=== PATIENT | female | born 1970 | race Asian ===

== ENCOUNTER 2020-04-19 07:51 | Outpatient (REF) | payer OTHER, SELFPAY ==
[2020-04-19 09:57] LABS: Estimated Average Glucose 166 mg/dL; Hemoglobin A1c % 7.4 %
== END 2020-04-19 07:52 | disposition home or self-care (01) ==
LOC: HO.LABR 07:51
PROVIDERS: PCP Internal Medicine; Visit Provider Internal Medicine
DX: E11.9 Type 2 diabetes mellitus without complications (principal)
CPT/HCPCS: 83036

== ENCOUNTER → 2020-04-23 14:36 | Outpatient (BNVA) | payer OTHER, SELFPAY | PROVIDERS: PCP Internal Medicine; Referring Provider Internal Medicine; Visit Provider Nurse Practitioner Gerontology | DX: E11.65 Type 2 diabetes mellitus with hyperglycemia (principal); Z79.4 Long term (current) use of insulin; I10 Essential (primary) hypertension; E78.5 Hyperlipidemia, unspecified | CPT/HCPCS: 82947 ==

== ENCOUNTER 2020-05-17 07:16 | Outpatient (REF) | payer OTHER, SELFPAY ==
[2020-05-17 08:27] LABS: Estimated Average Glucose 166 mg/dL; Hemoglobin A1c % 7.4 %
== END 2020-05-17 07:17 | disposition home or self-care (01) ==
LOC: HO.LAB 07:16
PROVIDERS: Visit Provider Internal Medicine
DX: E11.9 Type 2 diabetes mellitus without complications (principal)
CPT/HCPCS: 83036

== ENCOUNTER 2020-06-06 07:32 | Outpatient (REF) | payer OTHER, SELFPAY ==
[2020-06-06 09:25] LABS: Estimated Average Glucose 166 mg/dL; Hemoglobin A1c % 7.4 %
== END 2020-06-06 07:33 | disposition home or self-care (01) ==
LOC: HO.LABR 07:32
PROVIDERS: Visit Provider Internal Medicine
DX: E11.9 Type 2 diabetes mellitus without complications (principal)
CPT/HCPCS: 83036

== ENCOUNTER 2020-07-05 07:23 | Outpatient (REF) | payer OTHER, SELFPAY ==
[2020-07-05 09:04] LABS: Estimated Average Glucose 180 mg/dL; Hemoglobin A1c % 7.9 %
== END 2020-07-05 07:24 | disposition home or self-care (01) ==
LOC: HO.LABR 07:23
PROVIDERS: PCP Internal Medicine; Visit Provider Internal Medicine
DX: E11.9 Type 2 diabetes mellitus without complications (principal)
CPT/HCPCS: 36415; 83036

== ENCOUNTER 2020-08-09 07:42 | Outpatient (REF) | payer OTHER, SELFPAY ==
[2020-08-09 08:47] LABS: Estimated Average Glucose 163 mg/dL; Hemoglobin A1c % 7.3 %
== END 2020-08-09 07:43 | disposition home or self-care (01) ==
LOC: HO.LABR 07:42
PROVIDERS: PCP Internal Medicine; Visit Provider Internal Medicine
DX: E11.9 Type 2 diabetes mellitus without complications (principal)
CPT/HCPCS: 36415; 83036

== ENCOUNTER → 2020-08-20 11:01 | Outpatient (BNVA) | payer OTHER, SELFPAY | PROVIDERS: PCP Internal Medicine; Visit Provider Nurse Practitioner Gerontology ==

== ENCOUNTER 2020-08-30 07:00 | Outpatient (REF) | payer OTHER, SELFPAY ==
[2020-08-30 09:22] LABS: Estimated Average Glucose 154 mg/dL
== END 2020-08-30 07:01 | disposition home or self-care (01) ==
LOC: HO.LABR 07:00
PROVIDERS: Visit Provider Internal Medicine
DX: E11.9 Type 2 diabetes mellitus without complications (principal)
CPT/HCPCS: 36415; 83036

== ENCOUNTER 2020-09-27 07:22 | Outpatient (REF) | payer OTHER, SELFPAY ==
[2020-09-27 08:49] LABS: Estimated Average Glucose 148 mg/dL; Hemoglobin A1c % 6.8 %
== END 2020-09-27 07:23 | disposition home or self-care (01) ==
LOC: HO.LABR 07:22
PROVIDERS: PCP Internal Medicine; Visit Provider Internal Medicine
DX: E11.9 Type 2 diabetes mellitus without complications (principal)
CPT/HCPCS: 36415; 83036

== ENCOUNTER 2020-11-01 06:54 | Outpatient (REF) | payer OTHER, SELFPAY ==
[2020-11-01 09:49] LABS: Estimated Average Glucose 163 mg/dL; Hemoglobin A1c % 7.3 %
== END 2020-11-01 06:55 | disposition home or self-care (01) ==
LOC: HO.LABR 06:54
PROVIDERS: PCP Internal Medicine; Visit Provider Internal Medicine
DX: E11.9 Type 2 diabetes mellitus without complications (principal)
CPT/HCPCS: 36415; 83036

== ENCOUNTER 2020-12-27 07:29 | Outpatient (REF) | payer OTHER, SELFPAY ==
[2020-12-27 08:02] LABS: Estimated Average Glucose 169 mg/dL; Hemoglobin A1c % 7.5 %
== END 2020-12-27 07:30 | disposition home or self-care (01) ==
LOC: HO.LAB 07:29
PROVIDERS: PCP Internal Medicine; Visit Provider Internal Medicine
DX: E11.9 Type 2 diabetes mellitus without complications (principal)
CPT/HCPCS: 36415; 83036

== ENCOUNTER 2021-01-31 07:04 | Outpatient (REF) | payer OTHER, SELFPAY ==
[2021-01-31 07:50] LABS: Estimated Average Glucose 163 mg/dL; Hemoglobin A1c % 7.3 %
== END 2021-01-31 07:05 | disposition home or self-care (01) ==
LOC: HO.LABR 07:04
PROVIDERS: PCP Internal Medicine; Visit Provider Internal Medicine
DX: E11.9 Type 2 diabetes mellitus without complications (principal)
CPT/HCPCS: 36415; 83036

== ENCOUNTER → 2021-02-17 14:13 | Outpatient (BNVA) | payer OTHER, SELFPAY | PROVIDERS: PCP Internal Medicine; Visit Provider Nurse Practitioner Gerontology | DX: E11.65 Type 2 diabetes mellitus with hyperglycemia (principal); I10 Essential (primary) hypertension; E78.5 Hyperlipidemia, unspecified; Z68.30 Body mass index [BMI] 30.0-30.9, adult | CPT/HCPCS: 82947 ==

== ENCOUNTER 2021-03-07 07:05 | Outpatient (REF) | payer OTHER, SELFPAY ==
[2021-03-07 08:50] LABS: Estimated Average Glucose 169 mg/dL; Hemoglobin A1c % 7.5 %
== END 2021-03-07 07:06 | disposition home or self-care (01) ==
LOC: HO.LABR 07:05
PROVIDERS: PCP Internal Medicine; Visit Provider Internal Medicine
DX: E11.9 Type 2 diabetes mellitus without complications (principal)
CPT/HCPCS: 36415; 83036

== ENCOUNTER 2021-04-04 07:19 | Outpatient (REF) | payer OTHER, SELFPAY ==
[2021-04-04 08:36] LABS: Alanine Aminotransferase 31 U/L (0-31); Albumin Level 4.6 g/dL (3.5-5.0); Alkaline Phosphatase 72 U/L (39-117); Anion Gap 12 (12-20); Aspartate Amino Transferase 22 U/L (5-31); Bilirubin Total 0.7 mg/dL (0.0-1.0); Blood Urea Nitrogen 14 mg/dL (9-16); Calcium 9.5 mg/dL (8.4-10.2); Carbon Dioxide 27 mmol/L (22-29); Chloride 103 mmol/L (96-108); Cholesterol 156 mg/dL; Estimated Glomerular Filt Rate > 60; Glucose Fasting 142 mg/dL (60-99); HDL Cholesterol 48 mg/dL; LDL Cholesterol Calculated 87 mg/dl; Sodium 138 mmol/L (135-145); Total Protein 7.5 g/dL (6.5-8.0); Triglycerides 105 mg/dL
[2021-04-04 08:41] LABS: Estimated Average Glucose 166 mg/dL; Hemoglobin A1c % 7.4 %
[2021-04-04 08:42] LABS: Creatinine Urine 76.88 mg/dL; Microalbumin Urine < 5.0 mg/L
[2021-04-06 02:27] LABS: LDL Cholesterol Direct 92 mg/dL (<100)
== END 2021-04-04 07:20 | disposition home or self-care (01) ==
LOC: HO.LABR 07:19
PROVIDERS: Nurse Practitioner Gerontology; PCP Internal Medicine; Visit Provider Internal Medicine
DX: E11.9 Type 2 diabetes mellitus without complications (principal)
CPT/HCPCS: 36415; 80053; 80061; 82043; 83036; 83721

== ENCOUNTER 2021-05-09 07:32 | Outpatient (REF) | payer OTHER, SELFPAY ==
[2021-05-09 08:40] LABS: Estimated Average Glucose 163 mg/dL; Hemoglobin A1c % 7.3 %
== END 2021-05-09 07:33 | disposition home or self-care (01) ==
LOC: HO.LABR 07:32
PROVIDERS: PCP Internal Medicine; Visit Provider Internal Medicine
DX: E11.9 Type 2 diabetes mellitus without complications (principal)
CPT/HCPCS: 36415; 83036

== ENCOUNTER 2021-06-06 07:17 | Outpatient (REF) | payer OTHER, SELFPAY ==
[2021-06-06 08:16] LABS: Estimated Average Glucose 160 mg/dL; Hemoglobin A1c % 7.2 %
== END 2021-06-06 07:18 | disposition home or self-care (01) ==
LOC: HO.LABR 07:17
PROVIDERS: PCP Internal Medicine; Visit Provider Internal Medicine
DX: E11.9 Type 2 diabetes mellitus without complications (principal)
CPT/HCPCS: 36415; 83036

== ENCOUNTER → 2021-06-24 11:04 | Outpatient (BNVA) | payer OTHER, SELFPAY | PROVIDERS: PCP Internal Medicine; Visit Provider Nurse Practitioner Gerontology ==

== ENCOUNTER 2021-07-18 07:35 | Outpatient (REF) | payer OTHER, SELFPAY ==
[2021-07-18 08:26] LABS: Estimated Average Glucose 163 mg/dL; Hemoglobin A1c % 7.3 %
== END 2021-07-18 07:36 | disposition home or self-care (01) ==
LOC: HO.LABR 07:35
PROVIDERS: Visit Provider Internal Medicine
DX: E11.9 Type 2 diabetes mellitus without complications (principal)
CPT/HCPCS: 36415; 83036

== ENCOUNTER 2021-08-08 07:34 | Outpatient (REF) | payer OTHER, SELFPAY ==
[2021-08-08 08:27] LABS: Estimated Average Glucose 166 mg/dL; Hemoglobin A1c % 7.4 %
== END 2021-08-08 07:35 | disposition home or self-care (01) ==
LOC: HO.LABR 07:34
PROVIDERS: PCP Internal Medicine; Visit Provider Internal Medicine
DX: E11.9 Type 2 diabetes mellitus without complications (principal)
CPT/HCPCS: 36415; 83036

== ENCOUNTER 2021-09-17 09:44 | Outpatient (REF) | payer OTHER, SELFPAY ==
--- NOTE | ~2021-09-17 | XR_ITS ---
EXAMINATION: XR THORACOLUMBAR SPINE CLINICAL INFORMATION: Thoracic spine pain. COMPARISON: None TECHNIQUE: AP, lateral and swimmer's views of the thoracic spine are submitted. FINDINGS: Vertebral body heights and alignment are normal. The thoracic disc spaces are well-maintained. No acute fracture or spondylolisthesis is seen. There is multi-level mild lower cervical and upper and mid thoracic spondylosis. The posterior elements are intact. The paravertebral soft tissue planes are unremarkable. XR/XR thoracic spine 2V IMPRESSION: 1. No acute fracture or spondylolisthesis is seen. 2. The thoracic disc spaces are relatively well-maintained. 3. There is multi-level mild lower cervical and upper and mid thoracic spondylosis.
== END 2021-09-17 09:45 | disposition home or self-care (01) ==
LOC: HO.XRAY 09:44
PROVIDERS: PCP Internal Medicine; Visit Provider Physician Assistant
DX: M54.6 Pain in thoracic spine (principal)
CPT/HCPCS: 72070

== ENCOUNTER 2021-09-26 10:26 | Outpatient (REF) | payer OTHER, SELFPAY ==
[2021-09-26 07:53] LABS: Estimated Average Glucose 148 mg/dL; Hemoglobin A1c % 6.8 %
[2021-09-26 08:05] LABS: Alanine Aminotransferase 30 U/L (0-31); Albumin Level 4.5 g/dL (3.5-5.0); Alkaline Phosphatase 68 U/L (39-117); Anion Gap 12 (12-20); Aspartate Amino Transferase 25 U/L (5-31); Bilirubin Total 0.9 mg/dL (0.0-1.0); Blood Urea Nitrogen 12 mg/dL (9-16); Calcium 9.8 mg/dL (8.4-10.2); Carbon Dioxide 30 mmol/L (22-29); Chloride 101 mmol/L (96-108); Cholesterol 159 mg/dL; Estimated Glomerular Filt Rate > 60; Glucose Random 119 mg/dL (60-115); HDL Cholesterol 52 mg/dL; LDL Cholesterol Calculated 88 mg/dl; Potassium 3.9 mmol/L (3.3-5.1); Sodium 139 mmol/L (135-145); Total Protein 7.6 g/dL (6.5-8.0); Triglycerides 97 mg/dL
[2021-09-26 09:54] LABS: Creatinine Urine 96.65 mg/dL; Microalbum/Creatinine Ratio Ur 5.1 ug/mg cr
== END 2021-09-26 10:27 | disposition home or self-care (01) ==
LOC: HO.LABR 10:26
PROVIDERS: PCP Internal Medicine; Visit Provider Internal Medicine
DX: E11.9 Type 2 diabetes mellitus without complications (principal)
CPT/HCPCS: 36415; 80053; 80061; 82043; 83036

== ENCOUNTER → 2021-09-28 14:47 | Outpatient (BNVA) | payer OTHER, SELFPAY | PROVIDERS: PCP Internal Medicine; Visit Provider Nurse Practitioner Gerontology | DX: E11.9 Type 2 diabetes mellitus without complications (principal); I10 Essential (primary) hypertension; E78.5 Hyperlipidemia, unspecified; Z79.4 Long term (current) use of insulin | CPT/HCPCS: 82947 ==

== ENCOUNTER 2021-11-28 07:07 | Outpatient (REF) | payer OTHER, SELFPAY ==
[2021-11-28 08:06] LABS: Estimated Average Glucose 163 mg/dL; Hemoglobin A1c % 7.3 %
[2021-11-28 08:34] LABS: Creatinine Urine 94.02 mg/dL; Microalbum/Creatinine Ratio Ur 23.3 ug/mg cr
[2021-11-28 08:38] LABS: Alanine Aminotransferase 39 U/L (0-31); Albumin Level 4.5 g/dL (3.5-5.0); Alkaline Phosphatase 68 U/L (39-117); Anion Gap 14 (12-20); Aspartate Amino Transferase 28 U/L (5-31); Bilirubin Total 0.9 mg/dL (0.0-1.0); Blood Urea Nitrogen 14 mg/dL (9-16); Carbon Dioxide 26 mmol/L (22-29); Chloride 102 mmol/L (96-108); Cholesterol 166 mg/dL; Estimated Glomerular Filt Rate > 60; Glucose Random 122 mg/dL (60-115); HDL Cholesterol 56 mg/dL; LDL Cholesterol Calculated 94 mg/dl; Potassium 4.2 mmol/L (3.3-5.1); Sodium 138 mmol/L (135-145); Total Protein 7.6 g/dL (6.5-8.0); Triglycerides 82 mg/dL
== END 2021-11-28 07:08 | disposition home or self-care (01) ==
LOC: HO.LAB 07:07
PROVIDERS: PCP Internal Medicine; Visit Provider Internal Medicine
DX: E11.9 Type 2 diabetes mellitus without complications (principal)
CPT/HCPCS: 36415; 80053; 80061; 82043; 83036

== ENCOUNTER 2021-12-11 15:12 | Outpatient (REF) | payer OTHER, SELFPAY ==
--- NOTE | ~2021-12-11 | MM_ITS ---
EXAMINATION: MM SCREENING DIGITAL BREAST TOMOSYNTHESIS, BILATERAL CLINICAL INFORMATION: Screening. Asymptomatic. The lifetime risk of breast cancer based on the Tyrer-Cuzick Model is 8%. COMPARISON: Mammography: 02/14/2019, 01/03/2018, 12/23/2016 TECHNIQUE: Digital breast tomosynthesis is performed in both the craniocaudal and mediolateral oblique views along with computer-aided detection (CAD). Synthesized 2D images are generated from the tomosynthesis. FINDINGS: There are scattered areas of fibroglandular density (ACR BI-RADS breast composition Category b). There are no significant masses, abnormal calcifications, or other abnormalities. Parenchymal pattern is similar to prior studies. No developing density or architectural abnormality. No significant changes. MM/MM tomosynthesis screening BI IMPRESSION: No mammographic evidence of malignancy. ASSESSMENT: BI-RADS 1: Negative RECOMMENDATION: Routine annual mammography screening. This patient's information was entered into a reminder system with a target due date for their next mammogram.
== END 2021-12-11 15:13 | disposition home or self-care (01) ==
LOC: HO.MAMMO 15:12
PROVIDERS: Visit Provider Internal Medicine
DX: Z12.31 Encounter for screening mammogram for malignant neoplasm of breast (principal)
CPT/HCPCS: 77063; 77067

== ENCOUNTER 2022-01-09 07:08 | Outpatient (REF) | payer OTHER, SELFPAY ==
[2022-01-09 08:57] LABS: Alanine Aminotransferase 39 U/L (0-31); Albumin Level 4.6 g/dL (3.5-5.0); Alkaline Phosphatase 72 U/L (39-117); Anion Gap 14 (12-20); Aspartate Amino Transferase 30 U/L (5-31); Bilirubin Total 0.8 mg/dL (0.0-1.0); Blood Urea Nitrogen 13 mg/dL (9-16); Calcium 9.5 mg/dL (8.4-10.2); Carbon Dioxide 26 mmol/L (22-29); Chloride 103 mmol/L (96-108); Cholesterol 160 mg/dL; Estimated Glomerular Filt Rate > 60; Glucose Random 132 mg/dL (60-115); HDL Cholesterol 54 mg/dL; LDL Cholesterol Calculated 88 mg/dl; Potassium 4.2 mmol/L (3.3-5.1); Sodium 139 mmol/L (135-145); Total Protein 7.5 g/dL (6.5-8.0); Triglycerides 93 mg/dL
[2022-01-09 08:59] LABS: Estimated Average Glucose 163 mg/dL; Hemoglobin A1c % 7.3 %
[2022-01-09 09:17] LABS: Creatinine Urine 87.91 mg/dL; Microalbum/Creatinine Ratio Ur 6.8 ug/mg cr
== END 2022-01-09 07:09 | disposition home or self-care (01) ==
LOC: HO.LABR 07:08
PROVIDERS: PCP Internal Medicine; Visit Provider Internal Medicine
DX: E11.9 Type 2 diabetes mellitus without complications (principal)
CPT/HCPCS: 36415; 80053; 80061; 82043; 83036

== ENCOUNTER 2022-02-27 07:04 | Outpatient (REF) | payer OTHER, SELFPAY ==
[2022-02-27 08:02] LABS: Estimated Average Glucose 160 mg/dL; Hemoglobin A1c % 7.2 %
[2022-02-27 08:45] LABS: Alanine Aminotransferase 34 U/L (0-31); Albumin Level 4.5 g/dL (3.5-5.0); Alkaline Phosphatase 71 U/L (39-117); Anion Gap 17 (12-20); Aspartate Amino Transferase 26 U/L (5-31); Bilirubin Total 0.8 mg/dL (0.0-1.0); Blood Urea Nitrogen 12 mg/dL (9-16); Calcium 9.4 mg/dL (8.4-10.2); Carbon Dioxide 25 mmol/L (22-29); Chloride 103 mmol/L (96-108); Cholesterol 159 mg/dL; Estimated Glomerular Filt Rate > 60; Glucose Fasting 124 mg/dL (60-99); HDL Cholesterol 56 mg/dL; LDL Cholesterol Calculated 81 mg/dl; Potassium 3.7 mmol/L (3.3-5.1); Sodium 141 mmol/L (135-145); Total Protein 7.6 g/dL (6.5-8.0); Triglycerides 113 mg/dL
[2022-02-27 11:10] LABS: Creatinine Urine 107.94 mg/dL; Microalbumin Urine < 5.0 mg/L
== END 2022-02-27 07:05 | disposition home or self-care (01) ==
LOC: HO.LABR 07:04
PROVIDERS: PCP Internal Medicine; Visit Provider Internal Medicine
DX: E11.9 Type 2 diabetes mellitus without complications (principal)
CPT/HCPCS: 36415; 80053; 80061; 82043; 83036

== ENCOUNTER 2022-04-17 07:12 | Outpatient (REF) | payer OTHER, SELFPAY ==
[2022-04-17 08:40] LABS: Estimated Average Glucose 166 mg/dL; Hemoglobin A1c % 7.4 %
[2022-04-17 08:57] LABS: Alanine Aminotransferase 32 U/L (0-31); Albumin Level 4.6 g/dL (3.5-5.0); Alkaline Phosphatase 71 U/L (39-117); Anion Gap 16 (12-20); Aspartate Amino Transferase 23 U/L (5-31); Bilirubin Total 0.8 mg/dL (0.0-1.0); Blood Urea Nitrogen 15 mg/dL (9-16); Calcium 9.4 mg/dL (8.4-10.2); Carbon Dioxide 27 mmol/L (22-29); Chloride 100 mmol/L (96-108); Cholesterol 157 mg/dL; Estimated Glomerular Filt Rate > 60; Glucose Fasting 127 mg/dL (60-99); HDL Cholesterol 58 mg/dL; LDL Cholesterol Calculated 83 mg/dl; Potassium 3.9 mmol/L (3.3-5.1); Sodium 139 mmol/L (135-145); Total Protein 7.6 g/dL (6.5-8.0); Triglycerides 84 mg/dL
== END 2022-04-17 07:13 | disposition home or self-care (01) ==
LOC: HO.LABR 07:12
PROVIDERS: PCP Internal Medicine; Visit Provider Internal Medicine
DX: E11.9 Type 2 diabetes mellitus without complications (principal)
CPT/HCPCS: 36415; 80053; 80061; 83036

== ENCOUNTER 2022-05-29 07:24 | Outpatient (REF) | payer OTHER, SELFPAY ==
[2022-05-29 08:52] LABS: Estimated Average Glucose 151 mg/dL; Hemoglobin A1c % 6.9 %
[2022-05-29 09:04] LABS: Alanine Aminotransferase 33 U/L (0-31); Albumin Level 4.4 g/dL (3.5-5.0); Alkaline Phosphatase 77 U/L (39-117); Anion Gap 13 (12-20); Aspartate Amino Transferase 25 U/L (5-31); Bilirubin Total 0.9 mg/dL (0.0-1.0); Blood Urea Nitrogen 11 mg/dL (9-16); Calcium 9.3 mg/dL (8.4-10.2); Carbon Dioxide 26 mmol/L (22-29); Chloride 100 mmol/L (96-108); Cholesterol 154 mg/dL; Estimated Glomerular Filt Rate > 60; Glucose Random 116 mg/dL (60-115); HDL Cholesterol 52 mg/dL; LDL Cholesterol Calculated 86 mg/dl; Potassium 3.9 mmol/L (3.3-5.1); Sodium 135 mmol/L (135-145); Total Protein 7.3 g/dL (6.5-8.0); Triglycerides 81 mg/dL
[2022-05-29 10:04] LABS: Creatinine Urine 85.54 mg/dL; Microalbumin Urine < 5.0 mg/L
== END 2022-05-29 07:25 | disposition home or self-care (01) ==
LOC: HO.LABR 07:24
PROVIDERS: PCP Internal Medicine; Visit Provider Internal Medicine
DX: E11.9 Type 2 diabetes mellitus without complications (principal)
CPT/HCPCS: 36415; 80053; 80061; 82043; 83036

== ENCOUNTER 2022-06-02 14:00 | Outpatient (RCR) | payer OTHER, SELFPAY | END 2022-07-05 16:04 | disposition home or self-care (01) | LOC: HO.PTCHIC 14:00 | PROVIDERS: PCP Internal Medicine; Visit Provider Internal Medicine | DX: M51.36 Other intervertebral disc degeneration, lumbar region (principal) | CPT/HCPCS: 97110; 97140; 97161 ==

== ENCOUNTER 2022-07-17 07:18 | Outpatient (REF) | payer OTHER, SELFPAY ==
[2022-07-17 07:56] LABS: Estimated Average Glucose 160 mg/dL; Hemoglobin A1c % 7.2 %
[2022-07-17 08:56] LABS: Alanine Aminotransferase 36 U/L (0-31); Albumin Level 4.6 g/dL (3.5-5.0); Alkaline Phosphatase 71 U/L (39-117); Anion Gap 16 (12-20); Aspartate Amino Transferase 27 U/L (5-31); Blood Urea Nitrogen 12 mg/dL (9-16); Calcium 9.6 mg/dL (8.4-10.2); Carbon Dioxide 28 mmol/L (22-29); Chloride 98 mmol/L (96-108); Cholesterol 149 mg/dL; Estimated Glomerular Filt Rate > 60; Glucose Random 86 mg/dL (60-115); HDL Cholesterol 50 mg/dL; LDL Cholesterol Calculated 84 mg/dl; Potassium 3.6 mmol/L (3.3-5.1); Sodium 138 mmol/L (135-145); Total Protein 7.5 g/dL (6.5-8.0); Triglycerides 75 mg/dL
[2022-07-17 09:22] LABS: Appearance Urine Clear; Color Urine Yellow; Glucose Urine UA >=1000 mg/dL (Negative); Leukocyte Esterase Urine Negative (Negative); Nitrite Urine Negative (Negative); Specific Gravity - Urine 1.015 (1.005-1.025); UMIC TRIGGER UA YES; Urine Blood Negative (Negative); Urine Ketones Negative (Negative); Urine Protein Negative (Neg-Trace)
[2022-07-17 09:27] LABS: Bacteria Urine None Seen (None Seen); Hyaline Casts Urine 0-2 /LPF (0-2); Squamous Epithelial Cell Urine 0-2 /HPF (0-2); WBC Urine 0-5 /HPF (0-5)
== END 2022-07-17 07:19 | disposition home or self-care (01) ==
LOC: HO.LABR 07:18
PROVIDERS: PCP Internal Medicine; Visit Provider Internal Medicine
DX: E11.9 Type 2 diabetes mellitus without complications (principal)
CPT/HCPCS: 36415; 80053; 80061; 81001; 83036

== ENCOUNTER 2022-09-11 07:13 | Outpatient (REF) | payer OTHER, SELFPAY ==
[2022-09-11 08:59] LABS: Creatinine Urine 93.45 mg/dL; Microalbum/Creatinine Ratio Ur 7.4 ug/mg cr
[2022-09-11 09:12] LABS: Estimated Average Glucose 154 mg/dL
[2022-09-11 09:54] LABS: Alanine Aminotransferase 42 U/L (0-31); Albumin Level 4.5 g/dL (3.5-5.0); Alkaline Phosphatase 74 U/L (39-117); Anion Gap 18 (12-20); Aspartate Amino Transferase 33 U/L (5-31); Blood Urea Nitrogen 10 mg/dL (9-16); Calcium 9.4 mg/dL (8.4-10.2); Carbon Dioxide 22 mmol/L (22-29); Chloride 102 mmol/L (96-108); Cholesterol 182 mg/dL; Estimated Glomerular Filt Rate > 60; Glucose Random 114 mg/dL (60-115); HDL Cholesterol 56 mg/dL; LDL Cholesterol Calculated 103 mg/dl; Potassium 4.5 mmol/L (3.3-5.1); Sodium 137 mmol/L (135-145); Total Protein 7.6 g/dL (6.5-8.0); Triglycerides 115 mg/dL
== END 2022-09-11 07:14 | disposition home or self-care (01) ==
LOC: HO.LABR 07:13
PROVIDERS: PCP Internal Medicine; Visit Provider Internal Medicine
DX: E11.9 Type 2 diabetes mellitus without complications (principal)
CPT/HCPCS: 36415; 80053; 80061; 82043; 83036

== ENCOUNTER 2022-10-16 07:05 | Outpatient (REF) | payer OTHER, SELFPAY ==
[2022-10-16 07:49] LABS: Estimated Average Glucose 157 mg/dL; Hemoglobin A1c % 7.1 %
== END 2022-10-16 07:06 | disposition home or self-care (01) ==
LOC: HO.LABR 07:05
PROVIDERS: PCP Internal Medicine; Visit Provider Internal Medicine
DX: E11.9 Type 2 diabetes mellitus without complications (principal)
CPT/HCPCS: 36415; 83036

== ENCOUNTER 2022-12-24 11:50 | Outpatient (REF) | payer OTHER, SELFPAY ==
--- NOTE | ~2022-12-24 | MM_ITS ---
EXAMINATION: MM SCREENING DIGITAL BREAST TOMOSYNTHESIS, BILATERAL CLINICAL INFORMATION: Screening. Asymptomatic. The lifetime risk of breast cancer based on the Tyrer-Cuzick Model is 7.8%. COMPARISON: Mammography: This study is compared to prior mammograms dating back to 2018. TECHNIQUE: Digital breast tomosynthesis is performed in both the craniocaudal and mediolateral oblique views along with computer-aided detection (CAD). Synthesized 2D images are generated from the tomosynthesis. FINDINGS: The breasts are almost entirely fatty (ACR BI-RADS breast composition Category a). There are no significant masses, abnormal calcifications, or other abnormalities. MM/MM tomosynthesis screening BI IMPRESSION: No mammographic evidence of malignancy. ASSESSMENT: BI-RADS BI-RADS 1 - Negative RECOMMENDATION: Routine annual mammography screening. 1 year F/U This patient's information was entered into a reminder system with a target due date for their next mammogram.
== END 2022-12-24 11:51 | disposition home or self-care (01) ==
LOC: HO.MAMMO 11:50
PROVIDERS: PCP Internal Medicine; Visit Provider Internal Medicine
DX: Z12.31 Encounter for screening mammogram for malignant neoplasm of breast (principal)
CPT/HCPCS: 77063; 77067

== ENCOUNTER → 2022-12-24 12:15 | Outpatient (BNV) | payer OTHER, SELFPAY | PROVIDERS: PCP Internal Medicine; Visit Provider Radiology Diagnostic Radiology | DX: Z12.31 Encounter for screening mammogram for malignant neoplasm of breast (principal) | CPT/HCPCS: 77063; 77067 ==

== ENCOUNTER 2023-01-15 07:04 | Outpatient (REF) | payer OTHER, SELFPAY ==
[2023-01-15 08:02] LABS: Estimated Average Glucose 151 mg/dL; Hemoglobin A1c % 6.9 %
== END 2023-01-15 07:05 | disposition home or self-care (01) ==
LOC: HO.LABR 07:04
PROVIDERS: PCP Internal Medicine; Visit Provider Internal Medicine
DX: E11.9 Type 2 diabetes mellitus without complications (principal)
CPT/HCPCS: 36415; 83036

== ENCOUNTER 2023-02-26 07:13 | Outpatient (REF) | payer OTHER, SELFPAY ==
[2023-02-26 08:05] LABS: Estimated Average Glucose 151 mg/dL; Hemoglobin A1c % 6.9 % (<6.0)
== END 2023-02-26 07:14 | disposition home or self-care (01) ==
LOC: HO.LABR 07:13
PROVIDERS: PCP Internal Medicine; Visit Provider Internal Medicine
DX: E11.9 Type 2 diabetes mellitus without complications (principal)
CPT/HCPCS: 36415; 83036

== ENCOUNTER 2023-05-07 07:17 | Outpatient (REF) | payer OTHER, SELFPAY ==
[2023-05-07 08:00] LABS: Estimated Average Glucose 169 mg/dL; Hemoglobin A1c % 7.5 % (<6.0)
[2023-05-07 09:48] LABS: Alanine Aminotransferase 33 U/L (0-31); Albumin Level 4.4 g/dL (3.5-5.0); Alkaline Phosphatase 65 U/L (39-117); Anion Gap 15 (12-20); Aspartate Amino Transferase 27 U/L (5-31); Bilirubin Total 0.6 mg/dL (0.0-1.0); Blood Urea Nitrogen 10 mg/dL (9-16); Calcium 9.2 mg/dL (8.4-10.2); Carbon Dioxide 28 mmol/L (22-29); Chloride 100 mmol/L (96-108); Cholesterol 157 mg/dL (<200); Estimated Glomerular Filt Rate > 60; Glucose Random 134 mg/dL (60-115); HDL Cholesterol 54 mg/dL (>40); LDL Cholesterol Calculated 91 mg/dL (<100); Potassium 3.4 mmol/L (3.3-5.1); Sodium 140 mmol/L (135-145); Total Protein 7.5 g/dL (6.5-8.0); Triglycerides 63 mg/dL (<150)
== END 2023-05-07 07:18 | disposition home or self-care (01) ==
LOC: HO.LAB 07:17
PROVIDERS: PCP Internal Medicine; Visit Provider Internal Medicine
DX: E11.9 Type 2 diabetes mellitus without complications (principal)
CPT/HCPCS: 36415; 80053; 80061; 83036

== ENCOUNTER 2023-06-04 07:10 | Outpatient (REF) | payer OTHER, SELFPAY ==
[2023-06-04 08:07] LABS: Estimated Average Glucose 180 mg/dL; Hemoglobin A1c % 7.9 % (<6.0)
== END 2023-06-04 07:11 | disposition home or self-care (01) ==
LOC: HO.LABR 07:10
PROVIDERS: PCP Internal Medicine; Visit Provider Internal Medicine
DX: E11.9 Type 2 diabetes mellitus without complications (principal)
CPT/HCPCS: 36415; 83036

== ENCOUNTER 2023-07-30 07:23 | Outpatient (REF) | payer OTHER, SELFPAY ==
[2023-07-30 08:09] LABS: Estimated Average Glucose 166 mg/dL; Hemoglobin A1c % 7.4 % (<6.0)
[2023-07-30 08:23] LABS: Creatinine Urine 91.84 mg/dL; Microalbum/Creatinine Ratio Ur 5.4 ug/mg cr (<30)
[2023-07-30 09:28] LABS: Alanine Aminotransferase 34 U/L (0-31); Albumin Level 4.3 g/dL (3.5-5.0); Alkaline Phosphatase 62 U/L (39-117); Anion Gap 13 (12-20); Aspartate Amino Transferase 24 U/L (5-31); Bilirubin Total 0.8 mg/dL (0.0-1.0); Blood Urea Nitrogen 12 mg/dL (9-16); Calcium 9.2 mg/dL (8.4-10.2); Carbon Dioxide 25 mmol/L (22-29); Chloride 104 mmol/L (96-108); Cholesterol 162 mg/dL (<200); Estimated Glomerular Filt Rate > 60; Glucose Random 104 mg/dL (60-115); HDL Cholesterol 66 mg/dL (>40); LDL Cholesterol Calculated 83 mg/dL (<100); Potassium 3.7 mmol/L (3.3-5.1); Sodium 138 mmol/L (135-145); Total Protein 7.4 g/dL (6.5-8.0); Triglycerides 69 mg/dL (<150)
== END 2023-07-30 07:24 | disposition home or self-care (01) ==
LOC: HO.LABR 07:23
PROVIDERS: PCP Internal Medicine; Visit Provider Internal Medicine
DX: E11.9 Type 2 diabetes mellitus without complications (principal)
CPT/HCPCS: 36415; 80053; 80061; 82043; 82570; 83036

== ENCOUNTER 2023-09-24 07:04 | Outpatient (REF) | payer OTHER, SELFPAY ==
[2023-09-24 07:59] LABS: Alanine Aminotransferase 34 U/L (0-31); Albumin Level 4.5 g/dL (3.5-5.0); Alkaline Phosphatase 71 U/L (39-117); Anion Gap 13 (12-20); Aspartate Amino Transferase 24 U/L (5-31); Bilirubin Total 0.7 mg/dL (0.0-1.0); Blood Urea Nitrogen 13 mg/dL (9-16); Calcium 9.7 mg/dL (8.4-10.2); Carbon Dioxide 28 mmol/L (22-29); Chloride 100 mmol/L (96-108); Cholesterol 162 mg/dL (<200); Estimated Glomerular Filt Rate > 60; Glucose Random 108 mg/dL (60-115); HDL Cholesterol 67 mg/dL (>40); LDL Cholesterol Calculated 84 mg/dL (<100); Potassium 3.5 mmol/L (3.3-5.1); Sodium 137 mmol/L (135-145); Total Protein 7.6 g/dL (6.5-8.0); Triglycerides 57 mg/dL (<150)
[2023-09-24 08:21] LABS: Estimated Average Glucose 174 mg/dL; Hemoglobin A1c % 7.7 % (<6.0)
[2023-09-24 10:21] LABS: Creatinine Urine 57.42 mg/dL; Microalbum/Creatinine Ratio Ur 57.4 ug/mg cr (<30)
== END 2023-09-24 07:05 | disposition home or self-care (01) ==
LOC: HO.LABR 07:04
PROVIDERS: PCP Internal Medicine; Visit Provider Internal Medicine
DX: E11.9 Type 2 diabetes mellitus without complications (principal)
CPT/HCPCS: 36415; 80053; 80061; 82043; 82570; 83036

== ENCOUNTER 2023-10-07 07:43 | Outpatient (REF) | payer OTHER, SELFPAY ==
--- NOTE | ~2023-10-07 | US_ITS ---
EXAMINATION: US ABDOMEN COMPLETE CLINICAL INFORMATION: Epigastric pain. COMPARISON: CT abdomen and pelvis 06/24/2016. TECHNIQUE: Real-time imaging of the abdominal viscera. FINDINGS: PANCREAS: Normal. ABDOMINAL AORTA: There are atherosclerotic calcifications. The proximal, mid and distal segments are nonaneurysmal. INFERIOR VENA CAVA: Visualized portions are normal. LIVER: The liver is normal in size. The liver contour is normal. There is diffuse increased liver parenchymal echogenicity. No focal hepatic lesion. There is no intrahepatic biliary duct dilatation seen. GALLBLADDER: Normal. The gallbladder is physiologically distended without evidence of stones, sludge, polyps, wall thickening or pericholecystic fluid. COMMON BILE DUCT: Normal in caliber measuring 0.5 cm in diameter. RIGHT KIDNEY: There is pelviectasis, without corine hydronephrosis. No renal calculi or focal parenchymal lesions. The kidney measures 11.4 cm in maximum dimension. LEFT KIDNEY: Normal. No hydronephrosis. No renal calculi or focal parenchymal lesions. The kidney measures 12.5 cm in maximum dimension. SPLEEN: Normal. The spleen measures 9.9 cm in maximum dimension. FREE FLUID: None. US/US abdomen complete IMPRESSION: 1. There is generalized increase in hepatic echotexture, consistent with fatty infiltration or hepatocellular disease. Please correlate clinically. No focal hepatic mass or intrahepatic biliary dilatation is seen. 2. Otherwise, unremarkable examination.
== END 2023-10-07 07:44 | disposition home or self-care (01) ==
LOC: HO.US 07:43
PROVIDERS: PCP Internal Medicine; Visit Provider Internal Medicine
DX: R10.13 Epigastric pain (principal)
CPT/HCPCS: 76700

== ENCOUNTER 2023-11-12 07:24 | Outpatient (REF) | payer OTHER, SELFPAY ==
[2023-11-12 08:03] LABS: Estimated Average Glucose 171 mg/dL; Hemoglobin A1c % 7.6 % (<6.0)
[2023-11-12 08:53] LABS: Alanine Aminotransferase 31 U/L (0-31); Albumin Level 4.5 g/dL (3.5-5.0); Alkaline Phosphatase 59 U/L (39-117); Anion Gap 15 (12-20); Aspartate Amino Transferase 26 U/L (5-31); Bilirubin Total 0.7 mg/dL (0.0-1.0); Blood Urea Nitrogen 12 mg/dL (9-16); Calcium 9.3 mg/dL (8.4-10.2); Carbon Dioxide 27 mmol/L (22-29); Chloride 100 mmol/L (96-108); Cholesterol 161 mg/dL (<200); Estimated Glomerular Filt Rate > 60; Glucose Random 121 mg/dL (60-115); HDL Cholesterol 59 mg/dL (>40); LDL Cholesterol Calculated 84 mg/dL (<100); Potassium 3.5 mmol/L (3.3-5.1); Sodium 138 mmol/L (135-145); Total Protein 7.5 g/dL (6.5-8.0); Triglycerides 92 mg/dL (<150)
[2023-11-12 10:23] LABS: Creatinine Urine 107.15 mg/dL; Microalbumin Urine < 5.0 mg/L
== END 2023-11-12 07:25 | disposition home or self-care (01) ==
LOC: HO.LABR 07:24
PROVIDERS: PCP Internal Medicine; Visit Provider Internal Medicine
DX: E11.9 Type 2 diabetes mellitus without complications (principal)
CPT/HCPCS: 36415; 80053; 80061; 82043; 82570; 83036

== ENCOUNTER 2023-12-27 11:29 | Outpatient (REF) | payer OTHER, SELFPAY | END 2023-12-27 11:30 | disposition home or self-care (01) | LOC: HO.MAMMO 11:29 | PROVIDERS: PCP Internal Medicine; Visit Provider Internal Medicine | DX: Z12.31 Encounter for screening mammogram for malignant neoplasm of breast (principal) | CPT/HCPCS: 77063; 77067 ==

== ENCOUNTER → 2023-12-27 12:00 | Outpatient (BNV) | payer OTHER, SELFPAY | PROVIDERS: PCP Internal Medicine; Visit Provider Radiology Diagnostic Radiology | DX: Z12.31 Encounter for screening mammogram for malignant neoplasm of breast (principal) | CPT/HCPCS: 77063; 77067 ==

== ENCOUNTER 2024-01-07 07:08 | Outpatient (REF) | payer OTHER, SELFPAY ==
[2024-01-07 09:33] LABS: Estimated Average Glucose 180 mg/dL; Hemoglobin A1c % 7.9 % (<6.0)
[2024-01-07 10:10] LABS: Creatinine Urine 74.89 mg/dL; Microalbum/Creatinine Ratio Ur 13.3 ug/mg cr (<30)
[2024-01-07 10:27] LABS: Alanine Aminotransferase 59 U/L (0-31); Albumin Level 4.4 g/dL (3.5-5.0); Alkaline Phosphatase 60 U/L (39-117); Anion Gap 15 (12-20); Aspartate Amino Transferase 42 U/L (5-31); Blood Urea Nitrogen 10 mg/dL (9-16); Calcium 9.2 mg/dL (8.4-10.2); Carbon Dioxide 23 mmol/L (22-29); Chloride 102 mmol/L (96-108); Cholesterol 170 mg/dL (<200); Estimated Glomerular Filt Rate > 60; Glucose Random 104 mg/dL (60-115); HDL Cholesterol 56 mg/dL (>40); LDL Cholesterol Calculated 90 mg/dL (<100); Potassium 3.1 mmol/L (3.3-5.1); Sodium 137 mmol/L (135-145); Total Protein 7.4 g/dL (6.5-8.0); Triglycerides 123 mg/dL (<150)
== END 2024-01-07 07:09 | disposition home or self-care (01) ==
LOC: HO.LABR 07:08
PROVIDERS: PCP Internal Medicine; Visit Provider Internal Medicine
DX: E11.9 Type 2 diabetes mellitus without complications (principal)
CPT/HCPCS: 36415; 80053; 80061; 82043; 82570; 83036

== ENCOUNTER → 2024-03-06 07:48 | Outpatient (REF) | payer OTHER, SELFPAY ==
--- NOTE | ~2024-03-06 | NM_ITS ---
EXAMINATION: SC RADIONUCLIDE SOLID FOOD GASTRIC EMPTYING 4-HOUR STUDY CLINICAL INFORMATION: History of type 2 diabetes. Gastroparesis. COMPARISON: None TECHNIQUE: A standard meal consisting of 4 oz of Egg Beaters brand tagged with 1000 microcuries Tc-99m Sulfur Colloid, 8 oz water and 1 slice of toast with jelly was administered orally to the patient. Images were obtained using a dual head gamma camera in the anterior and posterior projections over of the stomach immediately post ingestion and at hourly intervals up to 4 hours post ingestion. The anterior and posterior counts at each time interval were averaged using the geometric mean and expressed as percentage of the immediate post ingestion counts. FINDINGS: There is good visualization of activity in the stomach immediately post ingestion. As the study progresses, there is good clearance of activity from the stomach and visualization of progressively increasing small bowel activity. By the end of the study, however, there is significantly dense and noted in the stomach. Retention in the stomach at each time interval was: 1 hour 92% (normal 37%-90%) 2 hours 75% (normal 30%-60%) 3 hours 62% 4 hours 44% (normal 0%-10%) SC/SC gastric emptying study IMPRESSION: Abnormally delayed (grade 3) 4-hour solid food gastric emptying study. For solid meal, rapid gastric emptying is less than 30% at 60 minutes. Delayed gastric emptying criteria is more than 60% remaining at 120 minutes or more than 10% at 240 minutes. The 4-hour value is the best discriminator of a normal or abnormal result). Gastric emptying study grading per JNMT Consensus Recommendations in 2008 (https://tech.snmjournals.org/content/36/1/44) Grade 1 (mild retention): 11-20% at 4h Grade 2 (moderate retention): 21-35% at 4h Grade 3 (severe retention): 36-50% at 4h Grade 4 (very severe retention): >50% retention at 4h Electronically signed by: Joanna Hi MD 03/07/2024 02:09 PM EDT
== END ==
LOC: HO.NUCMED 07:48
PROVIDERS: PCP Internal Medicine; Visit Provider Internal Medicine
DX: E11.43 Type 2 diabetes mellitus with diabetic autonomic (poly)neuropathy (principal)
CPT/HCPCS: 78264; A9541

== ENCOUNTER 2024-04-14 07:15 | Outpatient (REF) | payer OTHER, SELFPAY ==
[2024-04-14 08:08] LABS: Estimated Average Glucose 186 mg/dL; Hemoglobin A1C 256.8116 umol/L; Hemoglobin A1c % 8.1 % (<6.0); Total Hemoglobin (HGBA1C) 3935.3883 umol/L
[2024-04-14 08:40] LABS: Alanine Aminotransferase 51 U/L (0-31); Albumin Level 4.6 g/dL (3.5-5.0); Alkaline Phosphatase 73 U/L (39-117); Anion Gap 15 (12-20); Aspartate Amino Transferase 32 U/L (5-31); Bilirubin Total 0.9 mg/dL (0.0-1.0); Blood Urea Nitrogen 12 mg/dL (9-16); Calcium 9.5 mg/dL (8.4-10.2); Carbon Dioxide 27 mmol/L (22-29); Chloride 99 mmol/L (96-108); Cholesterol 170 mg/dL (<200); Estimated Glomerular Filt Rate > 60; Glucose Random 135 mg/dL (60-115); HDL Cholesterol 54 mg/dL (>40); LDL Cholesterol Calculated 96 mg/dL (<100); Potassium 3.7 mmol/L (3.3-5.1); Sodium 137 mmol/L (135-145); Total Protein 7.7 g/dL (6.5-8.0); Triglycerides 103 mg/dL (<150)
[2024-04-14 09:27] LABS: Creatinine Urine 87.56 mg/dL; Microalbum/Creatinine Ratio Ur 9.1 ug/mg cr (<30)
== END 2024-04-14 07:16 | disposition home or self-care (01) ==
LOC: HO.LABR 07:15
PROVIDERS: PCP Internal Medicine; Visit Provider Internal Medicine
DX: E11.9 Type 2 diabetes mellitus without complications (principal)
CPT/HCPCS: 36415; 80053; 80061; 82043; 82570; 83036

== ENCOUNTER 2024-06-09 07:26 | Outpatient (REF) | payer OTHER, SELFPAY ==
--- OUTSIDE RECORDS SUMMARY | 2024-06-09 07:28 | XMS_ITS | Continuity of Care Document ---
Author Organization [facility], [facility] ADDRESS Address [address] [place] [address] Assessment Encounter Date Assessment Date Assessment LastModified by Organization Details LastModified Time 05/15/2024 05/15/2024 [id number] [place] [address] (SUPER[employer]) MDM MODERATE MUST MEET 2 OUT OF 3 ELEMENTS: PROBLEMS, DATA OR RISK ELEMENT 1: PROBLEMS ADDRESSED 1 OR MORE CHRONIC ILLNESS WITH EXACERBATION OR 2 OR MORE STABLE CHRONIC ILLNESSES OR 1 UNDIAGNOSED NEW PROBLEM OR 1 ACUTE ILLNESS W/SYMPTOMS OR 1 ACUTE COMPLICATED INJURY ELEMENT 2: DATA MUST MEET 1 OF 3 CATEGORIES CATEGORY 1: REVIEW OF PRIOR EXTERNAL NOTES, REVIEW OF RESULTS, ORDERING OF EACH TEST, ASSESSMENT REQUIRING INDEPENDENT HISTORIAN OR CATEGORY 2: INDEPENDENT INTERPRETATION OF TESTS BY ANOTHER PHYSICIAN OR SPECIALIST OR CATEGORY 3: DISCUSSION OF MGT OR TEST INTERPRETATION W/EXTERNAL PHYSICIAN OR SPECIALIST ELEMENT 3: RISK RISK OF COMPLICATIONS AND/OR MORBIDITY OR MORTALITY OF PATIENT MANAGEMENT PROVIDER MUST THOROUGHLY DOCUMENT EACH ELEMENT THAT IS COVERED Not available 05/15/2024 15:10:14 Plan of Treatment Reminders Order Date Submit Date Provider Last Modified By Organization Details Last Modified Time Details Appointments ANNUAL EXAM 2023 11:30A M DR ROSA Not available Not available Not available FOLLOW UP 15 2024 01:30P M DR ROSA Not available Not available Not available Lab None recorded. Referral None recorded. Procedures None recorded. Surgeries None recorded. Imaging None recorded. Medication Orders metoclopr amide 5 mg tablet 2023 024 [facility], [address], [place], [address], 05/15/2024 15:06:34 olopatadi ne 0.1 % eye drops 2023 024 [place] [facility], [address], [place], [address], 05/15/2024 15:10:05 Patient TargetsNo targets recorded. Patient InstructionsNo instructions recorded. Reason for Referral None Reported. Problems Name Problem SNOMED Code Status Onset Date Resolution Date Notes Provider Name and Address Organization Details Recorded Time History of abdominal hysterecto my 121428562 Active 2017 cervix cranes intact Not Available [facility] 3 06:36:37 Median neuropathy 508446801 Active 2020 Not Available [facility] 3 06:36:37 Thoracic arthritis 4590599 Active 2021 Not Available [facility] 3 06:36:37 Degenerati on of lumbar interverte bral disc 72554365 Active 2021 Not Available [facility] 3 06:36:37 Carpal tunnel syndrome 06540300 Active 2021 Not Available [facility] 3 06:36:37 Carpal tunnel syndrome 55773458 Active 2022 Not Available [facility] 3 06:36:37 Gastroesop hageal reflux disease 246608809 Active 2022 Not Available [facility] 3 06:36:37 Allergic conjunctiv itis of bilateral eyes 739297396242 102 Active 2022 Not Available [facility] 3 06:36:37 Trigger finger of right hand 080795303403 91680 Active 2023 Felix Rosa DO [address],[place], [address] , [facility] 4 14:26:48 Epigastric pain 41052355 Active 2023 Felix Rosa DO [address],[place], [facility] [place], [address] , [facility] 4 14:28:25 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 [address],[place], [address] , [facility] 4 14:20:10 Gastropare sis due to type 2 diabetes mellitus 678051226 Active 2023 Felix Rosa, [address],[place], [place], [address] , [facility] 4 14:21:16 Cough 31045273 Active 2023 Felix Rosa, [address],[place], [address] , [facility] 4 11:05:01 Essential hypertensi on 60172444 Active 2017 [facility] 11[facility]13:[facility] Obesity 120360313 Active 2017 [facility] 4 11:13:54 Type 2 diabetes mellitus 70170862 Active 2017 [facility] 4 11:13:45 Notes:Some problems listed i n Documents: #[id number], #[id number], #[id number] could not be added to this patient's chart. Please review these documents and add these problems to the patient's chart manually as needed. Problem Notes None recorded. Procedures Surgical History Date Name Laterality Status Provider Name and Address Organization Details Recorded Time 06/27/19 16 Date of Last Pap Smear completed Donna Lyon NP, [address],[place], [address], [facility] 10/24/2018 14:19:18 Partial Hysterectomy completed Donna Lyon NP, [address],[place], [address], [facility] 10/24/2018 14:18:36 Imaging Results None recorded. Procedure Notes None recorded. Medical Equipment None Reported. Allergies Allergen ID Allergen Name Allergen Category Reaction Reaction Severity Criticality Documentation Date Start Date Code Code System Note Provider Name and Address Organization Details Recorded Time 207 Bactrim medicatio n rash Not available Not available 08/29/2017 90525 9 RxNorm Smita del rosario, [facility] 8 09:25:35 208 Cipro medicatio n headache Not available Not available 08/29/2017 99384 3 RxNorm ? Smita del rosario, [facility] 8 09:26:00 209 metronida zole medicatio n headache Not available Not available 08/29/2017 6922 RxNorm ? Smita del rosario, [facility] 8 09:26:30 Medications Name Sig Start Date Stop Date Status Note LastModified by Organization Details LastModified Time Prescriptio n - Clarificati on 04/24 completed Not Available Not Available Not Available Prescriptio n - Prior Authorizati on Request active Not Available Not Available N ot Available losartan 50 mg tablet TAKE 1 TABLET BY MOUTH DAILY active Not Available Not Available No t Available cyclobenzap rine 10 mg tablet TAKE ONE TABLET BY MOUTH THREE TIMES A DAY NEEDED active Not Available Not Available No t Available atorvastati n 40 mg tablet TAKE 1 TABLET BY MOUTH DAILY active Not Available Not Available No t Available azithromyci n 250 mg tablet TAKE 2 TABLETS ONCE A DAY FOR 1 DAY THEN TAKE 1 TABLET BY MOUTH ONCE A DAY FOR 4 DAYS active Not Available Not Available No t Available meloxicam 15 mg tablet TAKE ONE TABLET BY MOUTH ONCE DAILY WITH A MEAL 10/27 completed Not Available Not Available Not Available lovastatin 40 mg tablet TAKE 1 TABLET BY MOUTH EVERY DAY 12/20 completed Not Available Not Available Not Available levofloxaci n 250 mg tablet 10/05 completed Not Available Not Available Not Available tramadol 50 mg tablet Take 1 tablet every 6 hours by oral route as needed for 7 days. 09/18 completed Not Available Not Available Not Available lorazepam 0.5 mg tablet Take 1 tablet 3 times a day by oral route as needed for 7 days. 10/27 completed Not Available Not Available Not Available metoclopram ken 5 mg tablet TAKE ONE TABLET BY MOUTH TWICE A DAY active Not Available Not Available No t Available baclofen 10 mg tablet Take 1 tablet 4 times a day by oral route as needed for 14 days. 09/18 completed Not Available Not Available Not Available pantoprazol e 40 mg tablet,abiola yed release TAKE ONE TABLET BY MOUTH EVERY DAY active Not Available Not Available No t Available oseltamivir 75 mg capsule 10/05 completed Not Available Not Available Not Available metformin 1,000 mg tablet TAKE 2 TABLETS BY MOUTH DAILY active Not Available Not Available No t Available Cipro 500 mg tablet Take 1 tablet every 12 hours by oral route for 10 days. 02/06 completed Not Available Not Available Not Available olopatadine 0.1 % eye drops INSTILL 1 DROP INTO THE AFFECTED EYE S) TWO TIMES A DAY AT AN INTERVAL OF 6 TO 8 HOURS active Not Available Not Available No t Available lisinopril 10 mg tablet TAKE 1 TABLET BY MOUTH ONCE DAILY 02/06 completed Not Available Not Available Not Available hydrochloro thiazide 25 mg tablet TAKE ONE TABLET BY MOUTH EVERY DAY active Not Available Not Available No t Available mupirocin 2 % topical ointment APPLY TO EACH NASAL PASSAGE TWO TIMES A DAY FOR 5 DAYS DIRECTED 04/24 completed Not Available Not Available Not Available Cheratussin AC 10 mg-100 mg/5 mL oral liquid 1 tsp Q 4 h during day, 2 tsp at bedtime 09/06 completed Not Available Not Available Not Available ketoconazol e 2 % topical cream APPLY TO AFFECTED AREA(S) ONCE DAILY FOR 14 DAYS 04/24 completed Not Available Not Available Not Available oxycodone 5 mg tablet TAKE ONE TABLET BY MOUTH EVERY 6 HOURS NEEDED FOR MODERATE PAIN 04/24 completed Not Available Not Available Not Available pen needle, diabetic 29 gauge x 1/2 09/29 completed Not Available Not Available Not Available ProAir HFA 90 mcg/actuati on aerosol inhaler Inhale 2 puffs 3 times a day by inhalatio n route. 09/06 completed Not Available Not Available Not Available Januvia 100 mg tablet Take 1 tablet every day by oral route. 09/16 completed Not Available Not Available Not Available Lantus Solostar U-100 Insulin 100 unit/mL (3 mL) subcutaneou s pen INJECT SUBCUTANE OUSLY 52 UNITS DAILY AT BEDTIME active Not Available Not Available No t Available Janumet XR 100 mg-1,000 mg tablet,exte nded release TAKE ONE TABLET BY MOUTH EVERY DAY 07/06 completed Not Available Not Available Not Available Pen Needle 32 gauge x use as directed active Not Available Not Available No t Available Invokana 300 mg tablet TAKE 1 TABLET BY MOUTH DAILY 12/12 completed Not Available Not Available Not Available Victoza 3-Job 0.6 mg/0.1 mL (18 mg/3 mL) subcutaneou s pen injector INJECT 1.8 MG UNDER THE SKIN EVERY active Not Available Not Available No t Available Jardiance 10 mg tablet Take 1 tablet every day by oral route. 09/16 completed Not Available Not Available Not Available Jardiance 25 mg tablet TAKE 1 TABLET BY MOUTH DAILY. active Not Available Not Available No t Available Trulicity 1.5 mg/0.5 mL subcutaneou s pen injector Inject 0.5 mL every week by subcutane ous route for 30 days. 06/15 completed skin rash Not Available Not Available Not Available Ozempic 0.25 mg or 0.5 mg (2 mg/1.5 mL) subcutaneou s pen injector Inject by subcutane ous route. 12/20 completed Not Available Not Available Not Available FreeStyle Sharif 14 Day [place] USE DIRECTED 2023 active Not Available Not Available Not Avai lable FreeStyle Sharif 14 Day Sensor kit APPLY AND CHANGE EVERY 2 WEEKS DIRECTED active Not Available Not Available No t Available Vitals Date Recorded Body height Body mass index (BMI) Body weight Heart rate Oxygen saturation Oxygen saturation in Arterial blood by Pulse oximetry Systolic blood pressure Diastolic blood pressure Provider Name and Address Organization Details Last Updated DateTime 4 151.77 cm 28.2 kg/m2 72810.7 1 g 94 /min 96 % 96 % 138 mm[Hg] 80 mm[Hg] [facility] 4 14:52:28 Social History Question Answer Notes LastModified by Organizat ion Details LastModified Time Tobacco Smoking Status Never Smoker Not Available [facility] 04/29/2020 03:36:24 What Was The Date Of Your Most Recent Tobacco Screening? 05/15/2024 [email or web address] Information not available 05/15/2024 Do You Or Have You Ever Used Any Other Forms Of Tobacco Or Nicotine? No [email or web address] Information not available 06/10/2023 Sex: Unknown Functional Status None recorded. Mental Status None recorded. Family History Relationship Description Onset Age of this Age Resolved Age Notes LastModified by Organization Details LastModified Time Mother Type 2 diabetes mellitus 65 [email or web address] Not available 2018 14:17:37 Father Myocardial infarction 58 [email or web address] Not available 10/24 14:17:49 Medical History No medical history recorded. Gynecological History Statement/Question Response If Post Menopausal, Age at Menopause Menses Monthly N HPV Vaccine N Date of Last Pap Smear 06/27/2015 Current Control Method N/A Age at Menarche 9 Obstetrics History GPAL:G 0 P 0 0 0 0 Immunizations Vaccine Type Date Status Note Provider Nam e and Address Organization Details Recorded Time Influenza, split virus, quadrivalent, preservative 8 completed Not Available [facility] 06/17/2023 13:00:15 COVID-19, mRNA, LNP-S, PF, 30 mcg/0.3 mL dose 1 completed Not Available [facility] 06/17/2023 13:00:15 COVID-19, mRNA, LNP-S, PF, 30 mcg/0.3 mL dose 1 completed Not Available [facility] 06/17/2023 13:00:15 Past Encounters Encounter ID Performer Location Encounter Start Date Encounter Closed Date Diagnosis/Indication Diagnosis SNOMED-CT Code Diagnosis ICD10 Code [id number] GISELL DANIELS [address] [id number] 04/24/2024 14:10:05 04/24/2024 15:32:37 Gastroparesis due to type 2 diabetes mellitus 853103216 E11.43 Screening for malignant neoplasm of colon 481471046 Z12.11 Type 2 obey betes mellitus 57843190 E11.9 [id number] Felix Rosa DO [address] [id number] 05/15/2024 14:23:57 05/15/2024 15:09:37 Essential hypertension 16704553 I10 Gastropare sis due to type 2 diabetes mellitus 459612758 E11.43 Allergic conjunctivitis of bilateral eyes 0029747364 19808 H10.13 Health Concerns Section Related Observation LastModified by Organization Detai ls LastModified Time None Recorded Concern Status LastModified by Organization Details LastModified Time None Recorded Payers Encounter Date Sequence Insurance Name Policy Number Policy Moreno Covered Member ID Moreno Member ID Guarantor Name 05/15/[address] [place] [address] [id number] Luana Garcia [id number] Luana Garcia Notes Date Note Type Note Provider Name and Address Organization Details Recorded Time 4 text/html here for rechkstates she has felt fantastic since starting on the metoclopramidestates no longer feels full or bloated and states now that she finished the tow weeks worth her sx are coming back Felix Rosa DO [address] [place], [address], [facility] 05/15/2024 15:10:27 OBGyn Episode No OBEpisode recorded.
--- OUTSIDE RECORDS SUMMARY | 2024-06-09 07:28 | XMS_ITS | Data Portability ---
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) [facility] MUST MEET 2 OUT OF 3 [...] EACH ELEMENT THAT IS COVERED Not available 01/17/2024 14:17:39 04/24/2024 04/24/2024 [address] [place] [address] (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 MUST MEET 2 OUT OF [...] EACH ELEMENT THAT IS COVERED Not available 04/24/2024 15:01:24 05/15/2024 05/15/2024 [address] [place] [address] (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 MUST MEET 2 OUT OF [...] Organization Details Last Modified Time Details Appointments ANNUA L EXAM 2023 11:30A M DR ROSA Not available Not available Not available FOLLO W UP 15 2024 01:30P M DR ROSA Not available Not available Not available Lab HbA1c (hemo globi n A1c), blood 2022 023 [facility], [address] [place] [address], [place], [address], 08/01/2023 11:10:38 lipid panel , blood 2022 023 [facility], [address] [place] [address], [address], 09/26/2023 11:18:06 CMP, serum or plasm a 2022 023 [facility], [address] [place] [address], [place], [address], 06/10/2023 13:58:09 micro album in, urine 2022 023 [facility], [address] [place] [address], [address], 06/10/2023 13:58:09 HbA1c (hemo globi n A1c), blood 2023 024 [facility], [address] [place] [address], [address], 11/14/2023 11:30:49 lipid panel , blood 2023 024 [facility], [address] [place] [address], [address], 11/14/2023 11:30:49 HbA1c (hemo globi n A1c), blood 2023 024 [facility], [address] [place] [address], [address], 01/09/2024 11:14:16 lipid panel , blood 2023 024 [facility], [address] [place] [address], [address], 11/14/2023 11:30:49 HbA1c (hemo globi n A1c), blood 2023 024 [facility], [address] [place] [address], [address], 04/16/2024 11:42:01 HbA1c (hemo globi n A1c), blood 2023 [facility], [address] [place] [address], [address], 04/16/2024 11:42:01 Referral gastr adria swanson ist refer ral 2023 [facility], [address] [place] [address] Dr, [facility], [place], [address], 04/27/2024 08:39:20 Procedures None recor ded. Surgeries None recor ded. Imaging US, abdom en, compl ete 2023 [facility] (Imaging), [address] [place] [address], [address], 09/30/2023 09:20:21 NM, gastr ic empty ing scan 2023 [facility] Central Scheduling, [address] [place] [address], [address], 02/01/2024 08:17:34 Medication Orders metoc lopra mide 5 mg table t 2023 [facility], [address] [place], [address], 04/24/2024 14:58:19 metoc lopra mide 5 mg table t 2023 [facility], [address] [place], [address], 05/15/2024 15:06:34 olopa tadin e 0.1 % eye drops 2023 [facility], [address] [place], [address], 05/15/2024 15:10:05 Patient TargetsNo targets recorded. 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 [email or web address] [facility] (Medical Records) [address] [place], [address], 2023 10:11:53 01/25/20 24 12/27/2023 MAMMO , scree ryan, digit al, bilat eral No observ ation record ed. [address] [place], [address], 01/25/2024 14:14:04 01/25/20 24 12/27/2023 MAMMO , scree ryan, digit al, bilat eral No observ ation record ed. [email or web address] [address] [place], [address], 01/25/2024 15:01:18 03/07/20 24 03/06/2024 NM, gastr ic empty ing scan No observ ation record ed. [facility] (Medical Records) [address] [place], [address], 03/11/2024 22:16:50 Result Notes None recorded. Problems Name Problem SNOMED Code Status Onset Date Resolution Date Notes Provider Name and Address Organization Details Recorded Time History of abdominal hysterecto my 190626377 Active 2017 cervix cranes intact Not Available [facility] 3 06:36:37 Median neuropathy 877274392 Active 2020 Not Available [facility] 3 06:36:37 Thoracic arthritis 8532283 Active 2021 Not Available [facility] 3 06:36:37 Degenerati on of lumbar interverte bral disc 69927288 Active 2021 Not Available [facility] 3 06:36:37 Carpal tunnel syndrome 69604595 Active 2021 Not Available [facility] 3 06:36:37 Carpal tunnel syndrome 58476678 Active 2022 Not Available [facility] 3 06:36:37 Gastroesop hageal reflux disease 293178707 Active 2022 Not Available [facility] 3 06:36:37 Allergic conjunctiv itis of bilateral eyes 103322989879 102 Active 2022 Not Available [facility] 3 06:36:37 Trigger finger of right hand 117127631356 60563 Active 2023 Felix Rosa, DO [address],[place], [address] , [facility] [place], operated [facility] 4 14:26:48 Epigastric pain 28807904 Active 2023 Felix Rosa DO [address],[place], [address] , [facility] [place], [facility] 4 14:28:25 Gastric motor function disorder 56037087 Active 2023 Felix Rosa DO [address],[place], [address] , [facility] [place], operated [facility] 4 14:20:10 Gastropare sis due to type 2 diabetes mellitus 903371386 Active 2023 Felix Rosa, [address],[facility] [place], [address] , [facility] 4 14:21:16 Cough 37341873 Active 2023 Felix Rosa, [address],[place], [address] , [facility] 4 11:05:01 Essential hypertensi on 39082987 Active 2017 [facility] 4 11:13:37 Obesity 815109389 Active 2017 Meeta Drew [facility] 4 11:13:54 Type 2 diabetes mellitus 63932078 Active 2017 [place] [facility] 4 11:13:45 Notes:Some problems listed i n Documents: #[id number], #[id number], #[id number] could not be added to this patient's chart. Please review these documents and add these problems to the patient's chart manually as needed. Problem Notes None recorded. Procedures Surgical History Date Name Laterality Status Provider Name and Address Organization Details Recorded Time 06/27/19 16 Date of Last Pap Smear completed Donna Lyon NP, [address], [address], [facility] 10/24/2018 14:19:18 Partial Hysterectomy completed Donna Lyon NP, [address], [address], [facility] 10/24/2018 14:18:36 Imaging Results Imaging Date Name Status LastModified by Organiz ation Details LastModified Time 10/07/2023 US, abdomen, complete completed [email or web address] [facility] (Medical Records) [address] [place] [address], [address], 2023 10:11:53 12/27/2023 MAMMO, screening, digital, bilateral completed [email or web address] [place], [address], 01/25/2024 14:14:04 12/27/2023 MAMMO, screening, digital, bilateral completed [address] [place], [address], 01/25/2024 15:01:18 03/06/2024 NM, gastric emptying scan completed [address] (Medical Records) [address] [facility] [place], [address], 03/11/2024 22:16:50 Procedure Notes None recorded. Medical Equipment None Reported. Allergies Allergen ID Allergen Name Allergen Category Reaction Reaction Severity Criticality Documentation Date Start Date Code Code System Note Provider Name and Address Organization Details Recorded Time 207 Bactrim medicatio n rash Not available Not available 08/29/2017 34480 9 RxNorm Smita del rosario [facility] 8 09:25:35 208 Cipro medicatio n headache Not available Not available 08/29/2017 71630 3 RxNorm ? Smita del rosario [facility] 8 09:26:00 209 metronida zole medicatio n headache Not available Not available 08/29/2017 6922 RxNorm ? Smita del rosario [facility] 8 09:26:30 Medications Name Sig Start [...] Not Available Pen Needle 32 gauge x 5/32 use as directed active Not Available Not [...] completed Not Available Not Available Not Available [facility] [place] USE DIRECTED 2023 active Not Available Not Available Not Avai lable FreeStyle Sharif 14 Day Sensor kit APPLY AND CHANGE EVERY 2 WEEKS DIRECTED active Not Available Not Available No t Available Vitals Date Recorded Body height Body mass index (BMI) Body weight Oxygen saturation Oxygen saturation in Arterial blood by Pulse oximetry Heart rate Systolic blood pressure Diastolic blood pressure Provider Name and Address Organization Details Last Updated DateTime 3 151.77 cm 29.3 kg/m2 56221.2 6 g 97 % 97 % 92 /min 110 mm[Hg] 60 mm[Hg] Taty Chino [facility] 3 13:36:56 Date Recorded Body height Body mass index (BMI) Body weight Heart rate Oxygen saturation Oxygen saturation in Arterial blood by Pulse oximetry Systolic blood pressure Diastolic blood pressure Provider Name and Address Organization Details Last Updated DateTime 4 151.77 cm 29.9 kg/m2 16871.0 4 g 97 /min 100 % 100 % 130 mm[Hg] 90 mm[Hg] Taty Chino [facility] 4 13:55:20 Date Recorded Body height Body mass index (BMI) Body weight Heart rate Oxygen saturation Oxygen saturation in Arterial blood by Pulse oximetry Systolic blood pressure Diastolic blood pressure Provider Name and Address Organization Details Last Updated DateTime 4 151.77 cm 29.3 kg/m2 89038.2 6 g 97 /min 99 % 99 % 120 mm[Hg] 74 mm[Hg] Taty Chino [facility] 4 13:50:29 Date Recorded Body height Body mass index (BMI) Body weight Heart rate Oxygen saturation Oxygen saturation in Arterial blood by Pulse oximetry Systolic blood pressure Diastolic blood pressure Provider Name and Address Organization Details Last Updated DateTime 4 151.77 cm 28.9 kg/m2 00196.0 8 g 84 /min 98 % 98 % 124 mm[Hg] 80 mm[Hg] Francisco Schwartz [facility] 4 14:34:23 Date Recorded Body height Body mass index (BMI) Body weight Heart rate Oxygen saturation Oxygen saturation in Arterial blood by Pulse oximetry Systolic blood pressure Diastolic blood pressure Provider Name and Address Organization Details Last Updated DateTime 4 151.77 cm 28.2 kg/m2 06059.7 1 g 94 /min 96 % 96 % 138 mm[Hg] 80 mm[Hg] Taty Sims [facility] 4 14:52:28 Social History Question Answer Notes LastModified by Organizat ion Details LastModified Time Tobacco Smoking Status Never Smoker Not Available [facility] 04/29/2020 03:36:24 What Was The Date Of Your Most Recent Tobacco Screening? 05/15/2024 [email or web address] Information not available 05/15/2024 Do You Or Have You Ever Used Any Other Forms Of Tobacco Or Nicotine? No [email or web address] Information not available 06/10/2023 Sex: Unknown Functional Status None recorded. Mental Status None recorded. Family History Relationship Description Onset Age of this Age Resolved Age Notes LastModified by Organization Details LastModified Time Mother Type 2 diabetes mellitus 65 [email or web address] Not available 2018 14:17:37 Father Myocardial infarction [...] virus, quadrivalent, preservative 8 completed Not Available [facility] 06/17/2023 13:00:15 COVID-19, mRNA, LNP-S, PF, 30 mcg/0.3 mL dose 1 completed Not Available [facility] 06/17/2023 13:00:15 COVID-19, mRNA, LNP-S, PF, 30 mcg/0.3 mL dose 1 completed Not Available [facility] 06/17/2023 13:00:15 Past Encounters Encounter ID Performer Location Encounter Start Date Encounter Closed Date Diagnosis/Indication Diagnosis SNOMED-CT Code Diagnosis ICD10 Code [id number] Felix Rosa, [facility] [address] [place] [address] 10/05/2017 13:33:00 10/05/2017 16:41:54 Type 2 diabetes mellitus 85320257 E11.9 Essential hypertension 62412180 I10 [id number] Felix Rosa DO [address] [address] 02/08/2018 13:25:57 02/08/2018 16:08:34 Type 2 diabetes mellitus 38980193 E11.9 Essential hypertension 81012116 I10 [id number] Felix Rosa DO [address] [address] 05/10/2018 13:26:50 05/10/2018 16:37:07 Type 2 diabetes mellitus 46491677 E11.9 Essential hypertension 21393432 I10 Pain in right knee 56257 15035 72791 M25.561 [id number] Donna Lyon NP, [address] [address] 07/14/2018 10:18:06 07/18/2018 12:27:25 Type 2 diabetes mellitus 51641222 E11.9 Acute bronchitis 2240725 2 J20.9 Essential hypertension 64997223 I10 [id number] Felix Rosa DO [address] [address] 09/06/2018 13:49:07 09/06/2018 14:29:29 Essential hypertension 01567309 I10 Type 2 obey betes mellitus 42169358 E11.9 [id number] Donna Lyon NP, S [address] [address] 10/24/2018 13:57:55 10/24/2018 15:34:33 Type 2 diabetes mellitus 63147098 E11.9 Essential hypertension 55484964 I10 Routine gy necologic examination done 5449536279 9101 Z01.419 [id number] Felix Rosa DO [address] [address] 12/12/2018 14:16:14 12/12/2018 15:40:36 Adult health examination 714088364 Z00.00 Active or passive immunization 182268358 Z23 [id number] EDDI Martin [facility] [address] [facility] [address] 02/06/2019 15:34:46 02/06/2019 16:24:07 Cough 09359374 R05 Type 2 obey betes mellitus 38791062 E11.9 Essential hypertension 70255537 I10 [id number] Felix Rosa, DO [address],[facility] [place] [address] 03/14/2019 14:39:28 03/14/2019 16:11:40 Type 2 diabetes mellitus 00470219 E11.9 Essential hypertension 63282609 I10 [id number] Felix Rosa, DO [address],[place] [address] 05/16/2019 15:04:13 05/16/2019 16:00:41 Type 2 diabetes mellitus 76992588 E11.9 Essential hypertension 11328788 I10 [id number] Felix Adrian Jose Estella, DO [address],[facility] [address] 06/15/2019 14:53:30 06/15/2019 15:20:23 Essential hypertension 90380688 I10 Type 2 obey betes mellitus 04529428 E11.9 [id number] Felix Adrian Jose Estella, DO [address],[facility] [address] 09/17/2019 15:00:04 09/17/2019 15:36:00 Type 2 diabetes mellitus 82660142 E11.9 Essential hypertension 84512411 I10 [id number] Felix Adrian Jose Estella, DO [address],[place] [address] 12/21/2019 14:46:29 12/21/2019 15:34:54 Type 2 diabetes mellitus 21800081 E11.9 Essential hypertension 13358543 I10 [id number] Felix Nguyễn Jose Estella DO [address] [place] [address] 01/29/2020 11:48:42 01/29/2020 12:22:03 Adult health examination 766550212 Z00.00 Essential hypertension 37394108 I10 Type 2 obey betes mellitus 47022201 E11.9 [id number] Felix Adrian Diallo, DO [address],[place] [address] 06/10/2020 08:46:16 06/10/2020 15:19:29 Type 2 diabetes mellitus 10814895 E11.9 Essential hypertension 34944180 I10 Numbness of hand 0885308 04 R20.0 [id number] Felix Rosa, DO [address],[facility] [address] 09/10/2020 13:28:37 09/10/2020 14:31:05 Type 2 diabetes mellitus 38036452 E11.9 Essential hypertension 50753022 I10 Median neuropathy 733447 008 G56.11 [id number] Felix Rosa, [place] [address] [place] [address] 04/24/2021 11:04:37 04/24/2021 11:56:28 Active or passive immunization 010616680 Z23 Adult heal th examination 307635421 Z00.00 Essential hypertension 05928832 I10 Type 2 obey betes mellitus 46564785 E11.9 [id number] Felix Rosa, [place] [address] [place] [address] 08/24/2021 14:45:29 08/25/2021 15:18:08 Type 2 diabetes mellitus 38944688 E11.9 Essential hypertension 40993615 I10 Tinea pedis 4650984 B35. 3 [id number] [address]S [address] [place] [address] 09/16/2021 16:03:21 09/18/2021 16:30:36 Thoracic back pain 545599611 M54.6 [id number] Felix Rosa, [place] [address] [place] [address] 12/08/2021 15:21:35 12/09/2021 14:04:49 Type 2 diabetes mellitus 84919699 E11.9 Essential hypertension 61817805 I10 Active or passive immunization 743679832 Z23 Screening mammography 24 457971 Z12.31 [id number] Felix Rosa, [place] [address] [place] [address] 03/09/2022 15:09:11 03/10/2022 11:35:38 Type 2 diabetes mellitus 99913718 E11.9 Essential hypertension 06987053 I10 Degenerati on of lumbar intervertebral disc 74594555 M51.36 [id number] Felix Rosa DO [address] [place] [address] 04/27/2022 10:42:40 04/27/2022 13:07:38 Active or passive immunization 275875663 Z23 Adult heal th examination 478527349 Z00.01 Screening for malignant neoplasm of colon 152224641 Z12.11 Degenerati on of lumbar intervertebral disc 47943265 M51.36 Carpal ashley jluis syndrome 21718634 G56.01 [id number] Felix Rosa DO [address] [place] [address] 07/27/2022 08:09:37 07/28/2022 12:11:34 Essential hypertension 89958417 I10 Type 2 obey betes mellitus 48380256 E11.9 Degenerati on of lumbar intervertebral disc 92461079 M51.36 Carpal ashley jluis syndrome 14243056 G56.01 Gastroesop hageal reflux disease 858363522 K21.9 [id number] Felix Rosa DO [address] [place] [address] 10/27/2022 09:43:29 10/27/2022 13:55:40 Type 2 diabetes mellitus 98156191 E11.9 Essential hypertension 71292631 I10 Allergic conjunctivitis of bilateral eyes 4221385362 08820 H10.13 [id number] Felix Rosa DO [address] [place] [address] 03/08/2023 13:31:33 03/08/2023 14:51:20 Essential hypertension 64906337 I10 Type 2 obey betes mellitus 58799677 E11.9 Gastroesop hageal reflux disease 703070970 K21.9 [id number] Felix Rosa DO [address] [place] [address] 06/10/2023 13:18:32 06/10/2023 14:06:07 Type 2 diabetes mellitus 67794598 E11.9 Essential hypertension 62107364 I10 Active or passive immunization 170661503 Z23 Adult heal th examination 048231592 Z00.00 [id number] Felix Rosa, DO [address] [address] 09/28/2023 13:38:40 09/28/2023 15:23:15 Essential hypertension 29577460 I10 Type 2 obey betes mellitus 58825538 E11.9 Trigger fi nger of right hand 9286429980 5675699 M65.30 Epigastric pain 97656365 R10.13 [id number] Felix Rosa [address] [address] 01/17/2024 13:44:18 01/17/2024 16:27:28 Depression screening 029894134 Z13.31 Type 2 obey betes mellitus 88015511 E11.9 Essential hypertension 53701245 I10 Gastropare sis due to type 2 diabetes mellitus 199853675 E11.43 [id number] GISELL DANIELS [address] [address] 04/24/2024 14:10:05 04/24/2024 15:32:37 Gastroparesis due to type 2 diabetes mellitus 263713137 E11.43 Screening for malignant neoplasm of colon 130931932 Z12.11 Type 2 obey betes mellitus 62576551 E11.9 [id number] Felix Rosa, [address] [address] 05/15/2024 14:23:57 05/15/2024 15:09:37 Essential hypertension 04968010 I10 Gastropare sis due to type 2 diabetes mellitus 756712615 E11.43 Allergic conjunctivitis of bilateral eyes 6265244122 02913 H10.13 Health Concerns Section Related Observation LastModified by Organization Detai ls LastModified Time None Recorded Concern Status LastModified by Organization Details LastModified Time None Recorded Advance Directives Directive None Recorded Payers Encounter Date Sequence Insurance Name Policy Number Policy Moreno Covered Member ID Moreno Member ID Guarantor Name 06/10/2023 1 [id number] Luana Garcia [id number] Luana Garcia 09/28/2023 1 [id number] 8 Luana Garcia [id number] Luana Garcia 01/17/2024 1 [id number] 8 Luana Garcia [id number] Luana Garcia 04/24/2024 1 [id number] 8 Luana Garcia [id number] Luana Garcia 05/15/2024 1 [id number] 8 Luana Garcia [id number] Luana Garcia Notes Date Note Type Note Provider Name and Address Organization Details Recorded Time 3 text/html Annual WellnessReported bypatient.Diet and Nutrition:healthy diet Fracture Risk:no history of fractures; no recent explained fracture; no sudden unexplained fractures; no previous musculoskeletal injuries Physical Activity:exercises on a regular basis; recent increase in physical activity; good physical condition Additional Lifestyle Factors:no tobacco use; no alcohol intake; stopped drinking alcohol Depression Risk:never feels sad, empty, or tearful; no loss of interest in activities; no significant changes in weight; no sleep disturbances or insomnia; no agitation; no loss of energy; no feelings of worthlessness or guilt; no thoughts of suicide; no history of depression; no history of mood disorders Hearing:no loss of hearing Vision:no vision problems Felix Rosa, DO [address] [place], [address], [facility] [place], [facility] 06/10/2023 13:57:40 4 text/html here for rechkrelates had epigastric abdominal pain had 2 bouts late at night quite severe and hurt 4 1/2 hours then went away no other symptomscame back 6 days later now is just tender and feels sensitive Felix Rosa, [address] [place], [address], [facility] [place], [facility] 09/28/2023 14:31:16 4 text/html Care Management - DiabetesReported bypatient.Self Care:seeing eye doctor yearly for dilated eye exam; checking feet regularly; normal range of home blood sugars (in the low 100s); no side effects from medications Associated Symptoms:symptoms are usually well controlled; no fatigue; no excessive sweating; no confusion; no increased appetite; no increased urination; no blurred vision; no numbness of feet; no calluses on feet;dizziness;headaches; increased thirstNotes:noted this stomach has dm gastroparesisCare Management - HypertensionReported bypatient.Self Care:not under emotional stress Severity:symptoms are improving; does not interfere with daily activities Associated Symptoms:no dizziness; no lightheadedness; no chest pain; no shortness of breath; no palpitations; no edema; no calf muscle cramps; no blurred vision; no confusion; no headaches; no fatigue here for rechkl relates feels sugar might be uopscarline is still having trouble with her stomachstate feels bloated and sore at times after eating GISELL DANIELS [address] [place], [address], [facility] [place], [facility] 05/02/2024 15:55:09 4 text/html here for rechkstates she has felt fantastic since starting on the metoclopramidestates no longer feels full or bloated and states now that she finished the tow weeks worth her sx are coming back Felix Rosa DO [address] [place], [address], [facility] [place], [facility] 05/15/2024 15:10:27 OBGyn Episode No OBEpisode recorded.
--- OUTSIDE RECORDS SUMMARY | 2024-06-09 07:28 | XMS_ITS | Continuity of Care Document ---
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 Referral gastr adria swanson ist refer ral 2023 024 [facility], [address] [place] [address] , 3rd [place], [place], [address], 04/27/2024 08:39:20 Procedures None recor ded. Surgeries None recor ded. Imaging None recor ded. Medication Orders metoc melany jimenez 5 mg table t 2023 024 [id number], [id number], [place], [address], 04/24/2024 14:58:19 Patient TargetsNo targets recorded. 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 Referral for Screening for malignant neoplasm of colon Referring Physician: Felix Rosa, Internal Medicine, Encounter Date: 04/24/2024 Problems Name Problem SNOMED Code Status Onset Date Resolution Date Notes Provider Name and Address Organization Details Recorded Time History of abdominal hysterecto my 298886619 Active 2017 cervix cranes intact Not Available [facility] 3 06:36:37 Median neuropathy 271276605 Active 2020 Not Available [facility] 3 06:36:37 Thoracic arthritis 9446932 Active 2021 Not Available [facility] 3 06:36:37 Degenerati on of lumbar interverte bral disc 01279268 Active 2021 Not Available [facility] 3 06:36:37 Carpal tunnel syndrome 25365784 Active 2021 Not Available [facility] 3 06:36:37 Carpal tunnel syndrome 07442621 Active 2022 Not Available [facility] 3 06:36:37 Gastroesop hageal reflux disease 490891007 Active 2022 Not Available [facility] 3 06:36:37 Allergic conjunctiv itis of bilateral eyes 374482231700 102 Active 2022 Not Available [facility] 3 06:36:37 Trigger finger of right hand 007892973259 36414 Active 2023 Felix Rosa, DO [address] [place], [address] , [facility] 4 14:26:48 Epigastric pain 41126163 Active 2023 Felix Rosa, [address],[place], [address] , [facility] 4 14:28:25 Gastric motor function disorder 17095851 Active 2023 Felix Rosa [address],[place], [address] , [facility] 4 14:20:10 Gastropare sis due to type 2 diabetes mellitus 015549189 Active 2023 Felix Dorantesstella, [address],[place], [address] , [facility] 4 14:21:16 Cough 13278474 Active 2023 Felix Adrian Diallo [address],[place], [address] , [facility] 4 11:05:01 Essential hypertensi on 19546605 Active 2017 [facility] 11:13:37 Obesity 933736909 Active 2017 [facility] 4 11:13:54 Type 2 diabetes mellitus 66006349 Active 2017 [facility] 4 11:13:45 Notes:Some problems listed i n Documents: #[id number], #[id number], #[id number] could not be added to this patient's chart. Please review these documents and add these problems to the patient's chart manually as needed. Problem Notes None recorded. Procedures Surgical History Date Name Laterality Status Provider Name and Address Organization Details Recorded Time 06/27/19 16 Date of Last Pap Smear completed Donna Lyon NP, [address] [place] [address],[place], [address], [facility] 10/24/2018 14:19:18 Partial Hysterectomy completed Donna Lyon NP, [address] [place], [address], [facility], [place] [facility] 10/24/2018 14:18:36 Imaging Results None recorded. Procedure Notes None recorded. Medical Equipment None Reported. Allergies Allergen ID Allergen Name Allergen Category Reaction Reaction Severity Criticality Documentation Date Start Date Code Code System Note Provider Name and Address Organization Details Recorded Time 207 Bactrim medicatio n rash Not available Not available 08/29/2017 56765 9 RxNorm Smita Igetristan del rosario [facility] 8 09:25:35 208 Cipro medicatio n headache Not available Not available 08/29/2017 14797 3 RxNorm ? Smita del rosario [facility] 8 09:26:00 209 metronida zole medicatio n headache Not available Not available 08/29/2017 6922 RxNorm ? Smita Igel miguel ángel [facility] 8 09:26:30 Medications Name Sig Start [...] Available Not Available [employer] [address] USE DIRECTED 2023 active Not Available Not [...] Updated DateTime 4 151.77 cm 28.9 kg/m2 80842.0 8 g 84 /min 98 % 98 % 124 mm[Hg] 80 mm[Hg] [facility] 4 14:34:23 Social History Question Answer Notes LastModified by Organizat ion Details LastModified Time Tobacco Smoking Status Never Smoker Not Available [facility] 04/29/2020 03:36:24 What Was The Date Of Your Most Recent Tobacco Screening? 05/15/2024 [email or web address] Information not available 05/15/2024 Do You Or Have You Ever Used Any Other Forms Of Tobacco Or Nicotine? No [email or web address] Information not available 06/10/2023 Sex: Unknown Functional Status None recorded. Mental Status None recorded. Family History Relationship Description Onset Age of this Age Resolved Age Notes LastModified by Organization Details LastModified Time Mother Type 2 diabetes mellitus 65 [email or web address] Not available 2018 14:17:37 Father Myocardial infarction [...] virus, quadrivalent, preservative 8 completed Not Available [facility] 06/17/2023 13:00:15 COVID-19, mRNA, LNP-S, PF, 30 mcg/0.3 mL dose 1 completed Not Available [facility] 06/17/2023 13:00:15 COVID-19, mRNA, LNP-S, PF, 30 mcg/0.3 mL dose 1 completed Not Available [facility] 06/17/2023 13:00:15 Past Encounters Encounter ID Performer Location Encounter Start Date Encounter Closed Date Diagnosis/Indication Diagnosis SNOMED-CT Code Diagnosis ICD10 Code [id number] GISELL DANIELS [facility] [address] [place] [phone] 04/24/2024 14:10:05 04/24/2024 15:32:37 Gastroparesis due to type 2 diabetes mellitus 796911478 E11.43 Screening for malignant neoplasm of colon 253320221 Z12.11 Type 2 obey betes mellitus 15686276 E11.9 Health Concerns Section Related Observation LastModified by Organization Detai ls LastModified Time None Recorded Concern Status LastModified by Organization Details LastModified Time None Recorded Payers Encounter Date Sequence Insurance Name Policy Number Policy Moreno Covered Member ID Moreno Member ID Guarantor Name 04/24/[address] [place] [address] [id number] Luana Garcia [id number] Luana Garcia Notes Date Note Type Note Provider Name and Address Organization Details Recorded Time text/html Care Management - DiabetesReported bypatient.Self Care:seeing [...] for rechkl relates feels sugar might be uopshe is still having trouble with her stomachstate feels bloated and sore at times after eating GISELL DANIELS [address] [place] [address], [phone], [place] [facility] 05/02/2024 15:55:09 OBGyn Episode No OBEpisode recorded.
[2024-06-09 08:38] LABS: Estimated Average Glucose 194 mg/dL; Hemoglobin A1C 273.7512 umol/L; Hemoglobin A1c % 8.4 % (<6.0); Total Hemoglobin (HGBA1C) 4008.9565 umol/L
[2024-06-09 08:43] LABS: Creatinine Urine 101.36 mg/dL; Microalbum/Creatinine Ratio Ur 5.9 ug/mg cr (<30)
[2024-06-09 09:07] LABS: Alanine Aminotransferase 55 U/L (0-31); Albumin Level 4.5 g/dL (3.5-5.0); Alkaline Phosphatase 67 U/L (39-117); Anion Gap 15 (12-20); Aspartate Amino Transferase 41 U/L (5-31); Bilirubin Total 0.8 mg/dL (0.0-1.0); Blood Urea Nitrogen 10 mg/dL (9-16); Calcium 9.4 mg/dL (8.4-10.2); Carbon Dioxide 27 mmol/L (22-29); Chloride 101 mmol/L (96-108); Cholesterol 152 mg/dL (<200); Estimated Glomerular Filt Rate > 60; Glucose Fasting 126 mg/dL (60-99); HDL Cholesterol 50 mg/dL (>40); LDL Cholesterol Calculated 83 mg/dL (<100); Potassium 3.6 mmol/L (3.3-5.1); Sodium 139 mmol/L (135-145); Total Protein 7.7 g/dL (6.5-8.0); Triglycerides 95 mg/dL (<150)
== END 2024-06-09 07:27 | disposition home or self-care (01) ==
LOC: HO.LABR 07:26
PROVIDERS: PCP Internal Medicine; Visit Provider Internal Medicine
DX: E11.9 Type 2 diabetes mellitus without complications (principal)
CPT/HCPCS: 36415; 80053; 80061; 82043; 82570; 83036

== ENCOUNTER 2024-07-03 11:31 | Outpatient (REF) | payer OTHER, SELFPAY ==
--- OUTSIDE RECORDS SUMMARY | 2024-07-03 14:11 | XMS_ITS | Data Portability ---
Author Organization [facility] Service Address [address] [place] [address] Assessment Encounter Date Assessment Date Assessment LastModified by Organization Details LastModified Time 09/28/2023 09/28/2023 [address] [place] [address] (BIOINFORMATICS SCIENTIST) [facility] MODERATE MUST MEET 2 OUT OF 3 [...] COVERED Not available 09/28/2023 14:25:00 01/17/2024 01/17/2024 [address] [place] [address] (BIOINFORMATICS SCIENTIST) [facility] MODERATE MUST MEET 2 OUT OF 3 [...] COVERED Not available 01/17/2024 14:17:39 04/24/2024 04/24/2024 [id number] [place] [address] (BIOINFORMATICS SCIENTIST) MDM MODERATE MUST MEET 2 OUT OF [...] COVERED Not available 04/24/2024 15:01:24 05/15/2024 05/15/2024 [address] [place] [address] (BIOINFORMATICS SCIENTIST) MDM MODERATE MUST MEET 2 OUT OF [...] adria swanson ist refer ral 2023 024 [facility], [address] [place] [address] , [address], [place], [place], [address], 04/27/2024 08:39:20 Procedures None recor ded. Surgeries None recor ded. Imaging US, abdom en, compl ete 2023 [facility] (Imaging), [address] [place] [address], [address], 09/30/2023 09:20:21 NM, gastr ic empty ing scan 2023 [facility] Central Scheduling, [address] [place], [address], 02/01/2024 08:17:34 Medication Orders metoc lopra mide 5 mg table t 2023 [facility], [address] [place] [address], [address], 04/24/2024 14:58:19 metoc lopra mide 5 mg table t 2023 024 [facility], [address] [place], [address], 05/15/2024 15:06:34 olopa tadin e 0.1 % eye drops 2023 024 [facility], [address] [place], [address], 05/15/2024 15:10:05 azith romyc in 250 mg table t 2023 024 [facility], [address] [place] [address], [address], 06/12/2024 11:46:07 Patient TargetsNo targets recorded. 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 [email or web address] [facility] (Medical Records) [address] [place], [address], 2023 10:11:53 01/25/20 24 12/27/2023 MAMMO , scree ryan, digit al, bilat eral No observ ation record ed. [address] [place], [address], 01/25/2024 14:14:04 01/25/20 24 12/27/2023 MAMMO , scree ryan, digit al, bilat eral No observ ation record ed. [email or web address] [address] [place], [address], 01/25/2024 15:01:18 03/07/20 24 03/06/2024 NM, gastr ic empty ing scan No observ ation record ed. [facility] (Medical Records) [address] [facility] [place], [address], 03/11/2024 22:16:50 Result Notes None recorded. Problems Name Problem SNOMED Code Status Onset Date Resolution Date Notes Provider Name and Address Organization Details Recorded Time History of abdominal hysterect reji 039987684 Active 2017 cervix cranes intact Not Available [facility] 3 06:36:37 Median neuropath y 202142161 Active 2020 Not Available [facility] 3 06:36:37 Thoracic arthritis 4423064 Active 2021 Not Available [facility] 3 06:36:37 Degenerat ion of lumbar intervert ebral disc 83103748 Active 2021 Not Available [facility] 3 06:36:37 Carpal tunnel syndrome 55616785 Active 2021 Not Available [facility] 3 06:36:37 Carpal tunnel syndrome 95121666 Active 2022 Not Available [facility] 3 06:36:37 Gastroeso phageal reflux disease 233744515 Active 2022 Not Available [facility] 3 06:36:37 Allergic conjuncti vitis of bilateral eyes 13514263246 9102 Active 2022 Not Available 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 Felix Rosa DO [address] [place] [address], [address], [facility] 4 14:20:10 Gastropar esis due to type 2 diabetes mellitus 891942007 Active 2023 Felix Rosa DO [address] [place] [address], [address], [facility] 4 14:21:16 Cough 28958947 Active 2023 Felix Rosa, DO [address] [place] [address], [address], [facility] 4 11:05:01 Pneumonit is 986491114 Active 2023 Felix Rosa, DO [address] [place], [address], [facility] 4 11:45:45 Essential hypertens ion 58363885 Active 2017 [facility] 4 11:13:37 Obesity 541173703 Active 2017 [facility] 4 11:13:54 Type 2 diabetes mellitus 70854181 Active 2017 [facility] 4 11:13:45 Notes:Some problems listed i n Documents: #[id number], #[id number], #[id number] could not be added to this patient's chart. Please review these documents and add these problems to the patient's chart manually as needed. Problem Notes None recorded. Procedures Surgical History Date Name Laterality Status Provider Name and Address Organization Details Recorded Time 06/27/19 16 Date of Last Pap Smear completed Donna Lyon NP, S [address] [place] [address], [address], [facility] 10/24/2018 14:19:18 Partial Hysterectomy completed Donna Lyon NP, S [address] [place] [address], [address], [facility] 10/24/2018 14:18:36 Imaging Results Imaging Date Name Status LastModified by Organiz ation Details LastModified Time 10/07/2023 US, abdomen, complete completed [email or web address] [facility] (Medical Records) [address] [facility], [place], [address], 2023 10:11:53 12/27/2023 MAMMO, screening, digital, bilateral completed [facility] [address] [place] [address] [place], [address], 01/25/2024 14:14:04 12/27/2023 MAMMO, screening, digital, bilateral completed [facility] [address] [place] [address] [place], [address], 01/25/2024 15:01:18 03/06/2024 NM, gastric emptying scan completed [address] (Medical Records) [address] [place] [address], [place], [address], 03/11/2024 22:16:50 Procedure Notes None recorded. Medical Equipment None Reported. Allergies Allergen ID Allergen Name Allergen Category Reaction Reaction Severity Criticality Documentation Date Start Date Code Code System Note Provider Name and Address Organization Details Recorded Time 207 Bactrim medicatio n rash Not available Not available 08/29/2017 01899 9 [facility] 8 09:25:35 208 Cipro medicatio n headache Not available Not available 08/29/2017 80269 3 RxNorm ? Smita del rosario [facility] 8 09:26:00 209 metronida zole medicatio n headache Not available Not available 08/29/2017 6922 RxNorm ? Smita del rosario [facility] Internal [facility] 8 09:26:30 Medications Name Sig Start Date [...] Not Available Pen Needle 32 gauge x 32 use as directed active Not Available Not [...] Available Not Available FreeStyle Sharif 14 Day [place] USE DIRECTED 2023 active Not Available Not Available Not Avai labmary FreeStyle Sharif 14 Day Sensor kit [...] Updated DateTime 4 151.77 cm 29.9 kg/m2 47833.0 4 g 97 /min 100 % 100 % 130 mm[Hg] 90 mm[Hg] [facility] 4 13:55:20 Date Recorded Body height Body mass index (BMI) Body weight Heart rate Oxygen saturation Oxygen saturation in Arterial blood by Pulse oximetry Systolic blood pressure Diastolic blood pressure Provider Name and Address Organization Details Last Updated DateTime 4 151.77 cm 29.3 kg/m2 73526.2 6 g 97 /min 99 % 99 % 120 mm[Hg] 74 mm[Hg] [facility] Internal [facility] 4 13:50:29 Date Recorded Body height Body mass index (BMI) Body weight Heart rate Oxygen saturation Oxygen saturation in Arterial blood by Pulse oximetry Systolic blood pressure Diastolic blood pressure Provider Name and Address Organization Details Last Updated DateTime 4 151.77 cm 28.9 kg/m2 10200.0 8 g 84 /min 98 % 98 % 124 mm[Hg] 80 mm[Hg] Francisco Schwartz [facility] Internal [facility] 4 14:34:23 Date Recorded Body height Body mass index (BMI) Body weight Heart rate Oxygen saturation Oxygen saturation in Arterial blood by Pulse oximetry Systolic blood pressure Diastolic blood pressure Provider Name and Address Organization Details Last Updated DateTime 4 151.77 cm 28.2 kg/m2 84758.7 1 g 94 /min 96 % 96 % 138 mm[Hg] 80 mm[Hg] [facility] Internal [facility] 4 14:52:28 Date Recorded Body height Body mass index (BMI) Body weight Heart rate Oxygen saturation Oxygen saturation in Arterial blood by Pulse oximetry Systolic blood pressure Diastolic blood pressure Provider Name and Address Organization Details Last Updated DateTime 4 151.77 cm 29.2 kg/m2 77125.4 7 g 96 /min 98 % 98 % 128 mm[Hg] 86 mm[Hg] Meetatati Hung [facility] 4 11:30:57 Social History Question Answer Notes LastModified by Organizat ion Details LastModified Time Tobacco Smoking Status Never Smoker Not Available [facility] 04/29/2020 03:36:24 What Was The Date Of Your Most Recent Tobacco Screening? 06/12/2024 [email or web address] Information not available 06/12/2024 Do You Or Have You Ever Used Any Other Forms Of Tobacco Or Nicotine? No Information not available 06/10/2023 Sex: Unknown Functional [...] virus, quadrivalent, preservative 8 completed Not Available [facility] 06/17/2023 13:00:15 COVID-19, mRNA, LNP-S, PF, 30 mcg/0.3 mL dose 1 completed Not Available [facility] 06/17/2023 13:00:15 COVID-19, mRNA, LNP-S, PF, 30 mcg/0.3 mL dose 1 completed Not Available [facility] 06/17/2023 13:00:15 Past Encounters Encounter ID Performer Location Encounter Start Date Encounter Closed Date Diagnosis/Indication Diagnosis SNOMED-CT Code Diagnosis ICD10 Code Diagnosis Note [id number] DO Levi Mei Internal [facility] [address] [facility],[place] [address] 10/05/2017 13:33:00 10/05/2017 16:41:54 Type 2 diabetes mellitus 12615062 E11.9 compliant with diet , exercise medicines must be careful not to go hered6y 8 will need to increase calorie expenditur e Essential hypertension 48107478 I10 stable no issues takes meds [id number] Felix Rosa DO [facility] Internal Medicine [address] [facility],[place] [address] 02/08/2018 13:25:57 02/08/2018 16:08:34 Type 2 diabetes mellitus 65975310 E11.9 compliant with diet , exercise medicines must be careful not to go into a1c 8 will need to increase calorie expenditur e or will increase dose of meds Essential hypertension 29451626 I10 stable no issues takes meds [id number] [facility] Internal Medicine [address] [facility],[place] [address] 05/10/2018 13:26:50 05/10/2018 16:37:07 Type 2 diabetes mellitus 34416245 E11.9 compliant with diet , exercise medicines must be careful not to go into a1c 8 will need to increase calorie expenditur e or will increase dose of meds Essential hypertension 89792567 I10 stable no issues takes meds Pain in right knee 59157 51704 44788 M25.561 is progressiv e and is bothering rick with weather change will xray to start 2 sisters have arthritis and father bad arthritis and mother has it with fingers [id number] Donna Lyon NP, S [facility] Internal Medicine [address] [facility],[place] [address] 07/14/2018 10:18:06 07/18/2018 12:27:25 Type 2 diabetes mellitus 34886390 E11.9 Discussed A1C of 7.9, need to exercise daily and reduce caloric intake Acute bronchitis 3180924 2 J20.9 Call if no better Essential hypertension 57464853 I10 well controlled [id number] [facility] Internal Medicine [address] [facility] [address] 09/06/2018 13:49:07 09/06/2018 14:29:29 Essential hypertension 76485456 I10 stable no issues takes meds Type 2 obey betes mellitus 36238682 E11.9 compliant with diet , exercise medicines must be careful not to go into a1c 8 will need to increase calorie expenditur e or will increase dose of meds [id number] Donna Lyon, MICHAEL, S [facility] Internal Medicine [address] [facility],[place] [address] 10/24/2018 13:57:55 10/24/2018 15:34:33 Type 2 diabetes mellitus 97069604 E11.9 has f/u November Essential hypertension 09338276 I10 well controlled Routine gy necologic examination done 6258451638 9101 Z01.[id number] [facility] Internal Medicine [address] [facility],[place] [address] 12/12/2018 14:16:14 12/12/2018 15:40:36 Adult health examination 304734970 Z00.00 has been stable no major changes will give meds for travel overseas Active or passive immunization 387075872 Z23 44445 September EDDI Luna [facility] Internal Medicine [address] [facility],[place] [address] 02/06/2019 15:34:46 02/06/2019 16:24:07 Cough 07466510 R05 f/u if cough not improved after changing meds Type 2 obey betes mellitus 61862051 E11.9 Essential hypertension 16690218 I10 very well controlled [id number] [facility] Internal Medicine [address] [facility],[place] [address] 03/14/2019 14:39:28 03/14/2019 16:11:40 Type 2 diabetes mellitus 23238103 E11.9 compliant with diet , exercise medicines but sugar is uncontroll ed at 9.2 meds will start her on trulicity 0.75 then up to 1.5 weekly will rechk in 2 mo Essential hypertension 60652194 I10 stable no issues takes meds [id number] [facility] Internal Medicine [address] [facility],[place] [address] 05/16/2019 15:04:13 05/16/2019 16:00:41 Type 2 diabetes mellitus 63352557 E11.9 compliant with diet , exercise medicines but sugar is uncontroll ed at 9.2 and was 8.9 and now 9.3 again we will need to refer to endocrine despite the trulicity 1.5 weekly will rechk in 2 mo Essential hypertension 58171337 I10 stable no issues takes meds [id number] [facility] Internal Medicine [address] [facility] [address] 06/15/2019 14:53:30 06/15/2019 15:20:23 Essential hypertension 63862784 I10 stable no issues takes meds Type 2 obey betes mellitus 62355071 E11.9 compliant with diet , exercise medicines but sugar is uncontroll ed at 9.2 meds trulicity 0.75 causing rash and didnt budge the a1c she will be seeing endocrine in couple weeks will rechk in 3 mo [id number] [facility] [address] [facility] [address] 09/17/2019 15:00:04 09/17/2019 15:36:00 Type 2 diabetes mellitus 22336676 E11.9 compliant with diet , exercise medicines but sugar is uncontroll ed at 9.9 was 9.2 now on victoza and lantus but given persistant elevated sugar we will have her increase to 15 she will be seeing endocrine in couple weeks will rechk in 3 mo reviewed lab in detail told her she should get a DEXCOM or FREESTYLE SHARIF Essential hypertension 52874161 I10 stable no issues takes meds bp is stable and medication s are tolerated [id number] [facility] Internal Medicine [address] [facility],[place] [address] 12/21/2019 14:46:29 12/21/2019 15:34:54 Type 2 diabetes mellitus 46730688 E11.9 compliant with diet , exercise medicines but sugar is uncontroll ed at 11.1 was 9.9 and was 9.2 now on victoza and lantus but given persistant elevated sugar we will had her increase to 20u she will be seeing endocrine in couple weeks will rechk in 3 mo reviewed lab in detail a1c is 11.1 told her she should get a DEXCOM or FREESTYLE SHARIF but endocrine will not go to bat for her we will try to get this for her she is checking glucose 4 times a day Essential hypertension 33453067 I10 stable no issues takes meds bp is stable and medication s are tolerated [id number] [facility] Internal Medicine [address] [facility],[place] [address] [facility] [place] [address] 01/29/2020 11:48:42 01/29/2020 12:22:03 Adult health examination 099141534 Z00.00 has been stable no major changes will give meds for travel overseas Essential hypertension 46724353 I10 stable no issues takes meds bp is stable and medication s are tolerated Type 2 obey betes mellitus 96094017 E11.9 now doing great with new med jardiance from the endocrine consult will be cont and her a1c is done to 8.9 from a high of 11.3 months ago doing great and is encouraged to cont her exercise and diet regimen [id number] [facility] Internal Medicine [address] [facility],[place] [address] 06/10/2020 08:46:16 06/10/2020 15:19:29 Type 2 diabetes mellitus 59572500 E11.9 now doing great with new med jardiance from the endocrine consult who is following her now will be cont and her a1c is down to 7.4 from 8.9 from a high of 11.3 months ago doing great and is encouraged to cont her exercise and diet regimen Essential hypertension 85769456 I10 stable no issues takes meds bp is stable and medication s are tolerated Numbness of hand 4972562 [id number] [facility] Internal Medicine [address] [facility],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 Internal Medicine [address] [facility] [address] 04/24/2021 11:04:37 04/24/2021 11:56:28 Active or passive immunization 009665226 Z23 utd Adult heal th examination 542533789 Z00.00 has been stable no major changeswe will need to have her get the med notes from recent exams Essential hypertension 89542732 I10 stable no issues takes meds bp is stable and medication s are tolerated Type 2 obey betes mellitus 78267840 E11.9 now doing great with new med jardiance from the endocrine consult who is following her now will be cont and her a1c is back up to 7.4 prior was down to 7.0 from 7.4 from 8.9 from a high of 11.3 months ago doing great and is encouraged to cont her exercise and diet regimen has had a eye exam and this was reported as neg for [place] retinopath y [id number] Felix Rosa DO [facility] Internal Medicine [address] [facility],[place] [address] 08/24/2021 14:45:29 08/25/2021 15:18:08 Type 2 diabetes mellitus 72525250 E11.9 now doing great with new med jardiance from the endocrine consult who is following her now will be cont and her a1c is back up to 7.4 prior was down to 7.0 from 7.4 from 8.9 from a high of 11.3 months ago doing great and is encouraged to cont her exercise and diet regimen has had a eye exam and this was reported as neg for dm retinopath y Essential hypertension 19807795 I10 stable no issues takes meds bp is stable and medication s are tolerated Tinea pedis 0779313 B35. 3 will try to treat with cream has extensive amount over her sole of feet bilat [id number] GISELL DANIELS [facility] Internal Medicine [address] [facility] [address] 09/16/2021 16:03:21 09/18/2021 16:30:36 Thoracic back pain 324414886 M54.6 will start on treatment [id number] Felix Nguy[address]n Diallo [facility] Internal Medicine [address] [place] [address],[place] [address] 12/08/2021 15:21:35 12/09/2021 14:04:49 Type 2 diabetes mellitus 44704421 E11.9 now doing great with new med jardiance from the endocrine consult who is following her now will be cont and her a1c is 7.3 was 7.4 prior was down to 7.0 from 7.4 from 8.9 from a high of 11.3 months ago doing great and is encouraged to cont her exercise and diet regimen has had a eye exam and this was reported as neg for dm retinopath y Essential hypertension 81821395 I10 stable no issues takes meds bp is stable and medication s are tolerated Active or passive immunization 823066136 Z23 advised she is due for Tdap and Pneumonia vaccines will consider Screening mammography 24 859237 Z12.[id number] [facility] Internal Medicine [address] [place] [address],[place] [address] 03/09/2022 15:09:11 03/10/2022 11:35:38 Type 2 diabetes mellitus 16053332 E11.9 now doing great with new med jardiance from the endocrine consult who is following her now will be cont and her a1c is down to 7.2 7.3 was 7.4 prior was down to 7.0 from 7.4 from 8.9 from a high of 11.3 months ago doing great and is encouraged to cont her exercise and diet regimen has had a eye exam and this was reported as neg for dm retinopath y Essential hypertension 48249152 I10 stable no issues takes meds bp is stable and medication s are tolerated Degenerati on of lumbar intervertebral disc 61426258 M51.36 given prgression of her symptoms and pain down the legs we will order an mri [id number] [facility] Internal Medicine [address] [facility],[place] [address] 04/27/2022 10:42:40 04/27/2022 13:07:38 Active or passive immunization 766970570 Z23 advised she is due for Tdap and Pneumonia2 3 Adult heal th examination 587727078 Z00.01 has been stable but she noted to have no improvemen t in her right hand from the carpal tunnel surgfrom last yearwe will need to have her get the med notes from recent exams Screening for malignant neoplasm of colon 648097277 Z12.11 we will consider Degenerati on of lumbar intervertebral disc 48325985 M51.36 given progressio n of her symptoms and pain down the legsbegan her PT last month we will order an mri Carpal ashley jluis syndrome 49616549 G56.[id number] [facility] Internal Medicine [address] [facility],[place] [address] 07/27/2022 08:09:37 07/28/2022 12:11:34 Essential hypertension [id number] I10 stable no issues takes meds bp is stable and medication s are tolerated Type 2 obey betes mellitus 06731649 E11.9 now doing great with new med jardiance from the endocrine consult who is following her nowa1c was at 7,4 then 6.9 and now at 7.2 on jardianced oing great and is encouraged to cont her exercise and diet regimen has had a eye exam and this was reported as neg for dm retinopath y Degenerati on of lumbar intervertebral disc [id number] M51.36 given progressio n of her symptoms and pain down the legsbegan her PT last month we will order an mri using otc creams from [facility] with good results Carpal ashley jluis syndrome [id number] G56.01 doing better with a cream with this called rocksaute cream from [place] Gastroesop hageal reflux disease [id number] K21.9 she will try otc prilosec or nexium for the next 4 weeks let us know if not helping [id number] Felix Rosa, [facility] Internal Medicine [address] [facility],[place] [address] 10/27/2022 09:43:29 10/27/2022 13:55:40 Type 2 diabetes mellitus 54890443 E11.9 now doing great with new med jardiance from the endocrine consult who is following her nowa1c was at 7.1 then was 7.0 and 7.2 and 6.9 on jardianced oing great and is encouraged to cont her exercise and diet regimen has had a eye exam and this was reported as neg for dm retinopath y Essential hypertension [id number] I10 stable no issues takes meds bp is stable and medication s are tolerated Allergic conjunctivitis of bilateral eyes [id number] 54070 H10.13 we will try an eye drop and hope it is covered [id number] [facility] Internal Medicine [address] [facility],[place] [facility] [place] [address] 03/08/2023 13:31:33 03/08/2023 14:51:20 Essential hypertension 49010936 I10 stable no issues takes meds bp is stable and medication s are tolerated Type 2 obey betes mellitus 24177076 E11.9 now doing great with new med jardiance from the endocrine consult who is following her now is at 6.9 he was at 7.1 then was 7.0 and 7.2 and 6.9 on jardiance doing great and is encouraged to cont her exercise and diet regimen has had a eye exam and this was reported as neg for dm retinopath y Gastroesop hageal reflux disease [id number] K21.9 she will try otc prilosec or nexium for the next 4 weeks let us know if not helping [id number] [facility] Internal Medicine [address] [facility],[place] [facility] [place] [address] 06/10/2023 13:18:32 06/10/2023 14:06:07 Type 2 diabetes mellitus 69506296 E11.9 note she had a mix up with victoza and was off for 3 weeksthis is why it is elevated at 7.5 Essential hypertension 16837055 I10 stable no issues takes meds bp is stable and medication s are tolerated Active or passive immunization 642948665 Z23 advised she is due for Tdap and Pneumonia2 3 Adult heal th examination 238523748 Z00.00 has been stable but she noted to have no improvemen t in her right hand from the carpal tunnel surg and it is getting worse from last yearwe will need to have her get the med notes from recent exams [id number] Felix Rosa [facility] Internal Medicine [address] [facility],[place] [facility] [place] [address] 09/28/2023 13:38:40 09/28/2023 15:23:15 Essential hypertension 38708802 I10 stable no issues takes meds bp is stable and medication s are tolerated Type 2 obey betes mellitus 36900556 E11.9 long discussed how she is doing with her sugar feeling well and is having good readingsa1 c is 7.4 was 6.9 just got cortisone shotdiscus sed her diet and exercise and cont to monitor Trigger fi nger of right hand [id number] M65.[address] got cortisone and is better Epigastric pain 83894798 R10.13 recurrent [id number] Felix Rosa DO [facility] Internal Medicine [address] [facility] [address] 01/17/2024 13:44:18 01/17/2024 16:27:28 Depression screening 494030656 Z13.31 negative Type 2 obey betes mellitus 16687896 E11.9 long discussed how she is doing with her sugar feeling well and is having good readingsa1 c is 7.9, 7.6, 7.4 was 6.9 just got cortisone shotdiscus sed her diet and exercise and cont to monitor Essential hypertension 29238613 I10 stable no issues takes meds bp is stable and medication s are tolerated Gastropare sis due to type 2 diabetes mellitus 720948091 E11.43 having a lot of post prandial bloating [id number] GISELL DANIELS [facility] Internal Medicine [address] [facility], [place] [address] 04/24/2024 14:10:05 04/24/2024 15:32:37 Gastroparesis due to type 2 diabetes mellitus 186826738 E11.43 having a lot of post prandial bloating will try reglan Screening for malignant neoplasm of colon 888576542 Z12.11 we will consider please call in 2 weeks with update on med Type 2 obey betes mellitus 89125333 E11.9 long discussed how she is doing with her sugar feeling well and is having good readingsa1 c is 7.9, 7.6, 7.4 was 6.9 just got cortisone shotdiscus sed her diet and exercise and cont to monitor [id number] Felix Rosa DO [facility] Internal Medicine [address] [facility],[place] [facility] [place] [address] 05/15/2024 14:23:57 05/15/2024 15:09:37 Essential hypertension 38677697 I10 stable no issues takes meds bp is stable and medication s are tolerated Gastropare sis due to type 2 diabetes mellitus 933863612 E11.43 finally feels markedly better will cont for now until she can see GI in a month or sopt warned and understand s the sx of tardive dyskinesia and what to look out for and to stop immediatel y and call me Allergic conjunctivitis of bilateral eyes [id number] 06122 H10.13 we will try an eye drop and hope it is covered [id number] Felix BenitezCydney Rosa DO [facility] Internal Medicine [address] [facility],[place] [facility] [place] [address] 06/12/2024 11:11:00 06/12/2024 11:51:02 Active or passive immunization 921176905 Z23 advised she is due for Tdap and Pneumonia2 3 Adult heal th examination 341534254 Z00.01 has been stable but she noted to have an ongoing pneumoniti s post viral from last yearwe will need to have her get the med notes from recent exams Pneumonitis [id number] J1 8.9 Health Concerns Section Related Observation LastModified by Organization Detai ls LastModified Time None Recorded Concern Status LastModified by Organization Details LastModified Time None Recorded Advance Directives Directive None Recorded Payers Encounter Date Sequence Insurance Name Policy Number Policy Moreno Covered Member ID Moreno Member ID Guarantor Name 09/28/2023 1 [id number] 8 Luana Garcia [id number] Luana Garcia 01/17/2024 1 [id number] 8 Luana Garcia [id number] Luana Garcia 04/24/2024 1 [id number] 8 Luana Garcia [id number] Luana Garcia 05/15/2024 1 [id number] 8 Luana Garcia [id number] Luana Garcia 06/12/2024 1 [place] [id number] 8 Luana Garcia [id number] Luana Garcia Notes Date Note Type Note Provider Name and Address Organization Details Recorded Time 4 text/htm l here for rechkrelates had epigastric abdominal pain had 2 bouts late at night quite severe and hurt 4 1/2 hours then went away no other symptomscame back 6 days later now is just tender and feels sensitive Felix Rosa DO [address] [place], [address], [facility] Internal Medicine 09/28/2023 14:31:16 4 text/htm l Care Management - DiabetesReported [...] sore at times after eating GISELL DANIELS [address] [place] [address], [phone], [facility] 05/02/2024 15:55:09 4 text/htm l here for rechkstates she has felt fantastic since starting on the metoclopramidestates no longer feels full or bloated and states now that she finished the tow weeks worth her sx are coming back Felix Rosa DO [address] [place], [address], [facility] 05/15/2024 15:10:27 4 text/htm l Annual WellnessReported bypatient.Diet and Nutrition:healthy diet Fracture [...] Hearing:no loss of hearing Vision:no vision problems has had a recent viral infection and has been feeling lousy stillstill coughing and having tiredness Felix Rosa, DO [address] [place], [address], [facility] Internal Medicine 06/12/2024 11:49:42 OBGyn Episode No OBEpisode recorded.
[2024-07-03 14:29] LABS: Folate 19.5 ng/mL (> or = 4.0); Vitamin B12 593 pg/mL (200-900)
[2024-07-04 23:29] LABS: Transglutaminase IgA <1.0 U/mL
[2024-07-07 13:19] LABS: Vitamin D 25-OH, D2 <4 ng/mL; Vitamin D 25-OH, D3 24 ng/mL; Vitamin D 25-OH, Total 24 ng/mL (30-100)
== END 2024-07-03 11:32 | disposition home or self-care (01) ==
LOC: HO.LAB 11:31
PROVIDERS: PCP Internal Medicine; Visit Provider Nurse Practitioner Family
DX: R19.7 Diarrhea, unspecified (principal); E55.9 Vitamin D deficiency, unspecified; R10.9 Unspecified abdominal pain
CPT/HCPCS: 36415; 82306; 82607; 82746; 86364

== ENCOUNTER 2024-07-03 11:31 | Outpatient (AMB) | payer OTHER, SELFPAY ==
[2024-07-03 11:33] VITALS: BP 150/76; PULSE 96; O2SAT 96
--- NOTE | 2024-07-03 11:33 | A.OFFVIS_ITS ---
Vital Signs 07/03/24 11:33 Height 4 ft 11 in Weight 148 lb 9.465 oz BMI 30.0 BP 150/76 H Blood Pressure Location Lt brachial Position Sitting Pulse 96 Pulse Source Pulse Oximeter Pulse Oximetry (%) 96 Oxygen Delivery Method Room Air Intake Visit Reasons: gastroparesis Intake Note: NEW PATIENT Reason; Initial assessment. GLP gastroparesis. Prior hx of colo/egd? EGD approx 10 years ago. ([facility]) Concerns/Questions? Epigastric pain. No other concerns pt. Allergies Sulfa (Sulfonamide Antibiotics) Allergy (Intermediate, Verified 07/03/24 11:33) Rash ciprofloxacin [From Cipro] Allergy (Unknown, Verified 07/03/24 11:) Unknown dulaglutide [Trulicity] Allergy (Unknown, Verified 07/03/24:) itching metronidazole Allergy (Unknown, Verified 07/03/24 11:33) Unknown sulfamethoxazole [From Bactrim] Allergy (Unknown, Verified 07/03/24 11:) Unknown trimethoprim [From Bactrim] Allergy (Unknown, Verified 07/03/24 11:) Unknown HPI HPI gastroparesis: Details: 53 year old female with past medical history of arthritis, diabetes, CTS, hypertension, hyperlipidemia, obesity is here today for initial consultation. Patient had gastric emptying study done in February of 2024 and it showed gastroparesis. Patient was then on GLP 1 weekly and her symptoms of early satiety got worse. Patient was switched to few different medications and currently she is on Victoza. Patient reports that her diabetes has been hard to control. Patient was started on Reglan twice a day. She states that she is taking in the morning and at bedtime. Patient reports that her symptoms have improved after starting the medication. Patient has been diabetic since her 30s. Patient reports occasional dyspepsia without dysphagia or odynophagia. [facility] Medical History (Updated 07/03/24 @ 19:49 by ELIAS Larkin-) Transaminitis Gastroparesis Arthritis Diabetes mellitus type 2, controlled, without complications CTS (carpal tunnel syndrome) Essential hypertension Hyperlipidemia LDL goal <100 BMI 30.0-30.9,adult Surgical History Hx of carpal tunnel repair Hx of hysterectomy Family History Father No problems noted. Mother Diabetes Social History Household Members: Spouse Patient Tobacco Use Status: Never used Tobacco Review of Systems Const Denies weight gain and Denies weight loss ENT Reports no additional complaints, Denies dysphagia and Denies odynophagia Card Reports no additional complaints Resp Reports no additional complaints GI Reports abdominal pain, Denies belching, Denies melena, Reports bloating, Denies change in bowel habits, Reports constipation, Denies dysphagia, Denies excessive flatus, Reports early satiety, Denies dyspepsia, Reports heartburn, Denies diarrhea, Denies loose stools, Denies nausea, Denies odynophagia and Denies vomiting Reports no additional complaints Musc Reports no additional complaints Neuro Reports no additional complaints Psych Reports no additional complaints Endo Reports no additional complaints Physical Exam Vital Signs: Last Vital Signs Pulse 96 07/03/24 11:33 BP 150/76 H 07/03/24 11:33 Pulse Ox 96 07/03/24 11:33 Oxygen Delivery Method Room Air 07/03/24 11:33 BMI result Body Mass Index 30.0 Const General: healthy appearing and no acute distress Nutritional Appearance: well nourished and obese Orientation/consciousness: patient oriented x3 Resp Effort & Inspection: normal respiratory effort, able to speak in complete sentences, no tracheal deviation and symmetric chest movement Auscultation: clear to auscultation bilaterally Cardio Rate: regular rate GI Inspection: Yes normal to inspection, No distended and Yes obesity Palpation (GI): Soft to palpation, not firm, nontender and No hepatosplenomegaly present Auscultation: normal bowel sounds General: Yes no CVA tenderness Back/Spine/Pelvis Back: no CVA tenderness Skin General skin exam: elasticity normal, turgor normal and dry skin Neuro General: patient oriented x3 Psych Appearance: grossly normal Mental Status: mental status grossly normal Results Reviewed Results Reviewed: GASTRIC EMPTYING STUDY 03/16/2024 FINDINGS: There is good visualization of activity in the stomach immediately post ingestion. As the study progresses, there is good clearance of activity from the stomach and visualization of progressively increasing small bowel activity. By the end of the study, however, there is significantly dense and noted in the stomach. Retention in the stomach at each time interval was: 1 hour 92% (normal 37%-90%) 2 hours 75% (normal 30%-60%) 3 hours 62% 4 hours 44% (normal 0%-10%) NM/NM gastric emptying study IMPRESSION: Abnormally delayed (grade 3) 4-hour solid food gastric emptying study. For solid meal, rapid gastric emptying is less than 30% at 60 minutes. Delayed gastric emptying criteria is more than 60% remaining at 120 minutes or more than 10% at 240 minutes. The 4-hour value is the best discriminator of a normal or abnormal result). ABDOMINAL ULTRASOUND 10/15/2023 IMPRESSION: 1. There is generalized increase in hepatic echotexture, consistent with fatty infiltration or hepatocellular disease. Please correlate clinically. No focal hepatic mass or intrahepatic biliary dilatation is seen. 2. Otherwise, unremarkable examination. Laboratory Tests 04/14/24 06/09/24 07:46 07:38 AST 32 H 41 H ALT 51 H 55 H Assessment & Plan Assessment & Plan (1) Gastroparesis: Code(s): K31.84 - Gastroparesis Category: Medical (2) GERD (gastroesophageal reflux disease): Code(s): K21.9 - Gastro-esophageal reflux disease without esophagitis Qualifiers: Esophagitis presence: esophagitis presence not specified Qualified Code(s): K21.9 - Gastro-esophageal reflux disease without esophagitis (3) Constipation: Code(s): K59.00 - Constipation, unspecified Qualifiers: Constipation type: slow transit constipation Qualified Code(s): K59.01 - Slow transit constipation (4) Screen for colon cancer: Code(s): Z12.11 - Encounter for screening for malignant neoplasm of colon (5) Transaminitis: Code(s): R74.01 - Elevation of levels of liver transaminase levels Category: Medical (6) Non-alcoholic fatty liver disease: Code(s): K76.0 - Fatty (change of) liver, not elsewhere classified Plan Patient will be sent for upper endoscopy and colonoscopy. Patient was encouraged to take Reglan with bigger meals and not on empty stomach. She will need to move her bowels better. Patient will start taking Dulcolax daily. We will rule out celiac that could also be contributing to gastroparesis. Will check vitamin-D, B12 and folate levels. Discussed with patient in detail diet for gastroparesis, low fiber and small meals. Victoza might be contributing more than other GLP 1's and if patient has not tried Mounjaro she could try it. Diet modification should happen and patient should be able to tolerate smaller meals. What to expect before during and after procedure discussed with patient. Stressed the importance of good bowel prep and clear liquid diet day before procedure. Patient will be sent also for upper endoscopy to rule out gastritis, esophagitis, celiac, H pylori. Continue pantoprazole. Avoid dietary triggers and late night snacking. Staying upright for minimum 3 hours after meals dis cussed with patient. History of transaminitis in the past most likely related to patient's weight gain. Low-fat, low carb, low-salt and high protein diet recommended. Patient is agreeable to current plan of care and verbalizes understanding of instructions. She was given the opportunity to ask questions and all questions answered. Thank you for allowing me to participate in her care Orders: Orders Vitamin B12 and Folate Today R19.7 - Diarrhea, unspecified Transglutaminase IgA Today R10.9 - Unspecified abdominal pain Vitamin D 25-OH (D2 and D3) Today E55.9 - Vitamin D deficiency, unspecified Medications: New bisacodyl (Dulcolax (bisacodyl)) 10 mg (2 x 5 mg) PO BEDTIME 180 tabs 4RF polyethylene glycol 3350 (Miralax) As directed by gastroenterology department at [facility] 238 grams PO ONCE 238 grams 0RF Z12.11 - Encounter for screening for malignant neoplasm of colon Discontinued insulin glargine (Lantus Solostar U-100 Insulin) Discontinued Reason: More recent result 52 units subcut BEDTIME Coding Level of Care Code New Pt Level 4 (88293) Diagnoses Gastroparesis K31.84 Gastroesophageal reflux disease, unspecified whether esophagitis present K21.9 Esophagitis presence: esophagitis presence not specified Slow transit constipation K59.01 Constipation type: slow transit constipation Screen for colon cancer Z12.11 Transaminitis R74.01 Non-alcoholic fatty liver disease K76.0 Time Spent (min) 45 Comment 30 minutes spent with patient and additional 15 minutes spent reviewing her records
--- OUTSIDE RECORDS SUMMARY | 2024-07-03 13:17 | XMS_ITS | Continuity of Care Document ---
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 Referral gastr adria swanson ist refer ral 2023 024 [facility], [address] [place] [address] , [facility], [place], [address], 04/27/2024 08:39:20 Procedures None recor ded. Surgeries None recor ded. Imaging None recor ded. Medication Orders metoc lopra mide 5 mg table t 2023 024 [facility], [address], [place], [address], 04/24/2024 14:58:19 Patient TargetsNo targets recorded. 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 for malignant neoplasm of colon Referring Physician: Felix Rosa, Internal Medicine, Encounter Date: 04/24/2024 Problems Name Problem SNOMED Code Status Onset Date Resolution Date Notes Provider Name and Address Organization Details Recorded Time History of abdominal hysterect reji 097760023 Active 2017 cervix cranes intact Not Available [facility] 3 06:36:37 Median neuropath y 925354235 Active 2020 Not Available [facility] 3 06:36:37 Thoracic arthritis 2088067 Active 2021 Not Available [facility] 3 06:36:37 Degenerat ion of lumbar intervert ebral disc 76253050 Active 2021 Not Available [facility] 3 06:36:37 Carpal tunnel syndrome 59369564 Active 2021 Not Available [facility] 3 06:36:37 Carpal tunnel syndrome 64980492 Active 2022 Not Available [facility] 3 06:36:37 Gastroeso phageal reflux disease 467807052 Active 2022 Not Available [facility] 3 06:36:37 Allergic conjuncti vitis of bilateral eyes 91079726447 9102 Active 2022 Not Available [facility] 3 06:36:37 Trigger finger of right hand 15527684993 386621 Active 2023 Felix Rosa, DO [address] [place] [address], [address], [facility] 4 14:26:48 Epigastri c pain 43168999 Active 2023 Felix Adrian Jose Estella [address], [address], [facility] 4 14:28:25 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 2023 Felix BenitezCydney Rosa [address], [address], [facility] 4 14:20:10 Gastropar esis due to type 2 diabetes mellitus 011504147 Active 2023 Felix BenitezCydney Rosa [address], [address], [facility] Internal [facility] 4 14:21:16 Cough 38714313 Active 2023 Felix Rosa [address], [address], [facility] 4 11:05:01 Pneumonit is 307005133 Active 2023 Felix Rosa [address], [address], [facility] Internal [facility] 4 11:45:45 Essential hypertens ion 90482047 Active 2017 Meeta del rosario [facility] Internal [facility] 4 11:13:37 Obesity 239403672 Active 2017 Meeta del rosario [facility] Internal [facility] 4 11:13:54 Type 2 diabetes mellitus 07464533 Active 2017 Meeta del rosario [facility] Internal [facility] 4 11:13:45 Notes:Some problems listed i n Documents: #[id number], #[id number], #[id number] could not be added to this patient's chart. Please review these documents and add these problems to the patient's chart manually as needed. Problem Notes None recorded. Procedures Surgical History Date Name Laterality Status Provider Name and Address Organization Details Recorded Time 06/27/19 16 Date of Last Pap Smear completed Donna Lyon NP, [address] [place], [address], [facility] Internal [facility] 10/24/2018 14:19:18 Partial Hysterectomy completed Donna Lyon NP, [address] [place], [address], [facility] Internal [facility] 10/24/2018 14:18:36 Imaging Results None recorded. Procedure Notes None recorded. Medical Equipment None Reported. Allergies Allergen ID Allergen Name Allergen Category Reaction Reaction Severity Criticality Documentation Date Start Date Code Code System Note Provider Name and Address Organization Details Recorded Time 207 Bactrim medicatio n rash Not available Not available 08/29/2017 35843 9 [facility] 8 09:25[facility]35 208 Cipro medicatio n headache Not available Not available 08/29/2017 49528 3 RxNorm [facility] 8 09:26:00 209 metronida zole medicatio n headache Not available Not available 08/29/2017 6922 RxNorm ? Smita [facility] 8 09:26:30 Medications Name Sig Start Date [...] n 250 mg tablet TAKE 2 TABLETS ON FIRST DAY , THEN 1 TABLET DAILY FOR 4 DAYS active Not Available Not [...] Available Not Available FreeStyle Sharif 14 Day [place] USE DIRECTED 2023 active Not Available Not [...] Updated DateTime 4 151.77 cm 28.9 kg/m2 21464.0 8 g 84 /min 98 % 98 % 124 mm[Hg] 80 mm[Hg] [facility] 4 14:34:23 Social History Question Answer Notes LastModified by Organizat ion Details LastModified Time Tobacco Smoking Status Never Smoker Not Available [facility] 04/29/2020 03:36:24 What Was The Date Of Your Most Recent Tobacco Screening? 06/12/2024 [email or web address] Information not available 06/12/2024 Do You Or Have You Ever Used Any Other Forms Of Tobacco Or Nicotine? No [email or web address] Information not available 06/10/2023 Sex: Unknown Functional Status None recorded. Mental Status None recorded. Family History Relationship Description Onset Age of this Age Resolved Age Notes LastModified by Organization Details LastModified Time Mother Type 2 diabetes mellitus 65 [email or web address] Not available 2018 14:17:37 Father Myocardial infarction [...] virus, quadrivalent, preservative 8 completed Not Available [facility] 06/17/2023 13:00:15 COVID-19, mRNA, LNP-S, PF, 30 mcg/0.3 mL dose 1 completed Not Available [facility] 06/17/2023 13:00:15 COVID-19, mRNA, LNP-S, PF, 30 mcg/0.3 mL dose 1 completed Not Available [facility] 06/17/2023 13:00:15 Past Encounters Encounter ID Performer Location Encounter Start Date Encounter Closed Date Diagnosis/Indication Diagnosis SNOMED-CT Code Diagnosis ICD10 Code Diagnosis Note [id number] GISELL DANIELS [facility] [address] [facility] [facility] [address] 04/24/2024 14:10:05 04/24/2024 15:32:37 Gastroparesis due to type 2 diabetes mellitus 923149067 E11.43 having a lot of post prandial bloating will try reglan Screening for malignant neoplasm of colon 283992243 Z12.11 we will consider please call in 2 weeks with update on med Type 2 obey betes mellitus 67299125 E11.9 long discussed how she is doing with her sugar feeling well and is having good readingsa1 c is 7.9, 7.6, 7.4 was 6.9 just got cortisone shotdiscus sed her diet and exercise and cont to monitor Health Concerns Section Related Observation LastModified by Organization Detai ls LastModified Time None Recorded Concern Status LastModified by Organization Details LastModified Time None Recorded Payers Encounter Date Sequence Insurance Name Policy Number Policy Moreno Covered Member ID Moreno Member ID Guarantor Name 04/24/[address] [place] [address] [id number] Luana Garcia [id number] Luana Garcia Notes Date Note Type Note Provider Name and Address Organization Details Recorded Time 4 text/htm l Care Management - DiabetesReported bypatient.Self Care:seeing eye doctor yearly for dilated eye exam; checking feet regularly; normal range of home blood sugars (in the low 100s); no side effects from medications Associated Symptoms:symptoms are usually well controlled; no fatigue; no excessive sweating; no confusion; no increased appetite; no increased urination; no blurred vision; no numbness of feet; no calluses on feet;dizziness;headaches ;increased thirstNotes:noted this stomach has dm gastroparesisCare Management - HypertensionReported bypatient.Self Care:not under emotional stress Severity:symptoms are improving; does not interfere with daily activities Associated Symptoms:no dizziness; no lightheadedness; no chest pain; no shortness of breath; no palpitations; no edema; no calf muscle cramps; no blurred vision; no confusion; no headaches; no fatigue here for rechkl ethel feels sugar might be uopshe is still having trouble with her stomachstate feels bloated and sore at times after eating GISELL DANIELS [address] [facility], [place], [address], [place] [facility] 05/02/2024 15:55:09 OBGyn Episode No OBEpisode recorded.
--- OUTSIDE RECORDS SUMMARY | 2024-07-03 13:17 | XMS_ITS | Continuity of Care Document ---
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 Referral None recorded. Procedures None recorded. Surgeries None recorded. Imaging None recorded. Medication Orders metoclopr amide 5 mg tablet 2023 024 [facility], [address] [facility], [place], [address], 05/15/2024 15:06:34 olopatadi ne 0.1 % eye drops 2023 024 [facility], [address] [facility], [place], [address], 05/15/2024 15:10:05 Patient TargetsNo targets recorded. Patient InstructionsNo instructions recorded. Reason for Referral None Reported. Problems Name Problem SNOMED Code Status Onset Date Resolution Date Notes Provider Name and Address Organization Details Recorded Time History of abdominal hysterect reji 864188296 Active 2017 cervix cranes intact Not Available [facility] 3 06:36:37 Median neuropath y 468957946 Active 2020 Not Available [facility] 3 06:36:37 Thoracic arthritis 2667472 Active 2021 Not Available [facility] 3 06:36:37 Degenerat ion of lumbar intervert ebral disc 22909449 Active 2021 Not Available [facility] 3 06:36:37 Carpal tunnel syndrome 04781923 Active 2021 Not Available [facility] 3 06:36:37 Carpal tunnel syndrome 18464666 Active 2022 Not Available [facility] 3 06:36:37 Gastroeso phageal reflux disease 974729632 Active 2022 Not Available [facility] 3 06:36:37 Allergic conjuncti vitis of bilateral eyes 03637230158 9102 Active 2022 Not Available [facility] 3 06:36:37 Trigger finger of right hand 51073991817 695407 Active 2023 Felix Rosa DO [address] [place] [address], [address], [facility] 4 14:26:48 Epigastri c pain 96190767 Active 2023 Felix Rosa DO [address] [place] [address], [address], [facility] [place] [facility] 4 14:28:25 Gastric motor function disorder 09055295 Active 2023 Felix Rosa DO [address] [place] [address], [address], [facility] 4 14:20:10 Gastropar esis due to type 2 diabetes mellitus 751440861 Active 2023 Felix Rosa, DO [address] [place] [address], [address], [facility] 4 14:21:16 Cough 81439704 Active 2023 Felix Rosa, DO [address] [place] [address], [address], [facility] 4 11:05:01 Pneumonit is 217248562 Active 2023 Felix Rosa, DO [address] [place] [address], [address], [facility] 4 11:45:45 Essential hypertens ion 49438089 Active 2017 [facility] 4 11:13:37 Obesity 968872619 Active 2017 [facility] 4 11:13:54 Type 2 diabetes mellitus 22615866 Active 2017 [facility] 4 11:13:45 Notes:Some problems listed i n Documents: #[id number], #[id number], #[id number] could not be added to this patient's chart. Please review these documents and add these problems to the patient's chart manually as needed. Problem Notes None recorded. Procedures Surgical History Date Name Laterality Status Provider Name and Address Organization Details Recorded Time 06/27/19 16 Date of Last Pap Smear completed Donna Lyon NP, [address] [place] [address], [address], [facility] 10/24/2018 14:19:18 Partial Hysterectomy completed Donna Lyon NP, [address] [place] [address], [address], [facility] 10/24/2018 14:18:36 Imaging Results None recorded. Procedure Notes None recorded. Medical Equipment None Reported. Allergies Allergen ID Allergen Name Allergen Category Reaction Reaction Severity Criticality Documentation Date Start Date Code Code System Note Provider Name and Address Organization Details Recorded Time 207 Bactrim medicatio n rash Not available Not available 08/29/2017 60374 9 RxNorm Smita Igetristan miguel ángel [facility] 8 09:25:35 208 Cipro medicatio n headache Not available Not available 08/29/2017 36479 3 RxNorm ? Smita Igel miguel ángel [facility] 8 09:26:00 209 metronida zole medicatio n headache Not available Not available 08/29/2017 6922 RxNorm ? Smita Igel miguel ángel [facility] 8 09:26:30 Medications Name Sig Start Date [...] completed Not Available Not Available Not Available Lant Solostar U-100 Insulin 100 unit/mL (3 mL) [...] Available Not Available FreeStyle Sharif 14 Day [place] USE DIRECTED 2023 active Not Available Not Available Not Yamilet labmary FreeStyle Sharif 14 Day Sensor kit APPLY [...] Updated DateTime 4 151.77 cm 28.2 kg/m2 32980.7 1 g 94 /min 96 % 96 % 138 mm[Hg] 80 mm[Hg] [facility] 4 14:52:28 Social History Question Answer Notes LastModified by Organizat ion Details LastModified Time Tobacco Smoking Status Never Smoker Not Available [facility] 04/29/2020 03:36:24 What Was The Date Of Your Most Recent Tobacco Screening? 06/12/2024 [email or web address] Information not available 06/12/2024 Do You Or Have You Ever Used Any Other Forms Of Tobacco Or Nicotine? No [email or web address] Information not available 06/10/2023 Sex: Unknown Functional [...] virus, quadrivalent, preservative 8 completed Not Available [facility] 06/17/2023 13:00:15 COVID-19, mRNA, LNP-S, PF, 30 mcg/0.3 mL dose 1 completed Not Available [facility] 06/17/2023 13:00:15 COVID-19, mRNA, LNP-S, PF, 30 mcg/0.3 mL dose 1 completed Not Available [facility] 06/17/2023 13:00:15 Past Encounters Encounter ID Performer Location Encounter Start Date Encounter Closed Date Diagnosis/Indication Diagnosis SNOMED-CT Code Diagnosis ICD10 Code Diagnosis Note [id number] GISELL DANIELS [facility] [address] [place] [address],[place] [address] 04/24/2024 14:10:05 04/24/2024 15:32:37 Gastroparesis due to type 2 diabetes mellitus 370331895 E11.43 having a lot of post prandial bloating will try reglan Screening for malignant neoplasm of colon 818348883 Z12.11 we will consider please call in 2 weeks with update on med Type 2 obey betes mellitus 24401011 E11.9 long discussed how she is doing with her sugar feeling well and is having good readingsa1 c is 7.9, 7.6, 7.4 was 6.9 just got cortisone shotdiscus sed her diet and exercise and cont to monitor [id number] Felix Rosa DO [facility] [address] [facility] [address] 05/15/2024 14:23:57 05/15/2024 15:09:37 Essential hypertension 26362983 I10 stable no issues takes meds bp is stable and medication s are tolerated Gastropare sis due to type 2 diabetes mellitus 252235679 E11.43 finally feels markedly better will cont for now until she can see GI in a month or sopt warned and understand s the sx of tardive dyskinesia and what to look out for and to stop immediatel y and call me Allergic conjunctivitis of bilateral eyes 2073785355 78586 H10.13 we will try an eye drop and hope it is covered Health Concerns Section Related Observation LastModified by Organization Detai ls LastModified Time None Recorded Concern Status LastModified by Organization Details LastModified Time None Recorded Payers Encounter Date Sequence Insurance Name Policy Number Policy Moreno Covered Member ID Moreno Member ID Guarantor Name 05/15/[address] [place] [address] [id number] Luana Garcia [id number] Luana Garcia Notes Date Note Type Note Provider Name and Address Organization Details Recorded Time 4 text/htm l here for rechkstates she has felt fantastic since starting on the metoclopramidestates no longer feels full or bloated and states now that she finished the tow weeks worth her sx are coming back Felix Rosa DO [address] [facility], [place], [address], [facility] [place] [facility] 05/15/2024 15:10:27 OBGyn Episode No OBEpisode recorded.
== END 2024-07-03 12:35 | disposition home or self-care (01) ==
PROVIDERS: PCP Internal Medicine; Visit Provider Nurse Practitioner Family
DX: K31.84 Gastroparesis (principal); K21.9 Gastro-esophageal reflux disease without esophagitis; K59.01 Slow transit constipation; R74.01 Elevation of levels of liver transaminase levels; K76.0 Fatty (change of) liver, not elsewhere classified
CPT/HCPCS: 99204

== ENCOUNTER 2024-07-21 07:37 | Outpatient (REF) | payer OTHER, SELFPAY ==
--- OUTSIDE RECORDS SUMMARY | 2024-07-21 07:40 | XMS_ITS | Data Portability ---
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 Surgeries None recor ded. Imaging US, abdom en, compl ete 2023 [facility] (Imaging), [address] [place] [address], [address], 09/30/2023 09:20:21 NM, gastr ic empty ing scan 2023 [facility] Central Scheduling, [address] [place], [address], 02/01/2024 08:17:34 Medication Orders metoc lopra mide 5 mg table t 2023 [facility], [address] [place] [address], [address], 04/24/2024 14:58:19 metoc lopra mide 5 mg table t 2023 024 [facility], [address] [place], [address], 05/15/2024 15:06:34 olopa tadin e 0.1 % eye drops 2023 024 [facility], [address] [place], [address], 05/15/2024 15:10:05 azith romyc in 250 mg table t 2023 024 [facility], [address] [place] [address], [address], 06/12/2024 11:46:07 Patient TargetsNo targets recorded. 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 [email or web address] [facility] (Medical Records) [address] [place], [address], 2023 10:11:53 01/25/20 24 12/27/2023 MAMMO , scree ryan, digit al, bilat eral No observ ation record ed. [address] [place], [address], 01/25/2024 14:14:04 01/25/20 24 12/27/2023 MAMMO , scree ryan, digit al, bilat eral No observ ation record ed. [email or web address] [address] [place], [address], 01/25/2024 15:01:18 03/07/20 24 03/06/2024 NM, gastr ic empty ing scan No observ ation record ed. [facility] (Medical Records) [address] [facility], [address], 03/11/2024 22:16:50 Result Notes None recorded. Problems Name Problem SNOMED Code Status Onset Date Resolution Date Notes Provider Name and Address Organization Details Recorded Time History of abdominal hysterect reji 996036117 Active 2017 cervix cranes intact Not Available [facility] 3 06:36:37 Median neuropath y 049345865 Active 2020 Not Available [facility] 3 06:36:37 Thoracic arthritis 1203238 Active 2021 Not Available [facility] 3 06:36:37 Degenerat ion of lumbar intervert ebral disc 19120309 Active 2021 Not Available [facility] 3 06:36:37 Carpal tunnel syndrome 20413931 Active 2021 Not Available [facility] 3 06:36:37 Carpal tunnel syndrome 53287397 Active 2022 Not Available [facility] 06:36:37 Gastroeso phageal reflux disease 541364225 Active 2022 Not Available [facility] 06:36:37 Allergic conjuncti vitis of bilateral eyes 38115954368 9102 Active 2022 Not Available [facility] 3 06:36:37 Trigger finger of right hand 25523011128 692165 Active 2023 Felix Rosa, DO [address] [place] [address], [address], [facility] [place] 4 14:26:48 Epigastri c pain 70328409 Active 2023 Felix Rosa DO [address] [place] [address], [address], [facility] [place] 4 14:28:25 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 Felix Rosa DO [address] [place] [address], [address], [facility] [place] 4 14:20:10 Gastropar esis due to type 2 diabetes mellitus 351914712 Active 2023 Felix Rosa DO [address] [place] [address], [address], [facility] [place] 4 14:21:16 Cough 38862497 Active 2023 Felix Rosa, DO [address] [place] [address], [address], [facility] [place] 4 11:05:01 Pneumonit is 635565732 Active 2023 Felix Rosa, DO [address] [place] [address], [address], [facility] [place] 4 11:45:45 Gastropar esis due to diabetes mellitus 828953029 Active 2024 Felix Rosa, DO [address] [place] [address], [address], [facility] 5 08:48:23 Essential hypertens ion 40074847 Active 2017 [facility] 4 11:13:37 Obesity 811890512 Active 2017 [facility] 4 11:13:54 Type 2 diabetes mellitus 20647930 Active 2017 [facility] 4 11:13:45 Notes:Some problems listed i n Documents: #[id number], #[id number], #[id number], #[id number] could not be added to this patient's chart. Please review these documents and add these problems to the patient's chart manually as needed. Problem Notes None recorded. Procedures Surgical History Date Name Laterality Status Provider Name and Address Organization Details Recorded Time 06/27/19 16 Date of Last Pap Smear completed Donna Lyon NP, S [address] [place] [address], [address], [facility] 10/24/2018 14:19:18 Partial Hysterectomy completed Donna Lyon NP, S [address] [place] [address], [address], [facility] 10/24/2018 14:18:36 Imaging Results Imaging Date Name Status LastModified by Organiz ation Details LastModified Time 10/07/2023 US, abdomen, complete completed [email or web address] [facility] (Medical Records) [address] [place], [address], 2023 10:11:53 12/27/2023 MAMMO, screening, digital, [facility] [place] [address] [place], [address], 01/25/2024 14:14:04 12/27/2023 MAMMO, screening, digital, bilateral completed jbda [address] [place], [address], 01/25/2024 15:01:18 03/06/2024 NM, gastric emptying scan completed [address] (Medical Records) [address] [place], [address], 03/11/2024 22:16:50 Procedure Notes None recorded. Medical Equipment None Reported. Allergies Allergen ID Allergen Name Allergen Category Reaction Reaction Severity Criticality Documentation Date Start Date Code Code System Note Provider Name and Address Organization Details Recorded Time 207 Bactrim medicatio n rash Not available Not available 08/29/2017 48852 9 [facility] 8 09:25:35 208 Cipro medicatio n headache Not available Not available 08/29/2017 96689 3 RxNorm ? [facility] 8 09:26:00 209 metronida zole medicatio n headache Not available Not available 08/29/2017 6922 RxNorm ? [facility] 8 09:26:30 Medications Name Sig Start [...] completed Not Available Not Available Not Available bisacodyl 5 mg tablet,abiola yed release TAKE TWO TABLETS BY MOUTH DAILY AT BEDTIME active Not Available Not Available No t Available hydrochloro thiazide 25 mg tablet TAKE [...] completed Not Available Not Available Not Available polyethylen e glycol 3350 17 gram/dose oral powder MIX 238 GRAMS IN LIQUID AND DRINK [facility] active Not Available Not Available No t Available ketoconazol e 2 % topical cream [...] Not Available Not Available No t Available cholecalcif yair (vitamin D3) 50 mcg (2,000 unit) tablet TAKE ONE TABLET BY MOUTH EVERY DAY active Not Available Not Available No t Available BD Ultra-Fine Janelle Pen Needle 32 gauge x 5/32 USE 2 PEN NEEDLES DAILY 2024 active Not Available Not Available Not Avai lable Janumet XR 100 mg-1,000 mg tablet,exte nded release TAKE ONE TABLET BY MOUTH EVERY DAY 07/06 completed Not Available Not Available Not Available Invokana 300 mg tablet TAKE 1 TABLET BY MOUTH DAILY 12/12 completed Not Available Not Available Not Available Victoza 3-Job 0.6 mg/0.1 mL (18 mg/3 mL) subcutaneou s pen injector INJECT 1.8 MG UNDER THE SKIN EVERY 07/06 completed Not Available Not Available Not Available Jardiance 10 mg tablet Take 1 [...] Available Not Available FreeStyle Sharif 14 Day Montrose USE DIRECTED 2023 active Not Available Not Available Not Avai lable FreeStyle Sharif 14 Day Sensor kit APPLY AND CHANGE EVERY 2 WEEKS DIRECTED active Not Available Not Available No t Available Mounjaro 5 mg/0.5 mL subcutaneou s pen injector Inject 5 mg every week by subcutane ous route. 2024 active Not Available Not Available Not Avai lable Mounjaro 2.5 mg/0.5 mL subcutaneou s pen injector active Not Available Not Available Not Available Vitals Date Recorded Body height Body mass index (BMI) Body weight Heart rate Oxygen saturation Oxygen saturation in Arterial blood by Pulse oximetry Systolic blood pressure Diastolic blood pressure Provider Name and Address Organization Details Last Updated DateTime 4 151.77 cm 29.9 kg/m2 34571.0 4 g 97 /min 100 % 100 % 130 mm[Hg] 90 mm[Hg] Taty Chino [facility] 4 13:55:20 Date Recorded Body height Body mass index (BMI) Body weight Heart rate Oxygen saturation Oxygen saturation in Arterial blood by Pulse oximetry Systolic blood pressure Diastolic blood pressure Provider Name and Address Organization Details Last Updated DateTime 4 151.77 cm 29.3 kg/m2 48600.2 6 g 97 /min 99 % 99 % 120 mm[Hg] 74 mm[Hg] Taty Chino [facility] 4 13:50:29 Date Recorded Body height Body mass index (BMI) Body weight Heart rate Oxygen saturation Oxygen saturation in Arterial blood by Pulse oximetry Systolic blood pressure Diastolic blood pressure Provider Name and Address Organization Details Last Updated DateTime 4 151.77 cm 28.9 kg/m2 02101.0 8 g 84 /min 98 % 98 % 124 mm[Hg] 80 mm[Hg] Francisco Schwartz [facility] 4 14:34:23 Date Recorded Body height Body mass index (BMI) Body weight Heart rate Oxygen saturation Oxygen saturation in Arterial blood by Pulse oximetry Systolic blood pressure Diastolic blood pressure Provider Name and Address Organization Details Last Updated DateTime 4 151.77 cm 28.2 kg/m2 68278.7 1 g 94 /min 96 % 96 % 138 mm[Hg] 80 mm[Hg] Taty Chino [facility] 4 14:52:28 Date Recorded Body height Body mass index (BMI) Body weight Heart rate Oxygen saturation Oxygen saturation in Arterial blood by Pulse oximetry Systolic blood pressure Diastolic blood pressure Provider Name and Address Organization Details Last Updated DateTime 4 151.77 cm 29.2 kg/m2 10273.4 7 g 96 /min 98 % 98 % 128 mm[Hg] 86 mm[Hg] Meeta Hung [facility] 4 11:30:57 Social History Question Answer Notes LastModified by Organizat ion Details LastModified Time Tobacco Smoking Status Never Smoker Not Available [facility] 04/29/2020 03:36:24 What Was The Date Of Your Most Recent Tobacco Screening? 06/12/2024 [email or web address] Information not available 06/12/2024 Do You Or Have You Ever Used Any Other Forms Of Tobacco Or Nicotine? No [email or web address] Information not available 06/10/2023 Sex: Unknown Functional [...] Immunizations Vaccine Type Date Status Note Provider Noah hawkins and Address Organization Details Recorded Time Influenza, split virus, quadrivalent, preservative 8 completed Not Available [facility] 06/17/2023 13:00:15 COVID-19, mRNA, LNP-S, PF, 30 mcg/0.3 mL dose 1 completed Not Available [facility] 06/17/2023 13:00:15 COVID-19, mRNA, LNP-S, PF, 30 mcg/0.3 mL dose 1 completed Not Available [facility] 06/17/2023 13:00:15 Past Encounters Encounter ID Performer Location Encounter Start Date Encounter Closed Date Diagnosis/Indication Diagnosis SNOMED-CT Code Diagnosis ICD10 Code Diagnosis Note [id number] Felix Rosa [facility] [address] [place] [address] 10/05/2017 13:33:00 10/05/2017 16:41:54 Type 2 diabetes mellitus 03776547 E11.9 compliant with diet , exercise medicines must be careful not to go [email or web address] [id number] will need to increase calorie expenditur e Essential hypertension 83435687 I10 stable no issues takes meds [id number] Felix Rosa [facility] [address] [place] [address] 02/08/2018 13:25:57 02/08/2018 16:08:34 Type 2 diabetes mellitus 29775433 E11.9 compliant with diet , exercise medicines must be careful not to go into a1c 8 will need to increase calorie expenditur e or will increase dose of meds Essential hypertension 82838427 I10 stable no issues takes meds [id number] Felix Rosa [facility] [address] [facility], [place] [address] 05/10/2018 13:26:50 05/10/2018 16:37:07 Type 2 diabetes mellitus 07407247 E11.9 compliant with diet , exercise medicines must be careful not to go into a1c 8 will need to increase calorie expenditur e or will increase dose of meds Essential hypertension 18488640 I10 stable no issues takes meds Pain in right knee 05043 66013 58514 M25.561 is progressiv e and is bothering rick with weather change will xray to start 2 sisters have arthritis and father bad arthritis and mother has it with fingers [id number] Donna Lyon NP, S [facility] [address] [facility] [place] [address] 07/14/2018 10:18:06 07/18/2018 12:27:25 Type 2 diabetes mellitus 87371989 E11.9 Discussed A1C of 7.9, need to exercise daily and reduce caloric intake Acute bronchitis 2732320 2 J20.9 Call if no better Essential hypertension 02222397 I10 well controlled [id number] Felix Rosa [facility] [address] [facility] [place] [address] 09/06/2018 13:49:07 09/06/2018 14:29:29 Essential hypertension 45168921 I10 stable no issues takes meds Type 2 obey betes mellitus 46278440 E11.9 compliant with diet , exercise medicines must be careful not to go into a1c 8 will need to increase calorie expenditur e or will increase dose of meds [id number] Donna Lyon NP, S [facility] [address] [facility] [address] 10/24/2018 13:57:55 10/24/2018 15:34:33 Type 2 diabetes mellitus 18380025 E11.9 has f/u November Essential hypertension 70717087 I10 well controlled Routine gy necologic examination done 9876220138 9101 Z01.419 [id number] Felix Rosa DO [facility] [address] [facility] [address] 12/12/2018 14:16:14 12/12/2018 15:40:36 Adult health examination 585113606 Z00.00 has been stable no major changes will give meds for travel overseas Active or passive immunization 374423136 Z23 [id number] September EDDI Luna [facility] [address] [facility] [address],[place] [address] 02/06/2019 15:34:46 02/06/2019 16:24:07 Cough 06396163 R05 f/u if cough not improved after changing meds Type 2 obey betes mellitus 92910401 E11.9 Essential hypertension 03971461 I10 very well controlled [id number] Felix Rosa [facility] [address] [facility] [address] 03/14/2019 14:39:28 03/14/2019 16:11:40 Type 2 diabetes mellitus 68193034 E11.9 compliant with diet , exercise medicines but sugar is uncontroll ed at 9.2 meds will start her on trulicity 0.75 then up to 1.5 weekly will rechk in 2 mo Essential hypertension 95827374 I10 stable no issues takes meds [id number] Felix Rosa DO [facility] [address] [facility],[place] [address] 05/16/2019 15:04:13 05/16/2019 16:00:41 Type 2 diabetes mellitus 71768699 E11.9 compliant with diet , exercise medicines but sugar is uncontroll ed at 9.2 and was 8.9 and now 9.3 again we will need to refer to endocrine despite the trulicity 1.5 weekly will rechk in 2 mo Essential hypertension 70089424 I10 stable no issues takes meds [id number] Felix Rosa DO [facility] [address] [facility] [address] 06/15/2019 14:53:30 06/15/2019 15:20:23 Essential hypertension 48932517 I10 stable no issues takes meds Type 2 obey betes mellitus 49663092 E11.9 compliant with diet , exercise medicines but sugar is uncontroll ed at 9.2 meds trulicity 0.75 causing rash and didnt budge the a1c she will be seeing endocrine in couple weeks will rechk in 3 mo [id number] Felix Rosa DO [facility] [address] [facility],[place] [address] 09/17/2019 15:00:04 09/17/2019 15:36:00 Type 2 diabetes mellitus 69522544 E11.9 compliant with diet , exercise medicines but sugar is uncontroll ed at 9.9 was 9.2 now on victoza and lantus but given persistant elevated sugar we will have her increase to 15 she will be seeing endocrine in couple weeks will rechk in 3 mo reviewed lab in detail told her she should get a DEXCOM or FREESTYLE SHARIF Essential hypertension 45839313 I10 stable no issues takes meds bp is stable and medication s are tolerated [id number] Felix Rosa DO [facility] [address] [facility],[place] [address] 12/21/2019 14:46:29 12/21/2019 15:34:54 Type 2 diabetes mellitus 14253277 E11.9 compliant with diet , exercise medicines [...] SHARIF but endocrine will not go to [facility] for her we will try to get this for her she is checking glucose 4 times a day Essential hypertension 17284084 I10 stable no issues takes meds bp is stable and medication s are tolerated [id number] Felix Rosa DO [facility] [address] [facility],[place] [address] 01/29/2020 11:48:42 01/29/2020 12:22:03 Adult health examination 985714590 Z00.00 has been stable no major changes will give meds for travel overseas Essential hypertension 41698140 I10 stable no issues takes meds bp is stable and medication s are tolerated Type 2 obey betes mellitus 22455454 E11.9 now doing great with new med jardiance from the endocrine consult will be cont and her a1c is done to 8.9 from a high of 11.3 months ago doing great and is encouraged to cont her exercise and diet regimen [id number] Felix Rosa DO [facility] [address] [facility] [address] 06/10/2020 08:46:16 06/10/2020 15:19:29 Type 2 diabetes mellitus 59598394 E11.9 now doing great with new med jardiance from the endocrine consult who is following her now will be cont and her a1c is down to 7.4 from 8.9 from a high of 11.3 months ago doing great and is encouraged to cont her exercise and diet regimen Essential hypertension 08423754 I10 stable no issues takes meds bp is stable and medication s are tolerated Numbness of hand 7067485 04 R20.0 [id number] [facility] [address] [facility],[place] [address] 09/10/2020 13:28:37 09/10/2020 14:31:05 Type 2 diabetes mellitus 77008384 E11.9 now doing great with new med jardiance from the endocrine consult who is following her now will be cont and her a1c is down to 7.0 from 7.4 from 8.9 from a high of 11.3 months ago doing great and is encouraged to cont her exercise and diet regimen Essential hypertension 01352344 I10 stable no issues takes meds bp is stable and medication s are tolerated Median neuropathy 659725 008 G56.11 followed by the hand specialist adn will be getting a NCT EMG and 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 and may need surgery depending on the test [id number] [facility] [address] [facility],[place] [address] 04/24/2021 11:04:37 04/24/2021 11:56:28 Active or passive immunization 357015741 Z23 ard Adult heal th examination 286006153 Z00.00 has been stable no major changeswe will need to have her get the med notes from recent exams Essential hypertension 75372990 I10 stable no issues takes meds bp is stable and medication s are tolerated Type 2 obey betes mellitus 18872868 E11.9 now doing great with new med [...] reported as neg for dm retinopath y [id number] Felix Rosa DO [facility] [address] [place] [address], [place] [address] 08/24/2021 14:45:29 08/25/2021 15:18:08 Type 2 diabetes mellitus 50116059 E11.9 now doing great with new med [...] neg for dm retinopath y Essential hypertension 21097664 I10 stable no issues takes meds bp is stable and medication s are tolerated Tinea pedis 4473262 B35. 3 will try to treat with cream has extensive amount over her sole of feet bilat [id number] GISELL DANIELS [facility] [address] [place] [address], [place] [address] 09/16/2021 16:03:21 09/18/2021 16:30:36 Thoracic back pain 181611265 M54.6 will start on treatment [id number] Felix Rosa [facility] [address] [facility], [place] [address] 12/08/2021 15:21:35 12/09/2021 14:04:49 Type 2 diabetes mellitus 48067435 E11.9 now doing great with new med [...] neg for dm retinopath y Essential hypertension 70114628 I10 stable no issues takes meds bp is stable and medication s are tolerated Active or passive immunization 719570656 Z23 advised she is due for Tdap and Pneumonia vaccines will consider Screening mammography 24 026281 Z12.31 [id number] Felix Rosa [facility] [address] [facility],[place] Josr [facility] [place] [address] 03/09/2022 15:09:11 03/10/2022 11:35:38 Type 2 diabetes mellitus 72916858 E11.9 now doing great with new med [...] neg for dm retinopath y Essential hypertension 67253682 I10 stable no issues takes meds bp is stable and medication s are tolerated Degenerati on of lumbar intervertebral disc 19677067 M51.36 given prgression of her symptoms and pain down the legs we will order an mri [id number] Felix Nguyễn Rosa [facility] Medicine [address] [facility], [place] [facility] [place] [address] 04/27/2022 10:42:40 04/27/2022 13:07:38 Active or passive immunization [id number] Z23 advised she is due for Tdap and Pneumonia2 3 Adult heal th examination [id number] Z00.01 has been stable but she noted to have no improvemen t in her right hand from the carpal tunnel surgfrom last yearwe will need to have her get the med notes from recent exams Screening for malignant neoplasm of colon [id number] Z12.11 we will consider Degenerati on of lumbar intervertebral disc 40924140 M51.36 given progressio n of her symptoms and pain down the legsbegan her PT last month we will order an mri Carpal ashley jluis syndrome [id number] G56.01 [id number] Felix Nguyễn Rosa [facility] Internal Medicine [address] [facility], [place] [facility] [place] [address] 07/27/2022 08:09:37 07/28/2022 12:11:34 Essential hypertension [id number] I10 stable no issues takes meds bp is stable and medication s are tolerated Type 2 obey betes mellitus 38653845 E11.9 now doing great with new med jardiance from the endocrine consult who is following her nowa1c was at 7,4 then 6.9 and now at 7.2 on jardianced oing great and is encouraged to cont her exercise and diet regimen has had a eye exam and this was reported as neg for dm retinopath y Degenerati on of lumbar intervertebral disc 07302869 M51.36 given progressio n of her symptoms and pain down the legsbegan her PT last month we will order an mri using otc creams from [facility] with good results Carpal ashley jluis syndrome [id number] G56.01 doing better with a cream with this called rocksaute cream from [facility] Gastroesop hageal reflux disease 440101323 K21.9 she will try otc prilosec or nexium for the next 4 weeks let us know if not helping [id number] Felix Rosa [facility] Internal Medicine [address] [facility],[place] [facility] [place] [address] 10/27/2022 09:43:29 10/27/2022 13:55:40 Type 2 diabetes mellitus 49860844 E11.9 now doing great with new med jardiance from the endocrine consult who is following her nowa1c was at 7.1 then was 7.0 and 7.2 and 6.9 on jardianced oing great and is encouraged to cont her exercise and diet regimen has had a eye exam and this was reported as neg for dm retinopath y Essential hypertension 52139366 I10 stable no issues takes meds bp is stable and medication s are tolerated Allergic conjunctivitis of bilateral eyes [id number] 77883 H10.13 we will try an eye drop and hope it is covered [id number] Felix Rosa [facility] Internal Medicine [address] [facility],[place] D [facility] [place] [address] 03/08/2023 13:31:33 03/08/2023 14:51:20 Essential hypertension 29481156 I10 stable no issues takes meds bp is stable and medication s are tolerated Type 2 obey betes mellitus 59846103 E11.9 now doing great with new med [...] dm retinopath y Gastroesop hageal reflux disease 957356259 K21.9 she will try otc prilosec or nexium for the next 4 weeks let us know if not helping [id number] Felix Rosa, [facility] Internal Medicine [address] [facility],[place] [address] 06/10/2023 13:18:32 06/10/2023 14:06:07 Type 2 diabetes mellitus 12447119 E11.9 note she had a mix up with victoza and was off for 3 weeksthis is why it is elevated at 7.5 Essential hypertension 59803808 I10 stable no issues takes meds bp is stable and medication s are tolerated Active or passive immunization 746675235 Z23 advised she is due for Tdap and Pneumonia2 3 Adult heal th examination 591598797 Z00.00 has been stable but she noted to have no improvemen t in her right hand from the carpal tunnel surg and it is getting worse from last yearwe will need to have her get the med notes from recent exams [id number] Felix Rosa, [facility] Internal Medicine [address] [facility],[place] [address] 09/28/2023 13:38:40 09/28/2023 15:23:15 Essential hypertension 94301033 I10 stable no issues takes meds bp is stable and medication s are tolerated Type 2 obey betes mellitus 83369388 E11.9 long discussed how she is doing with her sugar feeling well and is having good readingsa1 c is 7.4 was 6.9 just got cortisone shotdiscus sed her diet and exercise and cont to monitor Trigger fi nger of right hand [id number] 0732159 M65.[address] got bethe and is better Epigastric pain 54096421 R10.13 recurrent [id number] Felix Rosa [facility] Internal Medicine [address] [facility] [place] [address] 01/17/2024 13:44:18 01/17/2024 16:27:28 Depression screening 500587669 Z13.31 negative Type 2 obey betes mellitus 01795115 E11.9 long discussed how she is doing with her sugar feeling well and is having good readingsa1 c is 7.9, 7.6, 7.4 was 6.9 just got cortisone shotdiscus sed her diet and exercise and cont to monitor Essential hypertension 94240713 I10 stable no issues takes meds bp is stable and medication s are tolerated Gastropare sis due to type 2 diabetes mellitus 899133427 E11.43 having a lot of post prandial bloating [id number] GISELL DANIELS [facility] [address] [facility],[place] [employer] [facility] [place] [address] 04/24/2024 14:10:05 04/24/2024 15:32:37 Gastroparesis due to type 2 diabetes mellitus 977156388 E11.43 having a lot of post prandial bloating will try reglan Screening for malignant neoplasm of colon 852902456 Z12.11 we will consider please call in 2 weeks with update on med Type 2 obey danitza mellitus 12242798 E11.9 long discussed how she is doing with her sugar feeling well and is having good readingsa1 c is 7.9, 7.6, 7.4 was 6.9 just got cortisone shotdiscus sed her diet and exercise and cont to monitor [id number] Felix Rosa DO [facility] [address] [facility],[place] D [facility] [place] [address] 05/15/2024 14:23:57 05/15/2024 15:09:37 Essential hypertension 66516178 I10 stable no issues takes meds bp is stable and medication s are tolerated Gastropare sis due to type 2 diabetes mellitus 715968759 E11.43 finally feels markedly better will cont for now until she can see GI in a month or sopt warned and understand s the sx of tardive dyskinesia and what to look out for and to stop immediatel y and call me Allergic conjunctivitis of bilateral eyes [id number] 93712 H10.13 we will try an eye drop and hope it is covered [id number] Felix Rosa DO [facility] [address] [facility],[place] [address] 06/12/2024 11:11:00 06/12/2024 11:51:02 Active or passive immunization 795665357 Z23 advised she is due for Tdap and Pneumonia2 3 Adult heal th examination 490981740 Z00.01 has been stable but she noted to have an ongoing pneumoniti s post viral from last yearwe will need to have her get the med notes from recent exams Pneumonitis 430846959 J1 8.9 Health Concerns Section Related Observation LastModified by Organization Detai ls LastModified Time None Recorded Concern Status LastModified by Organization Details LastModified Time None Recorded Advance Directives Directive None Recorded Payers Encounter Date Sequence Insurance Name Policy Number Policy Moreno Covered Member ID Moreno Member ID Guarantor Name 09/28/2023 1 [id number] 8 Luana Garcia [id number] Luana Garcia 01/17/2024 1 [id number] 8 Luana Garcia [id number] Luana Garcia 04/24/2024 1 [id number] 8 Luana Garcia [id number] Luana Garcia 05/15/2024 1 [id number] 8 Luana Garcia [id number] Luana Garcia 06/12/2024 1 [id number] 8 Luana Garcia [id number] Luana Garcia Notes Date Note Type Note Provider Name and Address Organization Details Recorded Time 4 text/htm l here for rechkrelates had epigastric abdominal pain had 2 bouts late at night quite severe and hurt 4 1/2 hours then went away no other symptomscame back 6 days later now is just tender and feels sensitive Felix Rosa, DO [address] [facility], [place], [address], [facility] 09/28/2023 14:31:16 4 text/htm l [...] at times after eating GISELL DANIELS [address] [place], [address], [facility] [place] 05/02/2024 15:55:09 4 text/htm l here for rechkstates she has felt fantastic since starting on the metoclopramidestates no longer feels full or bloated and states now that she finished the tow weeks worth her sx are coming back Felix Rosa DO [address] [place] [address], [phone], [facility] [place] 05/15/2024 15:10:27 4 text/htm l [...] lousy stillstill coughing and having tiredness Felix Rosa DO [address] [place] [address], [phone], [facility] [place] 06/12/2024 11:49:42 OBGyn Episode No OBEpisode recorded.
[2024-07-21 08:20] LABS: Estimated Average Glucose 180 mg/dL; Hemoglobin A1C 255.9491 umol/L; Hemoglobin A1c % 7.9 % (<6.0); Total Hemoglobin (HGBA1C) 4057.2375 umol/L
[2024-07-21 08:38] LABS: Creatinine Urine 86.31 mg/dL; Microalbum/Creatinine Ratio Ur 9.2 ug/mg cr (<30)
[2024-07-21 08:41] LABS: Alanine Aminotransferase 49 U/L (0-31); Albumin Level 4.4 g/dL (3.5-5.0); Alkaline Phosphatase 60 U/L (39-117); Anion Gap 10 (12-20); Aspartate Amino Transferase 33 U/L (5-31); Bilirubin Total 0.7 mg/dL (0.0-1.0); Blood Urea Nitrogen 11 mg/dL (9-16); Carbon Dioxide 29 mmol/L (22-29); Chloride 103 mmol/L (96-108); Cholesterol 157 mg/dL (<200); Estimated Glomerular Filt Rate > 60; Glucose Fasting 133 mg/dL (60-99); HDL Cholesterol 55 mg/dL (>40); LDL Cholesterol Calculated 85 mg/dL (<100); Potassium 3.9 mmol/L (3.3-5.1); Sodium 138 mmol/L (135-145); Total Protein 7.7 g/dL (6.5-8.0); Triglycerides 85 mg/dL (<150)
== END 2024-07-21 07:38 | disposition home or self-care (01) ==
LOC: HO.LAB 07:37
PROVIDERS: PCP Internal Medicine; Visit Provider Internal Medicine
DX: E11.9 Type 2 diabetes mellitus without complications (principal)
CPT/HCPCS: 36415; 80053; 80061; 82043; 82570; 83036

== ENCOUNTER 2024-10-06 07:27 | Outpatient (REF) | payer OTHER, SELFPAY ==
[2024-10-06 08:22] LABS: Estimated Average Glucose 177 mg/dL; Hemoglobin A1C 256.5729 umol/L; Hemoglobin A1c % 7.8 % (<6.0); Total Hemoglobin (HGBA1C) 4155.3573 umol/L
== END 2024-10-06 07:28 | disposition home or self-care (01) ==
LOC: HO.LABR 07:27
PROVIDERS: PCP Internal Medicine; Visit Provider Internal Medicine
DX: E11.9 Type 2 diabetes mellitus without complications (principal); E55.9 Vitamin D deficiency, unspecified
CPT/HCPCS: 36415; 82306; 83036

== ENCOUNTER 2024-11-02 07:04 | Outpatient (REF) | payer OTHER, SELFPAY ==
[2024-11-02 07:46] LABS: Estimated Average Glucose 180 mg/dL; Hemoglobin A1C 248.4971 umol/L; Hemoglobin A1c % 7.9 % (<6.0); Total Hemoglobin (HGBA1C) 3971.4511 umol/L
[2024-11-02 08:29] LABS: Vitamin D 25-OH Total 51.8 ng/mL (>30)
== END 2024-11-02 07:05 | disposition home or self-care (01) ==
LOC: HO.LABR 07:04
PROVIDERS: PCP Internal Medicine; Visit Provider Internal Medicine
DX: E11.9 Type 2 diabetes mellitus without complications (principal); E55.9 Vitamin D deficiency, unspecified
CPT/HCPCS: 36415; 82306; 83036

== ENCOUNTER 2025-01-01 11:46 | Outpatient (REF) | payer OTHER, SELFPAY ==
--- OUTSIDE RECORDS SUMMARY | 2025-01-01 12:47 | XMS_ITS | Patient Health Record ---
Author Organization [facility] Address [address] [place] [address] Care Team Providers Care Fnp Name Role Phone Diallo Felix Primary Care Provider Kamlesh Mac [phone] Allergies Allergen (clinical drug ingredient) Drug/Non Drug Allergy documented on EMR Reaction Allergy Type Onset Date Status Sulfa Unknown Drug Allergy Active Reason For Referral No Information Medications Medication SIG (Take, Route, Frequency, Duration) Notes Start Date End Date Status Invokana 300 MG 1 tablet Orally Once a day Active metFORMIN HCl 1000 MG 1 tablet with meal s Orally Twice a day Active Lovastatin 40 MG 1 tablet with a meal Orally Once a day Active Lisinopril 10 MG 1 tablet Orally Once a day Active hydroCHLOROthiazide 25 MG 1 tablet in morning Orally Once a day Active Social History Tobacco Use: Social History Observation Description Date Details (start date - stop date) Never Smoker NA - NA Tobacco Use/Smoking Question Answer Notes Patient is a nonsmoker Alcohol Screen Question Answer Notes Did you have a drink containing alcohol in the p ast year? No Points 0 Interpretation Negative Section Notes: Nonsmoker; no sig alcohol Problems Problem Type SNOMED Code ICD Code Onset Dates Problem Status W/U Status Risk Notes Problem 639483581 Abnormal barium swallow (R93.3) Active confirmed Problem 22154202 Esophageal dysphagia (R13.10) Active confirmed Plan Of Treatment Pending Test Test Name Order Date Esophageal Motility study 04/26/2017 Future Test Test Name Order Date UPPER GI ENDOSCOPY BALL[place] DILATION OF ESOPH 04/08/2017 Insurance Providers Payer Name Payer Address Payer Phone Subscriber Number Group Number Insured Name Patient Relationship to Insured Coverage Start Date Coverage End Date [facility] [address] [facility] [place] [id number] [id number] KELLEY STONER Self - patient is the insured Medical (General) History Medical History History ICD Code Denies RI,CVA,Lung disease,renal disease NIDDM HTN Hyperlipidemia Negative [place] [facility] [place] Surgical History Surgery Date(Month/Year) Hysterectomy
--- OUTSIDE RECORDS SUMMARY | 2025-01-01 12:48 | XMS_ITS | Data Portability ---
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) [facility] MODERATE MUST MEET 2 OUT OF [...] COVERED Not available 07/31/2024 13:43:16 11/06/2024 11/06/2024 [id number] [place] [id number] (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) MDM MODERATE MUST MEET 2 OUT OF [...] HbA1c (hemo globi n A1c), blood 2024 0204/ 025 [facility], [address] [place] [address], [place], [address], 10/08/2024 11:37:04 HbA1c (hemo globi n A1c), blood 2024 025 [facility], [address] [place] [address], [address], 10/08/2024 11:37:04 vitam in D, 25-hy droxy , total , serum 2024 025 [facility], [address] [place] [address], [place], [address], 07/31/2024 13:47:48 Referral gastr adria swanson ist refer ral 2023 [facility], [address] [place] [address] Dr, [facility], [place], [address], 04/27/2024 08:39:20 Procedures None recor ded. Surgeries None recor ded. Imaging None recor ded. Medication Orders azith romyc in 250 mg table t 2023 [facility], [address] [place], [address], 06/12/2024 11:46:07 metoc lopra mide 5 mg table t 2023 024 [facility], [address] [place], [address], 05/15/2024 15:06:34 olopa tadin e 0.1 % eye drops 2023 024 [facility], [address] [place], [address], 05/15/2024 15:10:05 metoc lopra mide 5 mg table t 2023 024 [facility], [address] [place], [address], 04/24/2024 14:58:19 Patient TargetsNo targets recorded. Patient Instructions Encounter Date Encounter Id Patient Instructions Last Modified By Organization Details Last Modified Time 04/24/2024 [id number] learning about type 2 diabetes Not available 04/24/2024 15:08:20 type 2 diabetes: care instructions Not available 04/24/2024 15:08:20 Reason for Referral Cytologist Referral for Screening for malignant neoplasm of colon Referring Physician: Felix Rosa, Internal Medicine, Encounter Date: 04/24/2024 Results Created Date Observation Date Name Description Value Unit Range Abnormal Flag Note LastModifiedBy Organization Detail LastModifiedTime Result Notes None recorded. Problems Name Problem SNOMED Code Status Onset Date Resolution Date Notes Provider Name and Address Organization Details Recorded Time History of abdominal hysterect reji 087704722 Active 2017 cervix cranes intact Not Available [facility] 3 06:36:37 Median neuropath y 878526285 Active 2020 Not Available [facility] 3 06:36:37 Thoracic arthritis 4650606 Active 2021 Not Available [facility] 3 06:36:37 Degenerat ion of lumbar intervert ebral disc 55379848 Active 2021 Not Available [facility] 3 06:36:37 Carpal tunnel syndrome 25160729 Active 2021 Not Available [facility] 3 06:36:37 Carpal tunnel syndrome 10762861 Active 2022 [facility] Available [facility] 3 06:36:37 Gastroeso phageal reflux disease 082470913 Active 2022 Not Available [facility] 3 06:36:37 Allergic conjuncti vitis of bilateral eyes 49581801623 9102 Active 2022 Not Available 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 Felix Rosa, DO [address] [place] [address], [address], [facility] 4 14:20:10 Gastropar esis due to type 2 diabetes mellitus 179101406 Active 2023 Felix Rosa, DO [address] [place] [address], [address], [facility] 4 14:21:16 Cough 03670740 Active 2023 Felix Rosa, DO [address] [place] [address], [address], [facility] 4 11:05:01 Pneumonit is 012029191 Active 2023 Felix Rosa, DO [address] [place] [address], [address], [facility] 4 11:45:45 Gastropar esis due to diabetes mellitus 920038384 Active 2024 Felix Roas, DO [address] [place] [address], [address], [facility] 5 08:48:23 Vitamin D deficienc y 46261060 Active 2024 Felix Rosa, DO [address] [place] [address], [address], [facility] 5 13:45:03 Essential hypertens ion 04961101 Active 2017 Meeta del rosario [facility] 4 11:13:37 Obesity 855692334 Active 2017 Meeta del rosario [facility] 4 11:13:54 Type 2 diabetes mellitus 61849042 Active 2017 Meeta Abhilash [facility] 4 11:13:45 Notes:Some problems listed i n Documents: #[id number], #[id number], #[id number], #[id number], #[id number], #[id number], #[id number] could not be added to this patient's chart. Please review these documents and add these problems to the patient's chart manually as needed. Problem Notes None recorded. Procedures Surgical History Date Name Laterality Status Provider Name and Address Organization Details Recorded Time 06/27/19 16 Date of Last Pap Smear completed Donna Lyon NP, [address] [place] [address], [address], [facility] 10/24/2018 14:19:18 Partial Hysterectomy completed Donna Lyon NP, [address] [place] [address], [address], [facility] 10/24/2018 14:18:36 Imaging Results None recorded. Procedure Notes None recorded. Medical Equipment None Reported. Allergies Allergen ID Allergen Name Allergen Category Reaction Reaction Severity Criticality Documentation Date Start Date Code Code System Note Provider Name and Address Organization Details Recorded Time 207 Bactrim medicatio n rash Not available Not available 08/29/2017 36427 9 RxNorm Smita Igetristan [facility] 8 09:25:35 208 Cipro medicatio n headache Not available Not available 08/29/2017 66863 3 RxNorm ? Smita Igel [facility] 8 09:26:00 209 metronida zole medicatio n headache Not available Not available 08/29/2017 6922 RxNorm ? Smita Igel [facility] 8 09:26:30 Medications Name Sig [...] Not Available Not Available Not Avai lable azithromyci n 250 mg tablet TAKE 2 [...] LIQUID AND DRINK DIRECTED BY GASTROENT EROLOGY DEPARTMEN T AT [facility] active Not Available Not Available [...] Available Not Available FreeStyle Sharif 14 Day Orient USE DIRECTED 2023 active Not Available Not Available Not Avai lable FreeStyle Sharif 14 Day Sensor kit APPLY AND CHANGE EVERY 2 WEEKS DIRECTED active Not Available Not Available No t Available Mounjaro 5 mg/0.5 mL subcutaneou s pen injector INJECT 5MG SUBCUTANE OUSLY ONCE A WEEK 2024 active Not Available Not Available Not Avai lable Mounjaro 2.5 mg/0.5 mL subcutaneou s pen injector active Not Available Not Available Not Available Vitals Date Recorded Body height Body mass index (BMI) Body weight Heart rate Oxygen saturation Oxygen saturation in Arterial blood by Pulse oximetry Systolic And Diastolic Provider Name and Address Organization Details Last Updated DateTime 5 151.77 cm 29.3 kg/m2 24461.2 6 g 104 /min 98 % 98 % 142/78 mm[Hg] [facility] 5 13:28:40 Date Recorded Body height Body mass index (BMI) Body weight Heart rate Oxygen saturation Oxygen saturation in Arterial blood by Pulse oximetry Systolic And Diastolic Provider Name and Address Organization Details Last Updated DateTime 5 151.77 cm 28.2 kg/m2 06859.7 1 g 97 /min 97 % 97 % 108/64 mm[Hg] Taty [facility] 5 13:41:43 Date Recorded Body height Body mass index (BMI) Body weight Heart rate Oxygen saturation Oxygen saturation in Arterial blood by Pulse oximetry Systolic And Diastolic Provider Name and Address Organization Details Last Updated DateTime 4 151.77 cm 28.9 kg/m2 97750.0 8 g 84 /min 98 % 98 % 124/80 mm[Hg] Francisco Schwartz [facility] 4 14:34:23 Date Recorded Body height Body mass index (BMI) Body weight Heart rate Oxygen saturation Oxygen saturation in Arterial blood by Pulse oximetry Systolic And Diastolic Provider Name and Address Organization Details Last Updated DateTime 4 151.77 cm 28.2 kg/m2 10394.7 1 g 94 /min 96 % 96 % 138/80 mm[Hg] Tatystevie Ropermond [facility] 4 14:52:28 Date Recorded Body height Body mass index (BMI) Body weight Heart rate Oxygen saturation Oxygen saturation in Arterial blood by Pulse oximetry Systolic And Diastolic Provider Name and Address Organization Details Last Updated DateTime 4 151.77 cm 29.2 kg/m2 14868.4 7 g 96 /min 98 % 98 % 128/86 mm[Hg] Meeta Hung [facility] 4 11:30:57 Social History Question Answer Notes LastModified by Organizat ion Details LastModified Time Tobacco Smoking Status Never Smoker Not Available [facility] 04/29/2020 03:36:24 What Was The Date Of Your Most Recent Tobacco Screening? 11/06/2024 [email or web address] Information not available 11/06/2024 Sex: Unknown Functional Status Question Answer Note LastModified by Organization D etails LastModified Time Do you or have you ever used any other forms of tobacco or nicotine? No [email or web address] Information not available 06/10/2023 Mental Status None recorded. Family History Relationship Description Onset Age of this Age Resolved Age Notes LastModified by Organization Details LastModified Time Mother Type 2 diabetes mellitus 65 [email or web address] Not available 2018 14:17:37 Father Myocardial infarction 58 [email or web address] Not available 10/24 14:17:49 Medical History No [...] virus, quadrivalent, preservative 8 completed Not Available [facility] 06/17/2023 13:00:15 COVID-19, mRNA, LNP-S, PF, 30 mcg/0.3 mL dose 1 completed Not Available [facility] 06/17/2023 13:00:15 COVID-19, mRNA, LNP-S, PF, 30 mcg/0.3 mL dose 1 completed Not Available [facility] 06/17/2023 13:00:15 zoster recombinant 5 completed Felix Rosa DO [address] [place] [address], [address], [facility] 11/06/2024 13:56:15 Past Encounters Encounter ID Performer Location Encounter Start Date Encounter Closed Date Diagnosis/Indication Diagnosis SNOMED-CT Code Diagnosis ICD10 Code Diagnosis Note [id number] Felix Rosa DO [facility] [address] [facility] [place] [address] 10/05/2017 13:33:00 10/05/2017 16:41:54 Type 2 diabetes mellitus 44695330 E11.9 compliant with diet , exercise medicines must be careful not to go [id number] will need to increase calorie expenditur e Essential hypertension 72008924 I10 stable no issues takes meds [id number] Felix Rosa DO [facility] [address] [facility],[place] [address] 02/08/2018 13:25:57 02/08/2018 16:08:34 Type 2 diabetes mellitus 19178627 E11.9 compliant with diet , exercise medicines must be careful not to go into a1c 8 will need to increase calorie expenditur e or will increase dose of meds Essential hypertension 53478958 I10 stable no issues takes meds [id number] Felix Rosa DO [facility] [address] [facility], [place] [address] 05/10/2018 13:26:50 05/10/2018 16:37:07 Type 2 diabetes mellitus 38514323 E11.9 compliant with diet , exercise medicines must be careful not to go into a1c 8 will need to increase calorie expenditur e or will increase dose of meds Essential hypertension 54506336 I10 stable no issues takes meds Pain in right knee 62141 20294 78978 M25.561 is progressiv e and is bothering rick with weather change will xray to start 2 sisters have arthritis and father bad arthritis and mother has it with fingers [id number] Felix Rosa [facility] [address] [facility], [address] [facility] [place] [address] 07/14/2018 10:18:06 07/18/2018 12:27:25 Type 2 diabetes mellitus 40922479 E11.9 Discussed A1C of 7.9, need to exercise daily and reduce caloric intake Acute bronchitis 5660570 2 J20.9 Call if no better Essential hypertension 21630326 I10 well controlled [id number] Felix Rosa [facility] [address] [facility], ite [facility] [place] [address] 09/06/2018 13:49:07 09/06/2018 14:29:29 Essential hypertension 68684540 I10 stable no issues takes meds Type 2 oeby betes mellitus 70818442 E11.9 compliant with diet , exercise medicines must be careful not to go into a1c 8 will need to increase calorie expenditur e or will increase dose of meds [id number] Felix Rosa DO [facility] [address] [facility], ite [facility] [address] 10/24/2018 13:57:55 10/24/2018 15:34:33 Type 2 diabetes mellitus 25370230 E11.9 has f/u November Essential hypertension 72681147 I10 well controlled Routine gy necologic examination done 7341658044 9101 Z01.419 [id number] Felix Rosa [facility] [address] [facility] on [address],[place] [facility] [address] 12/12/2018 14:16:14 12/12/2018 15:40:36 Adult health examination 053445671 Z00.00 has been stable no major changes will give meds for travel overseas Active or passive immunization 341703928 Z23 [id number] Felix Rosa DO [facility] [address] [facility] [address],[place] [address] 02/06/2019 15:34:46 02/06/2019 16:24:07 Cough 10830433 R05 f/u if cough not improved after changing meds Type 2 obey betes mellitus 33118765 E11.9 Essential hypertension 78370016 I10 very well controlled [id number] Felix Rosa DO [facility] [address] [facility] [address],[place] [address] 03/14/2019 14:39:28 03/14/2019 16:11:40 Type 2 diabetes mellitus 25728849 E11.9 compliant with diet , exercise medicines but sugar is uncontroll ed at 9.2 meds will start her on trulicity 0.75 then up to 1.5 weekly will rechk in 2 mo Essential hypertension 89378075 I10 stable no issues takes meds [id number] Felix Rosa DO [facility] [address] [facility] [address],[place] [address] 05/16/2019 15:04:13 05/16/2019 16:00:41 Type 2 diabetes mellitus 72454683 E11.9 compliant with diet , exercise medicines but sugar is uncontroll ed at 9.2 and was 8.9 and now 9.3 again we will need to refer to endocrine despite the trulicity 1.5 weekly will rechk in 2 mo Essential hypertension 05430334 I10 stable no issues takes meds [id number] Felix Rosa DO [facility] [address] [facility] [address],[place] [address] 06/15/2019 14:53:30 06/15/2019 15:20:23 Essential hypertension 35523117 I10 stable no issues takes meds Type 2 obey betes mellitus 10996960 E11.9 compliant with diet , exercise medicines but sugar is uncontroll ed at 9.2 meds trulicity 0.75 causing rash and didnt budge the a1c she will be seeing endocrine in couple weeks will rechk in 3 mo [id number] Felix Rosa DO [facility] [address] [facility],[place] [facility] [address] 09/17/2019 15:00:04 09/17/2019 15:36:00 Type 2 diabetes mellitus 66493763 E11.9 compliant with diet , exercise medicines but sugar is uncontroll ed at 9.9 was 9.2 now on victoza and lantus but given persistant elevated sugar we will have her increase to 15 she will be seeing endocrine in couple weeks will rechk in 3 mo reviewed lab in detail told her she should get a DEXCOM or FREESTYLE SHARIF Essential hypertension 91042347 I10 stable no issues takes meds bp is stable and medication s are tolerated [id number] Felix Rosa DO [facility] [address] [facility] [address] [place] [facility] [address] 12/21/2019 14:46:29 12/21/2019 15:34:54 Type 2 diabetes mellitus 33019016 E11.9 compliant with diet , exercise medicines [...] but endocrine will not go to [facility] for her we will try to get this for her she is checking glucose 4 times a day Essential hypertension 78638359 I10 stable no issues takes meds bp is stable and medication s are tolerated [id number] Felix Rosa DO [facility] [address] [facility] [address] [address] 01/29/2020 11:48:42 01/29/2020 12:22:03 Adult health examination 472717564 Z00.00 has been stable no major changes will give meds for travel overseas Essential hypertension 82099993 I10 stable no issues takes meds bp is stable and medication s are tolerated Type 2 obey betes mellitus 27333542 E11.9 now doing great with new med jardiance from the endocrine consult will be cont and her a1c is done to 8.9 from a high of 11.3 months ago doing great and is encouraged to cont her exercise and diet regimen [id number] Felix Rosa [facility] [address] [facility],[place] [address] 06/10/2020 08:46:16 06/10/2020 15:19:29 Type 2 diabetes mellitus 60151069 E11.9 now doing great with new med jardiance from the endocrine consult who is following her now will be cont and her a1c is down to 7.4 from 8.9 from a high of 11.3 months ago doing great and is encouraged to cont her exercise and diet regimen Essential hypertension 04683744 I10 stable no issues takes meds bp is stable and medication s are tolerated Numbness of hand 6325805 04 R20.0 [id number] Felix Nguyễn Rosa [facility] [address] [facility] [place] [address] 09/10/2020 13:28:37 09/10/2020 14:31:05 Type 2 diabetes mellitus 80208555 E11.9 now doing great with new med jardiance from the endocrine consult who is following her now will be cont and her a1c is down to 7.0 from 7.4 from 8.9 from a high of 11.3 months ago doing great and is encouraged to cont her exercise and diet regimen Essential hypertension 16502096 I10 stable no issues takes meds bp is stable and medication s are tolerated Median neuropathy 390526 008 G56.11 followed by the hand specialist adn will be getting a NCT EMG and 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 and may need surgery depending on the test [id number] Felix Rosa [facility] [address] [facility], [address] [address] 04/24/2021 11:04:37 04/24/2021 11:56:28 Active or passive immunization 943134789 Z23 utd Adult heal th examination 520263280 Z00.00 has been stable no major changeswe will need to have her get the med notes from recent exams Essential hypertension 51293570 I10 stable no issues takes meds bp is stable and medication s are tolerated Type 2 obey betes mellitus 81198808 E11.9 now doing great with new med [...] reported as neg for dm retinopath y [id number] Felix Rosa [facility] [address] [facility],[place] [address] 08/24/2021 14:45:29 08/25/2021 15:18:08 Type 2 diabetes mellitus 73686635 E11.9 now doing great with new med [...] neg for dm retinopath y Essential hypertension 28343399 I10 stable no issues takes meds bp is stable and medication s are tolerated Tinea pedis 6429812 B35. 3 will try to treat with cream has extensive amount over her sole of feet bilat [id number] Felix Rosa [facility] [address] [facility],[place] [address] 09/16/2021 16:03:21 09/18/2021 16:30:36 Thoracic back pain 170964682 M54.6 will start on treatment [id number] Felix Rosa [facility] [address] [facility] [address] 12/08/2021 15:21:35 12/09/2021 14:04:49 Type 2 diabetes mellitus 86565396 E11.9 now doing great with new med [...] neg for dm retinopath y Essential hypertension 10407092 I10 stable no issues takes meds bp is stable and medication s are tolerated Active or passive immunization 167973480 Z23 advised she is due for Tdap and Pneumonia vaccines will consider Screening mammography 24 773280 Z12.31 [id number] Felix Rosa [facility] [address] [facility],[place] [address] 03/09/2022 15:09:11 03/10/2022 11:35:38 Type 2 diabetes mellitus 31438306 E11.9 now doing great with new med [...] neg for dm retinopath y Essential hypertension 96698465 I10 stable no issues takes meds bp is stable and medication s are tolerated Degenerati on of lumbar intervertebral disc 11852701 M51.36 given prgression of her symptoms and pain down the legs we will order an mri [id number] Felix Rosa [facility] [address] [facility],[place] [address] 04/27/2022 10:42:40 04/27/2022 13:07:38 Active or passive immunization 527573438 Z23 advised she is due for Tdap and Pneumonia2 3 Adult heal th examination 818120714 Z00.01 has been stable but she noted to have no improvemen t in her right hand from the carpal tunnel surgfrom last yearwe will need to have her get the med notes from recent exams Screening for malignant neoplasm of colon 128292370 Z12.11 we will consider Degenerati on of lumbar intervertebral disc 61762913 M51.36 given progressio n of her symptoms and pain down the legsbegan her PT last month we will order an mri Carpal ashley jluis syndrome 78025776 G56.01 [id number] Felix Rosa [facility] [address] [facility],[place] [address] 07/27/2022 08:09:37 07/28/2022 12:11:34 Essential hypertension 11348107 I10 stable no issues takes meds bp is stable and medication s are tolerated Type 2 obey betes mellitus 15055957 E11.9 now doing great with new med jardiance from the endocrine consult who is following her nowa1c was at 7,4 then 6.9 and now at 7.2 on jardianced oing great and is encouraged to cont her exercise and diet regimen has had a eye exam and this was reported as neg for dm retinopath y Degenerati on of lumbar intervertebral disc 88456143 M51.36 given progressio n of her symptoms and pain down the legsbegan her PT last month we will order an mri using otc creams from [facility] with good results Carpal ashley jluis syndrome 24601390 G56.01 doing better with a cream with this called rocksaute cream from [facility] Gastroesop hageal reflux disease 663058117 K21.9 she will try otc prilosec or nexium for the next 4 weeks let us know if not helping [id number] Felix Rosa DO [facility] [address] [facility],[place] [address] 10/27/2022 09:43:29 10/27/2022 13:55:40 Type 2 diabetes mellitus 21649068 E11.9 now doing great with new med jardiance from the endocrine consult who is following her nowa1c was at 7.1 then was 7.0 and 7.2 and 6.9 on jardianced oing great and is encouraged to cont her exercise and diet regimen has had a eye exam and this was reported as neg for dm retinopath y Essential hypertension [id number] I10 stable no issues takes meds bp is stable and medication s are tolerated Allergic conjunctivitis of bilateral eyes [id number] 41314 H10.13 we will try an eye drop and hope it is covered [id number] Felix oRsa DO [facility] [address] [facility],[place] [address] [address] 03/08/2023 13:31:33 03/08/2023 14:51:20 Essential hypertension 59854808 I10 stable no issues takes meds bp is stable and medication s are tolerated Type 2 obey betes mellitus 99527858 E11.9 now doing great with new med [...] dm retinopath y Gastroesop hageal reflux disease 928927632 K21.9 she will try otc prilosec or nexium for the next 4 weeks let us know if not helping [id number] Felix Rosa, [facility] [address] [facility],[place] [facility] [place] [address] 06/10/2023 13:18:32 06/10/2023 14:06:07 Type 2 diabetes mellitus 80409337 E11.9 note she had a mix up with victoza and was off for 3 weeksthis is why it is elevated at 7.5 Essential hypertension 97652455 I10 stable no issues takes meds bp is stable and medication s are tolerated Active or passive immunization 401673239 Z23 advised she is due for Tdap and Pneumonia2 3 Adult heal th examination 552420744 Z00.00 has been stable but she noted to have no improvemen t in her right hand from the carpal tunnel surg and it is getting worse from last yearwe will need to have her get the med notes from recent exams [id number] Felix Rosa [facility] [address] [facility],[place] [facility] [place] [address] 09/28/2023 13:38:40 09/28/2023 15:23:15 Essential hypertension 43197823 I10 stable no issues takes meds bp is stable and medication s are tolerated Type 2 obey betes mellitus 28337039 E11.9 long discussed how she is doing with her sugar feeling well and is having good readingsa1 c is 7.4 was 6.9 just got cortisone shotdiscus sed her diet and exercise and cont to monitor Trigger fi nger of right hand [id number] M65.[address] got cortisone and is better Epigastric pain 40470315 R10.13 recurrent [id number] Felix Rosa [facility] [address] [facility],[place] [address] 01/17/2024 13:44:18 01/17/2024 16:27:28 Depression screening 794441247 Z13.31 negative Type 2 obey betes mellitus 73289459 E11.9 long discussed how she is doing with her sugar feeling well and is having good readingsa1 c is 7.9, 7.6, 7.4 was 6.9 just got cortisone shotdiscus sed her diet and exercise and cont to monitor Essential hypertension 51208408 I10 stable no issues takes meds bp is stable and medication s are tolerated Gastropare sis due to type 2 diabetes mellitus 486798386 E11.43 having a lot of post prandial bloating [id number] Felix Rosa [facility] [address] [facility],[place] [address] 04/24/2024 14:10:05 04/24/2024 15:32:37 Gastroparesis due to type 2 diabetes mellitus 357890669 E11.43 having a lot of post prandial bloating will try reglan Screening for malignant neoplasm of colon 419557672 Z12.11 we will consider please call in 2 weeks with update on med Type 2 obey betes mellitus 07905070 E11.9 long discussed how she is doing with her sugar feeling well and is having good readingsa1 c is 7.9, 7.6, 7.4 was 6.9 just got cortisone shotdiscus sed her diet and exercise and cont to monitor [id number] Felix Rosa [facility] [address] [facility],[place] [address] 05/15/2024 14:23:57 05/15/2024 15:09:37 Essential hypertension 57199251 I10 stable no issues takes meds bp is stable and medication s are tolerated Gastropare sis due to type 2 diabetes mellitus 722903353 E11.43 finally feels markedly better will cont for now until she can see GI in a month or sopt warned and understand s the sx of tardive dyskinesia and what to look out for and to stop immediatel y and call me Allergic conjunctivitis of bilateral eyes [id number] 38710 H10.13 we will try an eye drop and hope it is covered [id number] Fleix Rosa [facility] [address] [facility],[place] [address] 06/12/2024 11:11:00 06/12/2024 11:51:02 Active or passive immunization 344123701 Z23 advised she is due for Tdap and Pneumonia2 3 Adult heal th examination 846526356 Z00.01 has been stable but she noted to have an ongoing pneumoniti s post viral from last yearwe will need to have her get the med notes from recent exams Pneumonitis 547603367 J1 8.9 [id number] Felix Adrian Diallo [facility] [address] [facility],[place] [facility] [place] [address] 07/31/2024 13:17:33 07/31/2024 14:30:37 Essential hypertension 31767349 I10 stable no issues takes meds bp is stable and medication s are tolerated Type 2 obey betes mellitus 01994453 E11.9 long discussed how she is doing with her sugar feeling well and is having good readings a1c is 7.6 now doing better [id number] is 7.9, 7.6, 7.4 was 6.9 just got cortisone shotdiscus sed her diet and exercise and cont to monitor Gastropare sis due to type 2 diabetes mellitus 872833636 E11.43 doing well no TD side effect given she is on mounjaro and off victoza we will have her stop the am metoclopra mide and only take in the evening also if this is still good she will stop the evening dose too Vitamin D deficiency 347 34579 E55.9 level was<4 now on supp we will have her get rechk lab in 2 mo [id number] Felix Rosa [facility] [address] [facility],[place] [address] 11/06/2024 13:32:34 11/06/2024 14:14:02 Gastroparesis due to type 2 diabetes mellitus 551944654 E11.43 doing well no TD side effect given she is on mounjaro and off victoza we will have her stop the am metoclopra mide and only take in the evening also if this is still good she will stop the evening dose too Depression screening 171 327043 Z13.31 negative Essential hypertension 39122533 I10 stable no issues takes meds bp is stable and medication s are tolerated Type 2 obey danitza mellitus 06397924 E11.9 has noticed she is going lower on sugars told to keep eye on this and if she happens to bottom out again she is to decrease dose to once a day metformin long discussed how she is doing with her sugar feeling well and is having good readings a1c is 7.6 now doing better [id number] is 7.9, 7.6, 7.4 was 6.9 just got cortisone shotdiscus sed her diet and exercise and cont to monitor Health Concerns Section Related Observation LastModified by Organization Detai ls LastModified Time None Recorded Concern Status LastModified by Organization Details LastModified Time None Recorded Advance Directives Directive None Recorded Payers Insurance Date Sequence Insurance Name Policy Number Policy Moreno Covered Member ID Moreno Member ID Guarantor Name 11/05/2024 1 [facility] [id number] Luana Garcia [id number] Luana Garcia Notes Date Note Type Note [...] sore at times after eating GISELL DANIELS [address] [place] [address], [place], [address], [facility] 05/02/2024 15:55:09 4 text/htm l here for rechkstates she has felt fantastic since starting on the metoclopramidestates no longer feels full or bloated and states now that she finished the tow weeks worth her sx are coming back Felix Rosa, DO [address] [place], [address], [facility] 05/15/2024 15:10:27 4 text/htm l [...] and having tiredness Felix Rosa, DO [address] [place], [address], [facility] 06/12/2024 11:49:42 5 text/htm l started mounjaro and is doing ok with thisGI feels that the Victoza was causing GI upsetlab work looked good a1c is 7.6 lab looked goodd exvept vit D was undetectableher stomach issues are gonefelt the victoza is causing the gastroparesis we will see if the mounjaro also causes Felix Rosa, DO [address] [place], [address], [facility] 07/31/2024 13:50:21 5 text/htm l [...] and is doing okhad shingrix done tolerates destiny and is no having any sxrelates her sugars are getting lowtold to cut metformin to one a day if she keeps going low with sugars Felix Rosa, DO [address] [facility], [place], [address], [facility] 11/06/2024 15:30:41 OBGyn Episode No OBEpisode recorded.
== END 2025-01-01 11:47 | disposition home or self-care (01) ==
LOC: HO.MAMMO 11:46
PROVIDERS: PCP Internal Medicine; Visit Provider Internal Medicine
DX: Z12.31 Encounter for screening mammogram for malignant neoplasm of breast (principal)
CPT/HCPCS: 77063; 77067

== ENCOUNTER → 2025-01-01 12:00 | Outpatient (BNV) | payer OTHER, SELFPAY | PROVIDERS: PCP Internal Medicine; Visit Provider Radiology Body Imaging | DX: Z12.31 Encounter for screening mammogram for malignant neoplasm of breast (principal) | CPT/HCPCS: 77063; 77067 ==

== ENCOUNTER 2025-01-05 | Outpatient (REF) | payer OTHER, SELFPAY ==
[2025-01-05 07:58] LABS: Hemoglobin A1C 268.0458 umol/L; Total Hemoglobin (HGBA1C) 4131.4411 umol/L
--- OUTSIDE RECORDS SUMMARY | 2025-01-17 08:45 | XMS_ITS | Encounter Summary ---
Author Organization [facility] Address [address] [place] [phone] Phone Care Team Providers Care Press Breaker Name Role Phone Felix Landrum DO Primary Care Provider [phone] Encounter Details Date Type Department Care Team (Late st Contact Info) Description 02/06/2021 Procedure Pass OR Admitting Dept - [facility] Department [address] [place] [id number] Social History Tobacco Use Types Packs/Day Years Used Date Smoking Tobacco: Never Smokeless Tobacco: Never Alcohol Use Standard Drinks/Week Comments Not Currently 0 (1 standard drink = 0.6 oz pur e alcohol) Comments No Sex and Gender Information Value Date Recorded Sex Assigned at Not on file Legal Sex Female 9:34 PM EDT Gender Identity Not on file Sexual Orientation Not on file documented as of this encounter Plan of Treatment Not on file documented as of this encounter Visit Diagnoses Not on filedocumented in this encounter Care Teams Press Breaker Relationship Specialty Start Date End Date Felix Landrum DO PCP - General 06/30/17 documented as of this encounter Additional Source Comments The information contained in this document represents components of the legal health record. It is not the complete legal health record.[facility]
--- OUTSIDE RECORDS SUMMARY | 2025-01-17 08:46 | XMS_ITS | Data Portability ---
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) [facility]DM MODERATE MUST MEET 2 OUT OF [...] COVERED Not available 07/31/2024 13:43:16 11/06/2024 11/06/2024 [id number] [place] [id number] (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) MDM MODERATE MUST MEET 2 OUT OF [...] globi n A1c), blood 2024 0204/ 025 [facility], [address] [place] [address], [place], [address], 10/08/2024 11:37:04 HbA1c (hemo globi n A1c), blood 2024 025 [facility], [address] [place] [address], [address], 10/08/2024 11:37:04 vitam in D, 25-hy droxy , total , serum 2024 025 [facility], [address] [place] [address], [place], [address], 07/31/2024 13:47:48 Referral gastr adria swanson ist refer ral 2023 [facility], [address] [place] [address] Dr, [facility], [place], [address], 04/27/2024 08:39:20 Procedures None recor ded. Surgeries None recor ded. Imaging None recor ded. Medication Orders azith romyc in 250 mg table t 2023 [facility], [address] [place], [address], 06/12/2024 11:46:07 metoc lopra mide 5 mg table t 2023 024 [facility], [address] [place], [address], 05/15/2024 15:06:34 olopa tadin e 0.1 % eye drops 2023 024 [facility], [address] [place], [address], 05/15/2024 15:10:05 metoc lopra mide 5 mg table t 2023 024 [facility], [address] [place], [address], 04/24/2024 14:58:19 Patient TargetsNo targets recorded. 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 [email or web address] [facility] [address] [place], [address], 01/15/2025 08:46:38 Result Notes None recorded. Problems Name Problem SNOMED Code Status Onset Date Resolution Date Notes Provider Name and Address Organization Details Recorded Time History of abdominal hysterect reji 773111069 Active 2017 cervix cranes intact Not Available [facility] 3 06:36:37 Essential hypertens ion 06285770 Active 2017 Meeta del rosario [place] [facility] 4 11:13:37 Obesity 981286542 Active 2017 Meeta del rosario [place] [facility] 4 11:13:54 Type 2 diabetes mellitus 51437094 Active 2017 Meeta del rosario [place] [facility] 4 11:13:45 Median neuropath y 029922036 Active 2020 Not Available [facility] 3 06:36:37 Thoracic arthritis 1887799 Active 2021 Not Available [facility] 3 06:36:37 Degenerat ion of lumbar intervert ebral disc 23553513 Active 2021 Not Available [facility] 3 06:36:37 Carpal tunnel syndrome 49765880 Active 2021 Not Available [facility] 3 06:36:37 Carpal tunnel syndrome 50737269 Active 2022 Not Available [facility] 3 06:36:37 Gastroeso phageal reflux disease 869911275 Active 2022 Not Available [facility] 3 06:36:37 Allergic conjuncti vitis of bilateral eyes 98985269423 9102 Active 2022 Not Available [facility] 3 06:36:37 Trigger finger of right hand 59704883842 416598 Active 2023 Felix Rosa, DO [address] [place] [address], [address], [facility] 4 14:26:48 Epigastri c pain 65451140 Active 2023 Felix Rosa, DO [address] [place] [address], [address], [facility] 4 14:28:25 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 Felix Rosa, DO [address] [place] [address], [address], [facility] 4 14:20:10 Gastropar esis due to type 2 diabetes mellitus 590125709 Active 2023 Felix Rosa, DO [address] [place] [address], [address], [facility] 4 14:21:16 Cough 64702351 Active 2023 Felix Rosa, DO [address] [place] [address], [address], [facility] 4 11:05:01 Pneumonit is 296401082 Active 2023 Felix Rosa, DO [address] [place] [address], [address], [facility] 4 11:45:45 Gastropar esis due to diabetes mellitus 794175025 Active 2024 Felix Rosa, DO [address] [place] [address], [address], [facility] Internal [facility] 5 08:48:23 Vitamin D deficienc y 98001092 Active 2024 Felix Rosa, DO [address] [place] [address], [address], [facility] 5 13:45:03 Notes:Some problems listed i n Documents: #[id number], #[id number], #[id number], #[id number], #[id number], #[id number], #[id number] could not be added to this patient's chart. Please review these documents and add these problems to the patient's chart manually as needed. Problem Notes None recorded. Procedures Surgical History Date Name Laterality Status Provider Name and Address Organization Details Recorded Time 01/02/20 25 Most Recent Mammogram completed Meeta Hung [facility] 01/15/2025 08:46:16 06/27/19 16 Date of Last Pap Smear completed Donna Lyon NP, S [address] [place] [address], [address], [facility] 10/24/2018 14:19:18 Partial Hysterectomy completed Donna Lyon NP, [address] [place] [address], [address], [facility] 10/24/2018 14:18:36 Imaging Results None recorded. Procedure Notes None recorded. Medical Equipment None Reported. Allergies Allergen ID Allergen Name Allergen Category Reaction Reaction Severity Criticality Documentation Date Start Date Code Code System Note Provider Name and Address Organization Details Recorded Time 207 Bactrim medicatio n rash Not available Not available 08/29/2017 08585 9 [facility] 8 09:25:35 208 Cipro medicatio n headache Not available Not available 08/29/2017 49104 3 RxNorm ? Smita del rosario [facility] 8 09:26:00 209 metronida zole medicatio n headache Not available Not available 08/29/2017 6922 RxNorm ? Smita del rosario [facility] 8 09:26:30 Medications Name Sig Start [...] DIRECTED BY GASTROENT EROLOGY DEPARTMEN T AT [facility] active Not Available Not Available No [...] Ultra-Fine Janelle Pen Needle 32 gauge x /32 USE 2 PEN NEEDLES DAILY 2024 active Not Available Not Available Not Avai jojo Janumet XR 100 mg-1,000 mg tablet,exte nded [...] Available Not Available FreeStyle Sharif 14 Day [place] USE DIRECTED 2023 active Not Available Not Available Not Yamilet uribe FreeStyle Sharif 14 Day Sensor kit APPLY [...] Updated DateTime 5 151.77 cm 29.3 kg/m2 16085.2 6 g 104 /min 98 % 98 % 142/78 mm[Hg] Francisco Schwartz [facility] 5 13:28:40 Date Recorded Body height Body mass index (BMI) Body weight Heart rate Oxygen saturation Oxygen saturation in Arterial blood by Pulse oximetry Systolic And Diastolic Provider Name and Address Organization Details Last Updated DateTime 5 151.77 cm 28.2 kg/m2 06598.7 1 g 97 /min 97 % 97 % 108/64 mm[Hg] Taty Chino [facility] 5 13:41:43 Date Recorded Body height Body mass index (BMI) Body weight Heart rate Oxygen saturation Oxygen saturation in Arterial blood by Pulse oximetry Systolic And Diastolic Provider Name and Address Organization Details Last Updated DateTime 4 151.77 cm 28.9 kg/m2 49175.0 8 g 84 /min 98 % 98 % 124/80 mm[Hg] Francisco Schwartz [facility] Internal [facility] 4 14:34:23 Date Recorded Body height Body mass index (BMI) Body weight Heart rate Oxygen saturation Oxygen saturation in Arterial blood by Pulse oximetry Systolic And Diastolic Provider Name and Address Organization Details Last Updated DateTime 4 151.77 cm 28.2 kg/m2 68457.7 1 g 94 /min 96 % 96 % 138/80 mm[Hg] Taty Chino [facility] 4 14:52:28 Date Recorded Body height Body mass index (BMI) Body weight Heart rate Oxygen saturation Oxygen saturation in Arterial blood by Pulse oximetry Systolic And Diastolic Provider Name and Address Organization Details Last Updated DateTime 4 151.77 cm 29.2 kg/m2 63585.4 7 g 96 /min 98 % 98 % 128/86 mm[Hg] Meeta Abhilash [facility] 4 11:30:57 Social History Question Answer Notes LastModified by Organizat ion Details LastModified Time Tobacco Smoking Status Never Smoker Not Available [facility] 04/29/2020 03:36:24 What Was The Date Of Your Most Recent Tobacco Screening? 11/06/2024 Information not available 11/06/2024 Sex: Unknown Functional Status Question Answer Note LastModified by Organization D etails LastModified Time Do you or have you ever used any other forms of tobacco or nicotine? No [email or web address] Information not available 06/10/2023 Mental Status None recorded. Family History Relationship Description Onset Age of this Age Resolved Age Notes LastModified by Organization Details LastModified Time Mother Type 2 diabetes mellitus 65 [email or web address] Not available 2018 14:17:37 Father Myocardial infarction 58 [email or web address] Not available 10/24 14:17:49 Medical History No medical history recorded. Gynecological History Statement/Question Response If Post Menopausal, Age at Menopause Menses Monthly N HPV Vaccine N Date of Last Pap Smear 06/27/2015 Current Control Method N/A Most Recent Mammogram 01/01/2025 Age at Menarche 9 Obstetrics History GPAL:G 0 P 0 0 0 0 Immunizations Vaccine Type Date Status Note Provider Nam e and Address Organization Details Recorded Time Influenza, split virus, quadrivalent, preservative 8 completed Not Available [facility] 06/17/2023 13:00:15 COVID-19, mRNA, LNP-S, PF, 30 mcg/0.3 mL dose 1 completed Not Available [facility] 06/17/2023 13:00:15 COVID-19, mRNA, LNP-S, PF, 30 mcg/0.3 mL dose 1 completed Not Available [facility] 06/17/2023 13:00:15 zoster recombinant 5 completed Felix Rosa DO [address] [place], [address], [facility] 11/06/2024 13:56:15 Past Encounters Encounter ID Performer Location Encounter Start Date Encounter Closed Date Diagnosis/Indication Diagnosis SNOMED-CT Code Diagnosis ICD10 Code Diagnosis Note [id number] DO [facility] [address] [facility],[place] [address] 10/05/2017 13:33:00 10/05/2017 16:41:54 Type 2 diabetes mellitus 77173053 E11.9 compliant with diet , exercise medicines must be careful not to go yoxia2u 8 will need to increase calorie expenditur e Essential hypertension 20105877 I10 stable no issues takes meds [id number] Felix Rosa DO [facility] [address] [facility] [address] [address] 02/08/2018 13:25:57 02/08/2018 16:08:34 Type 2 diabetes mellitus 71754335 E11.9 compliant with diet , exercise medicines must be careful not to go into a1c 8 will need to increase calorie expenditur e or will increase dose of meds Essential hypertension 72584319 I10 stable no issues takes meds [id number] Felix Rosa [facility] [address] [facility] [address],[place] [address] 05/10/2018 13:26:50 05/10/2018 16:37:07 Type 2 diabetes mellitus 07724260 E11.9 compliant with diet , exercise medicines must be careful not to go into a1c 8 will need to increase calorie expenditur e or will increase dose of meds Essential hypertension 02401820 I10 stable no issues takes meds Pain in right knee 52461 64069 07030 M25.561 is progressiv e and is bothering rick with weather change will xray to start 2 sisters have arthritis and father bad arthritis and mother has it with fingers [id number] Felix Rosa [facility] [address] [facility],[place] [address] 07/14/2018 10:18:06 07/18/2018 12:27:25 Type 2 diabetes mellitus 83750969 E11.9 Discussed A1C of 7.9, need to exercise daily and reduce caloric intake Acute bronchitis 4854554 2 J20.9 Call if no better Essential hypertension 43784909 I10 well controlled [id number] Felix Rosa [facility] [address] [facility] [address],[place] [address] 09/06/2018 13:49:07 09/06/2018 14:29:29 Essential hypertension 80994437 I10 stable no issues takes meds Type 2 obey betes mellitus 89975940 E11.9 compliant with diet , exercise medicines must be careful not to go into a1c 8 will need to increase calorie expenditur e or will increase dose of meds [id number] Felix Rosa [facility] [address] [facility] [address] [address] 10/24/2018 13:57:55 10/24/2018 15:34:33 Type 2 diabetes mellitus 86150150 E11.9 has f/u Makenzie Essential hypertension 95477727 I10 well controlled Routine gy necologic examination done 4330845934 9101 Z01.419 [id number] Felix Rosa DO [facility] [address] [facility] [address],[place] [address] 12/12/2018 14:16:14 12/12/2018 15:40:36 Adult health examination 044622005 Z00.00 has been stable no major changes will give meds for travel overseas Active or passive immunization 588764395 Z23 [id number] Felix Rosa DO [facility] [address] [facility] [address],[place] [address] 02/06/2019 15:34:46 02/06/2019 16:24:07 Cough 83791085 R05 f/u if cough not improved after changing meds Type 2 obey betes mellitus 10505726 E11.9 Essential hypertension 21212311 I10 very well controlled [id number] Felix Rosa DO [facility] [address] [facility] [address],[place] [address] 03/14/2019 14:39:28 03/14/2019 16:11:40 Type 2 diabetes mellitus 79208431 E11.9 compliant with diet , exercise medicines but sugar is uncontroll ed at 9.2 meds will start her on trulicity 0.75 then up to 1.5 weekly will rechk in 2 mo Essential hypertension 98005618 I10 stable no issues takes meds [id number] Felix Rosa DO [facility] [address] [facility] [address],[place] [address] 05/16/2019 15:04:13 05/16/2019 16:00:41 Type 2 diabetes mellitus 67659235 E11.9 compliant with diet , exercise medicines but sugar is uncontroll ed at 9.2 and was 8.9 and now 9.3 again we will need to refer to endocrine despite the trulicity 1.5 weekly will rechk in 2 mo Essential hypertension 13254304 I10 stable no issues takes meds [id number] Felix Rosa DO [facility] [address] [facility],[place] [address] 06/15/2019 14:53:30 06/15/2019 15:20:23 Essential hypertension 02851598 I10 stable no issues takes meds Type 2 obey betes mellitus 32432173 E11.9 compliant with diet , exercise medicines but sugar is uncontroll ed at 9.2 meds trulicity 0.75 causing rash and didnt budge the a1c she will be seeing endocrine in couple weeks will rechk in 3 mo [id number] Felix Rosa [facility] [address] [facility],[place] [address] 09/17/2019 15:00:04 09/17/2019 15:36:00 Type 2 diabetes mellitus 41392663 E11.9 compliant with diet , exercise medicines but sugar is uncontroll ed at 9.9 was 9.2 now on victoza and lantus but given persistant elevated sugar we will have her increase to 15 she will be seeing endocrine in couple weeks will rechk in 3 mo reviewed lab in detail told her she should get a DEXCOM or FREESTYLE SHARIF Essential hypertension 22909230 I10 stable no issues takes meds bp is stable and medication s are tolerated [id number] Felix Rosa [facility] [address] [facility],[place] [address] 12/21/2019 14:46:29 12/21/2019 15:34:54 Type 2 diabetes mellitus 01653326 E11.9 compliant with diet , exercise medicines [...] glucose 4 times a day Essential hypertension 16447584 I10 stable no issues takes meds bp is stable and medication s are tolerated [id number] Felix Rosa [facility] [address] [facility] [address] 01/29/2020 11:48:42 01/29/2020 12:22:03 Adult health examination 172229898 Z00.00 has been stable no major changes will give meds for travel overseas Essential hypertension 15399474 I10 stable no issues takes meds bp is stable and medication s are tolerated Type 2 obey betes mellitus 83061132 E11.9 now doing great with new med jardiance from the endocrine consult will be cont and her a1c is done to 8.9 from a high of 11.3 months ago doing great and is encouraged to cont her exercise and diet regimen [id number] Felix Rosa [facility] [address] [facility],[place] [address] 06/10/2020 08:46:16 06/10/2020 15:19:29 Type 2 diabetes mellitus 21258299 E11.9 now doing great with new med jardiance from the endocrine consult who is following her now will be cont and her a1c is down to 7.4 from 8.9 from a high of 11.3 months ago doing great and is encouraged to cont her exercise and diet regimen Essential hypertension 21077745 I10 stable no issues takes meds bp is stable and medication s are tolerated Numbness of hand 6792407 04 R20.0 [id number] Felix Rosa [facility] [address] [facility],[place] [address] 09/10/2020 13:28:37 09/10/2020 14:31:05 Type 2 diabetes mellitus 08924297 E11.9 now doing great with new med jardiance from the endocrine consult who is following her now will be cont and her a1c is down to 7.0 from 7.4 from 8.9 from a high of 11.3 months ago doing great and is encouraged to cont her exercise and diet regimen Essential hypertension 56523159 I10 stable no issues takes meds bp is stable and medication s are tolerated Median neuropathy 958868 008 G56.11 followed by the hand specialist adn will be getting a NCT EMG and 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 and may need surgery depending on the test [id number] Felix Rosa [facility] [address] [facility],[place] [address] 04/24/2021 11:04:37 04/24/2021 11:56:28 Active or passive immunization 198245832 Z23 utd Adult heal th examination 535029823 Z00.00 has been stable no major changeswe will need to have her get the med notes from recent exams Essential hypertension 19912397 I10 stable no issues takes meds bp is stable and medication s are tolerated Type 2 obey betes mellitus 61175031 E11.9 now doing great with new med [...] reported as neg for dm retinopath y [id number] Felix Rosa [facility] [address] [facility], [employer] [place] [address] 08/24/2021 14:45:29 08/25/2021 15:18:08 Type 2 diabetes mellitus 65508042 E11.9 now doing great with new med [...] neg for dm retinopath y Essential hypertension 28293040 I10 stable no issues takes meds bp is stable and medication s are tolerated Tinea pedis 5607275 B35. 3 will try to treat with cream has extensive amount over her sole of feet bilat [id number] Felix Rosa [facility] [address] [facility], [employer] [address] 09/16/2021 16:03:21 09/18/2021 16:30:36 Thoracic back pain 515899176 M54.6 will start on treatment [id number] Felix Rosa [facility] [address] [facility], [employer] [place] [place] [address] 12/08/2021 15:21:35 12/09/2021 14:04:49 Type 2 diabetes mellitus 89773548 E11.9 now doing great with new med [...] neg for dm retinopath y Essential hypertension 49389234 I10 stable no issues takes meds bp is stable and medication s are tolerated Active or passive immunization 506661867 Z23 advised she is due for Tdap and Pneumonia vaccines will consider Screening mammography 24 002109 Z12.31 [id number] Felix Rosa [facility] [address] [facility],[place] [address] 03/09/2022 15:09:11 03/10/2022 11:35:38 Type 2 diabetes mellitus 24303636 E11.9 now doing great with new med [...] neg for dm retinopath y Essential hypertension 44301160 I10 stable no issues takes meds bp is stable and medication s are tolerated Degenerati on of lumbar intervertebral disc 76666313 M51.36 given prgression of her symptoms and pain down the legs we will order an mri [id number] Felix Rosa [facility] [address] [facility],[place] [address] 04/27/2022 10:42:40 04/27/2022 13:07:38 Active or passive immunization 260722909 Z23 advised she is due for Tdap and Pneumonia2 3 Adult heal th examination 739157472 Z00.01 has been stable but she noted to have no improvemen t in her right hand from the carpal tunnel surgfrom last yearwe will need to have her get the med notes from recent exams Screening for malignant neoplasm of colon 427852241 Z12.11 we will consider Degenerati on of lumbar intervertebral disc 75870842 M51.36 given progressio n of her symptoms and pain down the legsbegan her PT last month we will order an mri Carpal ashley jluis syndrome 63713519 G56.01 [id number] [facility] [address] [facility],[place] [address] 07/27/2022 08:09:37 07/28/2022 12:11:34 Essential hypertension 68571041 I10 stable no issues takes meds bp is stable and medication s are tolerated Type 2 obey betes mellitus 64713784 E11.9 now doing great with new med jardiance from the endocrine consult who is following her nowa1c was at 7,4 then 6.9 and now at 7.2 on jardianced oing great and is encouraged to cont her exercise and diet regimen has had a eye exam and this was reported as neg for dm retinopath y Degenerati on of lumbar intervertebral disc 81683963 M51.36 given progressio n of her symptoms and pain down the legsbegan her PT last month we will order an mri using otc creams from [place] with good results Carpal ashley jluis syndrome 74483500 G56.01 doing better with a cream with this called rocksaute cream from [facility] Gastroesop hageal reflux disease 830878493 K21.9 she will try otc prilosec or nexium for the next 4 weeks let us know if not helping [id number] Felix Rosa, [facility] [address] [facility],[place] [address] 10/27/2022 09:43:29 10/27/2022 13:55:40 Type 2 diabetes mellitus 26682294 E11.9 now doing great with new med jardiance from the endocrine consult who is following her nowa1c was at 7.1 then was 7.0 and 7.2 and 6.9 on jardianced oing great and is encouraged to cont her exercise and diet regimen has had a eye exam and this was reported as neg for dm retinopath y Essential hypertension [id number] I10 stable no issues takes meds bp is stable and medication s are tolerated Allergic conjunctivitis of bilateral eyes [id number] 79435 H10.13 we will try an eye drop and hope it is covered [id number] Felix Rosa DO [facility] [address] [facility] [address],[place] [address] 03/08/2023 13:31:33 03/08/2023 14:51:20 Essential hypertension [id number] I10 stable no issues takes meds bp is stable and medication s are tolerated Type 2 obey betes mellitus 86140202 E11.9 now doing great with new med [...] dm retinopath y Gastroesop hageal reflux disease [id number] K21.9 she will try otc prilosec or nexium for the next 4 weeks let us know if not helping [id number] Felix Rosa DO [facility] [address] [facility],[place] [address] 06/10/2023 13:18:32 06/10/2023 14:06:07 Type 2 diabetes mellitus 15648484 E11.9 note she had a mix up with victoza and was off for 3 weeksthis is why it is elevated at 7.5 Essential hypertension 71848081 I10 stable no issues takes meds bp is stable and medication s are tolerated Active or passive immunization 550080835 Z23 advised she is due for Tdap and Pneumonia2 3 Adult heal th examination 992330656 Z00.00 has been stable but she noted to have no improvemen t in her right hand from the carpal tunnel surg and it is getting worse from last yearwe will need to have her get the med notes from recent exams [id number] Felix Rosa [facility] Internal Medicine [address] [facility] [address],[place] [address] 09/28/2023 13:38:40 09/28/2023 15:23:15 Essential hypertension 51101573 I10 stable no issues takes meds bp is stable and medication s are tolerated Type 2 obey betes mellitus 60322295 E11.9 long discussed how she is doing with her sugar feeling well and is having good readingsa1 c is 7.4 was 6.9 just got cortisone shotdiscus sed her diet and exercise and cont to monitor Trigger fi nger of right hand [id number] 7411862 M65.[address] got cortisone and is better Epigastric pain 68779175 R10.13 recurrent [id number] Felix Rosa [facility] Internal Medicine [address] [facility],[place] [address] 01/17/2024 13:44:18 01/17/2024 16:27:28 Depression screening 083908756 Z13.31 negative Type 2 obey betes mellitus 36790421 E11.9 long discussed how she is doing with her sugar feeling well and is having good readingsa1 c is 7.9, 7.6, 7.4 was 6.9 just got cortisone shotdiscus sed her diet and exercise and cont to monitor Essential hypertension 29073881 I10 stable no issues takes meds bp is stable and medication s are tolerated Gastropare sis due to type 2 diabetes mellitus 632606671 E11.43 having a lot of post prandial bloating [id number] Felix Rosa [facility] Internal Medicine [address] [facility], [place] [address] 04/24/2024 14:10:05 04/24/2024 15:32:37 Gastroparesis due to type 2 diabetes mellitus 131161689 E11.43 having a lot of post prandial bloating will try reglan Screening for malignant neoplasm of colon 378480091 Z12.11 we will consider please call in 2 weeks with update on med Type 2 obey betes mellitus 14518226 E11.9 long discussed how she is doing with her sugar feeling well and is having good readingsa1 c is 7.9, 7.6, 7.4 was 6.9 just got cortisone shotdiscus sed her diet and exercise and cont to monitor [id number] Felix Rosa [facility] Medicine [address] [facility], [place] [address] 05/15/2024 14:23:57 05/15/2024 15:09:37 Essential hypertension 00639972 I10 stable no issues takes meds bp is stable and medication s are tolerated Gastropare sis due to type 2 diabetes mellitus 873357021 E11.43 finally feels markedly better will cont for now until she can see GI in a month or sopt warned and understand s the sx of tardive dyskinesia and what to look out for and to stop immediatel y and call me Allergic conjunctivitis of bilateral eyes [id number] 92166 H10.13 we will try an eye drop and hope it is covered [id number] Felix Rosa DO [facility] [address] [facility] [address],[place] [address] 06/12/2024 11:11:00 06/12/2024 11:51:02 Active or passive immunization 088547270 Z23 advised she is due for Tdap and Pneumonia2 3 Adult heal th examination 672513464 Z00.01 has been stable but she noted to have an ongoing pneumoniti s post viral from last yearwe will need to have her get the med notes from recent exams Pneumonitis 633046615 J1 8.9 [id number] Felix Rosa, [facility] Internal Medicine [address] [facility] [address],[place] [address] 07/31/2024 13:17:33 07/31/2024 14:30:37 Essential hypertension 76260160 I10 stable no issues takes meds bp is stable and medication s are tolerated Type 2 obey betes mellitus 95574657 E11.9 long discussed how she is doing with her sugar feeling well and is having good readings a1c is 7.6 now doing better QPLPQc5n is 7.9, 7.6, 7.4 was 6.9 just got cortisone shotdiscus sed her diet and exercise and cont to monitor Gastropare sis due to type 2 diabetes mellitus 519235851 E11.43 doing well no TD side effect given she is on mounjaro and off victoza we will have her stop the am metoclopra mide and only take in the evening also if this is still good she will stop the evening dose too Vitamin D deficiency 347 64579 E55.9 level was<4 now on supp we will have her get rechk lab in 2 mo [id number] Felix Rosa, DO [facility] [address] [facility] [address],[place] [address] 11/06/2024 13:32:34 11/06/2024 14:14:02 Gastroparesis due to type 2 diabetes mellitus 742939706 E11.43 doing well no TD side effect given she is on mounjaro and off victoza we will have her stop the am metoclopra mide and only take in the evening also if this is still good she will stop the evening dose too Depression screening 171 662250 Z13.31 negative Essential hypertension 62933859 I10 stable no issues takes meds bp is stable and medication s are tolerated Type 2 obey betes mellitus 92500343 E11.9 has noticed she is going lower on sugars told to keep eye on this and if she happens to bottom out again she is to decrease dose to once a day metformin long discussed how she is doing with her sugar feeling well and is having good readings a1c is 7.6 now doing better AODOIt2s is 7.9, 7.6, 7.4 was 6.9 just [...] ID Moreno Member ID Guarantor Name 11/05/[address] [place] [address] [id number] Luana Garcia [id number] Luana Garcia Notes Date Note Type Note Provider Name and Address Organization Details Recorded Time 4 text/htm l Care Management - HypertensionReported by PatientHPIFor self care, patient reportsnot under emotional stress. For severity, patient reportssymptoms are improvinganddoes not interfere with daily activities. For associated symptoms, patient reportsno dizziness,no lightheadedness,no chest pain,no shortness of breath,no palpitations,no edema,no calf muscle cramps,no blurred vision,no confusion,no headaches, andno fatigue. Care Management - DiabetesReported by PatientHPIFor associated symptoms, patient reportsdizziness,headach es, andincreased thirstbut reportssymptoms are usually well controlled,no fatigue,no excessive sweating,no confusion,no increased appetite,no increased urination,no blurred vision,no numbness of feet, andno calluses on feet. For self care, patient reportsseeing eye doctor yearly for dilated eye exam,checking feet regularly,normal range of home blood sugars (in the low 100s), andno side effects from medications.noted this stomach has dm gastroparesisROS as noted in the HPI here for rechkl relates feels sugar might be uopshe is still having trouble with her stomachstate feels bloated and sore at times after eating GISELL DANIELS [address] [place], [address], [facility] Internal Medicine 05/02/2024 15:55:09 4 text/htm l ROS as noted in the HPI here for rechkstates she has felt fantastic since starting on the metoclopramidestates no longer feels full or bloated and states now that she finished the tow weeks worth her sx are coming back Felix Rosa DO [address] [place], [address], [facility] Internal Medicine 05/15/2024 15:10:27 4 text/htm l Annual WellnessReported by PatientSocial/Behavioral HistoryFor diet and nutrition, patient reportshealthy diet. For fracture risk, patient reportsno history of fractures,no recent explained fracture,no sudden unexplained fractures, andno previous musculoskeletal injuries. For physical activity, patient reportsexercises on a regular basis,recent increase in physical activity, andgood physical condition. For additional lifestyle factors, patient reportsno tobacco use,no alcohol intake, andstopped drinking alcohol.Mental Status:For depression risk, patient reportsnever feels sad, empty, or tearful,no loss of interest in activities,no significant changes in weight,no sleep disturbances or insomnia,no agitation,no loss of energy,no feelings of worthlessness or guilt,no thoughts of suicide,no history of depression, andno history of mood disorders.Functional AbilityFor hearing, patient reportsno loss of hearing. For vision, patient reportsno vision problems. has had a recent viral infection and has been feeling lousy stillstill coughing and having tiredness Felix Rosa, DO [address] [place], [address], [facility] Medicine 06/12/2024 11:49:42 5 text/htm l ROS as noted in the HPI started mounjaro and is doing ok with thisGI feels that the Victoza was causing GI upsetlab work looked good a1c is 7.6 lab looked goodd exvept vit D was undetectableher stomach issues are gonefelt the victoza is causing the gastroparesis we will see if the mounjaro also causes Felix Rosa, DO [address] [place], [address], [facility] Internal Medicine 07/31/2024 13:50:21 5 text/htm l Care Management - HypertensionReported by PatientHPIFor self care, patient reportsnot under emotional stress. For severity, patient reportssymptoms are improvinganddoes not interfere with daily activities. For associated symptoms, patient reportsno dizziness,no lightheadedness,no chest pain,no shortness of breath,no palpitations,no edema,no calf muscle cramps,no blurred vision,no confusion,no headaches, andno fatigue. Care Management - DiabetesReported by PatientHPIFor self care, patient reportsseeing eye doctor yearly for dilated eye exam,checking feet regularly,normal range of home blood sugars (in the low 100s), andno side effects from medications. For associated symptoms, patient reportssymptoms are usually well controlled,no fatigue,no dizziness,no excessive sweating,no headaches,no confusion,no increased thirst,no increased appetite,no increased urination,no blurred vision,no numbness of feet, andno calluses on feet.ROS as noted in the HPI here for rechk and is doing okhad shingrix done tolerates mounjaro and is no having any sxrelates her sugars are getting lowtold to cut metformin to one a day if she keeps going low with sugars Felix Rosa, DO [address] [place], [address], [facility] 11/06/2024 15:30:41 OBGyn Episode No OBEpisode recorded.
--- OUTSIDE RECORDS SUMMARY | 2025-01-17 08:46 | XMS_ITS | Patient Health Record ---
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 Name Role Phone Diallo Felix Primary Care Provider Kamlesh Mac [phone] Allergies Allergen (clinical drug ingredient) Drug/Non Drug [...] Problem Status W/U Status Risk Notes Problem [id number] Abnormal barium swallow (R93.3) Active confirmed Problem 71956962 Esophageal dysphagia (R13.10) Active confirmed Plan Of Treatment Pending Test Test Name Order Date Esophageal Motility study 04/26/2017 Future Test Test Name Order Date UPPER GI ENDOSCOPY BALLOOON DILATION OF ESOPH 04/08/2017 Insurance Providers Payer Name Payer Address Payer Phone Subscriber Number Group Number Insured Name Patient Relationship to Insured Coverage Start Date Coverage End Date [facility] [address] [facility] [place] [phone] [id number] KELLEY STONER Self - patient is the insured Medical (General) History Medical History History ICD Code Denies AK,CVA,Lung disease,renal disease NIDDM HTN Hyperlipidemia Negative ETT at [facility] Surgical History Surgery Date(Month/Year) Hysterectomy
== END 2025-01-05 00:01 | disposition home or self-care (01) ==
LOC: HO.LABR
PROVIDERS: PCP Internal Medicine; Visit Provider Internal Medicine
DX: E11.9 Type 2 diabetes mellitus without complications (principal); E55.9 Vitamin D deficiency, unspecified
CPT/HCPCS: 36415; 82306; 83036

== ENCOUNTER 2025-01-18 07:19 | Day surgery (SDC) | payer OTHER, SELFPAY ==
--- OUTSIDE RECORDS SUMMARY | 2024-11-13 13:52 | XMS_ITS | Data Portability ---
Author Organization [facility] Address [address] [place] [address] Assessment Encounter Date Assessment Date Assessment LastModified by Organization Details LastModified Time 04/24/2024 04/24/2024 [id number] [place] [id number] (BAIT MAN) [facility] MODERATE MUST MEET 2 OUT OF 3 [...] COVERED Not available 04/24/2024 15:01:24 05/15/2024 05/15/2024 [id number] [place] [id number] (BAIT MAN) [facility] MODERATE MUST MEET 2 OUT OF 3 [...] THAT IS COVERED Not available 05/15/2024 15:10:14 07/31/2024 07/31/2024 [id number] [place] [address] (BAIT MAN) MDM MODERATE MUST MEET 2 OUT OF [...] EACH ELEMENT THAT IS COVERED Not available 07/31/2024 13:43:16 11/06/2024 11/06/2024 [id number] [place] [address] (BAIT MAN) MDM MODERATE MUST MEET 2 OUT OF [...] EACH ELEMENT THAT IS COVERED Not available 11/06/2024 14:01:10 Plan of Treatment Reminders Order Date Submit Date Provider Last Modified By Organization Details Last Modified Time Details Appointments FOLLO W UP 15 2024 01:45P M DR ROSA Not available Not available Not available ANNUA L EXAM 2024 11:30A M DR ROSA Not available Not available Not available Lab HbA1c (hemo globi n A1c), blood 2024 025 [facility], [address] [place] [address], [place], [address], 10/08/2024 11:37:04 HbA1c (hemo globi n A1c), blood 2024 025 [facility], [address] [place] [address], [address], 10/08/2024 11:37:04 vitam in D, 25-hy droxy , total , serum 2024 025 [facility], [address] [place] [address], [address], 07/31/2024 13:47:48 Referral gastr adria swanson ist refer ral 2023 [facility], [address] [place] [address] Dr, [facility], [place], [address], 04/27/2024 08:39:20 Procedures None recor ded. Surgeries None recor ded. Imaging None recor ded. Medication Orders azith romyc in 250 mg table t 2023 [facility], [address] [place] [address], [address], 06/12/2024 11:46:07 metoc lopra mide 5 mg table t 2023 024 [facility], [address] [place], [address], 05/15/2024 15:06:34 olopa tadin e 0.1 % eye drops 2023 [facility], [address] [place], [address], 05/15/2024 15:10:05 metoc lopra mide 5 mg table t 2023 024 [facility], [address] [place], [address], 04/24/2024 14:58:19 Patient TargetsNo targets recorded. 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 Problems Name Problem SNOMED Code Status Onset Date Resolution Date Notes Provider Name and Address Organization Details Recorded Time History of abdominal hysterect reji 639305635 Active 2017 cervix cranes intact Not Available [facility] 3 06:36:37 Median neuropath y 378373461 Active 2020 Not Available [facility] 3 06:36:37 Thoracic arthritis 2692408 Active 2021 Not Available [facility] 3 06:36:37 Degenerat ion of lumbar intervert ebral disc 36002104 Active 2021 Not Available [facility] 3 06:36:37 Carpal tunnel syndrome 32617942 Active 2021 Not Available [facility] 3 06:36:37 Carpal tunnel syndrome 26393269 Active 2022 Not Available [facility] 3 06:36:37 Gastroeso phageal reflux disease 957419004 Active 2022 Not Available [facility] 3 06:36:37 Allergic conjuncti vitis of bilateral eyes 89999003163 9102 Active 2022 Not Available [facility] 3 06:36:37 Trigger finger of right hand 46539263665 499088 Active 2023 Felix Rosa, DO [address] [place], [address], [facility] 4 14:26:48 Epigastri c pain 82397759 Active 2023 Felix Rosa, DO [address] [place] [address], [address], [facility] 4 14:28:25 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 Felix Rosa, DO [address] [place] [address], [address], [facility] 4 14:20:10 Gastropar esis due to type 2 diabetes mellitus 660811065 Active 2023 Felix Dorantesstella, DO [address] [place] [address], [address], [facility] 4 14:21:16 Cough 16992159 Active 2023 Felix Adrian Diallo, DO [address] [place] [address], [address], [facility] 4 11:05:01 Pneumonit is 913647939 Active 2023 Felix Dorantesstella, DO [address] [place] [address], [address], [facility] 4 11:45:45 Gastropar esis due to diabetes mellitus 583418343 Active 2024 Felix Rosa, DO [address] [place] [address], [address], [facility] 5 08:48:23 Vitamin D deficienc y 25140342 Active 2024 Felix Nguyễn Diallo, DO [address] [place] [address], [address], [facility] 5 13:45:03 Essential hypertens ion 87607162 Active 2017 Meeta del rosario [facility] 4 11:13:37 Obesity 985462448 Active 2017 Meeta del rosario [facility] 4 11:13:54 Type 2 diabetes mellitus 91350804 Active 2017 Meeta del rosario [facility] 4 11:13:45 Notes:Some problems listed i n Documents: #[id number], #[id number], #[id number], #[id number], #[id number] could not be added to this patient's chart. Please review these documents and add these problems to the patient's chart manually as needed. Problem Notes None recorded. Procedures Surgical History Date Name Laterality Status Provider Name and Address Organization Details Recorded Time 06/27/19 16 Date of Last Pap Smear completed Donna Lyon NP, [address] [place] [address], [phone], [facility] 10/24/2018 14:19:18 Partial Hysterectomy completed Donna Lyon NP, [address] [place] [address], [address], [facility] 10/24/2018 14:18:36 Imaging Results None recorded. Procedure Notes None recorded. Medical Equipment None Reported. Allergies Allergen ID Allergen Name Allergen Category Reaction Reaction Severity Criticality Documentation Date Start Date Code Code System Note Provider Name and Address Organization Details Recorded Time 207 Bactrim medicatio n rash Not available Not available 08/29/2017 39136 9 RxNorm [facility] 8 09:25:35 208 Cipro medicatio n headache Not available Not available 08/29/2017 04425 3 RxNorm ? Smita Ig[facility] 8 09:26:00 209 metronida zole medicatio n headache Not available Not available 08/29/2017 6922 RxNorm ? Smita Igel [facility] 8 09:26:30 Medications Name Sig Start Date Stop Date Status Note LastModified by Organization Details LastModified Time Prescriptio n - Clarificati on 04/24 completed Not Available Not Available Not Available Prescriptio n - Prior Authorizati on Request active Not Available Not Available N ot Available losartan 50 mg tablet TAKE 1 TABLET BY MOUTH DAILY 2024 active Not Available Not Available Not Avai lable cyclobenzap rine 10 mg tablet TAKE ONE [...] GRAMS IN LIQUID AND DRINK DIRECTED [facility] active Not Available Not Available No [...] Available Not Available FreeStyle Sharif 14 Day Blythe USE DIRECTED 2023 active Not Available Not Available Not Avai lable FreeStyle Sharif 14 Day Sensor kit APPLY AND CHANGE EVERY 2 WEEKS DIRECTED active Not Available Not Available No t Available Mounjaro 5 mg/0.5 mL subcutaneou s pen injector INJECT 5MG SUBCUTANE OUSLY ONCE A WEEK active Not Available Not Available No t Available Mounjaro 2.5 mg/0.5 mL subcutaneou s pen injector active Not Available Not Available Not Available Vitals Date Recorded Body height Body mass index (BMI) Body weight Heart rate Oxygen saturation Oxygen saturation in Arterial blood by Pulse oximetry Systolic blood pressure Diastolic blood pressure Provider Name and Address Organization Details Last Updated DateTime 4 151.77 cm 28.9 kg/m2 37013.0 8 g 84 /min 98 % 98 % 124 mm[Hg] 80 mm[Hg] Francisco Schwartz [facility] 4 14:34:23 Date Recorded Body height Body mass index (BMI) Body weight Heart rate Oxygen saturation Oxygen saturation in Arterial blood by Pulse oximetry Systolic blood pressure Diastolic blood pressure Provider Name and Address Organization Details Last Updated DateTime 4 151.77 cm 28.2 kg/m2 81209.7 1 g 94 /min 96 % 96 % 138 mm[Hg] 80 mm[Hg] Taty Chino [facility] 4 14:52:28 Date Recorded Body height Body mass index (BMI) Body weight Heart rate Oxygen saturation Oxygen saturation in Arterial blood by Pulse oximetry Systolic blood pressure Diastolic blood pressure Provider Name and Address Organization Details Last Updated DateTime 4 151.77 cm 29.2 kg/m2 02398.4 7 g 96 /min 98 % 98 % 128 mm[Hg] 86 mm[Hg] Meeta Hung [facility] 4 11:30:57 Date Recorded Body height Body mass index (BMI) Body weight Heart rate Oxygen saturation Oxygen saturation in Arterial blood by Pulse oximetry Systolic blood pressure Diastolic blood pressure Provider Name and Address Organization Details Last Updated DateTime 5 151.77 cm 29.3 kg/m2 31099.2 6 g 104 /min 98 % 98 % 142 mm[Hg] 78 mm[Hg] Francisco Schwartz [facility] 5 13:28:40 Date Recorded Body height Body mass index (BMI) Body weight Heart rate Oxygen saturation Oxygen saturation in Arterial blood by Pulse oximetry Systolic blood pressure Diastolic blood pressure Provider Name and Address Organization Details Last Updated DateTime 5 151.77 cm 28.2 kg/m2 16873.7 1 g 97 /min 97 % 97 % 108 mm[Hg] 64 mm[Hg] Taty Chino [facility] 5 13:41:43 Social History Question Answer Notes LastModified by Organizat ion Details LastModified Time Tobacco Smoking Status Never Smoker Not Available [facility] 04/29/2020 03:36:24 What Was The Date Of Your Most Recent Tobacco Screening? 11/06/2024 [email or web address] Information not available 11/06/2024 Sex: Unknown Functional Status Question Answer Note LastModified by Organization D etails LastModified Time Do you or have you ever used any other forms of tobacco or nicotine? No Information not available 06/10/2023 Mental Status None recorded. Family History Relationship [...] virus, quadrivalent, preservative 8 completed Not Available [facility] 06/17/2023 13:00:15 COVID-19, mRNA, LNP-S, PF, 30 mcg/0.3 mL dose 1 completed Not Available [facility] 06/17/2023 13:00:15 COVID-19, mRNA, LNP-S, PF, 30 mcg/0.3 mL dose 1 completed Not Available [facility] 06/17/2023 13:00:15 zoster recombinant 5 completed Felix Rosa DO [address] [place] [address], [address], [facility] 11/06/2024 13:56:15 Past Encounters Encounter ID Performer Location Encounter Start Date Encounter Closed Date Diagnosis/Indication Diagnosis SNOMED-CT Code Diagnosis ICD10 Code Diagnosis Note [id number] Felix Rosa DO [facility] [address] [place] [address] 10/05/2017 13:33:00 10/05/2017 16:41:54 Type 2 diabetes mellitus 52301573 E11.9 compliant with diet , exercise medicines must be careful not to go hptxe4u 8 will need to increase calorie expenditur e Essential hypertension 47536057 I10 stable no issues takes meds [id number] Felix Rosa DO [facility] [address] [facility] [place] [address] 02/08/2018 13:25:57 02/08/2018 16:08:34 Type 2 diabetes mellitus 62266534 E11.9 compliant with diet , exercise medicines must be careful not to go into a1c 8 will need to increase calorie expenditur e or will increase dose of meds Essential hypertension 38074140 I10 stable no issues takes meds [id number] Felix Rosa DO [facility] [address] [facility],[place] [address] 05/10/2018 13:26:50 05/10/2018 16:37:07 Type 2 diabetes mellitus 95113302 E11.9 compliant with diet , exercise medicines must be careful not to go into a1c 8 will need to increase calorie expenditur e or will increase dose of meds Essential hypertension 87774277 I10 stable no issues takes meds Pain in right knee 19385 57041 40050 M25.561 is progressiv e and is bothering rick with weather change will xray to start 2 sisters have arthritis and father bad arthritis and mother has it with fingers [id number] Felix Rosa [facility] [address] [facility] [place] [address] 07/14/2018 10:18:06 07/18/2018 12:27:25 Type 2 diabetes mellitus 27307143 E11.9 Discussed A1C of 7.9, need to exercise daily and reduce caloric intake Acute bronchitis 9149784 2 J20.9 Call if no better Essential hypertension 86724882 I10 well controlled [id number] Felix Rosa [facility] [address] [facility], [place] [address] 09/06/2018 13:49:07 09/06/2018 14:29:29 Essential hypertension 65537972 I10 stable no issues takes meds Type 2 obey betes mellitus 04570434 E11.9 compliant with diet , exercise medicines must be careful not to go into a1c 8 will need to increase calorie expenditur e or will increase dose of meds [id number] Felix Rosa DO [facility] [address] [facility], [place] [address] 10/24/2018 13:57:55 10/24/2018 15:34:33 Type 2 diabetes mellitus 00384212 E11.9 has f/u November Essential hypertension 97032232 I10 well controlled Routine gy necologic examination done 7125835196 9101 Z01.419 [id number] Felix Rosa [facility] [address] [facility],[place] [address] 12/12/2018 14:16:14 12/12/2018 15:40:36 Adult health examination 756370221 Z00.00 has been stable no major changes will give meds for travel overseas Active or passive immunization 441026565 Z23 [id number] Felix Rosa DO [facility] [address] [facility] [address],[place] [address] 02/06/2019 15:34:46 02/06/2019 16:24:07 Cough 00518481 R05 f/u if cough not improved after changing meds Type 2 obey betes mellitus 77738246 E11.9 Essential hypertension 41564495 I10 very well controlled [id number] Felix Rosa DO [facility] [address] [facility] [address],[place] [address] 03/14/2019 14:39:28 03/14/2019 16:11:40 Type 2 diabetes mellitus 96708082 E11.9 compliant with diet , exercise medicines but sugar is uncontroll ed at 9.2 meds will start her on trulicity 0.75 then up to 1.5 weekly will rechk in 2 mo Essential hypertension 69738083 I10 stable no issues takes meds [id number] Felix Rosa DO [facility] [address] [facility] [address],[place] [address] 05/16/2019 15:04:13 05/16/2019 16:00:41 Type 2 diabetes mellitus 40567274 E11.9 compliant with diet , exercise medicines but sugar is uncontroll ed at 9.2 and was 8.9 and now 9.3 again we will need to refer to endocrine despite the trulicity 1.5 weekly will rechk in 2 mo Essential hypertension 71161712 I10 stable no issues takes meds [id number] Felix Rosa DO [facility] [address] [facility] [address],[place] [address] 06/15/2019 14:53:30 06/15/2019 15:20:23 Essential hypertension 23992842 I10 stable no issues takes meds Type 2 obey betes mellitus 97580312 E11.9 compliant with diet , exercise medicines but sugar is uncontroll ed at 9.2 meds trulicity 0.75 causing rash and didnt budge the a1c she will be seeing endocrine in couple weeks will rechk in 3 mo [id number] Felix Rosa DO [facility] [address] [facility],[place] [address] 09/17/2019 15:00:04 09/17/2019 15:36:00 Type 2 diabetes mellitus 83419973 E11.9 compliant with diet , exercise medicines but sugar is uncontroll ed at 9.9 was 9.2 now on victoza and lantus but given persistant elevated sugar we will have her increase to 15 she will be seeing endocrine in couple weeks will rechk in 3 mo reviewed lab in detail told her she should get a DEXCOM or FREESTYLE SHARIF Essential hypertension 68995005 I10 stable no issues takes meds bp is stable and medication s are tolerated [id number] Felix Rosa DO [facility] [address] [facility],[place] [address] 12/21/2019 14:46:29 12/21/2019 15:34:54 Type 2 diabetes mellitus 31178566 E11.9 compliant with diet , exercise medicines [...] SHARIF but endocrine will not go to [facility] for her we will try to get this for her she is checking glucose 4 times a day Essential hypertension 14119072 I10 stable no issues takes meds bp is stable and medication s are tolerated [id number] Felix Rosa DO [facility] [address] [facility] [address] [place] [address] 01/29/2020 11:48:42 01/29/2020 12:22:03 Adult health examination 613426161 Z00.00 has been stable no major changes will give meds for travel overseas Essential hypertension 33475005 I10 stable no issues takes meds bp is stable and medication s are tolerated Type 2 obey betes mellitus 31870280 E11.9 now doing great with new med jardiance from the endocrine consult will be cont and her a1c is done to 8.9 from a high of 11.3 months ago doing great and is encouraged to cont her exercise and diet regimen [id number] Felix Rosa [facility] [address] [facility],[place] [address] 06/10/2020 08:46:16 06/10/2020 15:19:29 Type 2 diabetes mellitus 80242571 E11.9 now doing great with new med jardiance from the endocrine consult who is following her now will be cont and her a1c is down to 7.4 from 8.9 from a high of 11.3 months ago doing great and is encouraged to cont her exercise and diet regimen Essential hypertension 70494285 I10 stable no issues takes meds bp is stable and medication s are tolerated Numbness of hand 2654854 04 R20.0 [id number] Felix Rosa [facility] [address] [facility], [employer] [place] [address] 09/10/2020 13:28:37 09/10/2020 14:31:05 Type 2 diabetes mellitus 76779585 E11.9 now doing great with new med jardiance from the endocrine consult who is following her now will be cont and her a1c is down to 7.0 from 7.4 from 8.9 from a high of 11.3 months ago doing great and is encouraged to cont her exercise and diet regimen Essential hypertension 02495403 I10 stable no issues takes meds bp is stable and medication s are tolerated Median neuropathy 525534 008 G56.11 followed by the hand specialist adn will be getting a NCT EMG and 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 and may need surgery depending on the test [id number] Felix Rosa [facility] [address] [facility],[place] [address] 04/24/2021 11:04:37 04/24/2021 11:56:28 Active or passive immunization 521186566 Z23 utd Adult heal th examination 766840643 Z00.00 has been stable no major changeswe will need to have her get the med notes from recent exams Essential hypertension 78402093 I10 stable no issues takes meds bp is stable and medication s are tolerated Type 2 obey betes mellitus 97046848 E11.9 now doing great with new med [...] reported as neg for dm retinopath y [id number] Felix Rosa [facility] [address] [facility], [place] [address] 08/24/2021 14:45:29 08/25/2021 15:18:08 Type 2 diabetes mellitus 57437398 E11.9 now doing great with new med [...] neg for dm retinopath y Essential hypertension 91875266 I10 stable no issues takes meds bp is stable and medication s are tolerated Tinea pedis 0813543 B35. 3 will try to treat with cream has extensive amount over her sole of feet bilat [id number] Felix Rosa [facility] [address] [facility], [place] [address] 09/16/2021 16:03:21 09/18/2021 16:30:36 Thoracic back pain 347019850 M54.6 will start on treatment [id number] Felix Rosa [facility] [address] [facility], [place] [address] 12/08/2021 15:21:35 12/09/2021 14:04:49 Type 2 diabetes mellitus 20500799 E11.9 now doing great with new med [...] neg for dm retinopath y Essential hypertension 58850992 I10 stable no issues takes meds bp is stable and medication s are tolerated Active or passive immunization 724345813 Z23 advised she is due for Tdap and Pneumonia vaccines will consider Screening mammography 24 249552 Z12.31 [id number] Felix Rosa [facility] [address] [facility],[place] [address] 03/09/2022 15:09:11 03/10/2022 11:35:38 Type 2 diabetes mellitus 33705998 E11.9 now doing great with new med danuta from the endocrine consult who is following [...] neg for dm retinopath y Essential hypertension 35599399 I10 stable no issues takes meds bp is stable and medication s are tolerated Degenerati on of lumbar intervertebral disc 79451798 M51.36 given prgression of her symptoms and pain down the legs we will order an mri [id number] Felix Rosa [facility] [address] [facility],[place] [address] 04/27/2022 10:42:40 04/27/2022 13:07:38 Active or passive immunization 891027482 Z23 advised she is due for Tdap and Pneumonia2 3 Adult heal th examination 185312734 Z00.01 has been stable but she noted to have no improvemen t in her right hand from the carpal tunnel surgfrom last yearwe will need to have her get the med notes from recent exams Screening for malignant neoplasm of colon 733499510 Z12.11 we will consider Degenerati on of lumbar intervertebral disc 26574193 M51.36 given progressio n of her symptoms and pain down the legsbegan her PT last month we will order an mri Carpal ashley jluis syndrome 22167375 G56.01 [id number] Felix Rosa [facility] [address] [facility],[place] [address] 07/27/2022 08:09:37 07/28/2022 12:11:34 Essential hypertension 27553906 I10 stable no issues takes meds bp is stable and medication s are tolerated Type 2 obey betes mellitus 60498884 E11.9 now doing great with new med jardiance from the endocrine consult who is following her nowa1c was at 7,4 then 6.9 and now at 7.2 on jardianced oing great and is encouraged to cont her exercise and diet regimen has had a eye exam and this was reported as neg for dm retinopath y Degenerati on of lumbar intervertebral disc 29583075 M51.36 given progressio n of her symptoms and pain down the legsbegan her PT last month we will order an mri using otc creams from [facility] with good results Carpal ashley jluis syndrome 63069144 G56.01 doing better with a cream with this called rocksaute cream from [facility] Gastroesop hageal reflux disease 125903893 K21.9 she will try otc prilosec or nexium for the next 4 weeks let us know if not helping [id number] Felix Rosa DO [facility] Internal Medicine [address] [facility],[place] [address] 10/27/2022 09:43:29 10/27/2022 13:55:40 Type 2 diabetes mellitus 83939224 E11.9 now doing great with new med jardiance from the endocrine consult who is following her nowa1c was at 7.1 then was 7.0 and 7.2 and 6.9 on jardianced oing great and is encouraged to cont her exercise and diet regimen has had a eye exam and this was reported as neg for dm retinopath y Essential hypertension 57756255 I10 stable no issues takes meds bp is stable and medication s are tolerated Allergic conjunctivitis of bilateral eyes [id number] 22417 H10.13 we will try an eye drop and hope it is covered [id number] Felix Rosa DO [facility] Internal Medicine [address] [facility],[place] [employer] [place] [address] 03/08/2023 13:31:33 03/08/2023 14:51:20 Essential hypertension [id number] I10 stable no issues takes meds bp is stable and medication s are tolerated Type 2 obey betes mellitus 24151642 E11.9 now doing great with new med [...] dm retinopath y Gastroesop hageal reflux disease 468353007 K21.9 she will try otc prilosec or nexium for the next 4 weeks let us know if not helping [id number] Felix Rosa, [facility] Internal Medicine [address] [facility],[place] [address] 06/10/2023 13:18:32 06/10/2023 14:06:07 Type 2 diabetes mellitus 35591512 E11.9 note she had a mix up with victoza and was off for 3 weeksthis is why it is elevated at 7.5 Essential hypertension 01307033 I10 stable no issues takes meds bp is stable and medication s are tolerated Active or passive immunization 592427980 Z23 advised she is due for Tdap and Pneumonia2 3 Adult heal th examination 839068196 Z00.00 has been stable but she noted to have no improvemen t in her right hand from the carpal tunnel surg and it is getting worse from last yearwe will need to have her get the med notes from recent exams [id number] Felix Rosa, [facility] Internal Medicine [address] [facility] [address] 09/28/2023 13:38:40 09/28/2023 15:23:15 Essential hypertension 46040886 I10 stable no issues takes meds bp is stable and medication s are tolerated Type 2 obey betes mellitus 69357235 E11.9 long discussed how she is doing with her sugar feeling well and is having good readingsa1 c is 7.4 was 6.9 just got cortisone shotdiscus sed her diet and exercise and cont to monitor Trigger fi nger of right hand [id number] M65.[address] got beataisone and is better Epigastric pain 60629002 R10.13 recurrent [id number] Felix Rosa [facility] Internal Medicine [address] [facility] [address] 01/17/2024 13:44:18 01/17/2024 16:27:28 Depression screening 089914416 Z13.31 negative Type 2 obey betes mellitus 03723201 E11.9 long discussed how she is doing with her sugar feeling well and is having good readingsa1 c is 7.9, 7.6, 7.4 was 6.9 just got cortisone shotdiscus sed her diet and exercise and cont to monitor Essential hypertension 72642756 I10 stable no issues takes meds bp is stable and medication s are tolerated Gastropare sis due to type 2 diabetes mellitus 793826784 E11.43 having a lot of post prandial bloating [id number] Felix Rosa [facility] Internal Medicine [address] [facility],[place] [address] 04/24/2024 14:10:05 04/24/2024 15:32:37 Gastroparesis due to type 2 diabetes mellitus 918124514 E11.43 having a lot of post prandial bloating will try reglan Screening for malignant neoplasm of colon 523485343 Z12.11 we will consider please call in 2 weeks with update on med Type 2 obey betes mellitus 44188874 E11.9 long discussed how she is doing with her sugar feeling well and is having good readingsa1 c is 7.9, 7.6, 7.4 was 6.9 just got cortisone shotdiscus sed her diet and exercise and cont to monitor [id number] Felix Rosa [facility] Internal Medicine [address] [facility],[place] [address] 05/15/2024 14:23:57 05/15/2024 15:09:37 Essential hypertension 92571704 I10 stable no issues takes meds bp is stable and medication s are tolerated Gastropare sis due to type 2 diabetes mellitus 311462515 E11.43 finally feels markedly better will cont for now until she can see GI in a month or sopt warned and understand s the sx of tardive dyskinesia and what to look out for and to stop immediatel y and call me Allergic conjunctivitis of bilateral eyes [id number] 60911 H10.13 we will try an eye drop and hope it is covered [id number] Felix Rosa [facility] Internal Medicine [address] [facility] [address] 06/12/2024 11:11:00 06/12/2024 11:51:02 Active or passive immunization 179367446 Z23 advised she is due for Tdap and Pneumonia2 3 Adult heal th examination 094690799 Z00.01 has been stable but she noted to have an ongoing pneumoniti s post viral from last yearwe will need to have her get the med notes from recent exams Pneumonitis 109149501 J1 8.9 [id number] Felix Adrian Diallo [facility] Internal Medicine [address] [facility] [address] 07/31/2024 13:17:33 07/31/2024 14:30:37 Essential hypertension 10194168 I10 stable no issues takes meds bp is stable and medication s are tolerated Type 2 obey betes mellitus 12802111 E11.9 long discussed how she is doing with her sugar feeling well and is having good readings a1c is 7.6 now doing better [id number] is 7.9, 7.6, 7.4 was 6.9 just got cortisone shotdiscus sed her diet and exercise and cont to monitor Gastropare sis due to type 2 diabetes mellitus 135048202 E11.43 doing well no TD side effect given she is on mounjaro and off victoza we will have her stop the am metoclopra mide and only take in the evening also if this is still good she will stop the evening dose too Vitamin D deficiency 347 56711 E55.9 level was<4 now on supp we will have her get rechk lab in 2 mo [id number] Felix Nguyễn Rosa [facility] Internal Medicine [address] [facility] [address] 11/06/2024 13:32:34 11/06/2024 14:14:02 Gastroparesis due to type 2 diabetes mellitus 646481022 E11.43 doing well no TD side effect given she is on mounjaro and off victoza we will have her stop the am metoclopra mide and only take in the evening also if this is still good she will stop the evening dose too Depression screening 171 810488 Z13.31 negative Essential hypertension 83658312 I10 stable no issues takes meds bp is stable and medication s are tolerated Type 2 obey danitza mellitus 54609834 E11.9 has noticed she is going lower on sugars told to keep eye on this and if she happens to bottom out again she is to decrease dose to once a day metformin long discussed how she is doing with her sugar feeling well and is having good readings a1c is 7.6 now doing better [id number] is 7.9, 7.6, 7.4 was 6.9 just [...] ID Moreno Member ID Guarantor Name 04/24/2024 1 [place] [id number] Luana Garcia [id number] Luana Garcia 05/15/2024 1 [place] [id number] Luana Garcia [id number] Luana Garcia 06/12/2024 1 [place] [id number] 67 Luana Garcia [id number] Luana Garcia 07/31/[address] [place], [place] [id number] 67 Luana Garcia [id number] Luana Garcia 11/06/[address] [place], [place] [id number] 67 Luana Garcia [id number] Luana Garcia Notes Date Note Type Note [...] at times after eating GISELL DANIELS [address] [place], [address], [facility] Internal Medicine 05/02/2024 15:55:09 4 text/htm l here for rechkstates she has felt fantastic since starting on the metoclopramidestates no longer feels full or bloated and states now that she finished the tow weeks worth her sx are coming back Felix Rosa DO [address] [place] [address], [phone], [facility] Internal Medicine 05/15/2024 15:10:27 4 [...] coughing and having tiredness Felix Rosa DO [address] [place] [address], [address], [facility] Medicine 06/12/2024 11:49:42 5 text/htm l started mounjaro and is doing ok with thisGI feels that the Victoza was causing GI upsetlab work looked good a1c is 7.6 lab looked goodd exvept vit D was undetectableher stomach issues are gonefelt the victoza is causing the gastroparesis we will see if the mounjaro also causes Felix Rosa DO [address] [place], [address], [facility] Internal Medicine 07/31/2024 13:50:21 5 text/htm l Care Management - DiabetesReported bypatient.Self Care:seeing eye doctor yearly for dilated eye exam; checking feet regularly; normal range of home blood sugars (in the low 100s); no side effects from medications Associated Symptoms:symptoms are usually well controlled; no fatigue; no dizziness; no excessive sweating; no headaches; no confusion; no increased thirst; no increased appetite; no increased urination; no blurred vision; no numbness of feet; no calluses on feetCare Management - HypertensionReported bypatient.Self Care:not under emotional stress Severity:symptoms are improving; does not interfere with daily activities Associated Symptoms:no dizziness; no lightheadedness; no chest pain; no shortness of breath; no palpitations; no edema; no calf muscle cramps; no blurred vision; no confusion; no headaches; no fatigue here for rechk and is doing okhad shingrix done tolerates mounjaro and is no having any sxrelates her sugars are getting lowtold to cut metformin to one a day if she keeps going low with sugars Felix Rosa DO [address] [place], [address], [facility] Medicine 11/06/2024 15:30:41 OBGyn Episode No OBEpisode recorded.
--- NOTE | 2024-11-22 11:52 | P.CONAN_ITS ---
HPI - Anesthesia Eval Consult details Narrative: 54yo F for Upper Endoscopy and Colonoscopy Anesthesia Pre-Procedure Meds Is the patient on any of the following meds?: GLP1/DPP4 PMFSH Active Problems Active Problems: All Active Problems Transaminitis (Acute) Gastroparesis (Acute) Diabetes mellitus type 2, controlled, without complications (Acute) Essential hypertension (Acute) Hyperlipidemia LDL goal <100 (Acute) BMI 30.0-30.9,adult (Acute) Past Medical History Medical History (Updated 07/03/24 @ 19:49 by Stephanie Crump, [facility]) Transaminitis Gastroparesis Arthritis Diabetes mellitus type 2, controlled, without complications CTS (carpal tunnel syndrome) Essential hypertension Hyperlipidemia LDL goal <100 BMI 30.0-30.9,adult Family History Family History Father No problems noted. Mother Diabetes Surgical History Surgical History Hx of carpal tunnel repair Hx of hysterectomy Social History Social History Household Members: Spouse Patient Tobacco Use Status: Never used Tobacco Meds Allergies Allergy/AdvReac Type Severity Reaction Status Date / Time Sulfa (Sulfonamide Allergy Intermediate Rash Verified 07/03/24 11:33 Antibiotics) ciprofloxacin [From Cipro] Allergy Unknown Unknown Verified 07/03/24 11:33 dulaglutide [Trulicity] Allergy Unknown itching Verified 07/03/24 11:33 metronidazole Allergy Unknown Unknown Verified 07/03/24 11:33 sulfamethoxazole Allergy Unknown Unknown Verified 07/03/24 11:33 [From Bactrim] trimethoprim [From Bactrim] Allergy Unknown Unknown Verified 07/03/24 11:33 Home Medications ?Medication ?Instructions ?Recorded ?Confirmed ?Last Taken ?Type flash glucose scanning reader #1 ea 04/23/20 09/28/21 Unknown History flash glucose sensor #1 ea 04/23/20 09/28/21 Unknown History hydrochlorothiazide 25 mg tablet 25 mg PO DAILY 04/23/20 06/24/21 Unknown History losartan 50 mg tablet 50 mg PO DAILY 04/23/20 09/28/21 Unknown History albuterol sulfate 90 mcg/actuation 2 inh inhalation Q6H PRN 07/03/24 Unknown History breath activated powder inhaler cyclobenzaprine 10 mg tablet 10 mg PO TID PRN 07/03/24 Unknown History insulin glargine 100 unit/mL (3 52 unit subcut DAILY 07/03/24 Unknown History mL) subcutaneous pen (Lantus Solostar U-100 Insulin) metformin 1,000 mg tablet 2,000 mg PO DAILY 07/03/24 Unknown History metoclopramide HCl 5 mg tablet 5 mg PO BID 07/03/24 Unknown History olopatadine 0.1 % eye drops 1 drp ophthalmic (eye) BID 07/03/24 Unknown History pantoprazole 40 mg tablet,delayed 40 mg PO DAILY 07/03/24 Unknown History release Assessment and Plan Assessment Anesthesia Assessment: Chart Reviewed
[2025-01-18 07:08] VITALS: BMI 29.9
[2025-01-18 07:24] VITALS: BP 178/82; PULSE 78; RESP 20; TEMP 36.9; O2SAT 98; BMI 29.5
--- NOTE | 2025-01-18 07:25 | P.HPSUR_ITS ---
Pre-Procedural Eval Section A - 24 Hr Update-Section A only Date of Service: 01/18/25 Section B - Complete if H&P > 30 days Chief Complaint: Colon cancer screening, GERD Relevant Family History (Specify if Yes): No Relevant Social History: None Present Medications: see Short Stay Collaborative assessment Medical History: Significant History (ransaminitis Gastroparesis Arthritis Diabetes mellitus type 2, controlled, without complications CTS (carpal tunnel syndrome) Essential hypertension Hyperlipidemia LDL goal <100 BMI 30.0- 30.9,adult) History of Previous Operations: Relevant previous surgery/procedure and date(s) (Hx of carpal tunnel repair Hx of hysterectomy) Allergies: Allergies Allergy/AdvReac Type Severity Reaction Status Date / Time Sulfa (Sulfonamide Allergy Intermediate Rash Verified 07/03/24 11:33 Antibiotics) ciprofloxacin (From Cipro) Allergy Unknown Unknown Verified 07/03/24 11:33 dulaglutide (Trulicity) Allergy Unknown itching Verified 07/03/24 11:33 metronidazole Allergy Unknown Unknown Verified 07/03/24 11:33 sulfamethoxazole (From Allergy Unknown Unknown Verified 07/03/24 11:33 Bactrim) trimethoprim (From Bactrim) Allergy Unknown Unknown Verified 07/03/24 11:33 Review of Systems Sugical H&P ROS: Negative: Constitution, Cardiovascular, Respiratory and Gastrointestinal Exam Surgical H&P Exam: Normal: Heart, Normal: Lungs, Normal: Extremities and Normal: Abdomen Plan Diagnosis/Plan: Unchanged I have reviewed the history and physical and performed a pertinent physical examination on my patient. No changes have occurred unless specified. Time Spent With Patient Time: Total time managing care of this patient today ____ minutes.
[2025-01-18] MEDS: Lactated Ringers 1,000 ML 50 ML IVCONT (07:44)
--- NOTE | 2025-01-18 07:55 | HO.ANESPROP2 ---
HPI - Anesthesia Eval Consult details Narrative: double PMFSH Active Problems Active Problems: All Active Problems Transaminitis (Acute) Gastroparesis (Acute) Diabetes mellitus type 2, controlled, without complications (Acute) Essential hypertension (Acute) Hyperlipidemia LDL goal <100 (Acute) BMI 30.0-30.9,adult (Acute) Past Medical History Medical History Transaminitis Gastroparesis Arthritis Diabetes mellitus type 2, controlled, without complications CTS (carpal tunnel syndrome) Essential hypertension Hyperlipidemia LDL goal <100 BMI 30.0-30.9,adult Family History Family History Father No problems noted. Mother Diabetes Family history of problems with anesthesia: No Surgical History Surgical History Hx of carpal tunnel repair Hx of hysterectomy History of Problems with Anesthesia: No Social History Social History Household Members: Spouse Patient Tobacco Use Status: Never used Tobacco Have you been hit, kicked, punched, or otherwise hurt by someone within the past year? If so, by whom?: No Are you DNR?: No Advance Directives: No Advance Directives Information Provided: Yes Meds Allergies Allergy/AdvReac Type Severity Reaction Status Date / Time Sulfa (Sulfonamide Allergy Intermediate Rash Verified 07/03/24 11:33 Antibiotics) ciprofloxacin (From Cipro) Allergy Unknown Unknown Verified 07/03/24 11:33 dulaglutide (Trulicity) Allergy Unknown itching Verified 07/03/24 11:33 metronidazole Allergy Unknown Unknown Verified 07/03/24 11:33 sulfamethoxazole (From Allergy Unknown Unknown Verified 07/03/24 11:33 Bactrim) trimethoprim (From Bactrim) Allergy Unknown Unknown Verified 07/03/24 11:33 Active Medications: Current Medications Lactated Ringer's (Lr) 1,000 mls @ 50 mls/hr IVCONT .Q20H JARAD Last Admin: 01/18/25 07:44 Dose: 50 mls/hr Lactated Ringer's (Lr) 1,000 mls @ 100 mls/hr IVCONT .Q10H JARAD Last Admin: 01/18/25 07:44 Dose: Not Given Home Medications ?Medication ?Instructions ?Recorded ?Confirmed ?Last Taken ?Type flash glucose scanning reader #1 ea 04/23/20 01/18/25 Unknown History flash glucose sensor #1 ea 04/23/20 01/18/25 Unknown History hydrochlorothiazide 25 mg tablet 25 mg PO DAILY 04/23/20 01/18/25 Unknown History losartan 50 mg tablet 50 mg PO DAILY 04/23/20 01/18/25 Unknown History albuterol sulfate 90 mcg/actuation 2 inh inhalation Q6H PRN sob 07/03/24 01/18/25 Unknown History breath activated powder inhaler cyclobenzaprine 10 mg tablet 10 mg PO TID PRN Spasms 07/03/24 01/18/25 Unknown History insulin glargine 100 unit/mL (3 52 unit subcut DAILY 07/03/24 01/18/25 Unknown History mL) subcutaneous pen (Lantus Solostar U-100 Insulin) metformin 1,000 mg tablet 2,000 mg PO DAILY 07/03/24 01/18/25 Unknown History metoclopramide HCl 5 mg tablet 5 mg PO BID 07/03/24 01/18/25 Unknown History olopatadine 0.1 % eye drops 1 drp ophthalmic (eye) BID 07/03/24 01/18/25 Unknown History pantoprazole 40 mg tablet,delayed 40 mg PO DAILY 07/03/24 01/18/25 Unknown History release Exam Height,Weight and Vital Signs: Height 4 ft 11 in Weight 66.2 kg Last Vital Signs Temp 98.5 F 01/18/25 07:24 Pulse 78 01/18/25 07:24 Resp 20 01/18/25 07:24 BP 178/82 H 01/18/25 07:24 Pulse Ox 98 01/18/25 07:24 O2 Del Method Room Air 01/18/25 07:24 Airway Mallampati Class: II TM Dist: >3cm Heart: rrr Lungs: cta Assessment and Plan Assessment Anesthesia Assessment: Anesthesia Plan Discussed and Chart Reviewed Final Anesthetic Review Family History of Problems with Anesthesia: No History of Problems with Anesthesia: No NPO: Yes ASA Class: III Final Preanesthetic Review: No Changes in Pt Med Stat, Meds/Allgs Chart Reviewed, Consent Obtained/Reviewed and Anes Risks/Benef Reviewed Patient Risk: Intermediate Procedure Risk: Low Anesthetic Plan Anesthetic Plan: MAC: Disposition: Standard PACU
--- NOTE | 2025-01-18 08:56 | HO.OPN-COLON ---
Colonoscopy Operative Note Operative Note Date of Service: 01/18/25 Narrative: FLEXIBLE TRANSORAL UPPER GASTROINTESTINAL ENDOSCOPY WITH BIOPSIES AND COLONOSCOPY TILL CECUM WITH BIOPSIES AND SNARE POLYPECTOMY Pre-op diagnosis: Colon cancer screening, GERD Post-op diagnosis: GERD, Gastritis, Colon Polyps, Diverticulosis, hemorrhoids Endoscopist:? Acosta Roldan MD Anesthesia:?MAC UPPER ENDOSCOPY Consent: Indications for the procedure and potential complications of bleeding, perforation, reaction to medications and missed diagnosis were discussed with the patient and informed consent was obtained. Instrument: Olympus GIF H 190 mid size upper endoscope Monitoring: Vital signs and clinical assessment, continuous EKG monitoring, Pulse oximetry, Carbon Dioxide monitoring and blood pressure monitoring were done throughout the procedure. Procedure: The patient was placed in the left lateral decubitis position and pre-procedure medications were administered and a bite block was placed. The endoscope was inserted into the mouth and advanced under direct vision to the third part of duodenum. A careful inspection was made as the upper endoscope was withdrawn including a retroflexed examination of the proximal stomach; Findings and interventions are described below. Findings: Larynx: Normal Esophagus: GE junction at 36 cms. No esophagitis or Hernandez's. Stomach: Moderate diffuse gastric erythema - biopsies were obtained from the gastric body and antrum. Grade 2 flap valve on retroflexed examination of the cardia. Duodenum: Normal bulb and descending duodenum Biopsies were obtained from descending duodenum to check for celiac sprue Intervention: Biopsies as noted above COLONOSCOPY PROCEDURE NOTE Instrument: Olympus PCF H 190 L variable stiffness pediatric colonoscope Monitoring: Vital signs and clinical assessment, intermittent blood pressure monitoring, continuous EKG monitoring, Pulse oximetry and Carbon Dioxide monitoring were done throughout the procedure. Please see anesthesia flowsheet. Colon withdrawl time was 14 minutes. Procedure: The patient was placed in the left lateral decubitis position and pre-procedure medications were administered. After a digital rectal examination of the ano-rectum, the video colonoscope was inserted into the rectum and advanced through the colon to the cecum. The colonoscope was slowly withdrawn in a retrograde panoramic fashion and the colon mucosa was carefully examined including a retroflexed view of the rectum. Findings and interventions are described below. Procedure Difficulty: without difficulty Findings: Terminal Ileum: Not evaluated Cecum: Normal Ascending Colon: Normal Transverse Colon: A 6-7 mm sessile polyp - removed with a cold snare. Descending Colon: Normal Sigmoid Colon: A 2-3 mm sessile polyp - removed with a cold biopsy. Moderate diverticulosis Rectum: Normal Ano-rectum: Moderate internal hemorrhoids Colon preparation: Good after some irrigation. Dexter Bowel Preparation Scale Right colon; 2 Transverse colon: 2 Left colon; 2 (0 = Unprepared colon segment with mucosa not seen due to solid stool that cannot be cleared. 1 = Portion of mucosa of the colon segment seen, but other areas of the colon segment not well seen due to staining, residual stool and/or opaque liquid. 2 = Minor amount of residual staining, small fragments of stool and/or opaque liquid, but mucosa of colon segment seen well. 3 = Entire mucosa of colon segment seen well with no residual staining, small fragments of stool or opaque liquid) Impression and Post Procedure Diagnosis: Endoscopy Findings: ESOPHAGUS: Normal STOMACH: Diffuse gastritis DUODENUM: Normal - biopsied to check for celiac sprue Colonoscopy Findings: Two small polyps were removed Moderate diverticulosis seen in the sigmoid colon Moderate hemorrhoids on retroflexed exam. Plan: Pt has a FU appointment on 02/01/25 with Destinee Crump NP Repeat Colonoscopy in 5 years if polyps are adenomatous and 10 years if polyps are hyperplastic. A summary of above findings and relevant handouts were given to the patient. BIOPSIES SHOWED: A. Small bowel, biopsy: Duodenal mucosa within normal limits. B. Stomach, antrum, biopsy: Antral-type and oxyntic mucosa with mild chronic inactive inflammation; no Helicobacter organisms seen. C. Stomach, body, biopsy: Oxyntic mucosa with mild chronic inactive inflammation; no Helicobacter organisms seen. D. Colon, right, biopsy: Mild melanosis coli; otherwise colonic mucosa within normal limits. E. Colon, transverse, polypectomy: Tubular adenoma; negative for high-grade dysplasia or carcinoma. F. Colon, sigmoid, polypectomy: Hyperplastic mucosal polyp. Comment: Diagnostic morphologic features of celiac disease or microscopic colitis are not seen. Letter sent to the patient with biopsy results. Patient placed on the colonoscopy recall list for repeat colonoscopy in 5 years.
[2025-01-18 09:24] VITALS: BP 127/70; PULSE 80; RESP 21; TEMP 36.1; O2SAT 97
[2025-01-18 09:39] VITALS: BP 137/75; PULSE 80; RESP 15; O2SAT 97
[2025-01-18 09:54] VITALS: BP 151/89; PULSE 72; RESP 15; TEMP 36.2; O2SAT 98
== END 2025-01-18 10:28 | disposition home or self-care (01) ==
PROVIDERS: PCP Internal Medicine; Visit Provider Internal Medicine Gastroenterology
PROC: (CPT 43239; principal; 2025-01-18 08:30)
DX: Z12.11 Encounter for screening for malignant neoplasm of colon (principal); D12.3 Benign neoplasm of transverse colon; K63.89 Other specified diseases of intestine; K57.30 Diverticulosis of large intestine without perforation or abscess without bleeding; K64.8 Other hemorrhoids; K31.84 Gastroparesis; K29.60 Other gastritis without bleeding; K21.9 Gastro-esophageal reflux disease without esophagitis; E11.9 Type 2 diabetes mellitus without complications; I10 Essential (primary) hypertension; E78.5 Hyperlipidemia, unspecified; K59.01 Slow transit constipation; K76.0 Fatty (change of) liver, not elsewhere classified; Z79.84 Long term (current) use of oral hypoglycemic drugs; Z79.02 Long term (current) use of antithrombotics/antiplatelets; Z79.899 Other long term (current) drug therapy
CPT/HCPCS: 43239; 45385; 45380; 88305; 88313; 88342; J2003; J2704; J3010

== ENCOUNTER → 2025-01-18 07:19 | Outpatient (BNV) | payer OTHER, SELFPAY | PROVIDERS: PCP Internal Medicine; Visit Provider Internal Medicine Gastroenterology | DX: Z12.11 Encounter for screening for malignant neoplasm of colon (principal); D12.3 Benign neoplasm of transverse colon; D12.5 Benign neoplasm of sigmoid colon; K57.30 Diverticulosis of large intestine without perforation or abscess without bleeding; K64.8 Other hemorrhoids; K21.9 Gastro-esophageal reflux disease without esophagitis; K29.70 Gastritis, unspecified, without bleeding | CPT/HCPCS: 43239; 45380; 45385 ==

== ENCOUNTER 2025-02-01 16:03 | Outpatient (AMB) | payer OTHER, SELFPAY ==
--- NOTE | 2025-02-01 16:04 | MHC.OFFVIS ---
Vital Signs 02/01/25 16:05 Height 4 ft 11 in Weight 148 lb BMI 29.9 BP 142/62 H Blood Pressure Location Rt brachial Position Sitting Pulse 88 Pulse Source Pulse Oximeter Pulse Oximetry (%) 96 Oxygen Delivery Method Room Air Intake Visit Reasons: S/P double; Dr. Roldan Intake Note: Est pt for mgmt of GERD + Gastroparesis. S/P Double CC: C.O. chronic bloating. No additional sx or concerns at this time. Internetworking Technician Required: No Accompanied by: Self / Same As Patient Allergies Sulfa (Sulfonamide Antibiotics) Allergy (Intermediate, Verified 02/01/25 16:05) Rash ciprofloxacin (From Cipro) Allergy (Unknown, Verified 02/01/25 16:05) Unknown dulaglutide (Trulicity) Allergy (Unknown, Verified 02/01/25 16:05) itching metronidazole Allergy (Unknown, Verified 02/01/25 16:05) Unknown sulfamethoxazole (From Bactrim) Allergy (Unknown, Verified 02/01/25 16:05) Unknown trimethoprim (From Bactrim) Allergy (Unknown, Verified 02/01/25 16:05) Unknown HPI HPI S/P double; Dr. Roldan: Details: LAST VISIT Gastroparesis GERD (gastroesophageal reflux disease) Constipation Screen for colon cancer Transaminitis Non-alcoholic fatty liver disease Plan Patient will be sent for upper endoscopy and colonoscopy. Patient was encouraged to take Reglan with bigger meals and not on empty stomach. She will need to move her bowels better. Patient will start taking Dulcolax daily. We will rule out celiac that could also be contributing to gastroparesis. Will check vitamin-D, B12 and folate levels. Discussed with patient in detail diet for gastroparesis, low fiber and small meals. Victoza might be contributing more than other GLP 1's and if patient has not tried Mounjaro she could try it. Diet modification should happen and patient should be able to tolerate smaller meals. What to expect before during and after procedure discussed with patient. Stressed the importance of good bowel prep and clear liquid diet day before procedure. Patient will be sent also for upper endoscopy to rule out gastritis, esophagitis, celiac, H pylori. Continue pantoprazole. Avoid dietary triggers and late night snacking. Staying upright for minimum 3 hours after meals discussed with patient. History of transaminitis in the past most likely related to patient's weight gain. Low-fat, low carb, low-salt and high protein diet recommended. Patient is agreeable to current plan of care and verbalizes understanding of instructions. She was given the opportunity to ask questions and all questions answered. ? Thank you for allowing me to participate in her care Orders Vitamin B12 and Folate Today R19.7 Transglutaminase IgA Today R10.9 Vitamin D 25-OH (D2 and D3) Today E55.9 New bisacodyl (Dulcolax (bisacodyl)) 10 mg (2 x 5 mg) PO BEDTIME 180 tabs 4RF polyethylene glycol 3350 (Miralax) As directed by gastroenterology department at [facility] 238 grams PO ONCE 238 grams 0RF Z12.11 Discontinued insulin glargine (Lantus Solostar U-100 Insulin) Discontinued Reason: More recent result 52 units subcut BEDTIME UPPER ENDOSCOPY AND COLONOSCOPY: Findings: Larynx: Normal Esophagus: GE junction at 36 cms. No esophagitis or Hernandez's. Stomach: Moderate diffuse gastric erythema - biopsies were obtained from the gastric body and antrum. Grade 2 flap valve on retroflexed examination of the cardia. Duodenum: Normal bulb and descending duodenum Biopsies were obtained from descending duodenum to check for celiac sprue Intervention: Biopsies as noted above COLONOSCOPY PROCEDURE NOTE Instrument: Olympus PCF H 190 L variable stiffness pediatric colonoscope Monitoring: Vital signs and clinical assessment, intermittent blood pressure monitoring, continuous EKG monitoring, Pulse oximetry and Carbon Dioxide monitoring were done throughout the procedure. Please see anesthesia flowsheet. Colon withdrawl time was 14 minutes. Procedure: The patient was placed in the left lateral decubitis position and pre-procedure medications were administered. After a digital rectal examination of the ano-rectum, the video colonoscope was inserted into the rectum and advanced through the colon to the cecum. The colonoscope was slowly withdrawn in a retrograde panoramic fashion and the colon mucosa was carefully examined including a retroflexed view of the rectum. Findings and interventions are described below. Procedure Difficulty: without difficulty Findings: Terminal Ileum: Not evaluated Cecum: Normal Ascending Colon: Normal Transverse Colon: A 6-7 mm sessile polyp - removed with a cold snare. Descending Colon: Normal Sigmoid Colon: A 2-3 mm sessile polyp - removed with a cold biopsy. Moderate diverticulosis Rectum: Normal Ano-rectum: Moderate internal hemorrhoids Colon preparation: Good after some irrigation. [place]anning Bowel Preparation Scale Right colon; 2 Transverse colon: 2 Left colon; 2 (0 = Unprepared colon segment with mucosa not seen due to solid stool that cannot be cleared. 1 = Portion of mucosa of the colon segment seen, but other areas of the colon segment not well seen due to staining, residual stool and/or opaque liquid. 2 = Minor amount of residual staining, small fragments of stool and/or opaque liquid, but mucosa of colon segment seen well. 3 = Entire mucosa of colon segment seen well with no residual staining, small fragments of stool or opaque liquid) Impression and Post Procedure Diagnosis: Endoscopy Findings: ESOPHAGUS: Normal STOMACH: Diffuse gastritis DUODENUM: Normal - biopsied to check for celiac sprue Colonoscopy Findings: Two small polyps were removed Moderate diverticulosis seen in the sigmoid colon Moderate hemorrhoids on retroflexed exam. Plan: Repeat Colonoscopy in 5 years if polyps are adenomatous and 10 years if polyps are hyperplastic. A summary of above findings and relevant handouts were given to the patient. BIOPSIES SHOWED: A. Small bowel, biopsy: Duodenal mucosa within normal limits. B. Stomach, antrum, biopsy: Antral-type and oxyntic mucosa with mild chronic inactive inflammation; no Helicobacter organisms seen. C. Stomach, body, biopsy: Oxyntic mucosa with mild chronic inactive inflammation; no Helicobacter organisms seen. D. Colon, right, biopsy: Mild melanosis coli; otherwise colonic mucosa within normal limits. E. Colon, transverse, polypectomy: Tubular adenoma; negative for high-grade dysplasia or carcinoma. F. Colon, sigmoid, polypectomy: Hyperplastic mucosal polyp. Comment: Diagnostic morphologic features of celiac disease or microscopic colitis are not seen. Letter sent to the patient with biopsy results. Patient placed on the colonoscopy recall list for repeat colonoscopy in 5 years. TODAY'S VISIT Patient is here today for follow-up and to discuss upper endoscopy and colonoscopy results. Upper endoscopy showed mild erythema in her stomach without H pylori. Celiac disease was not identified on biopsy. One tubular adenoma and colonoscopy will need to be repeated in 5 years. Patient denies any ill effects from the prep, anesthesia or procedure itself. Patient reports that she is currently moving her bowels better. Might not feel like she empties completely. Patient reports trying to follow FODMAP diet. However patient continues to feel bloated postprandially. Patient denies dyspepsia, dysphagia or odynophagia. Denies any melena, hematochezia, unintentional weight loss or ribbon like stools. Patient reports symptoms of acid reflux are suppressed with pantoprazole. [facility] Medical History Transaminitis Gastroparesis Arthritis Diabetes mellitus type 2, controlled, without complications CTS (carpal tunnel syndrome) Essential hypertension Hyperlipidemia LDL goal <100 BMI 30.0-30.9,adult Surgical History Hx of carpal tunnel repair Hx of hysterectomy Family History Father No problems noted. Mother Diabetes Social History Household Members: Spouse Patient Tobacco Use Status: Never used Tobacco Physical Exam Vital Signs: Last Vital Signs Pulse 88 02/01/25 16:05 BP 142/62 H 02/01/25 16:05 Pulse Ox 96 02/01/25 16:05 Oxygen Delivery Method Room Air 02/01/25 16:05 BMI result Body Mass Index 29.9 Assessment & Plan Assessment & Plan (1) Gastroparesis: Code(s): K31.84 - Gastroparesis Category: Medical (2) Transaminitis: Code(s): R74.01 - Elevation of levels of liver transaminase levels Category: Medical (3) Postprandial abdominal bloating: Code(s): R14.0 - Abdominal distension (gaseous) (4) Constipation: Code(s): K59.00 - Constipation, unspecified Qualifiers: Constipation type: slow transit constipation Qualified Code(s): K59.01 - Slow transit constipation Plan Continue pantoprazole daily. Avoid dietary triggers and late night snacking. Staying upright for minimum 3 hours after meals discussed with patient. Patient will start taking Dulcolax daily. Increase fluid intake and activity to promote better bowel motility. Continue low FODMAP diet. Patient will follow-up in 2 months, sooner on as needed basis. She is agreeable to this plan and verbalizes understanding of instructions. She was given the opportunity to ask questions and all questions answered. Thank you for allowing me to participate in her care Medications: New bisacodyl (Dulcolax (bisacodyl)) 5 mg PO BEDTIME 30 tabs 4RF Coding Level of Care Code Est Pt Level 4 (75662) Complex EM visit Add On G2211 Diagnoses Gastroparesis K31.84 Transaminitis R74.01 Postprandial abdominal bloating R14.0 Slow transit constipation K59.01 Constipation type: slow transit constipation Time Spent (min) 30 Comment 20 minutes spent with patient and additional 10 minutes spent reviewing her records
[2025-02-01 16:05] VITALS: BP 142/62; PULSE 88; O2SAT 96; BMI 29.9
== END 2025-02-01 17:09 | disposition home or self-care (01) ==
LOC: HO.HGI 16:03
PROVIDERS: PCP Internal Medicine; Visit Provider Nurse Practitioner Family
DX: K31.84 Gastroparesis (principal); R74.01 Elevation of levels of liver transaminase levels; R14.0 Abdominal distension (gaseous); K59.01 Slow transit constipation
CPT/HCPCS: 99214; G2211

== ENCOUNTER 2025-02-23 06:58 | Outpatient (REF) | payer OTHER, SELFPAY ==
--- OUTSIDE RECORDS SUMMARY | 2025-02-23 07:01 | XMS_ITS | Encounter Summary ---
Author Organization [facility] Address [address] [place] [address] Phone Care Team Providers Care Numerical Control Lathe Operator Name Role Phone Felix Landrum DO Primary Care Provider [phone] Encounter Details Date Type Department Care Team (Late st Contact Info) Description 02/06/2021 Procedure Pass OR Admitting Dept - [facility] [address] [place] [address] Social History Tobacco Use Types Packs/Day Years [...] on filedocumented in this encounter Care Teams Numerical Control Lathe Operator Relationship Specialty Start Date End Date Felix Landrum DO PCP - General 06/30/17 documented as of this encounter Additional Source Comments The information contained in this document represents components of the legal health record. It is not the complete legal health record.[facility]
--- OUTSIDE RECORDS SUMMARY | 2025-02-23 07:01 | XMS_ITS | Patient Health Record ---
Author Organization [facility] Address [address] [place] [address] Care Team Providers Care Switcher Name Role Phone Diallo Felix Primary Care Provider Kamlesh Mac [phone] Allergies Allergen (clinical drug ingredient) Drug/Non Drug [...] Problem Status W/U Status Risk Notes Problem [id number] Abnormal barium swallow (R93.3) Active confirmed Problem [id number] Esophageal dysphagia (R13.10) Active confirmed Plan Of Treatment Pending Test Test Name Order Date Esophageal Motility study 04/26/2017 Future Test Test Name Order Date UPPER GI ENDOSCOPY [place] DILATION OF ESOPH 04/08/2017 Insurance Providers Payer Name Payer Address Payer Phone Subscriber Number Group Number Insured Name Patient Relationship to Insured Coverage Start Date Coverage End Date [facility] [address] [facility] [place] [phone] [id number] KELLEY STONER Self - patient is the insured Medical (General) History Medical History History ICD Code Denies ME,CVA,Lung disease,renal disease NIDDM HTN Hyperlipidemia Negative [place] [facility] Surgical History Surgery Date(Month/Year) Hysterectomy
--- OUTSIDE RECORDS SUMMARY | 2025-02-23 07:01 | XMS_ITS | Clinical Summary ---
Author Organization [facility] Address [address] [place] [address] Phone Care Team Providers Care Invoice Control Clerk Name Role Phone Felix Landrum DO Primary Care Provider [phone] Allergies Active Allergy Reactions Criticality Noted Date Comments Ciprocinonide 07/09/2020 Other reaction(s): Headache Metronidazole 07/09/2020 Other reaction(s): Headache Sulfamethoxazole-Trimethoprim Rash Low 2020 Sulfur 02/03/2021 Medications hydroCHLOROthiaz ken (HYDRODIURIL) 25 MG tablet Take 1 tablet by mouth daily. 0 Active metFORMIN (GLUCOPHAGE) 1000 MG tablet as directed Orally qd 0 Active canagliflozin (INVOKANA) 300 mg tablet Take 1 tablet by mouth daily. Active lisinopril (PRINIVIL,ZESTRI L) 5 MG tablet Take 1 tablet by mouth daily. 0 Active lovastatin (MEVACOR) 40 MG tablet Take 1 tablet by mouth daily. with a meal 1 Active empagliflozin (JARDIANCE) 25 mg tablet Take 25 mg by mouth daily. Active insulin glargine (LANTUS) 100 unit/mL injection vial Inject 42 Units under the skin nightly at bedtime. Active liraglutide (VICTOZA) 0.6 mg/0.1 mL (18 mg/3 mL) PnIj Inject 1.2 mg under the skin daily. Active atorvastatin (LIPITOR) 40 MG tablet Take 40 mg by mouth daily. Active liraglutide (VICTOZA 2-JOB) 0.6 mg/0.1 mL (18 mg/3 mL) PnIj Victoza 3-Job 0.6 mg/0.1 mL (18 mg/3 mL) subcutaneous pen injector Active LANTUS SOLOSTAR U-100 INSULIN 100 unit/mL (3 mL) InPn injection pen 1 Active insulin glargine (LANTUS SOLOSTAR U-100 INSULIN) 100 unit/mL (3 mL) InPn injection pen Lantus Solostar U-100 Insulin 100 unit/mL (3 mL) subcutaneous pen Active empagliflozin (JARDIANCE) 25 mg tablet Jardiance 25 mg tablet Active empagliflozin (JARDIANCE) 10 mg tablet daily. Active atorvastatin (LIPITOR) 40 MG tablet atorvastatin 40 mg tablet Active semaglutide (OZEMPIC) 0.25 mg or 0.5 mg(2 mg/1.5 mL) subcutaneous injection pen Ozempic 0.25 mg or 0.5 mg (2 mg/1.5 mL) subcutaneous pen injector Active losartan (COZAAR) 50 MG tablet 1 Active losartan (COZAAR) 50 MG tablet losartan 50 mg tablet TAKE 1 TABLET BY MOUTH DAILY Active LORazepam (ATIVAN) 0.5 MG tablet lorazepam 0.5 mg tablet Take 1 tablet 3 times a day by oral route as needed for 7 days. Active FREESTYLE SHARIF 14 DAY SENSOR Kit APPLY AND CHANGE EVERY 2 WEEKS 1 Active liraglutide (VICTOZA 3-JOB) 0.6 mg/0.1 mL (18 mg/3 mL) PnIj Victoza 3-Job 0.6 mg/0.1 mL (18 mg/3 mL) subcutaneous pen injector Active flash glucose sensor (FREESTYLE SHARIF 14 DAY SENSOR) Kit FreeStyle Sharif 14 Day Sensor kit APPLY AND CHANGE EVERY 2 WEEKS Active flash glucose scanning reader (FREESTYLE SHARIF 14 DAY READER) [facility] FreeStyle Sharif 14 Day [place] USE DIRECTED Active acetaminophen (TYLENOL) 325 mg tablet Take 650 mg by mouth every 6 (six) hours as needed for mild pain. Active cyclobenzaprine (FLEXERIL) 10 MG tablet Take 1 tablet (10 mg total) by mouth 3 (three) times a day as needed. 10 tablet 3 Active Active Problems Problem Noted Date Diagnosed Date Encounter for preoperative s creening laboratory testing for COVID-19 virus Social History Tobacco Use Types Packs/Day Years Used Date Smoking Tobacco: Never Smokeless Tobacco: Never Tobacco Cessation:Counseling Given: Not Answered Alcohol Use Standard Drinks/Week Comments Not Currently 0 (1 standard drink = 0.6 oz pur e alcohol) Education Answer Date Recorded Are you interested in more education? Not on mary e 10/22/2022 Are you concerned about learning? Not on file 10/22/2022 No 10/22/2022 No 10/22/2022 Digital Access Answer Date Recorded No 11/20/2022 No 11/20/2022 Reliable internet access at home? Not on file 11/20/2022 Device with a working camera? Not on file Intimate Partner Violence Answer Date R ecorded Are you denied basic needs s uch as food, clothing, or medical care? No 12/12/2022 In the past 12 months have y ou been in a relationship with a person who hurts, threatens, or tries to control you? No 12/12/2022 Are you denied basic needs s uch as food, clothing, or medical care? No 12/12/2022 In the past 12 months have y ou been in a relationship with a person who hurts, threatens, or tries to control you? No 12/12/2022 Comments No Sex and Gender Information Value Date Recorded Sex Assigned at Not on file Legal Sex Female 9:34 PM EDT Gender Identity Not on file Sexual Orientation Not on file Last Filed Vital Signs Vital Sign Reading Time Taken Comments Blood Pressure 132/69 12/12/2022 10:48 PM EDT Pulse 87 12/12/2022 10:48 PM EDT Temperature 36.5 C (97.7 F) 12/12/2022 10:48 PM EDT Respiratory Rate 16 12/12/2022 10:48 PM EDT Oxygen Saturation 99% 12/12/2022 10:48 PM EDT Inhaled Oxygen Concentration - - Weight 72.1 kg (159 lb) 02/10/2021 2:33 PM EDT Height 149.9 cm (4' 11 ) 02/10/2021 2:33 PM EDT Body Mass Index 32.11 02/10/2021 2:33 PM EDT Plan of Treatment Health Maintenance Due Date Last Done Comments Adult Td,Tdap Booster 1970 CREATININE LEVEL 1970 LIPID PANEL 1970 POTASSIUM LEVEL 1970 DEPRESSION SCREENING 1982 HEPATITIS C SCREENING 1988 HIV ONE-TIME SCREENING (18-6 5 YEARS) 1988 PAP SMEAR 10/13/1991 MAMMOGRAM 2010 COLOGUARD 10/13/2015 COLONOSCOPY 10/13/2015 COLORECTAL CANCER SCREENING 10/13/2015 FIT TEST 10/13/2015 FOBT 10/13/2015 SIGMOIDOSCOPY 10/13/2015 VIRTUAL COLONOSCOPY 10/13/2015 PNEUMOCOCCAL VACCINES (50+ years) (1 of 1 - PCV) 2020 ZOSTER VACCINES (1 of 2) 2020 COVID-19 VACCINE (3 - 2023-2 5 season) 2024 10/06/2020, 09/15/2020 SMOKING STATUS SCREENING (On ce After 26 Yrs) Completed 09/06/2023 HEPATITIS A VACCINES Aged Out No long er eligible based on patient's age to complete this topic HIB VACCINES Aged Out No longer eligi ble based on patient's age to complete this topic MENINGOCOCCAL VACCINES (ACWY) Aged Out No longer eligible based on patient's age to complete this topic MENINGOCOCCAL VACCINES (B) Aged Out N o longer eligible based on patient's age to complete this topic Medical Devices Not on file Insurance [place] [address] Member Subscriber Plan / Payer (Ef fective 2022-Present) Name:Luana Garcia Relation to Subscriber:Self Name:Luana Garcia Payer ID:Not on file Type:HMO Address: [place] [id number] [facility] [place] [address] [facility] [employer] [place] [address] [place] [address] Care Teams Invoice Control Clerk Relationship Specialty Start Date End Date Felix Landrum DO [email or web address] PCP - General 06/30/17 Additional Source Comments The information contained in this document represents components of the legal health record. It is not the complete legal health record.[facility]
--- OUTSIDE RECORDS SUMMARY | 2025-02-23 07:01 | XMS_ITS | Encounter Summary ---
Author Organization [facility] Address [address] [place] [address] Phone Care Team Providers Care Diet Kitchen Cook Name Role Phone Felix Landrum Primary Care Provider [phone] Encounter Details Date Type Department Care Team (Late st Contact Info) Description 12/12/2022 Procedure Pass [facility], Ct Scan - [address] [address] Social History Tobacco Use Types Packs/Day Years [...] on file documented as of this encounter Functional Status * Calculated C-SSRS Risk Score (Lifetime/Recent) Answer Date of Assessment Author No Risk Indicated 12/12/2022 7:12 PM EDT Mary Kauffman RN * [place] Suicide Severity Rating Scale (Screener/Recent Self-Report) Question Answer Date of Assessment Author 1. Wish to be (Past 1 Month) No 023 7:12 PM EDT Mary Kauffman RN 2. Non-Specific Active Suici princess Thoughts (Past 1 Month) No 12/12/2022 7:12 PM EDT June, Crissy miranda RN 6. Suicidal Behavior (Lifetime) No 3 7:12 PM EDT Daly, RAE Hernandez documented as of this encounter Plan of Treatment Not on file documented as of this encounter Visit Diagnoses Not on filedocumented in this encounter Care Teams Diet Kitchen Cook Relationship Specialty Start Date End Date Felix Landrum DO [email or web address] PCP - General 06/30/17 documented as of this encounter Additional Source Comments The information contained in this document represents components of the legal health record. It is not the complete legal health record.[facility]
--- OUTSIDE RECORDS SUMMARY | 2025-02-23 07:01 | XMS_ITS | Encounter Summary ---
Author Organization [facility] Address [address] [place] [address] Phone Care Team Providers Care Dude Ranch Manager Name Role Phone Felix Landrum DO Primary Care Provider [phone] Encounter Details Date Type Department Care Team (Late st Contact Info) Description 01/23/2021 Prep for Surgery [facility] Orthopedics & Sports Medicine [address] [place] [address] [phone] Ping Beck MD [address] [place] [address] Orthopedics & Sports Medicine, [facility] [place] [address] [email or web address] Social History Tobacco Use Types Packs/Day Years Used Date Smoking Tobacco: Never Smokeless Tobacco: Never Alcohol Use Standard Drinks/Week Comments Not Currently 0 (1 standard drink = 0.6 oz pur e alcohol) Comments Unknown Sex and Gender Information Value Date Recorded Sex Assigned at Not on file Legal Sex Female 9:34 PM EDT Gender Identity Not on file Sexual Orientation Not on file documented as of this encounter Plan of Treatment Not on file documented as of this encounter Visit Diagnoses Not on filedocumented in this encounter Care Teams Dude Ranch Manager Relationship Specialty Start Date End Date Felix Landrum DO [email or web address] PCP - General 06/30/17 documented as of this encounter Additional Source Comments The information contained in this document represents components of the legal health record. It is not the complete legal health record.[facility]
[2025-02-23 07:30] LABS: Hemoglobin A1C 292.3482 umol/L; Total Hemoglobin (HGBA1C) 4057.3720 umol/L
== END 2025-02-23 06:59 | disposition home or self-care (01) ==
LOC: HO.LABR 06:58
PROVIDERS: PCP Internal Medicine; Visit Provider Internal Medicine
DX: E55.9 Vitamin D deficiency, unspecified (principal); E11.9 Type 2 diabetes mellitus without complications
CPT/HCPCS: 36415; 82306; 83036

== ENCOUNTER 2025-04-20 07:36 | Outpatient (REF) | payer OTHER, SELFPAY ==
--- OUTSIDE RECORDS SUMMARY | 2025-04-20 07:39 | XMS_ITS | Encounter Summary ---
Author Organization [facility] Address [address] [place] [phone] Phone Care Team Providers Care Corporate General Manager Name Role Phone Felix Landrum DO Primary Care Provider [phone] Encounter Details Date Type Department Care Team (Late st Contact Info) Description 01/23/2021 Prep for Surgery [facility] Orthopedics & Sports Medicine [address] [place] [address] [phone] Ping Beck MD [address] [place] [address] Orthopedics & Sports Medicine, [facility] [place] [address] Social History Tobacco Use Types Packs/Day Years [...] on filedocumented in this encounter Care Teams Corporate General Manager Relationship Specialty Start Date End Date Felix Landrum DO [email or web address] PCP - General 06/30/17 documented as of this encounter Additional Source Comments The information contained in this document represents components of the legal health record. It is not the complete legal health record.[facility]
--- OUTSIDE RECORDS SUMMARY | 2025-04-20 07:39 | XMS_ITS | Clinical Summary ---
Author Organization [facility] Address [address] [place] [id number] Phone Care Team Providers Care Equipment Scheduler Name Role Phone Felix Landrum DO Primary Care Provider [phone] Allergies Active Allergy Reactions Criticality Noted Date [...] scanning reader (FREESTYLE SHARIF 14 DAY READER) [facility] FreeStyle Sharif 14 Day [place] USE DIRECTED Active acetaminophen (TYLENOL) 325 mg [...] years) (1 of 1 - PCV) 2020 RSV VACCINE (1 - Risk 50-74 years 1-dose series) 2020 ZOSTER VACCINES (1 of 2) 2020 INFLUENZA VACCINE (#1) 2025 03/17/2018 COVID-19 VACCINE (3 - 2024-2 6 season) 2025 10/06/2020, 09/15/2020 SMOKING STATUS SCREENING (On ce [...] topic Medical Devices Not on file Insurance [facility] [employer] Member Subscriber Plan / Payer (Ef fective 2022-Present) Name:Luana Garcia Relation to Subscriber:Self Name:Luana Garcia Payer ID:Not on file Type:Indemnity Address: [address] Care Teams Equipment Scheduler Relationship Specialty Start Date End Date Felix Landrum DO PCP - General 06/30/17 Additional Source Comments The information contained in this document represents components of the legal health record. It is not the complete legal health record.[facility]
--- OUTSIDE RECORDS SUMMARY | 2025-04-20 07:39 | XMS_ITS | Encounter Summary ---
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 Name Role Phone Felix Landrum DO Primary Care Provider [phone] Encounter Details Date Type Department Care Team (Late st Contact Info) Description 02/06/2021 Procedure Pass OR Admitting Dept - [facility] Department [address] [place] [id number] Social History Tobacco Use Types Packs/Day Years [...] on filedocumented in this encounter Care Teams Ornamental Iron Erector Relationship Specialty Start Date End Date Felix Landrum DO PCP - General 06/30/17 documented as of this encounter Additional Source Comments The information contained in this document represents components of the legal health record. It is not the complete legal health record.[facility]
--- OUTSIDE RECORDS SUMMARY | 2025-04-20 07:39 | XMS_ITS | Data Portability ---
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) [facility] MODERATE MUST MEET 2 OUT OF [...] COVERED Not available 07/31/2024 13:43:16 11/06/2024 11/06/2024 [address] [place] [address] (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) [facility] MODERATE MUST MEET 2 OUT OF [...] THAT IS COVERED Not available 11/06/2024 14:01:10 03/08/2025 03/08/2025 [id number] [place] [address] (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) [facility] MODERATE MUST MEET 2 OUT OF [...] EACH ELEMENT THAT IS COVERED Not available 03/08/2025 14:08:50 Plan of Treatment Reminders Order Date Submit Date Provider Last Modified By Organization Details Last Modified Time Details Appointments ANNUAL EXAM 2024 09:30A M DR ROSA Not available Not available Not available FOLLOW UP 15 2025 01:30P M DR ROSA Not available Not available Not available Lab HbA1c (hemoglob in A1c), blood 2024 025 [facility], [address] [place] [address], [place], [address], 10/08/2024 11:37:04 HbA1c (hemoglob in A1c), blood 2024 025 [facility], [address] [place] [address], [address], 10/08/2024 11:37:04 vitamin D, 25-hydrox y, total, serum 2024 025 [facility], [address] [place] [address], [address], 07/31/2024 13:47:48 Referral None recorded. Procedures None recorded. Surgeries None recorded. Imaging None recorded. Medication Orders azithromy michael 250 mg tablet 2023 024 [place] [facility], [address] [place] [address], [address], 03/08/2025 13:35:10 metoclopr amide 5 mg tablet 2023 024 [place] [facility], [address] [place] [address], [address], 05/15/2024 15:06:34 olopatadi ne 0.1 % eye drops 2023 024 [place] [facility], [address] [place] [address], [address], 03/08/2025 13:36:18 Patient TargetsNo targets recorded. Patient InstructionsNo instructions recorded. Reason for Referral None Reported. Results Created Date Observation Date Name Description Value Unit Range Abnormal Flag Note LastModifiedBy Organization Detail LastModifiedTime 01/15/20 25 01/01/2025 MAMMO , scree ryan, digit al, bilat eral No observ ation record ed. [email or web address] [facility] [address] [place] [address] [place], [address], 01/15/2025 08:46:38 Result Notes None recorded. Problems Name Problem SNOMED Code Status Onset Date Resolution Date Notes Provider Name and Address Organization Details Recorded Time History of abdominal hysterect reji 897866639 Active 2017 cervix cranes intact Not Available [facility] 3 06:36:37 Essential hypertens ion 99071064 Active 2017 Meeta del rosairo [facility] Internal [facility] 4 11:13:37 Obesity 942803122 Active 2017 Meeta del rosario [facility] Internal [facility] 4 11:13:54 Type 2 diabetes mellitus 92151737 Active 2017 Meetakarl del rosario [facility] 4 11:13:45 Median neuropath y 567863795 Active 2020 Not Available [facility] 3 06:36:37 Thoracic arthritis 8901313 Active 2021 Not Available [facility] 3 06:36:37 Degenerat ion of lumbar intervert ebral disc 25129137 Active 2021 Not Available [facility] 3 06:36:37 Carpal tunnel syndrome 30930052 Active 2021 Not Available [facility] 3 06:36:37 Carpal tunnel syndrome 36095466 Active 2022 Not Available [facility] 3 06:36:37 Gastroeso phageal reflux disease 985901201 Active 2022 Not Available [facility] 3 06:36:37 Allergic conjuncti vitis of bilateral eyes 19755203734 9102 Active 2022 Not Available [facility] 3 06:36:37 Trigger finger of right hand 17473272154 792486 Active 2023 Felix Rosa, DO [address] [place] [address], [address], [place] [facility] 4 14:26:48 Epigastri c pain 26237802 Active 2023 Felix Rosa, DO [address] [place] [address], [address], [facility] 4 14:28:25 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 Felix Rosa, DO [address] [place] [address], [address], [facility] 4 14:20:10 Gastropar esis due to type 2 diabetes mellitus 089679200 Active 2023 Felix Adrian Diallo, DO [address] [place] [address], [address], [facility] 4 14:21:16 Cough 75960494 Active 2023 Felix Adrian Diallo, DO [address] [place] [address], [address], [facility] 4 11:05:01 Pneumonit is 807544963 Active 2023 Felix Adrian Diallo, DO [address] [place] [address], [address], [facility] 4 11:45:45 Gastropar esis due to diabetes mellitus 053748015 Active 2024 Felix Adrian Diallo, DO [address] [place] [address], [address], [facility] 5 08:48:23 Vitamin D deficienc y 88134805 Active 2024 Felix Adrian Diallo, DO [address] [place] [address], [address], [facility] 5 13:45:03 Diverticu lar disease 412404303 Active 2024 Felix Rosa, DO [address] [place] [address], [address], [facility] 5 14:03:02 Chronic constipat ion 187948142 Active 2024 Felix Rosa [address], [address], [facility] 5 14:03:49 Notes:Some problems listed i n Documents: #[id number], #[id number], #[id number], #[id number], #[id number], #[id number], #[id number] could not be added to this patient's chart. Please review these documents and add these problems to the patient's chart manually as needed. Problem Notes None recorded. Procedures Surgical History Date Name Laterality Status Provider Name and Address Organization Details Recorded Time 01/02/20 25 Most Recent Mammogram completed Meeta Hung [facility] 01/15/2025 08:46:16 06/27/19 16 Date of Last Pap Smear completed Donna Lyon NP, S [address] [place], [address], [facility] 10/24/2018 14:19:18 Partial Hysterectomy completed Dnona Lyon NP, S [address] [place] [address], [address], [facility] 10/24/2018 14:18:36 Imaging Results None recorded. Procedure Notes None recorded. Medical Equipment None Reported. Allergies Allergen ID Allergen Name Allergen Category Reaction Reaction Severity Criticality Documentation Date Start Date Code Code System Note Provider Name and Address Organization Details Recorded Time 207 Bactrim medicatio n rash Not available Not available 08/29/2017 25812 9 RxNorm [facility] 8 09:25:35 208 Cipro medicatio n headache Not available Not available 08/29/2017 65132 3 RxNorm ? Smita [facility] 8 09:26:00 209 metronida zole medicatio n headache Not available Not available 08/29/2017 6922 RxNorm ? Smita [facility] 8 09:26:30 Medications Name Sig [...] THEN 1 TABLET DAILY FOR 4 DAYS 03/08 completed Not Available Not Available Not Available meloxicam 15 mg tablet TAKE ONE [...] ONE TABLET BY MOUTH TWICE A DAY 2024 active Not Available Not Available Not Avai lable baclofen 10 mg tablet Take 1 tablet [...] tablet TAKE 2 TABLETS BY MOUTH DAILY 2024 active Not Available Not Available Not Avai lable Cipro 500 mg tablet Take 1 tablet every 12 hours by oral route for 10 days. 02/06 completed Not Available Not Available Not Available olopatadine 0.1 % eye drops INSTILL 1 DROP INTO THE AFFECTED EYE S) TWO TIMES A DAY AT AN INTERVAL OF 6 TO 8 HOURS 03/08 completed Not Available Not Available Not Available lisinopril 10 mg tablet TAKE 1 TABLET BY MOUTH ONCE DAILY 02/06 completed Not Available Not Available Not Available bisacodyl 5 mg tablet,abiola yed release TAKE ONE TABLET BY MOUTH EVERY DAY AT BEDTIME active Not Available Not Available [...] DIRECTED BY GASTROENT EROLOGY DEPARTMEN T AT [facility] 03/08 completed Not Available Not Available Not Available [...] SUBCUTANE OUSLY 52 UNITS DAILY AT BEDTIME 2024 active Not Available Not Available Not Avai lable cholecalcif yair (vitamin D3) 50 mcg (2,000 [...] Not Available Not Available Not Avai lable Trulicity 1.5 mg/0.5 mL subcutaneou s pen injector Inject 0.5 mL every week by subcutane ous route for 30 days. 06/15 completed skin rash Not Available Not Available Not Available Ozempic 0.25 mg or 0.5 mg (2 mg/1.5 mL) subcutaneou s pen injector Inject by subcutane ous route. 12/20 completed Not Available Not Available Not Available FreeStyle Sharif 14 Day [place] USE DIRECTED 2023 active Not Available Not Available Not Avai lable FreeStyle Sharif 14 Day Sensor kit APPLY AND CHANGE EVERY 2 WEEKS DIRECTED active Not Available Not Available No t Available Mounjaro 5 mg/0.5 mL subcutaneou s pen injector INJECT 5 MG UNDER THE SKIN ONCE WEEKLY active Not Available Not Available No t Available Mounjaro 2.5 mg/0.5 mL subcutaneou s pen injector active Not Available Not Available Not Available Vitals Date Recorded Body height Body mass index (BMI) Body weight Heart rate Oxygen saturation Oxygen saturation in Arterial blood by Pulse oximetry Systolic And Diastolic Provider Name and Address Organization Details Last Updated DateTime 5 151.77 cm 29.3 kg/m2 58735.2 6 g 104 /min 98 % 98 % 142/78 mm[Hg] [facility] 5 13:28:40 Date Recorded Body height Body mass index (BMI) Body weight Heart rate Oxygen saturation Oxygen saturation in Arterial blood by Pulse oximetry Systolic And Diastolic Provider Name and Address Organization Details Last Updated DateTime 5 151.77 cm 28.2 kg/m2 17556.7 1 g 97 /min 97 % 97 % 108/64 mm[Hg] Taty Chino [facility] 5 13:41:43 Date Recorded Body height Body mass index (BMI) Body weight Oxygen saturation Oxygen saturation in Arterial blood by Pulse oximetry Heart rate Systolic And Diastolic Provider Name and Address Organization Details Last Updated DateTime 5 151.77 cm 28.1 kg/m2 45866.2 7 g 97 % 97 % 68 /min 108/72 mm[Hg] Ivon Garzasarah [facility] 5 13:38:22 Date Recorded Body height Body mass index (BMI) Body weight Heart rate Oxygen saturation Oxygen saturation in Arterial blood by Pulse oximetry Systolic And Diastolic Provider Name and Address Organization Details Last Updated DateTime 4 151.77 cm 28.2 kg/m2 84965.7 1 g 94 /min 96 % 96 % 138/80 mm[Hg] Taty Chino [facility] 4 14:52:28 Date Recorded Body height Body mass index (BMI) Body weight Heart rate Oxygen saturation Oxygen saturation in Arterial blood by Pulse oximetry Systolic And Diastolic Provider Name and Address Organization Details Last Updated DateTime 4 151.77 cm 29.2 kg/m2 58864.4 7 g 96 /min 98 % 98 % 128/86 mm[Hg] Meeta Hung [facility] 4 11:30:57 Social History Question Answer Notes LastModified by Organizat ion Details LastModified Time Tobacco Smoking Status Never Smoker Not Available [facility] 04/29/2020 03:36:24 What Was The Date Of Your Most Recent Tobacco Screening? 03/08/2025 [email or web address] Information not available 03/08/2025 Sex: Unknown Functional Status Question Answer Note LastModified by Organization D etails LastModified Time Do you or have you ever used any other forms of tobacco or nicotine? No Information not available 06/10/2023 Mental Status None recorded. Family History Relationship Description Onset Age of this Age Resolved Age Notes LastModified by Organization Details LastModified Time Mother Type 2 diabetes mellitus 65 anila Not available 2018 14:17:37 Father Myocardial infarction [...] virus, quadrivalent, preservative 8 completed Not Available [facility] 06/17/2023 13:00:15 COVID-19, mRNA, LNP-S, PF, 30 mcg/0.3 mL dose 1 completed Not Available [facility] 06/17/2023 13:00:15 COVID-19, mRNA, LNP-S, PF, 30 mcg/0.3 mL dose 1 completed Not Available [facility] 06/17/2023 13:00:15 zoster recombinant 5 completed Felix Rosa DO [address] [place] [address], [phone] 11/06/2024 13:56:15 Past Encounters Encounter ID Performer Location Encounter Start Date Encounter Closed Date Diagnosis/Indication Diagnosis SNOMED-CT Code Diagnosis ICD10 Code Diagnosis IMO Codes Diagnosis Note [id number] Felix Roas DO [facility] [address] [place] [address] 10/05/2017 13:33:00 10/05/2017 16:41:54 Type 2 diabetes mellitus 48690070 E11.9 compliant with diet , exercise medicines must be careful not to go [id number] 8 will need to increase calorie expenditur e Essential hypertension 99903485 I10 stable no issues takes meds [id number] Felix Rosa DO [facility] [address] [place] [address] 02/08/2018 13:25:57 02/08/2018 16:08:34 Type 2 diabetes mellitus 66983310 E11.9 compliant with diet , exercise medicines must be careful not to go into a1c 8 will need to increase calorie expenditur e or will increase dose of meds Essential hypertension 52218913 I10 stable no issues takes meds [id number] Felix Rosa [facility] [address] [facility] [address] [address] 05/10/2018 13:26:50 05/10/2018 16:37:07 Type 2 diabetes mellitus 21668575 E11.9 compliant with diet , exercise medicines must be careful not to go into a1c 8 will need to increase calorie expenditur e or will increase dose of meds Essential hypertension 09075595 I10 stable no issues takes meds Pain in right knee 00208 70392 58906 M25.561 is progressiv e and is bothering rick with weather change will xray to start 2 sisters have arthritis and father bad arthritis and mother has it with fingers [id number] Felix Rosa [facility] [address] [facility] [address] [address] 07/14/2018 10:18:06 07/18/2018 12:27:25 Type 2 diabetes mellitus 72745657 E11.9 Discussed A1C of 7.9, need to exercise daily and reduce caloric intake Acute bronchitis 7917880 2 J20.9 Call if no better Essential hypertension 11317822 I10 well controlled [id number] Felix Rosa [facility] [address] [facility] [address] [address] 09/06/2018 13:49:07 09/06/2018 14:29:29 Essential hypertension 71636344 I10 stable no issues takes meds Type 2 obey betes mellitus 92055504 E11.9 compliant with diet , exercise medicines must be careful not to go into a1c 8 will need to increase calorie expenditur e or will increase dose of meds [id number] Felix Rosa [facility] [address] [facility] [address] [address] 10/24/2018 13:57:55 10/24/2018 15:34:33 Type 2 diabetes mellitus 22079776 E11.9 has f/u November Essential hypertension 05958193 I10 well controlled Routine gy necologic examination done 9774555762 9101 Z01.419 [id number] Felix Rosa [facility] [address] [facility] [address],[place] [address] 12/12/2018 14:16:14 12/12/2018 15:40:36 Adult health examination 949256788 Z00.00 has been stable no major changes will give meds for travel overseas Active or passive immunization 064829169 Z23 [id number] Felix Rosa [facility] [address] [facility] [address],[place] [address] 02/06/2019 15:34:46 02/06/2019 16:24:07 Cough 12213060 R05 f/u if cough not improved after changing meds Type 2 obey betes mellitus 16685458 E11.9 Essential hypertension 53216019 I10 very well controlled [id number] Felix Rosa DO [facility] [address] [facility] [address],[place] [address] 03/14/2019 14:39:28 03/14/2019 16:11:40 Type 2 diabetes mellitus 00307736 E11.9 compliant with diet , exercise medicines but sugar is uncontroll ed at 9.2 meds will start her on trulicity 0.75 then up to 1.5 weekly will rechk in 2 mo Essential hypertension 44412269 I10 stable no issues takes meds [id number] Felix Rosa DO [facility] [address] [facility] [address],[place] [address] 05/16/2019 15:04:13 05/16/2019 16:00:41 Type 2 diabetes mellitus 83371914 E11.9 compliant with diet , exercise medicines but sugar is uncontroll ed at 9.2 and was 8.9 and now 9.3 again we will need to refer to endocrine despite the trulicity 1.5 weekly will rechk in 2 mo Essential hypertension 66111437 I10 stable no issues takes meds [id number] Felix Rosa DO [facility] [address] [facility] [address],[place] [address] 06/15/2019 14:53:30 06/15/2019 15:20:23 Essential hypertension 50891138 I10 stable no issues takes meds Type 2 obey betes mellitus 20204672 E11.9 compliant with diet , exercise medicines but sugar is uncontroll ed at 9.2 meds trulicity 0.75 causing rash and didnt budge the a1c she will be seeing endocrine in couple weeks will rechk in 3 mo [id number] Felix Rosa DO [facility] [address] [facility],[place] [address] 09/17/2019 15:00:04 09/17/2019 15:36:00 Type 2 diabetes mellitus 75181914 E11.9 compliant with diet , exercise medicines but sugar is uncontroll ed at 9.9 was 9.2 now on victoza and lantus but given persistant elevated sugar we will have her increase to 15 she will be seeing endocrine in couple weeks will rechk in 3 mo reviewed lab in detail told her she should get a DEXCOM or FREESTYLE SHARIF Essential hypertension 33205521 I10 stable no issues takes meds bp is stable and medication s are tolerated [id number] Felix Rosa DO [facility] [address] [facility] [address] [facility] [place] [address] 12/21/2019 14:46:29 12/21/2019 15:34:54 Type 2 diabetes mellitus 29190937 E11.9 compliant with diet , exercise medicines [...] but endocrine will not go to [facility] for her we will try to get this for her she is checking glucose 4 times a day Essential hypertension 05116968 I10 stable no issues takes meds bp is stable and medication s are tolerated [id number] Felix Rosa DO [facility] [address] [facility],[place] [address] 01/29/2020 11:48:42 01/29/2020 12:22:03 Adult health examination 494671367 Z00.00 has been stable no major changes will give meds for travel overseas Essential hypertension 58138268 I10 stable no issues takes meds bp is stable and medication s are tolerated Type 2 obey betes mellitus 56018070 E11.9 now doing great with new med jardiance from the endocrine consult will be cont and her a1c is done to 8.9 from a high of 11.3 months ago doing great and is encouraged to cont her exercise and diet regimen [id number] Felix Rosa [facility] [address] [facility],[place] [address] 06/10/2020 08:46:16 06/10/2020 15:19:29 Type 2 diabetes mellitus 00059700 E11.9 now doing great with new med jardiance from the endocrine consult who is following her now will be cont and her a1c is down to 7.4 from 8.9 from a high of 11.3 months ago doing great and is encouraged to cont her exercise and diet regimen Essential hypertension 85876260 I10 stable no issues takes meds bp is stable and medication s are tolerated Numbness of hand 2869096 04 R20.0 [id number] Felix Rosa [facility] [address] [facility],[place] [address] 09/10/2020 13:28:37 09/10/2020 14:31:05 Type 2 diabetes mellitus 59509705 E11.9 now doing great with new med jardiance from the endocrine consult who is following her now will be cont and her a1c is down to 7.0 from 7.4 from 8.9 from a high of 11.3 months ago doing great and is encouraged to cont her exercise and diet regimen Essential hypertension 85922144 I10 stable no issues takes meds bp is stable and medication s are tolerated Median neuropathy 569681 008 G56.11 followed by the hand specialist adn will be getting a NCT EMG and 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 and may need surgery depending on the test [id number] Felix Rosa [facility] [address] [facility],[place] [address] 04/24/2021 11:04:37 04/24/2021 11:56:28 Active or passive immunization 176660655 Z23 utd Adult heal th examination 501193232 Z00.00 has been stable no major changeswe will need to have her get the med notes from recent exams Essential hypertension 76233066 I10 stable no issues takes meds bp is stable and medication s are tolerated Type 2 obey betes mellitus 80916723 E11.9 now doing great with new med [...] reported as neg for dm retinopath y [id number] Felix Rosa [facility] [address] [facility] [address] 08/24/2021 14:45:29 08/25/2021 15:18:08 Type 2 diabetes mellitus 03731400 E11.9 now doing great with new med [...] neg for dm retinopath y Essential hypertension 06112463 I10 stable no issues takes meds bp is stable and medication s are tolerated Tinea pedis 9257084 B35. 3 will try to treat with cream has extensive amount over her sole of feet bilat [id number] Felix Rosa [facility] [address] [facility] [place] [address] 09/16/2021 16:03:21 09/18/2021 16:30:36 Thoracic back pain 626647788 M54.6 will start on treatment [id number] Felix Rosa [facility] [address] [facility], [place] [address] 12/08/2021 15:21:35 12/09/2021 14:04:49 Type 2 diabetes mellitus 22621277 E11.9 now doing great with new med [...] neg for dm retinopath y Essential hypertension 51301618 I10 stable no issues takes meds bp is stable and medication s are tolerated Active or passive immunization 843573981 Z23 advised she is due for Tdap and Pneumonia vaccines will consider Screening mammography 24 390680 Z12.31 [id number] Felix Rosa [facility] [address] [facility],[place] [address] 03/09/2022 15:09:11 03/10/2022 11:35:38 Type 2 diabetes mellitus 51632037 E11.9 now doing great with new med [...] neg for dm retinopath y Essential hypertension 58003436 I10 stable no issues takes meds bp is stable and medication s are tolerated Degenerati on of lumbar intervertebral disc 01627412 M51.36 given prgression of her symptoms and pain down the legs we will order an mri [id number] Felix Rosa [facility] [address] [facility],[place] [address] 04/27/2022 10:42:40 04/27/2022 13:07:38 Active or passive immunization 602777626 Z23 advised she is due for Tdap and Pneumonia2 3 Adult heal th examination 395140336 Z00.01 has been stable but she noted to have no improvemen t in her right hand from the carpal tunnel surgfrom last yearwe will need to have her get the med notes from recent exams Screening for malignant neoplasm of colon 719948243 Z12.11 we will consider Degenerati on of lumbar intervertebral disc [id number] M51.36 given progressio n of her symptoms and pain down the legsbegan her PT last month we will order an mri Carpal ashley jluis syndrome [id number] G56.01 [id number] Felix Rosa [facility] Internal [facility] [address] [facility] [address] 07/27/2022 08:09:37 07/28/2022 12:11:34 Essential hypertension 89443556 I10 stable no issues takes meds bp is stable and medication s are tolerated Type 2 obey betes mellitus 75227102 E11.9 now doing great with new med jardiance from the endocrine consult who is following her nowa1c was at 7,4 then 6.9 and now at 7.2 on jardianced oing great and is encouraged to cont her exercise and diet regimen has had a eye exam and this was reported as neg for dm retinopath y Degenerati on of lumbar intervertebral disc 42107986 M51.36 given progressio n of her symptoms and pain down the legsbegan her PT last month we will order an mri using otc creams from [facility] with good results Carpal ashley jluis syndrome 36003015 G56.01 doing better with a cream with this called VirtualScopicssaute cream from [facility] Gastroesop hageal reflux disease 457343674 K21.9 she will try otc prilosec or nexium for the next 4 weeks let us know if not helping [id number] Felix Rosa DO [facility] [address] [facility] [place] [address] 10/27/2022 09:43:29 10/27/2022 13:55:40 Type 2 diabetes mellitus 07557243 E11.9 now doing great with new med jardiance from the endocrine consult who is following her nowa1c was at 7.1 then was 7.0 and 7.2 and 6.9 on jardianced oing great and is encouraged to cont her exercise and diet regimen has had a eye exam and this was reported as neg for dm retinopath y Essential hypertension 76442936 I10 stable no issues takes meds bp is stable and medication s are tolerated Allergic conjunctivitis of bilateral eyes [id number] 09378 H10.13 we will try an eye drop and hope it is covered [id number] Felix Rosa DO [facility] Internal Medicine [address] [facility] [address],[place] [address] 03/08/2023 13:31:33 03/08/2023 14:51:20 Essential hypertension 47677100 I10 stable no issues takes meds bp is stable and medication s are tolerated Type 2 obey betes mellitus 89348091 E11.9 now doing great with new med [...] dm retinopath y Gastroesop hageal reflux disease 052104974 K21.9 she will try otc prilosec or nexium for the next 4 weeks let us know if not helping [id number] Felix Rosa [facility] [address] [facility] [place] [address] 06/10/2023 13:18:32 06/10/2023 14:06:07 Type 2 diabetes mellitus 02030385 E11.9 note she had a mix up with victoza and was off for 3 weeksthis is why it is elevated at 7.5 Essential hypertension 61649141 I10 stable no issues takes meds bp is stable and medication s are tolerated Active or passive immunization 171582803 Z23 advised she is due for Tdap and Pneumonia2 3 Adult heal th examination 681231150 Z00.00 has been stable but she noted to have no improvemen t in her right hand from the carpal tunnel surg and it is getting worse from last yearwe will need to have her get the med notes from recent exams [id number] Felix Rosa [facility] [address] [facility],[place] [employer] [place] [address] 09/28/2023 13:38:40 09/28/2023 15:23:15 Essential hypertension 85177061 I10 stable no issues takes meds bp is stable and medication s are tolerated Type 2 obey betes mellitus 82229328 E11.9 long discussed how she is doing with her sugar feeling well and is having good readingsa1 c is 7.4 was 6.9 just got cortisone shotdiscus sed her diet and exercise and cont to monitor Trigger fi nger of right hand [id number] 6809856 M65.[address] got bethe and is better Epigastric pain 79255221 R10.13 recurrent [id number] Felix Rosa, [facility] [address] [facility],[place] [facility] [place] [address] 01/17/2024 13:44:18 01/17/2024 16:27:28 Depression screening 280387613 Z13.31 negative Type 2 obey betes mellitus 07744462 E11.9 long discussed how she is doing with her sugar feeling well and is having good readingsa1 c is 7.9, 7.6, 7.4 was 6.9 just got cortisone shotdiscus sed her diet and exercise and cont to monitor Essential hypertension 01155113 I10 stable no issues takes meds bp is stable and medication s are tolerated Gastropare sis due to type 2 diabetes mellitus 402579783 E11.43 having a lot of post prandial bloating [id number] Felix Rosa [facility] [address] [facility],[place] [employer] [facility] [place] [address] 04/24/2024 14:10:05 04/24/2024 15:32:37 Gastroparesis due to type 2 diabetes mellitus 870173940 E11.43 having a lot of post prandial bloating will try reglan Screening for malignant neoplasm of colon 802361109 Z12.11 we will consider please call in 2 weeks with update on med Type 2 obey betes mellitus 96238691 E11.9 long discussed how she is doing with her sugar feeling well and is having good readingsa1 c is 7.9, 7.6, 7.4 was 6.9 just got cortisone shotdiscus sed her diet and exercise and cont to monitor [id number] Felix Dorantesstella [facility] [address] [facility],[place] [employer] [facility] [place] [address] 05/15/2024 14:23:57 05/15/2024 15:09:37 Essential hypertension 90894317 I10 stable no issues takes meds bp is stable and medication s are tolerated Gastropare sis due to type 2 diabetes mellitus 970808137 E11.43 finally feels markedly better will cont for now until she can see GI in a month or sopt warned and understand s the sx of tardive dyskinesia and what to look out for and to stop immediatel y and call me Allergic conjunctivitis of bilateral eyes [id number] 82353 H10.13 we will try an eye drop and hope it is covered [id number] Felix Rosa DO [facility] Internal Medicine [address] [facility],[place] [facility] [place] [address] 06/12/2024 11:11:00 06/12/2024 11:51:02 Active or passive immunization 618423676 Z23 advised she is due for Tdap and Pneumonia2 3 Adult heal th examination 680948544 Z00.01 has been stable but she noted to have an ongoing pneumoniti s post viral from last yearwe will need to have her get the med notes from recent exams Pneumonitis 208162424 J1 8.9 [id number] Felix Rosa DO [facility] Internal Medicine [address] [facility], [place] [address] 07/31/2024 13:17:33 07/31/2024 14:30:37 Essential hypertension 17735214 I10 stable no issues takes meds bp is stable and medication s are tolerated Type 2 obey betes mellitus 29480012 E11.9 long discussed how she is doing with her sugar feeling well and is having good readings a1c is 7.6 now doing better [id number] is 7.9, 7.6, 7.4 was 6.9 just got cortisone shotdiscus sed her diet and exercise and cont to monitor Gastropare sis due to type 2 diabetes mellitus 125723054 E11.43 doing well no TD side effect given she is on mounjaro and off victoza we will have her stop the am metoclopra mide and only take in the evening also if this is still good she will stop the evening dose too Vitamin D deficiency 347 68534 E55.9 level was<4 now on supp we will have her get rechk lab in 2 mo [id number] Felix Rosa DO [facility] Internal Medicine [address] [facility],[place] [address] 11/06/2024 13:32:34 11/06/2024 14:14:02 Gastroparesis due to type 2 diabetes mellitus 030114100 E11.43 doing well no TD side effect given she is on mounjaro and off victoza we will have her stop the am metoclopra mide and only take in the evening also if this is still good she will stop the evening dose too Depression screening 171 257197 Z13.31 negative Essential hypertension 04959336 I10 stable no issues takes meds bp is stable and medication s are tolerated Type 2 obey betes mellitus 91025756 E11.9 has noticed she is going lower on sugars told to keep eye on this and if she happens to bottom out again she is to decrease dose to once a day metformin long discussed how she is doing with her sugar feeling well and is having good readings a1c is 7.6 now doing better [id number] is 7.9, 7.6, 7.4 was 6.9 just got cortisone shotdiscus sed her diet and exercise and cont to monitor [id number] Felix Rosa, DO [facility] [address] [facility],[place] [address] 03/08/2025 13:25:36 03/08/2025 14:36:49 Depression screening 568902977 Z13.31 negative Essential hypertension 71216011 I10 stable no issues takes meds bp is stable and medication s are tolerated Type 2 obey betes mellitus 48371906 E11.9 a1c is 8.7 she need to follow her diet better priorhas noticed she is going lower on sugars told to keep eye on this and if she happens to bottom out again she is to decrease dose to once a day metformin long discussed how she is doing with her sugar feeling well and is having good readings a1c is 7.6 now doing better POCIZy1c is 7.9, 7.6, 7.4 was 6.9 just got cortisone shotdiscus sed her diet and exercise and cont to monitor Diverticular disease 397 769552 K57.90 595063 discussed diet Chronic constipation 236 918913 K59.09 735897 using otc daily may try miralax every 3 days prn Health Concerns Section Related Observation LastModified by Organization Edgar sabillon LastModified Time None Recorded Concern Status LastModified by Organization Details LastModified Time None Recorded Advance Directives Directive None Recorded Payers Insurance Date Sequence Insurance Name Policy Number Policy Moreno Covered Member ID Moreno Member ID Guarantor Name 03/05/[address] [place] [address] [id number] Luana Garcia [id number] Luana Garcia Notes Date Note Type Note Provider Name and Address Organization Details Recorded Time 4 text/htm l ROS as noted in the HPI here for rechkstates she has felt fantastic since starting on the metoclopramidestates no longer feels full or bloated and states now that she finished the tow weeks worth her sx are coming back Felix Rosa, DO [address] [place], [address], [facility] Internal Medicine 05/15/2024 15:10:27 4 text/htm [...] and having tiredness Felix Rosa, DO [address] [place], [address], [facility] 06/12/2024 11:49:42 5 text/htm [...] mounjaro also causes Felix Rosa DO [address] [place], [address], [facility] 07/31/2024 13:50:21 5 text/htm l Care Management - HypertensionReported by PatientIFor self care, patient reportsnot under emotional stress. For severity, patient reportssymptoms are improvinganddoes not interfere with daily activities. For associated symptoms, patient reportsno dizziness,no lightheadedness,no chest pain,no shortness of breath,no palpitations,no edema,no calf muscle cramps,no blurred vision,no confusion,no headaches, andno fatigue. Care Management - DiabetesReported by PatientUN[facility]ITALor self care, patient reportsseeing eye doctor yearly [...] low with sugars Felix Rosa, DO [address] [place], [address], [facility] 11/06/2024 15:30:41 5 text/htm l Care Management - HypertensionReported by PatientUNIVERSITY [facility]OSPITALor self care, patient reportsnot under emotional stress. For severity, patient reportssymptoms are improvinganddoes not interfere with daily activities. For associated symptoms, patient reportsno dizziness,no lightheadedness,no chest pain,no shortness of breath,no palpitations,no edema,no calf muscle cramps,no blurred vision,no confusion,no headaches, andno fatigue. Care Management - DiabetesReported by PatientUNIVERSITY [facility]OS[facility]ITALor self care, patient reportsseeing eye doctor yearly [...] HPI here for rechk and is doing ok overall 'had colonoscopy with evid sessile polyps will be due for repeat in 5 years has a wart on her left thumb Felix Rosa, DO [address] [facility], [place], [address], [facility] Internal [facility] 03/08/2025 14:12:43 OBGyn Episode No OBEpisode recorded.
--- OUTSIDE RECORDS SUMMARY | 2025-04-20 07:39 | XMS_ITS | Encounter Summary ---
Author Organization [facility] Address [address] [place] [address] Phone Care Team Providers Care Ride Mechanic Name Role Phone Felix Landrum Primary Care Provider [phone] Encounter Details Date Type Department Care Team (Late st Contact Info) Description 12/12/2022 Procedure Pass [facility], Ct Scan - [address] [address] Social History Tobacco Use Types Packs/Day Years [...] 7:12 PM EDT Mary Kauffman RN * [place] Suicide Severity Rating Scale (Screener/Recent Self-Report) Question [...] on filedocumented in this encounter Care Teams Ride Mechanic Relationship Specialty Start Date End Date Felix Landrum DO [email or web address] PCP - General 06/30/17 documented as of this encounter Additional Source Comments The information contained in this document represents components of the legal health record. It is not the complete legal health record.[facility]
--- OUTSIDE RECORDS SUMMARY | 2025-04-20 07:39 | XMS_ITS | Patient Health Record ---
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 Name Role Phone Diallo Felix Primary Care Provider Kamlesh Mac [phone] Allergies Allergen (clinical drug ingredient) Drug/Non Drug [...] Problem Status W/U Status Risk Notes Problem Barium swallow abnormal (870399719) Abnormal barium swallow (R93.3) Active confirmed Problem Esophageal dysphagia (69059492) Esophageal dysphagia (R13.10) Active confirmed Plan Of Treatment Pending Test Test Name Order Date Esophageal Motility study 04/26/2017 Future Test Test Name Order Date UPPER GI ENDOSCOPY [place] DILATION OF ESOPH 04/08/2017 Insurance Providers Payer Name Payer Address Payer Phone Subscriber Number Group Number Insured Name Patient Relationship to Insured Coverage Start Date Coverage End Date [facility] [address] [place] [phone] [id number] KELLEY STONER Self - patient is the insured Medical (General) History Medical History History ICD Code Denies [place],CVA,Lung disease,renal disease NIDDM HTN Hyperlipidemia Negative ETT at [facility] Surgical History Surgery Date(Month/Year) Hysterectomy
[2025-04-20 08:28] LABS: Hemoglobin A1C 275.9859 umol/L; Total Hemoglobin (HGBA1C) 4073.7848 umol/L
== END 2025-04-20 07:37 | disposition home or self-care (01) ==
LOC: HO.LABR 07:36
PROVIDERS: PCP Internal Medicine; Visit Provider Internal Medicine
DX: E11.9 Type 2 diabetes mellitus without complications (principal); E55.9 Vitamin D deficiency, unspecified
CPT/HCPCS: 36415; 82306; 83036

== ENCOUNTER 2025-05-31 15:38 | Outpatient (AMB) | payer OTHER, SELFPAY ==
--- NOTE | 2025-05-31 15:40 | A.OFFVIS_ITS ---
Vital Signs 05/31/25 15:44 Height 4 ft 11 in Weight 147 lb BMI 29.7 BP 148/64 H Blood Pressure Location Rt brachial Position Sitting Pulse 94 Pulse Source Pulse Oximeter Pulse Oximetry (%) 98 Oxygen Delivery Method Room Air Intake Visit Reasons: Follow up 2 months Intake Note: Est pt for mgmt of GERD + Gastroparesis. CC: C/O intermittent bloating and gas. Pt states that she typically does OK with BMs but does have occasional episodes which seem to be related to her bloating. Pt denies any additional sx or concerns. 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: No Accompanied by: Self / Same As Patient Allergies Sulfa (Sulfonamide Antibiotics) Allergy (Intermediate, Verified 05/31/25 15:41) Rash ciprofloxacin (From Cipro) Allergy (Unknown, Verified 05/31/25 15:41) Unknown dulaglutide (Trulicity) Allergy (Unknown, Verified 05/31/25 15:41) itching metronidazole Allergy (Unknown, Verified 05/31/25 15:41) Unknown sulfamethoxazole (From Bactrim) Allergy (Unknown, Verified 05/31/25 15:41) Unknown trimethoprim (From Bactrim) Allergy (Unknown, Verified 05/31/25 15:41) Unknown HPI HPI Follow up 2 months: Details: LAST VISIT: Gastroparesis Transaminitis Postprandial abdominal bloating Constipation Plan Continue pantoprazole daily. Avoid dietary triggers and late night snacking. Staying upright for minimum 3 hours after meals discussed with patient. Patient will start taking Dulcolax daily. Increase fluid intake and activity to promote better bowel motility. Continue low FODMAP diet. Patient will follow-up in 2 months, sooner on as needed basis. She is agreeable to this plan and verbalizes understanding of instructions. She was given the opportunity to ask questions and all questions answered. ? Thank you for allowing me to participate in her care New bisacodyl (Dulcolax (bisacodyl)) 5 mg PO BEDTIME 30 tabs 4RF TODAY'S VISIT Patient is here today for follow-up. Patient reports that she has been doing fairly well, however she is still having trouble moving her bowels. Patient reports frequent abdominal bloating especially when she is constipated. She is taking Dulcolax 1 tablet daily, however she feels like if not always helping her empty her bowels completely. Patient denies melena, hematochezia, unintentional weight loss or ribbon like stools. Patient reports acid reflux for the most part is control if she takes pantoprazole. Occasional epigastric pain and bloating depending on what she eats. Patient denies dyspepsia, dysphagia or odynophagia. Patient admits that her blood sugars have not been very well controlled. She is on Mounjaro and this could be also the reason why he is not emptying her bowels well. Patient reports that she only eats 2 to 3 times a day. Patient has not lost any weight though. Patient denies any nausea or vomiting. [facility] Medical History Transaminitis Gastroparesis Arthritis Diabetes mellitus type 2, controlled, without complications CTS (carpal tunnel syndrome) Essential hypertension Hyperlipidemia LDL goal <100 BMI 30.0-30.9,adult Surgical History Hx of carpal tunnel repair Hx of hysterectomy Family History Father No problems noted. Mother Diabetes Social History Household Members: Spouse Patient Tobacco Use Status: Never used Tobacco Physical Exam Vital Signs: Last Vital Signs Pulse 94 05/31/25 15:44 BP 148/64 H 05/31/25 15:44 Pulse Ox 98 05/31/25 15:44 Oxygen Delivery Method Room Air 05/31/25 15:44 BMI result Body Mass Index 29.7 Const General: healthy appearing and no acute distress Nutritional Appearance: well nourished and obese Orientation/consciousness: patient oriented x3 Resp Effort & Inspection: normal respiratory effort, able to speak in complete sentences, no tracheal deviation and symmetric chest movement Auscultation: clear to auscultation bilaterally Cardio Rate: regular rate GI Inspection: Yes normal to inspection, No distended and Yes obesity Palpation (GI): Soft to palpation, not firm, nontender and No hepatosplenomegaly present Auscultation: normal bowel sounds General: Yes no CVA tenderness Back/Spine/Pelvis Back: no CVA tenderness Skin General skin exam: elasticity normal, turgor normal and dry skin Neuro General: patient oriented x3 Psych Appearance: grossly normal Mental Status: mental status grossly normal Assessment & Plan Assessment & Plan (1) Gastroparesis: Code(s): K31.84 - Gastroparesis Category: Medical (2) Transaminitis: Code(s): R74.01 - Elevation of levels of liver transaminase levels Category: Medical (3) Postprandial abdominal bloating: Code(s): R14.0 - Abdominal distension (gaseous) (4) Constipation: Code(s): K59.00 - Constipation, unspecified Qualifiers: Constipation type: slow transit constipation Qualified Code(s): K59.01 - Slow transit constipation Plan Patient could very well have drug-induced constipation due to her GLP1. Patient was instructed to eat smaller meals. She already has gastroparesis most likely caused by GLP1. Patient was encouraged to avoid eating carbs and food high in fat. Mostly eating protein was recommended. Start taking Dulcolax 2 tablets daily. Increase fluid intake and activity to promote bowel motility. Patient can continue taking pantoprazole daily. Avoid dietary triggers and late night not to. Staying upright for minimum 3 hours after meals discussed with patient. Patient will follow-up in 4 months. She was encouraged to call us sooner if she will have any GI concerning symptoms. Patient is agreeable to current plan of care and verbalizes understanding of instructions. She was given the opportunity to ask questions and all questions answered. Thank you for allowing me to participate in her care Medications: New pantoprazole 40 mg PO DAILY 30 tabs 3RF Changed 2 From bisacodyl 5 mg PO BEDTIME 30 tabs 4RF To bisacodyl (Dulcolax (bisacodyl)) 10 mg (2 x 5 mg) PO BEDTIME 180 tabs 2RF Coding Level of Care Code Est Pt Level 4 (25171) Add On Problem Visit Only Diagnoses Gastroparesis K31.84 Transaminitis R74.01 Postprandial abdominal bloating R14.0 Slow transit constipation K59.01 Constipation type: slow transit constipation Time Spent (min) 35 Comment 25 minutes spent with patient and additional 10 minutes spent reviewing her records
[2025-05-31 15:44] VITALS: BP 148/64; PULSE 94; O2SAT 98; BMI 29.7
--- OUTSIDE RECORDS SUMMARY | 2025-05-31 19:36 | XMS_ITS | Data Portability ---
Author Organization [facility], Telehealth Patient Home Address [address] [place] [address] Assessment Encounter Date Assessment Date Assessment LastModified by Organization Details LastModified Time 05/15/2024 05/15/2024 [id number] [place] [id number] ([employer]) [facility] MODERATE MUST MEET 2 OUT [...] COVERED Not available 05/15/2024 15:10:14 07/31/2024 07/31/2024 [id number] [place] [address] ([employer]) [facility] MODERATE MUST MEET 2 OUT [...] COVERED Not available 07/31/2024 13:43:16 11/06/2024 11/06/2024 [id number] [place] [id number] ([employer]) MDM MODERATE MUST MEET 2 OUT OF [...] COVERED Not available 11/06/2024 14:01:10 03/08/2025 03/08/2025 [id number] [place] [address] ([employer]ER) MDM MODERATE MUST MEET 2 OUT OF [...] HbA1c (hemoglob in A1c), blood 2024 025 [facility], [address] [place] [address], [place], [address], 10/08/2024 11:37:04 HbA1c (hemoglob in A1c), blood 2024 025 [facility], [address] [place] [address], [id number], 10/08/2024 11:37:04 vitamin D, 25-hydrox y, total, serum 2024 025 [facility], [address] [place] [address], [address], 07/31/2024 13:47:48 Referral None recorded. Procedures None recorded. Surgeries None recorded. Imaging None recorded. Medication Orders azithromy michael 250 mg tablet 2023 024 [place] [facility], [address] [place] [address], [id number], 03/08/2025 13:35:10 metoclopr amide 5 mg tablet 2023 024 [place] [facility], [address] [place] [address], [id number], 05/15/2024 15:06:34 olopatadi ne 0.1 % eye drops 2023 024 [place] [employer] [facility], [address] [place] [address], [id number], 03/08/2025 13:36:18 Patient TargetsNo targets recorded. Patient InstructionsNo instructions recorded. Reason for Referral None Reported. Results Created Date Observation Date Name Description Value Unit Range Abnormal Flag Note LastModifiedBy Organization Detail LastModifiedTime 01/15/20 25 01/01/2025 MAMMO , scree ryan, digit al, bilat eral No observ ation record ed. [email or web address] [facility] [address] [place] [address] [place], [address], 01/15/2025 08:46:38 Result Notes None recorded. Problems Name Problem SNOMED Code Status Onset Date Resolution Date Notes Provider Name and Address Organization Details Recorded Time History of abdominal hysterect reji 534964253 Active 2017 cervix cranes intact Not Available [facility] 3 06:36:37 Essential hypertens ion 35258978 Active 2017 Meeta del rosario [facility] Internal [facility] 4 11:13:37 Obesity 314162880 Active 2017 Meeta del rosario [facility] Internal [facility] 4 11:13:54 Type 2 diabetes mellitus 55711485 Active 2017 Meetakarl del rosario [facility] 4 11:13:45 Median neuropath y 269957021 Active 2020 Not Available [facility] 3 06:36:37 Thoracic arthritis 4428636 Active 2021 Not Available [facility] 3 06:36:37 Degenerat ion of lumbar intervert ebral disc 06023788 Active 2021 Not Available [facility] 3 06:36:37 Carpal tunnel syndrome 03316294 Active 2021 Not Available [facility] 3 06:36:37 Carpal tunnel syndrome 60725659 Active 2022 Not Available [facility] 3 06:36:37 Gastroeso phageal reflux disease 750420047 Active 2022 Not Available [facility] 3 06:36:37 Allergic conjuncti vitis of bilateral eyes 08082253926 9102 Active 2022 Not Available [facility] 3 06:36:37 Trigger finger of right hand 85069274548 705989 Active 2023 Felix Rosa, DO [address] [place] [address], [address], [place] [facility] 4 14:26:48 Epigastri c pain 16851779 Active 2023 Felix Rosa, DO [address] [place] [address], [address], [facility] 4 14:28:25 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 Felix Rosa, DO [address] [place] [address], [address], [facility] 4 14:20:10 Gastropar esis due to type 2 diabetes mellitus 225975287 Active 2023 Felix Adrian Diallo, DO [address] [place] [address], [address], [facility] 4 14:21:16 Cough 07112356 Active 2023 Felix Adrian Diallo, DO [address] [place] [address], [address], [facility] 4 11:05:01 Pneumonit is 897091552 Active 2023 Felix Adrian Diallo, DO [address] [place] [address], [address], [facility] 4 11:45:45 Gastropar esis due to diabetes mellitus 426215138 Active 2024 Felix Adrian Diallo, DO [address] [place] [address], [address], [facility] 5 08:48:23 Vitamin D deficienc y 13706485 Active 2024 Felix Adrian Diallo, DO [address] [place] [address], [address], [facility] 5 13:45:03 Diverticu lar disease 009650324 Active 2024 Felix Rosa, DO [address] [place] [address], [address], [facility] 5 14:03:02 Chronic constipat ion 668725287 Active 2024 Felix Rosa [address], [address], [facility] 5 14:03:49 Notes:Some problems listed i n Documents: #[id number], #[id number], #[id number], #[id number], #[id number], #[id number], #[id number] could not be added to this patient's chart. Please review these documents and add these problems to the patient's chart manually as needed. Problem Notes None recorded. Procedures Surgical History Date Name Laterality Status Provider Name and Address Organization Details Recorded Time 01/02/20 25 Most Recent Mammogram completed Meeta Hung [facility] 01/15/2025 08:46:16 06/27/19 16 Date of Last Pap Smear completed Donna Lyon NP, [address] [place], [address], [facility] 10/24/2018 14:19:18 Partial Hysterectomy completed Donna Lyon NP, S [address] [place] [address], [address], [facility] 10/24/2018 14:18:36 Imaging Results None recorded. Procedure Notes None recorded. Medical Equipment None Reported. Allergies Allergen ID Allergen Name Allergen Category Reaction Reaction Severity Criticality Documentation Date Start Date Code Code System Note Provider Name and Address Organization Details Recorded Time 207 Bactrim medicatio n rash Not available Not available 08/29/2017 01685 9 RxNorm [facility]a [facility] 8 09:25:35 208 Cipro medicatio n headache Not available Not available 08/29/2017 09085 3 RxNorm ? Smita [facility] 8 09:26:00 209 metronida zole medicatio n headache Not available Not available 08/29/2017 6922 RxNorm ? Smita [facility] 8 09:26:30 Medications Name Sig [...] TAKE ONE TABLET BY MOUTH EVERY DAY 2024 active Not Available Not Available Not Avai lable oseltamivir 75 mg capsule 10/05 completed Not [...] TAKE ONE TABLET BY MOUTH EVERY DAY 2024 active Not Available Not Available Not Avai lable mupirocin 2 % topical ointment APPLY TO [...] GRAMS IN LIQUID AND DRINK [facility]ED [facility] 03/08 completed Not Available Not Available [...] Ultra-Fine Janelle Pen Needle 32 gauge x USE 2 PEN NEEDLES DAILY 2024 active [...] Available Not Available [employer] Sharif 14 Day [place] USE DIRECTED 2023 active Not Available Not [...] (BMI) Body weight Heart rate Oxygen saturation Systolic And Diastolic Provider Name and Address Organization Details Last Updated DateTime 5 151.77 cm 29.3 kg/m2 52842.2 6 g 104 /min 98 % 142/78 mm[Hg] [facility] 5 13:28:40 Date Recorded Body height Body mass index (BMI) Body weight Heart rate Oxygen saturation Systolic And Diastolic Provider Name and Address Organization Details Last Updated DateTime 5 151.77 cm 28.2 kg/m2 16102.7 1 g 97 /min 97 % 108/64 mm[Hg] Taty Matti [facility] 5 13:41:43 Date Recorded Body height Body mass index (BMI) Body weight Oxygen saturation Heart rate Systolic And Diastolic Provider Name and Address Organization Details Last Updated DateTime 5 151.77 cm 28.1 kg/m2 95540.2 7 g 97 % 68 /min 108/72 mm[Hg] TANVIR JALIL [facility] 5 13:38:22 Date Recorded Body height Body mass index (BMI) Body weight Heart rate Oxygen saturation Systolic And Diastolic Provider Name and Address Organization Details Last Updated DateTime 4 151.77 cm 28.2 kg/m2 60640.7 1 g 94 /min 96 % 138/80 mm[Hg] Taty Matti [facility] 4 14:52:28 Date Recorded Body height Body mass index (BMI) Body weight Heart rate Oxygen saturation Systolic And Diastolic Provider Name and Address Organization Details Last Updated DateTime 4 151.77 cm 29.2 kg/m2 89216.4 7 g 96 /min 98 % 128/86 mm[Hg] Meeta Hung [facility] 4 11:30:57 Social History Question Answer Notes LastModified by Organizat ion Details LastModified Time Tobacco Smoking Status Never Smoker Not Available [facility] 04/29/2020 03:36:24 What Was The Date Of Your Most Recent Tobacco Screening? 03/08/2025 [email or web address] Information not available 03/08/2025 Sex: Unknown Functional Status Question Answer Note LastModified by Organization D etails LastModified Time Do you or have you ever used any other forms of tobacco or nicotine? No [email or web address] Information not available 06/10/2023 Mental Status None [...] quadrivalent, preservative 8 completed Not Available [facility] 06/17/2023 13:00:15 COVID-19, mRNA, LNP-S, PF, 30 mcg/0.3 mL dose 1 completed Not Available [facility] 06/17/2023 13:00:15 COVID-19, mRNA, LNP-S, PF, 30 mcg/0.3 mL dose 1 completed Not Available [facility] 06/17/2023 13:00:15 zoster recombinant 5 completed Felix Rosa DO [address] [place] [address], [address], [facility] 11/06/2024 13:56:15 Past Encounters Encounter ID Performer Location Encounter Start Date Encounter Closed Date Diagnosis/Indication Diagnosis SNOMED-CT Code Diagnosis ICD10 Code Diagnosis IMO Codes Diagnosis Note [id number] Felix Rosa DO [facility] [address] [facility],[place] [address] 10/05/2017 13:33:00 10/05/2017 16:41:54 Type 2 diabetes mellitus 52886048 E11.9 compliant with diet , exercise medicines must be careful not to go [id number] 8 will need to increase calorie expenditur e Essential hypertension 68408528 I10 stable no issues takes meds [id number] Felix Rosa DO [facility] [address] [facility], [place] [address] 02/08/2018 13:25:57 02/08/2018 16:08:34 Type 2 diabetes mellitus 23606999 E11.9 compliant with diet , exercise medicines must be careful not to go into a1c 8 will need to increase calorie expenditur e or will increase dose of meds Essential hypertension 18808047 I10 stable no issues takes meds [id number] Felix Rosa DO [facility] [address] [facility],[place] [address] 05/10/2018 13:26:50 05/10/2018 16:37:07 Type 2 diabetes mellitus 85687677 E11.9 compliant with diet , exercise medicines must be careful not to go into a1c 8 will need to increase calorie expenditur e or will increase dose of meds Essential hypertension 35554283 I10 stable no issues takes meds Pain in right knee 77932 95548 01308 M25.561 is progressiv e and is bothering rick with weather change will xray to start 2 sisters have arthritis and father bad arthritis and mother has it with fingers [id number] Felix Rosa [facility] [address] [facility] [address],[place] [address] 07/14/2018 10:18:06 07/18/2018 12:27:25 Type 2 diabetes mellitus 42098029 E11.9 Discussed A1C of 7.9, need to exercise daily and reduce caloric intake Acute bronchitis 2026328 2 J20.9 Call if no better Essential hypertension 52165139 I10 well controlled [id number] Felix Rosa [facility] [address] [facility] [address],[place] [facility] [place] [place] [address] 09/06/2018 13:49:07 09/06/2018 14:29:29 Essential hypertension 73541415 I10 stable no issues takes meds Type 2 obey betes mellitus 09200322 E11.9 compliant with diet , exercise medicines must be careful not to go into a1c 8 will need to increase calorie expenditur e or will increase dose of meds [id number] Felix Rosa [facility] [address] [facility] [address],[place] [facility] [place] [place] [address] 10/24/2018 13:57:55 10/24/2018 15:34:33 Type 2 diabetes mellitus 59228830 E11.9 has f/u November Essential hypertension 86967893 I10 well controlled Routine gy necologic examination done 3211766481 9101 Z01.419 [id number] Felix Rosa [facility] [address] [facility] [address],[place] [address] 12/12/2018 14:16:14 12/12/2018 15:40:36 Adult health examination 701152334 Z00.00 has been stable no major changes will give meds for travel overseas Active or passive immunization 939137956 Z23 [id number] Felix Rosa DO [facility] [address] [facility] [address],[place] [address] 02/06/2019 15:34:46 02/06/2019 16:24:07 Cough 20950479 R05 f/u if cough not improved after changing meds Type 2 obey betes mellitus 60202815 E11.9 Essential hypertension 33629862 I10 very well controlled [id number] Felix Rosa DO [facility] [address] [facility] [address],[place] [address] 03/14/2019 14:39:28 03/14/2019 16:11:40 Type 2 diabetes mellitus 97031694 E11.9 compliant with diet , exercise medicines but sugar is uncontroll ed at 9.2 meds will start her on trulicity 0.75 then up to 1.5 weekly will rechk in 2 mo Essential hypertension 64654699 I10 stable no issues takes meds [id number] Felix Rosa DO [facility] [address] [facility] [address],[place] [address] 05/16/2019 15:04:13 05/16/2019 16:00:41 Type 2 diabetes mellitus 04147867 E11.9 compliant with diet , exercise medicines but sugar is uncontroll ed at 9.2 and was 8.9 and now 9.3 again we will need to refer to endocrine despite the trulicity 1.5 weekly will rechk in 2 mo Essential hypertension 21367412 I10 stable no issues takes meds [id number] Felix Rosa DO [facility] [address] [facility] [address],[place] [address] 06/15/2019 14:53:30 06/15/2019 15:20:23 Essential hypertension 85629243 I10 stable no issues takes meds Type 2 obey betes mellitus 05379426 E11.9 compliant with diet , exercise medicines but sugar is uncontroll ed at 9.2 meds trulicity 0.75 causing rash and didnt budge the a1c she will be seeing endocrine in couple weeks will rechk in 3 mo [id number] Felix Rosa DO [facility] [address] [facility], [place] [address] 09/17/2019 15:00:04 09/17/2019 15:36:00 Type 2 diabetes mellitus 45871156 E11.9 compliant with diet , exercise medicines but sugar is uncontroll ed at 9.9 was 9.2 now on victoza and lantus but given persistant elevated sugar we will have her increase to 15 she will be seeing endocrine in couple weeks will rechk in 3 mo reviewed lab in detail told her she should get a DEXCOM or FREESTYLE SHARIF Essential hypertension 71575652 I10 stable no issues takes meds bp is stable and medication s are tolerated [id number] Felix Rosa DO [facility] [address] [facility], [address] [place] [facility] [place] [address] 12/21/2019 14:46:29 12/21/2019 15:34:54 Type 2 diabetes mellitus 61163405 E11.9 compliant with diet , exercise medicines [...] SHARIF but endocrine will not go to [facility] for her we will try to get this for her she is checking glucose 4 times a day Essential hypertension 51918107 I10 stable no issues takes meds bp is stable and medication s are tolerated [id number] Felix Rosa DO [facility] [address] [facility],[place] [address] 01/29/2020 11:48:42 01/29/2020 12:22:03 Adult health examination 937079355 Z00.00 has been stable no major changes will give meds for travel overseas Essential hypertension 09472211 I10 stable no issues takes meds bp is stable and medication s are tolerated Type 2 obey betes mellitus 25418017 E11.9 now doing great with new med jardiance from the endocrine consult will be cont and her a1c is done to 8.9 from a high of 11.3 months ago doing great and is encouraged to cont her exercise and diet regimen [id number] Felix Rosa [facility] [address] [facility],[place] [address] 06/10/2020 08:46:16 06/10/2020 15:19:29 Type 2 diabetes mellitus 70909723 E11.9 now doing great with new med jardiance from the endocrine consult who is following her now will be cont and her a1c is down to 7.4 from 8.9 from a high of 11.3 months ago doing great and is encouraged to cont her exercise and diet regimen Essential hypertension 21379982 I10 stable no issues takes meds bp is stable and medication s are tolerated Numbness of hand 6066526 04 R20.0 [id number] Felix Rosa [facility] [address] [facility], [address] [place] [facility] [address] 09/10/2020 13:28:37 09/10/2020 14:31:05 Type 2 diabetes mellitus 37895688 E11.9 now doing great with new med jardiance from the endocrine consult who is following her now will be cont and her a1c is down to 7.0 from 7.4 from 8.9 from a high of 11.3 months ago doing great and is encouraged to cont her exercise and diet regimen Essential hypertension 96003088 I10 stable no issues takes meds bp is stable and medication s are tolerated Median neuropathy 643224 008 G56.11 followed by the hand specialist adn will be getting a NCT EMG and 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 and may need surgery depending on the test [id number] Felix Rosa [facility] [address] [facility], [place] [address] 04/24/2021 11:04:37 04/24/2021 11:56:28 Active or passive immunization 739541194 Z23 utd Adult heal th examination 695462404 Z00.00 has been stable no major changeswe will need to have her get the med notes from recent exams Essential hypertension 06664955 I10 stable no issues takes meds bp is stable and medication s are tolerated Type 2 obey betes mellitus 15977755 E11.9 now doing great with new med [...] reported as neg for dm retinopath y [id number] Felix Adrian Diallo [facility] [address] [facility], [place] [facility] [place] [address] 08/24/2021 14:45:29 08/25/2021 15:18:08 Type 2 diabetes mellitus 95453618 E11.9 now doing great with new med [...] neg for dm retinopath y Essential hypertension 16017038 I10 stable no issues takes meds bp is stable and medication s are tolerated Tinea pedis 6620016 B35. 3 will try to treat with cream has extensive amount over her sole of feet bilat [id number] Felix Adrian Diallo [facility] [address] [facility], ite [facility] [place] [address] 09/16/2021 16:03:21 09/18/2021 16:30:36 Thoracic back pain 253654267 M54.6 will start on treatment [id number] Felix Nguyễn Rosa [facility] [address] [facility], ite [facility] [place] [address] 12/08/2021 15:21:35 12/09/2021 14:04:49 Type 2 diabetes mellitus 36909803 E11.9 now doing great with new med [...] neg for dm retinopath y Essential hypertension 50561664 I10 stable no issues takes meds bp is stable and medication s are tolerated Active or passive immunization 437959798 Z23 advised she is due for Tdap and Pneumonia vaccines will consider Screening mammography 24 314467 Z12.31 [id number] Felix Rosa [facility] [address] [facility], [place] [facility] [place] [address] 03/09/2022 15:09:11 03/10/2022 11:35:38 Type 2 diabetes mellitus 23887113 E11.9 now doing great with new med [...] neg for dm retinopath y Essential hypertension 08695055 I10 stable no issues takes meds bp is stable and medication s are tolerated Degenerati on of lumbar intervertebral disc 10294191 M51.36 given prgression of her symptoms and pain down the legs we will order an mri [id number] Felix Rosa [facility] [address] [facility], it[address] [facility] [place] [address] 04/27/2022 10:42:40 04/27/2022 13:07:38 Active or passive immunization 496410268 Z23 advised she is due for Tdap and Pneumonia2 3 Adult heal th examination 794868758 Z00.01 has been stable but she noted to have no improvemen t in her right hand from the carpal tunnel surgfrom last yearwe will need to have her get the med notes from recent exams Screening for malignant neoplasm of colon 565729245 Z12.11 we will consider Degenerati on of lumbar intervertebral disc 51972870 M51.36 given progressio n of her symptoms and pain down the legsbegan her PT last month we will order an mri Carpal ashley jluis syndrome 74014127 G56.01 [id number] Felix Rosa [facility] [address] [facility],[place] [address] 07/27/2022 08:09:37 07/28/2022 12:11:34 Essential hypertension 15088427 I10 stable no issues takes meds bp is stable and medication s are tolerated Type 2 obey betes mellitus 62184699 E11.9 now doing great with new med jardiance from the endocrine consult who is following her nowa1c was at 7,4 then 6.9 and now at 7.2 on jardianced oing great and is encouraged to cont her exercise and diet regimen has had a eye exam and this was reported as neg for dm retinopath y Degenerati on of lumbar intervertebral disc 03490693 M51.36 given progressio n of her symptoms and pain down the legsbegan her PT last month we will order an mri [facility] Carpal ashley jluis syndrome 58773289 G56.01 doing better with a cream with this called rocksaute cream from [facility] Gastroesop hageal reflux disease 754241310 K21.9 she will try otc prilosec or nexium for the next 4 weeks let us know if not helping [id number] Felix Rosa DO [facility] [address] [facility],[place] [employer] [address] 10/27/2022 09:43:29 10/27/2022 13:55:40 Type 2 diabetes mellitus 28996665 E11.9 now doing great with new med jardiance from the endocrine consult who is following her nowa1c was at 7.1 then was 7.0 and 7.2 and 6.9 on jardianced oing great and is encouraged to cont her exercise and diet regimen has had a eye exam and this was reported as neg for dm retinopath y Essential hypertension 48734965 I10 stable no issues takes meds bp is stable and medication s are tolerated Allergic conjunctivitis of bilateral eyes 2133807483 05473 H10.13 we will try an eye drop and hope it is covered [id number] Felix Rosa DO [facility] Internal Medicine [address] [facility],[place] [employer] [place] [address] 03/08/2023 13:31:33 03/08/2023 14:51:20 Essential hypertension 55150514 I10 stable no issues takes meds bp is stable and medication s are tolerated Type 2 obey betes mellitus 87668351 E11.9 now doing great with new med jardiance from the endocrine consult who is following her now is at 6.9 he was at 7.1 then was 7.0 and 7.2 and 6.9 on danuta doing great and is encouraged to cont her exercise and diet regimen has had a eye exam and this was reported as neg for dm retinopath y Gastroesop hageal reflux disease [id number] K21.9 she will try otc prilosec or nexium for the next 4 weeks let us know if not helping [id number] Felix Rosa, [facility] Internal Medicine [address] [facility],[place] [address] 06/10/2023 13:18:32 06/10/2023 14:06:07 Type 2 diabetes mellitus 73516098 E11.9 note she had a mix up with victoza and was off for 3 weeksthis is why it is elevated at 7.5 Essential hypertension 21625640 I10 stable no issues takes meds bp is stable and medication s are tolerated Active or passive immunization 345728101 Z23 advised she is due for Tdap and Pneumonia2 3 Adult heal th examination 600634119 Z00.00 has been stable but she noted to have no improvemen t in her right hand from the carpal tunnel surg and it is getting worse from last yearwe will need to have her get the med notes from recent exams [id number] Felix Rosa [facility] Internal Medicine [address] [facility],[place] [address] 09/28/2023 13:38:40 09/28/2023 15:23:15 Essential hypertension 63094966 I10 stable no issues takes meds bp is stable and medication s are tolerated Type 2 obey betes mellitus 07443656 E11.9 long discussed how she is doing with her sugar feeling well and is having good readingsa1 c is 7.4 was 6.9 just got cortisone shotdiscus sed her diet and exercise and cont to monitor Trigger fi nger of right hand [id number] 8642292 M65.[address] marilyn padilla and is better Epigastric pain 06068585 R10.13 recurrent [id number] Felix Rosa [facility] Internal Medicine [address] [facility] [address],[place] [address] 01/17/2024 13:44:18 01/17/2024 16:27:28 Depression screening 878482244 Z13.31 negative Type 2 obey betes mellitus 31868875 E11.9 long discussed how she is doing with her sugar feeling well and is having good readingsa1 c is 7.9, 7.6, 7.4 was 6.9 just got cortisone shotdiscus sed her diet and exercise and cont to monitor Essential hypertension 49510268 I10 stable no issues takes meds bp is stable and medication s are tolerated Gastropare sis due to type 2 diabetes mellitus 739310844 E11.43 having a lot of post prandial bloating [id number] Felix Rosa [facility] Internal Medicine [address] [facility],[place] [address] 04/24/2024 14:10:05 04/24/2024 15:32:37 Gastroparesis due to type 2 diabetes mellitus 910577570 E11.43 having a lot of post prandial bloating will try reglan Screening for malignant neoplasm of colon 142984910 Z12.11 we will consider please call in 2 weeks with update on med Type 2 obey betes mellitus 88159119 E11.9 long discussed how she is doing with her sugar feeling well and is having good readingsa1 c is 7.9, 7.6, 7.4 was 6.9 just got cortisone shotdiscus sed her diet and exercise and cont to monitor [id number] Felix Rosa [facility] Internal Medicine [address] [facility] [place] [place] [address] 05/15/2024 14:23:57 05/15/2024 15:09:37 Essential hypertension 60897426 I10 stable no issues takes meds bp is stable and medication s are tolerated Gastropare sis due to type 2 diabetes mellitus 129095095 E11.43 finally feels markedly better will cont for now until she can see GI in a month or sopt warned and understand s the sx of tardive dyskinesia and what to look out for and to stop immediatel y and call me Allergic conjunctivitis of bilateral eyes [id number] 09158 H10.13 we will try an eye drop and hope it is covered [id number] Felix Dorantesda, [facility] Internal Medicine [address] [facility],[place] [address] 06/12/2024 11:11:00 06/12/2024 11:51:02 Active or passive immunization 444418680 Z23 advised she is due for Tdap and Pneumonia2 3 Adult heal th examination 254036531 Z00.01 has been stable but she noted to have an ongoing pneumoniti s post viral from last yearwe will need to have her get the med notes from recent exams Pneumonitis 613603666 J1 8.9 [id number] Felix Adrian Diallo [facility] Internal Medicine [address] [facility],[place] [address] 07/31/2024 13:17:33 07/31/2024 14:30:37 Essential hypertension 31879163 I10 stable no issues takes meds bp is stable and medication s are tolerated Type 2 obey betes mellitus 50876951 E11.9 long discussed how she is doing with her sugar feeling well and is having good readings a1c is 7.6 now doing better PYZWBh4s is 7.9, 7.6, 7.4 was 6.9 just got cortisone shotdiscus sed her diet and exercise and cont to monitor Gastropare sis due to type 2 diabetes mellitus 383538574 E11.43 doing well no TD side effect given she is on mounjaro and off victoza we will have her stop the am metoclopra mide and only take in the evening also if this is still good she will stop the evening dose too Vitamin D deficiency 347 60531 E55.9 level was<4 now on supp we will have her get rechk lab in 2 mo [id number] Felix Nguyễn Rosa [facility] Internal Medicine [address] [facility],[place] [address] 11/06/2024 13:32:34 11/06/2024 14:14:02 Gastroparesis due to type 2 diabetes mellitus 962420351 E11.43 doing well no TD side effect given she is on mounjaro and off victoza we will have her stop the am metoclopra mide and only take in the evening also if this is still good she will stop the evening dose too Depression screening 171 979417 Z13.31 negative Essential hypertension 75719267 I10 stable no issues takes meds bp is stable and medication s are tolerated Type 2 obey betes mellitus 11004795 E11.9 has noticed she is going lower on sugars told to keep eye on this and if she happens to bottom out again she is to decrease dose to once a day metformin long discussed how she is doing with her sugar feeling well and is having good readings a1c is 7.6 now doing better SNOIMd3r is 7.9, 7.6, 7.4 was 6.9 just got cortisone shotdiscus sed her diet and exercise and cont to monitor [id number] Felix Rosa, [facility] Internal Medicine [address] [facility] [address],[place] [address] 03/08/2025 13:25:36 03/08/2025 14:36:49 Depression screening 192831935 Z13.31 negative Essential hypertension 97950046 I10 stable no issues takes meds bp is stable and medication s are tolerated Type 2 obey betes mellitus 15979823 E11.9 a1c is 8.7 she need to [...] readings a1c is 7.6 now doing better WZMCNa5a is 7.9, 7.6, 7.4 was 6.9 just got cortisone shotdiscus sed her diet and exercise and cont to monitor Diverticular disease 397 415673 K57.90 902608 discussed diet Chronic constipation 236 890240 K59.09 729620 using otc daily may try miralax every 3 days prn Health Concerns Section Related Observation LastModified by Organization Detai ls LastModified Time None Recorded Concern Status LastModified by Organization Details LastModified Time None Recorded Advance Directives Directive None Recorded Payers Insurance Date Sequence Insurance Name Policy Number Policy Moreno Covered Member ID Moreno Member ID Guarantor Name 03/05/[address] [place] [address] [id number] Luana Garcia [id number] Luana Garcia Notes Date Note Type Note Provider Name and Address Organization Details Recorded Time 4 text/htm l ROS as noted in the HPI here for rechkstates she has felt fantastic since starting on the metoclopramidestates no longer feels full or bloated and states now that she finished the tow weeks worth her sx are coming back Felix Rosa, DO [address] [place], [address], [facility] Internal Medicine 05/15/2024 15:10:27 4 [...] and having tiredness Felix Rosa, DO [address] [place], [address], [facility] Internal Medicine 06/12/2024 11:49:42 5 [...] mounjaro also causes Felix Rosa, DO [address] [place], [address], [facility] Internal Medicine 07/31/2024 13:50:21 5 text/htm l Care Management - HypertensionReported by [facility] self care, patient reportsnot under emotional stress. [...] low with sugars Felix Rosa, DO [address] [facility], [place], [address], [facility] Internal Medicine 11/06/2024 15:30:41 5 text/htm l Care Management - HypertensionReported by [facility] self care, patient reportsnot under emotional stress. For severity, patient reportssymptoms are improvinganddoes not interfere with daily activities. For associated symptoms, patient reportsno dizziness,no lightheadedness,no chest pain,no shortness of breath,no palpitations,no edema,no calf muscle cramps,no blurred vision,no confusion,no headaches, andno fatigue. Care Management - DiabetesReported by [facility], patient reportsseeing eye doctor yearly [...] her left thumb Felix Rosa, DO [address] [facility], [place], [address], [facility] Internal Medicine 03/08/2025 14:12:43 OBGyn Episode No OBEpisode recorded.
--- OUTSIDE RECORDS SUMMARY | 2025-05-31 19:36 | XMS_ITS | Encounter Summary ---
Author Organization [facility] Address [address] [place] [address] Phone Care Team Providers Care Instructional Designer Name Role Phone Felix Landrum Primary Care Provider Encounter Details Date Type Department Care Team (Late st Contact Info) Description 12/12/2022 Procedure Pass [facility], Ct Scan - [address] [address] Social History Tobacco Use Types Packs/Day Years [...] 7:12 PM EDT Mary Kauffman RN * [place] Suicide Severity Rating Scale (Screener/Recent Self-Report) Question [...] on filedocumented in this encounter Care Teams Instructional Designer Relationship Specialty Start Date End Date Felix Landrum DO [email or web address] PCP - General 06/30/17 documented as of this encounter Additional Source Comments The information contained in this document represents components of the legal health record. It is not the complete legal health record.[facility]
--- OUTSIDE RECORDS SUMMARY | 2025-05-31 19:36 | XMS_ITS | Encounter Summary ---
Author Organization [facility] Address [address] [place] [address] Phone Care Team Providers Care Pearl Maker Name Role Phone Felix Landrum DO Primary Care Provider [phone] Encounter Details Date Type Department Care Team (Late st Contact Info) Description 01/23/2021 Prep for Surgery [facility] Orthopedics & Sports Medicine [address] [place] [address] [id number] Ping Beck MD [address] [place] [address] Orthopedics & Sports Medicine, [facility] [address] [email or web address] Social History Tobacco Use Types Packs/Day Years [...] on filedocumented in this encounter Care Teams Pearl Maker Relationship Specialty Start Date End Date Felix Landrum DO [email or web address] PCP - General 06/30/17 documented as of this encounter Additional Source Comments The information contained in this document represents components of the legal health record. It is not the complete legal health record.[facility]
--- OUTSIDE RECORDS SUMMARY | 2025-05-31 19:36 | XMS_ITS | Encounter Summary ---
Author Organization [facility] Address [address] [place] [address] Phone Care Team Providers Care Sr. Logistics Analyst Name Role Phone Felix Landrum DO Primary Care Provider [phone] Encounter Details Date Type Department Care Team (Late st Contact Info) Description 02/06/2021 Procedure Pass [place] Admitting Dept - [facility] Department [address] [place] [id number] Social History Tobacco Use Types Packs/Day Years [...] on filedocumented in this encounter Care Teams Sr. Logistics Analyst Relationship Specialty Start Date End Date Felix Landrum DO PCP - General 06/30/17 documented as of this encounter Additional Source Comments The information contained in this document represents components of the legal health record. It is not the complete legal health record.[facility]
--- OUTSIDE RECORDS SUMMARY | 2025-05-31 19:36 | XMS_ITS | Clinical Summary ---
Author Organization [facility] Address [address] [place] [address] Phone Care Team Providers Care Integration Developer Name Role Phone Felix Landrum DO Primary Care Provider [phone] Allergies Active Allergy Reactions Criticality Noted Date [...] scanning reader (FREESTYLE SHARIF 14 DAY READER) [facility] FreeStyle Sharif 14 Day [place] USE DIRECTED Active acetaminophen (TYLENOL) 325 mg [...] topic Medical Devices Not on file Insurance [facility] Member Subscriber Plan / Payer (Ef fective 2022-Present) Name:Luana Garcia Relation to Subscriber:Self Name:Luana Garcia Payer ID:Not on file Type:HMO Address: [address] [address] [facility] Member Subscriber Plan / Payer (Ef fective 2022-Present) Name:Luana Garcia Relation to Subscriber:Self Name:Luana Garcia Payer ID:Not on file Type:HMO Address: [address] [address] [facility] Member Subscriber Plan / Payer (Ef fective 2022-Present) Name:Luana Garcia Relation to Subscriber:Self Name:Luana Garcia Payer ID:Not on file Type:HMO Address: [address] [address] [facility] Member Subscriber Plan / Payer (Ef fective 2022-) Name:Luana Garcia Relation to Subscriber:Self Name:Luana Garcia Payer ID:Not on file Type:HMO Address: [address] [address] [facility] Member Subscriber Plan / Payer (Ef fective 2022-) Name:Luana Garcia Relation to Subscriber:Self Name:Luana Garcia Payer ID:Not on file Type:HMO Address: [address] [address] [facility] Member Subscriber Plan / Payer (Ef fective 2022-Present) Name:Luana Garcia Relation to Subscriber:Self Name:Luana Garcia Payer ID:Not on file Type:HMO Address: [address] [address] Member Subscriber Plan / Payer (Ef fective 2022-Present) Name:Luana Garcia Relation to Subscriber:Self Name:Luana Garcia Payer ID:Not on file Type:HMO Address: [address] [address] [facility] Member Subscriber Plan / Payer (Ef fective 2022-Present) Name:Luana Garcia Relation to Subscriber:Self Name:Luana Garcia Payer ID:Not on file Type:HMO Address: [address] [address] [facility] Member Subscriber Plan / Payer (Ef fective 2022-Present) Name:Luana Garcia Relation to Subscriber:Self Name:Luana Garcia Payer ID:Not on file [place] Address: [address] [address] [employer] Member Subscriber Plan / Payer (Ef fective 2022-Present) Name:Luana Garcia Relation to Subscriber:Self Name:Luana Garcia Payer ID:Not on file Type:Indemnity Address: [address] Member Subscriber Plan / Payer (Ef fective 2022-Present) Name:Luana Garcia Relation to Subscriber:Self Name:Luana Garcia Payer ID:Not on file Type:[facility] Address: [address] [address] Care Teams Integration Developer Relationship Specialty Start Date End Date Felix Landrum DO PCP - General 06/30/17 Additional Source Comments The information contained in this document represents components of the legal health record. It is not the complete legal health record.[facility]
--- OUTSIDE RECORDS SUMMARY | 2025-05-31 19:36 | XMS_ITS | Continuity of Care Document ---
[facility] Organization [facility], [facility] Address [address] [place] [address] Assessment Encounter Date Assessment Date Assessment LastModified by Organization Details LastModified Time 03/08/2025 03/08/2025 [id number] [place] [id number] (ARTISTIC DIRECTOR) MDM MODERATE MUST MEET 2 OUT OF [...] Appointments ANNUAL EXAM 2024 09:30A M DR RSOA Not available Not available Not available FOLLOW UP 15 2025 01:30P M DR ROSA Not available Not available Not available Lab None recorded . Referral None recorded . Procedures None recorded . Surgeries None recorded . Imaging None recorded . Medication Orders None recorded . Patient TargetsNo targets recorded. Patient InstructionsNo instructions recorded. Reason for Referral None Reported. Results Created Date Observation Date Name Description Value Unit Range Abnormal Flag Note LastModifiedBy Organization Detail LastModifiedTime Result Notes None recorded. Problems Name Problem SNOMED Code Status Onset Date Resolution Date Notes Provider Name and Address Organization Details Recorded Time History of abdominal hysterect reji 287805597 Active 2017 cervix cranes intact Not Available [facility] 3 06:36:37 Essential hypertens ion 56070523 Active 2017 Meeta del rosario [facility] 4 11:13:37 Obesity 689595711 Active 2017 Meeta del rosario [facility] 4 11:13:54 Type 2 diabetes mellitus 35108724 Active 2017 Meetakarl del rosario [facility] 4 11:13:45 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 Not Available [facility] 3 06:36:37 Thoracic arthritis 7935484 Active 2021 Not Available [facility] 3 06:36:37 Degenerat ion of lumbar intervert ebral disc 06690686 Active 2021 Not Available [facility] 3 06:36:37 Carpal tunnel syndrome 74840555 Active 2021 Not Available [facility] 3 06:36:37 Carpal tunnel syndrome 00978003 Active 2022 Not Available [facility] 3 06:36:37 Gastroeso phageal reflux disease 021904947 Active 2022 Not Available [facility] 3 06:36:37 Allergic conjuncti vitis of bilateral eyes 94836753231 9102 Active 2022 Not Available [facility] 3 06:36:37 Trigger finger of right hand 77323565989 322418 Active 2023 Felix Rosa, [address] [place] [address], [address], [facility] 4 14:26:48 Epigastri c pain 45547439 Active 2023 Felix Rosa DO [address] [place] [address], [phone], [facility] 4 14:28:25 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 Felix Rosa, DO [address] [place] [address], [address], [facility] 4 14:20:10 Gastropar esis due to type 2 diabetes mellitus 197494636 Active 2023 Felix Rosa, DO [address] [place] [address], [address], [facility] 4 14:21:16 Cough 61580638 Active 2023 Felix Dorantesstella, DO [address] [place] [address], [address], [facility] 4 11:05:01 Pneumonit is 014292279 Active 2023 Felix Rosa, DO [address] [place] [address], [address], [facility] 4 11:45:45 Gastropar esis due to diabetes mellitus 714566473 Active 2024 Felix Adrian Diallo, DO [address] [place] [address], [address], [facility] 5 08:48:23 Vitamin D deficienc y 31791782 Active 2024 Felix Rosa, DO [address] [place] [address], [address], [facility] 5 13:45:03 Diverticu lar disease 093870596 Active 2024 Felix Adrian Diallo, [address], [address], [facility] 5 14:03:02 Chronic constipat ion 044244278 Active 2024 Felix Adrian Jose Estella, [address], [address], [facility] 5 14:03:49 Notes:Some problems listed i n Documents: #[id number], #[id number], #[id number], #[id number], #[id number], #[id number], #[id number] could not be added to this patient's chart. Please review these documents and add these problems to the patient's chart manually as needed. Problem Notes None recorded. Procedures Surgical History Date Name Laterality Status Provider Name and Address Organization Details Recorded Time 01/02/20 25 Most Recent Mammogram completed Meeta Hung [facility] 01/15/2025 08:46:16 06/27/19 16 Date of Last Pap Smear completed Donna Lyon NP, S [address] [place] [address], [phone], [facility] 10/24/2018 14:19:18 Partial Hysterectomy completed Donna Lyon NP, S [address] [place] [address], [address], [facility] 10/24/2018 14:18:36 Imaging Results None recorded. Procedure Notes None recorded. Medical Equipment None Reported. Allergies Allergen ID Allergen Name Allergen Category Reaction Reaction Severity Criticality Documentation Date Start Date Code Code System Note Provider Name and Address Organization Details Recorded Time 207 Bactrim medicatio n rash Not available Not available 08/29/2017 45774 9 RxNorm Smita Igetristan [facility] 8 09:25:35 208 Cipro medicatio n headache Not available Not available 08/29/2017 06019 3 RxNorm ? Smita Igel [facility] 8 09:26:00 209 metronida zole medicatio n headache Not available Not available 08/29/2017 6922 RxNorm ? Smita Igetristan [facility] 8 09:26:30 Medications Name Sig Start Date [...] GRAMS IN LIQUID AND DRINK DIRECTED [facility] 03/08 completed Not Available Not Available [...] Available Not Available [employer] 14 Day [place] USE DIRECTED 2023 active Not Available Not [...] Updated DateTime 5 151.77 cm 28.1 kg/m2 58716.2 7 g 97 % 68 /min 108/72 mm[Hg] [facility] 13:38:22 Social History Question Answer Notes LastModified by Organizat ion Details LastModified Time Tobacco Smoking Status Never Smoker Not Available [facility] 04/29/2020 03:36:24 What Was The Date Of Your Most Recent Tobacco Screening? 03/08/2025 [email or web address] Information not available 03/08/2025 Sex: Unknown Functional Status Question Answer Note LastModified by Organization D etails LastModified Time Do you or have you ever used any other forms of tobacco or nicotine? No [email or web address] Information not available 06/10/2023 Mental Status None recorded. Family History Relationship Description Onset Age of this Age Resolved Age Notes LastModified by Organization Details LastModified Time Mother Type 2 diabetes mellitus 65 [email or web address] Not available 2018 14:17:37 Father Myocardial infarction [...] mcg/0.3 mL dose 1 completed Not Available [facility] 06/17/2023 13:00:15 zoster recombinant 5 completed Felix Rosa DO [address] [place] [address], [phone] 11/06/2024 13:56:15 Past Encounters Encounter ID Performer Location Encounter Start Date Encounter Closed Date Diagnosis/Indication Diagnosis SNOMED-CT Code Diagnosis ICD10 Code Diagnosis IMO Codes Diagnosis Note [id number] Felix Rosa DO [facility] [address],[place] [address] 03/08/2025 13:25:36 03/08/2025 14:36:49 Depression screening 439688350 Z13.31 negative Essential hypertension 87962379 I10 stable no issues takes meds bp is stable and medication s are tolerated Type 2 obey danitza mellitus 80931793 E11.9 a1c is 8.7 she need to [...] readings a1c is 7.6 now doing better EDKFZq5i is 7.9, 7.6, 7.4 was 6.9 just got cortisone shotdiscus sed her diet and exercise and cont to monitor Diverticular disease 397 682261 K57.90 836024 discussed diet Chronic constipation 236 681446 K59.09 155393 using otc daily may try miralax every 3 days prn Health Concerns Section Related Observation LastModified by Organization Detai ls LastModified Time None Recorded Concern Status LastModified by Organization Details LastModified Time None Recorded Payers Encounter Date Sequence Insurance Name Policy Number Policy Moreno Covered Member ID Moreno Member ID Guarantor Name 03/08/[address] [place] [address] [id number] Luana Garcia [id number] Luana Garcia Notes Date Note Type Note Provider Name and Address Organization Details Recorded Time 5 text/htm l Care Management - HypertensionReported [...] her left thumb Felix Rosa, DO [address], [place], [address], [facility] 03/08/2025 14:12:43 OBGyn Episode No OBEpisode recorded.
== END 2025-05-31 16:46 | disposition home or self-care (01) ==
LOC: HO.HGI 15:39
PROVIDERS: PCP Internal Medicine; Visit Provider Nurse Practitioner Family
DX: K31.84 Gastroparesis (principal); R74.01 Elevation of levels of liver transaminase levels; R14.0 Abdominal distension (gaseous); K59.01 Slow transit constipation
CPT/HCPCS: 99214; G2211

== ENCOUNTER 2025-06-08 07:23 | Outpatient (REF) | payer OTHER, SELFPAY ==
--- OUTSIDE RECORDS SUMMARY | 2025-06-08 07:27 | XMS_ITS | Encounter Summary ---
Author Organization [facility] Address [address] [place] [address] Phone Care Team Providers Care Book Store Associate Name Role Phone Felix Landrum Primary Care Provider [phone] Encounter Details Date Type Department Care Team (Late st Contact Info) Description 12/12/2022 Procedure Pass [facility], Ct Scan - [address] [address] Social History Tobacco Use Types Packs/Day Years [...] 7:12 PM EDT Mary Kauffman RN * Desha Suicide Severity Rating Scale (Screener/Recent Self-Report) Question [...] on filedocumented in this encounter Care Teams Book Store Associate Relationship Specialty Start Date End Date Felix Landrum DO [email or web address] PCP - General 06/30/17 documented as of this encounter Additional Source Comments The information contained in this document represents components of the legal health record. It is not the complete legal health record.[facility]
--- OUTSIDE RECORDS SUMMARY | 2025-06-08 07:27 | XMS_ITS | Encounter Summary ---
Author Organization [facility] Address [address] [place] [address] Phone Care Team Providers Care Saxophone Teacher Name Role Phone Felix Landrum DO Primary Care Provider [phone] Encounter Details Date Type Department Care Team (Late st Contact Info) Description 01/23/2021 Prep for Surgery [facility] [address] [place] [address] [phone] Ping Beck MD [address] [place] [address] Orthopedics & Sports Medicine, [facility] [place] [address] Social History Tobacco Use Types Packs/Day Years [...] on filedocumented in this encounter Care Teams Saxophone Teacher Relationship Specialty Start Date End Date Felix Landrum DO [email or web address] PCP - General 06/30/17 documented as of this encounter Additional Source Comments The information contained in this document represents components of the legal health record. It is not the complete legal health record.[facility]
--- OUTSIDE RECORDS SUMMARY | 2025-06-08 07:27 | XMS_ITS | Data Portability ---
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) [facility] MODERATE MUST MEET 2 OUT OF 3 [...] COVERED Not available 07/31/2024 13:43:16 11/06/2024 11/06/2024 [id number] [place] [id number] (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) [facility] MODERATE MUST MEET 2 OUT OF [...] COVERED Not available 11/06/2024 14:01:10 03/08/2025 03/08/2025 [id number] [place] [address] (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 Procedures None recorded. Surgeries None recorded. Imaging None recorded. Medication Orders azithromy michael 250 mg tablet 2023 024 [facility], [address] [place] [address], [address], 03/08/2025 13:35:10 metoclopr amide 5 mg tablet 2023 024 [facility], [address] [place] [address], [address], 05/15/2024 15:06:34 olopatadi ne 0.1 % eye drops 2023 024 [facility], [address] [place] [address], [address], 03/08/2025 13:36:18 Patient TargetsNo targets recorded. Patient InstructionsNo instructions recorded. Reason for Referral None Reported. Results Created Date Observation Date Name Description Value Unit Range Abnormal Flag Note LastModifiedBy Organization Detail LastModifiedTime 01/15/20 25 01/01/2025 MAMMO , scree ryan, digit al, bilat eral No observ ation record ed. [email or web address] [facility] [address] [place] [address] [place], [address], 01/15/2025 08:46:38 Result Notes None recorded. Problems Name Problem SNOMED Code Status Onset Date Resolution Date Notes Provider Name and Address Organization Details Recorded Time History of abdominal hysterect reji 171554865 Active 2017 cervix cranes intact Not Available [facility] 3 06:36:37 Essential hypertens ion 05330897 Active 2017 Meeta del rosario [facility] 4 11:13:37 Obesity 616971756 Active 2017 Meeta del rosario [facility] 4 11:13:54 Type 2 diabetes mellitus 21825984 Active 2017 Meetakarl del rosario [facility] 4 11:13:45 Median neuropath y 326353154 Active 2020 Not Available [facility] 3 06:36:37 Thoracic arthritis 5059891 Active 2021 Not Available [facility] 3 06:36:37 Degenerat ion of lumbar intervert ebral disc 06057963 Active 2021 Not Available [facility] 3 06:36:37 Carpal tunnel syndrome 95463190 Active 2021 Not Available [facility] 3 06:36:37 Carpal tunnel syndrome 15669248 Active 2022 Not Available [facility] 3 06:36:37 Gastroeso phageal reflux disease 643309795 Active 2022 Not Available [facility] 3 06:36:37 Allergic conjuncti vitis of bilateral eyes 43735140947 9102 Active 2022 Not Available [facility] 3 06:36:37 Trigger finger of right hand 17704425332 363257 Active 2023 Felix Rosa, DO [address] [place] [address], [address], [place] [facility] 4 14:26:48 Epigastri c pain 84621969 Active 2023 Felix Rosa, DO [address] [place] [address], [address], [facility] 4 14:28:25 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 Felix Rosa, DO [address] [place] [address], [address], [facility] 4 14:20:10 Gastropar esis due to type 2 diabetes mellitus 714640352 Active 2023 Felix Adrian Diallo, DO [address] [place] [address], [address], [facility] 4 14:21:16 Cough 72067347 Active 2023 Felix Adrian Diallo, DO [address] [place] [address], [address], [facility] 4 11:05:01 Pneumonit is 240337425 Active 2023 Felix Adrian Diallo, DO [address] [place] [address], [address], [facility] 4 11:45:45 Gastropar esis due to diabetes mellitus 825940931 Active 2024 Felix Adrian Diallo, DO [address] [place] [address], [address], [facility] 5 08:48:23 Vitamin D deficienc y 58398617 Active 2024 Felix Adrian Diallo, DO [address] [place] [address], [address], [facility] 5 13:45:03 Diverticu lar disease 645089206 Active 2024 Felix Rosa, DO [address] [place] [address], [address], [facility] 5 14:03:02 Chronic constipat ion 264108845 Active 2024 Felix Rosa [address], [address], [facility] 5 14:03:49 Notes:Some problems listed i n Documents: #[id number], #[id number], #[id number], #[id number], #[id number], #[id number], #[id number] could not be added to this patient's chart. Please review these documents and add these problems to the patient's chart manually as needed. Problem Notes None recorded. Procedures Surgical History Date Name Laterality Status Provider Name and Address Organization Details Recorded Time 01/02/20 25 Most Recent Mammogram completed Meeta Hung [facility] 01/15/2025 08:46:16 06/27/19 16 Date of Last Pap Smear completed Donna Lyon NP, [address] [place], [address], [facility] 10/24/2018 14:19:18 Partial Hysterectomy completed Donna Lyon NP, S [address] [place] [address], [address], [facility] 10/24/2018 14:18:36 Imaging Results None recorded. Procedure Notes None recorded. Medical Equipment None Reported. Allergies Allergen ID Allergen Name Allergen Category Reaction Reaction Severity Criticality Documentation Date Start Date Code Code System Note Provider Name and Address Organization Details Recorded Time 207 Bactrim medicatio n rash Not available Not available 08/29/2017 48775 9 RxNorm Smita [facility]olds[facility] 8 09:25:35 208 Cipro medicatio n headache Not available Not available 08/29/2017 18970 3 RxNorm ? Smita Goldsmith [facility] 8 09:26:00 209 metronida zole medicatio n headache Not available Not available 08/29/2017 6922 RxNorm ? Smita Goldsmith [facility] 8 09:26:30 Medications Name Sig Start Date [...] pantoprazol e 40 mg tablet,abiola yed release Take 1 tablet every day by oral route for 90 days. 2024 active Not Available Not Available Not [...] GRAMS IN LIQUID AND DRINK DIRECTED BY [facility] T AT [facility] 03/08 completed Not Available Not Available Not [...] Available Not Available [employer] Sharif 14 Day [place] USE DIRECTED 2023 active Not Available Not [...] Updated DateTime 5 151.77 cm 29.3 kg/m2 32097.2 6 g 104 /min 98 % 142/78 mm[Hg] Francisco Andino [facility] 5 13:28:40 Date Recorded Body height Body mass index (BMI) Body weight Heart rate Oxygen saturation Systolic And Diastolic Provider Name and Address Organization Details Last Updated DateTime 5 151.77 cm 28.2 kg/m2 12371.7 1 g 97 /min 97 % 108/64 mm[Hg] Tatystevie Chino [facility] 5 13:41:43 Date Recorded Body height Body mass index (BMI) Body weight Oxygen saturation Heart rate Systolic And Diastolic Provider Name and Address Organization Details Last Updated DateTime 5 151.77 cm 28.1 kg/m2 58836.2 7 g 97 % 68 /min 108/72 mm[Hg] TANVIR JALIL [facility] 5 13:38:22 Date Recorded Body height Body mass index (BMI) Body weight Heart rate Oxygen saturation Systolic And Diastolic Provider Name and Address Organization Details Last Updated DateTime 4 151.77 cm 28.2 kg/m2 82188.7 1 g 94 /min 96 % 138/80 mm[Hg] Taty Chino [facility] 4 14:52:28 Date Recorded Body height Body mass index (BMI) Body weight Heart rate Oxygen saturation Systolic And Diastolic Provider Name and Address Organization Details Last Updated DateTime 4 151.77 cm 29.2 kg/m2 08286.4 7 g 96 /min 98 % 128/86 mm[Hg] Meeta Hung [facility] 4 11:30:57 Social History Question Answer Notes LastModified by Organizat ion Details LastModified Time Tobacco Smoking Status Never Smoker Not Available [facility] 04/29/2020 03:36:24 What Was The Date Of Your Most Recent Tobacco Screening? 03/08/2025 [email or web address] Information not available 03/08/2025 Sex: Unknown Functional Status Question Answer Note LastModified by Organization D etails LastModified Time Do you or have you ever used any other forms of tobacco or nicotine? No [email or web address] Information not available 06/10/2023 Mental Status None [...] virus, quadrivalent, preservative 8 completed Not Available [facility] 06/17/2023 13:00:15 COVID-19, mRNA, LNP-S, PF, 30 mcg/0.3 mL dose 1 completed Not Available [facility] 06/17/2023 13:00:15 COVID-19, mRNA, LNP-S, PF, 30 mcg/0.3 mL dose 1 completed Not Available [facility] 06/17/2023 13:00:15 zoster recombinant 5 completed Felix Rosa DO [address] [place] [address], [address], [facility] 11/06/2024 13:56:15 Past Encounters Encounter ID Performer Location Encounter Start Date Encounter Closed Date Diagnosis/Indication Diagnosis SNOMED-CT Code Diagnosis ICD10 Code Diagnosis IMO Codes Diagnosis Note [id number] Felix Rosa DO [facility] [address] [facility],[place] [address] 10/05/2017 13:33:00 10/05/2017 16:41:54 Type 2 diabetes mellitus 02572445 E11.9 compliant with diet , exercise medicines must be careful not to go [id number] 8 will need to increase calorie expenditur e Essential hypertension 37621297 I10 stable no issues takes meds [id number] Felix Rosa DO [facility] [address] [facility], [place] [address] 02/08/2018 13:25:57 02/08/2018 16:08:34 Type 2 diabetes mellitus 22821463 E11.9 compliant with diet , exercise medicines must be careful not to go into a1c 8 will need to increase calorie expenditur e or will increase dose of meds Essential hypertension 45456815 I10 stable no issues takes meds [id number] Felix Rosa DO [facility] [address] [facility], [place] [facility] [place] [address] 05/10/2018 13:26:50 05/10/2018 16:37:07 Type 2 diabetes mellitus 67712539 E11.9 compliant with diet , exercise medicines must be careful not to go into a1c 8 will need to increase calorie expenditur e or will increase dose of meds Essential hypertension 22153851 I10 stable no issues takes meds Pain in right knee 37312 53504 70787 M25.561 is progressiv e and is bothering rick with weather change will xray to start 2 sisters have arthritis and father bad arthritis and mother has it with fingers [id number] Felix Rosa [facility] [address] [facility] [place] [address] 07/14/2018 10:18:06 07/18/2018 12:27:25 Type 2 diabetes mellitus 09699976 E11.9 Discussed A1C of 7.9, need to exercise daily and reduce caloric intake Acute bronchitis 8676883 2 J20.9 Call if no better Essential hypertension 29160279 I10 well controlled [id number] Felix Rosa [facility] [address] [facility] [place] [place] [address] 09/06/2018 13:49:07 09/06/2018 14:29:29 Essential hypertension 89380377 I10 stable no issues takes meds Type 2 obey betes mellitus 46161523 E11.9 compliant with diet , exercise medicines must be careful not to go into a1c 8 will need to increase calorie expenditur e or will increase dose of meds [id number] Felix Rosa [facility] [address] [facility],[place] [address] 10/24/2018 13:57:55 10/24/2018 15:34:33 Type 2 diabetes mellitus 08396095 E11.9 has f/u November Essential hypertension 99903039 I10 well controlled Routine gy necologic examination done 4779658261 9101 Z01.419 [id number] Felix Rosa [facility] [address] [facility] [address], [place] [employer] [facility] [address] 12/12/2018 14:16:14 12/12/2018 15:40:36 Adult health examination 347156751 Z00.00 has been stable no major changes will give meds for travel overseas Active or passive immunization 851322287 Z23 [id number] Felix Rosa DO [facility] [address] [facility] [address],[place] [address] 02/06/2019 15:34:46 02/06/2019 16:24:07 Cough 75635726 R05 f/u if cough not improved after changing meds Type 2 obey betes mellitus 54204228 E11.9 Essential hypertension 22467027 I10 very well controlled [id number] Felix Rosa DO [facility] [address] [facility] [address],[place] [employer] [place] [address] 03/14/2019 14:39:28 03/14/2019 16:11:40 Type 2 diabetes mellitus 46643038 E11.9 compliant with diet , exercise medicines but sugar is uncontroll ed at 9.2 meds will start her on trulicity 0.75 then up to 1.5 weekly will rechk in 2 mo Essential hypertension 38018902 I10 stable no issues takes meds [id number] Felix Rosa DO [facility] [address] [facility] [address],[place] [employer] [place] [address] 05/16/2019 15:04:13 05/16/2019 16:00:41 Type 2 diabetes mellitus 43382026 E11.9 compliant with diet , exercise medicines but sugar is uncontroll ed at 9.2 and was 8.9 and now 9.3 again we will need to refer to endocrine despite the trulicity 1.5 weekly will rechk in 2 mo Essential hypertension 10216650 I10 stable no issues takes meds [id number] Felix Rosa DO [facility] [address] [facility] [address],[place] [address] 06/15/2019 14:53:30 06/15/2019 15:20:23 Essential hypertension 65237718 I10 stable no issues takes meds Type 2 obey betes mellitus 25285431 E11.9 compliant with diet , exercise medicines but sugar is uncontroll ed at 9.2 meds trulicity 0.75 causing rash and didnt budge the a1c she will be seeing endocrine in couple weeks will rechk in 3 mo [id number] Felix Rosa DO [facility] [address] [facility],[place] [address] 09/17/2019 15:00:04 09/17/2019 15:36:00 Type 2 diabetes mellitus 33547017 E11.9 compliant with diet , exercise medicines but sugar is uncontroll ed at 9.9 was 9.2 now on victoza and lantus but given persistant elevated sugar we will have her increase to 15 she will be seeing endocrine in couple weeks will rechk in 3 mo reviewed lab in detail told her she should get a DEXCOM or FREESTYLE SHARIF Essential hypertension 42659961 I10 stable no issues takes meds bp is stable and medication s are tolerated [id number] Felix Rosa DO [facility] [address] [facility],[place] [address] 12/21/2019 14:46:29 12/21/2019 15:34:54 Type 2 diabetes mellitus 78472856 E11.9 compliant with diet , exercise medicines [...] SHARIF but endocrine will not go to [facility] for her we will try to get this for her she is checking glucose 4 times a day Essential hypertension 88643537 I10 stable no issues takes meds bp is stable and medication s are tolerated [id number] Felix Rosa DO [facility] [address] [facility],[place] [address] 01/29/2020 11:48:42 01/29/2020 12:22:03 Adult health examination 117496462 Z00.00 has been stable no major changes will give meds for travel overseas Essential hypertension 23195580 I10 stable no issues takes meds bp is stable and medication s are tolerated Type 2 obey betes mellitus 03695399 E11.9 now doing great with new med jardiance from the endocrine consult will be cont and her a1c is done to 8.9 from a high of 11.3 months ago doing great and is encouraged to cont her exercise and diet regimen [id number] Felix BenitezCydney Diallo [facility] [address] [facility],[place] [address] 06/10/2020 08:46:16 06/10/2020 15:19:29 Type 2 diabetes mellitus 96165540 E11.9 now doing great with new med jardiance from the endocrine consult who is following her now will be cont and her a1c is down to 7.4 from 8.9 from a high of 11.3 months ago doing great and is encouraged to cont her exercise and diet regimen Essential hypertension 72450816 I10 stable no issues takes meds bp is stable and medication s are tolerated Numbness of hand 5237202 04 R20.0 [id number] Felix Nguyễn Rosa [facility] [address] [facility], [place] [address] 09/10/2020 13:28:37 09/10/2020 14:31:05 Type 2 diabetes mellitus 57697482 E11.9 now doing great with new med jardiance from the endocrine consult who is following her now will be cont and her a1c is down to 7.0 from 7.4 from 8.9 from a high of 11.3 months ago doing great and is encouraged to cont her exercise and diet regimen Essential hypertension 39673326 I10 stable no issues takes meds bp is stable and medication s are tolerated Median neuropathy 871630 008 G56.11 followed by the hand specialist adn will be getting a NCT EMG and 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 and may need surgery depending on the test [id number] Felix Rosa [facility] [address] [facility], [place] [address] 04/24/2021 11:04:37 04/24/2021 11:56:28 Active or passive immunization 890083839 Z23 mdd Adult heal th examination 343593319 Z00.00 has been stable no major changeswe will need to have her get the med notes from recent exams Essential hypertension 73661901 I10 stable no issues takes meds bp is stable and medication s are tolerated Type 2 obey betes mellitus 09269534 E11.9 now doing great with new med [...] reported as neg for dm retinopath y [id number] Felix Nguyễn Diallo [facility] [address] [facility], [place] [address] 08/24/2021 14:45:29 08/25/2021 15:18:08 Type 2 diabetes mellitus 26977303 E11.9 now doing great with new med [...] neg for dm retinopath y Essential hypertension 27805038 I10 stable no issues takes meds bp is stable and medication s are tolerated Tinea pedis 9390252 B35. 3 will try to treat with cream has extensive amount over her sole of feet bilat [id number] Felix Rosa [facility] [address] [facility], [place] [address] 09/16/2021 16:03:21 09/18/2021 16:30:36 Thoracic back pain 713351912 M54.6 will start on treatment [id number] Felix Rosa [facility] [address] [facility], [place] [address] 12/08/2021 15:21:35 12/09/2021 14:04:49 Type 2 diabetes mellitus 59860029 E11.9 now doing great with new med [...] neg for dm retinopath y Essential hypertension 76430161 I10 stable no issues takes meds bp is stable and medication s are tolerated Active or passive immunization 493109584 Z23 advised she is due for Tdap and Pneumonia vaccines will consider Screening mammography 24 685865 Z12.31 [id number] Felix Rosa [facility] [address] [facility],[place] [address] 03/09/2022 15:09:11 03/10/2022 11:35:38 Type 2 diabetes mellitus 79214362 E11.9 now doing great with new med [...] neg for dm retinopath y Essential hypertension 91361994 I10 stable no issues takes meds bp is stable and medication s are tolerated Degenerati on of lumbar intervertebral disc 95611869 M51.36 given prgression of her symptoms and pain down the legs we will order an mri [id number] Felix Rosa [facility] [address] [facility],[place] [employer] [place] [address] 04/27/2022 10:42:40 04/27/2022 13:07:38 Active or passive immunization 023971557 Z23 advised she is due for Tdap and Pneumonia2 3 Adult heal th examination 746604330 Z00.01 has been stable but she noted to have no improvemen t in her right hand from the carpal tunnel surgfrom last yearwe will need to have her get the med notes from recent exams Screening for malignant neoplasm of colon 655030149 Z12.11 we will consider Degenerati on of lumbar intervertebral disc 32388211 M51.36 given progressio n of her symptoms and pain down the legsbegan her PT last month we will order an mri Carpal ashley jluis syndrome 43056150 G56.01 [id number] Felix Rosa [facility] [address] [facility],[place] [address] 07/27/2022 08:09:37 07/28/2022 12:11:34 Essential hypertension 79547628 I10 stable no issues takes meds bp is stable and medication s are tolerated Type 2 obey betes mellitus 02974258 E11.9 now doing great with new med jardiance from the endocrine consult who is following her nowa1c was at 7,4 then 6.9 and now at 7.2 on jardianced oing great and is encouraged to cont her exercise and diet regimen has had a eye exam and this was reported as neg for dm retinopath y Degenerati on of lumbar intervertebral disc 86714527 M51.36 given progressio n of her symptoms and pain down the legsbegan her PT last month we will order an mri [facility] Carpal ashley jluis syndrome 78925535 G56.01 doing better with a cream with this called rocksaute cream from [employer] Gastroesop hageal reflux disease 868175684 K21.9 she will try otc prilosec or nexium for the next 4 weeks let us know if not helping [id number] Felix Rosa DO [facility] [address] [facility], [employer] [address] 10/27/2022 09:43:29 10/27/2022 13:55:40 Type 2 diabetes mellitus 23583841 E11.9 now doing great with new med jardiance from the endocrine consult who is following her nowa1c was at 7.1 then was 7.0 and 7.2 and 6.9 on jardianced oing great and is encouraged to cont her exercise and diet regimen has had a eye exam and this was reported as neg for dm retinopath y Essential hypertension 19789564 I10 stable no issues takes meds bp is stable and medication s are tolerated Allergic conjunctivitis of bilateral eyes 1401046047 47105 H10.13 we will try an eye drop and hope it is covered [id number] Felix Rosa DO [facility] [address] [facility], [employer] [address] 03/08/2023 13:31:33 03/08/2023 14:51:20 Essential hypertension 85712521 I10 stable no issues takes meds bp is stable and medication s are tolerated Type 2 obey betes mellitus 90523359 E11.9 now doing great with new med [...] dm retinopath y Gastroesop hageal reflux disease 412117411 K21.9 she will try otc prilosec or nexium for the next 4 weeks let us know if not helping [id number] Felix Rosa, [facility] Internal Medicine [address] [facility],[place] [facility] [place] [address] 06/10/2023 13:18:32 06/10/2023 14:06:07 Type 2 diabetes mellitus 56770524 E11.9 note she had a mix up with victoza and was off for 3 weeksthis is why it is elevated at 7.5 Essential hypertension 66289451 I10 stable no issues takes meds bp is stable and medication s are tolerated Active or passive immunization 565813281 Z23 advised she is due for Tdap and Pneumonia2 3 Adult heal th examination 724838690 Z00.00 has been stable but she noted to have no improvemen t in her right hand from the carpal tunnel surg and it is getting worse from last yearwe will need to have her get the med notes from recent exams [id number] Felix Rosa, [facility] Internal Medicine [address] [facility],[place] [place] [address] 09/28/2023 13:38:40 09/28/2023 15:23:15 Essential hypertension 93928019 I10 stable no issues takes meds bp is stable and medication s are tolerated Type 2 obey betes mellitus 47631252 E11.9 long discussed how she is doing with her sugar feeling well and is having good readingsa1 c is 7.4 was 6.9 just got cortisone shotdiscus sed her diet and exercise and cont to monitor Trigger fi nger of right hand [id number] M65.[address] got beataisone and is better Epigastric pain 57819996 R10.13 recurrent [id number] Felix Rosa [facility] Internal Medicine [address] [facility] [address],[place] [address] 01/17/2024 13:44:18 01/17/2024 16:27:28 Depression screening 963756393 Z13.31 negative Type 2 obey betes mellitus 41134375 E11.9 long discussed how she is doing with her sugar feeling well and is having good readingsa1 c is 7.9, 7.6, 7.4 was 6.9 just got cortisone shotdiscus sed her diet and exercise and cont to monitor Essential hypertension 66270340 I10 stable no issues takes meds bp is stable and medication s are tolerated Gastropare sis due to type 2 diabetes mellitus 039513978 E11.43 having a lot of post prandial bloating [id number] Felix Rosa [facility] Internal Medicine [address] [facility], [place] [address] 04/24/2024 14:10:05 04/24/2024 15:32:37 Gastroparesis due to type 2 diabetes mellitus 821228613 E11.43 having a lot of post prandial bloating will try reglan Screening for malignant neoplasm of colon 832797469 Z12.11 we will consider please call in 2 weeks with update on med Type 2 obey betes mellitus 36635444 E11.9 long discussed how she is doing with her sugar feeling well and is having good readingsa1 c is 7.9, 7.6, 7.4 was 6.9 just got cortisone shotdiscus sed her diet and exercise and cont to monitor [id number] Felix Rosa [facility] Internal Medicine [address] [facility], [employer] [address] 05/15/2024 14:23:57 05/15/2024 15:09:37 Essential hypertension 01761468 I10 stable no issues takes meds bp is stable and medication s are tolerated Gastropare sis due to type 2 diabetes mellitus 560946996 E11.43 finally feels markedly better will cont for now until she can see GI in a month or sopt warned and understand s the sx of tardive dyskinesia and what to look out for and to stop immediatel y and call me Allergic conjunctivitis of bilateral eyes [id number] 94222 H10.13 we will try an eye drop and hope it is covered [id number] Felix Rosa DO [facility] Internal Medicine [address] [facility] [address],[place] [address] 06/12/2024 11:11:00 06/12/2024 11:51:02 Active or passive immunization 339062289 Z23 advised she is due for Tdap and Pneumonia2 3 Adult heal th examination 214354995 Z00.01 has been stable but she noted to have an ongoing pneumoniti s post viral from last yearwe will need to have her get the med notes from recent exams Pneumonitis 559642568 J1 8.9 [id number] Felix Nguyễn Rosa DO [facility] Internal Medicine [address] [facility],[place] [address] 07/31/2024 13:17:33 07/31/2024 14:30:37 Essential hypertension 85237067 I10 stable no issues takes meds bp is stable and medication s are tolerated Type 2 obey betes mellitus 12467721 E11.9 long discussed how she is doing with her sugar feeling well and is having good readings a1c is 7.6 now doing better [id number] is 7.9, 7.6, 7.4 was 6.9 just got cortisone shotdiscus sed her diet and exercise and cont to monitor Gastropare sis due to type 2 diabetes mellitus 923690017 E11.43 doing well no TD side effect given she is on mounjaro and off victoza we will have her stop the am metoclopra mide and only take in the evening also if this is still good she will stop the evening dose too Vitamin D deficiency 347 29180 E55.9 level was<4 now on supp we will have her get rechk lab in 2 mo [id number] Felix Rosa DO [facility] Internal Medicine [address] [facility],[place] [address] 11/06/2024 13:32:34 11/06/2024 14:14:02 Gastroparesis due to type 2 diabetes mellitus 183016140 E11.43 doing well no TD side effect given she is on mounjaro and off victoza we will have her stop the am metoclopra mide and only take in the evening also if this is still good she will stop the evening dose too Depression screening 171 431851 Z13.31 negative Essential hypertension 05458705 I10 stable no issues takes meds bp is stable and medication s are tolerated Type 2 obey betes mellitus 91500957 E11.9 has noticed she is going lower on sugars told to keep eye on this and if she happens to bottom out again she is to decrease dose to once a day metformin long discussed how she is doing with her sugar feeling well and is having good readings a1c is 7.6 now doing better NJHJEl1w is 7.9, 7.6, 7.4 was 6.9 just got cortisone shotdiscus sed her diet and exercise and cont to monitor [id number] Felix Rosa, [facility] Internal Medicine [address],[place] [address] 03/08/2025 13:25:36 03/08/2025 14:36:49 Depression screening 772797089 Z13.31 negative Essential hypertension 73424468 I10 stable no issues takes meds bp is stable and medication s are tolerated Type 2 obey betes mellitus 84158201 E11.9 a1c is 8.7 she need to [...] readings a1c is 7.6 now doing better [id number] is 7.9, 7.6, 7.4 was 6.9 just got cortisone shotdiscus sed her diet and exercise and cont to monitor Diverticular disease 397 349040 K57.90 682117 discussed diet Chronic constipation 236 666884 K59.09 029821 using otc daily may try miralax every 3 days prn Health Concerns Section Related Observation LastModified by Organization Detai ls LastModified Time None Recorded Concern Status LastModified by Organization Details LastModified Time None Recorded Advance Directives Directive None Recorded Payers Insurance Date Sequence Insurance Name Policy Number Policy Moreno Covered Member ID Moreno Member ID Guarantor Name 03/05/2025 1 [facility] [id number] Luana Garcia [id number] Luana Garcia Notes Date Note Type Note Provider Name and Address Organization Details Recorded Time 4 text/htm l ROS as noted in the HPI here for rechkstates she has felt fantastic since starting on the metoclopramidestates no longer feels full or bloated and states now that she finished the tow weeks worth her sx are coming back Felix Rosa, DO [address] [place], [address], [facility] Internal Medicine 05/15/2024 15:10:27 4 [...] and having tiredness Felix Rosa, DO [address] [place], [address], [facility] Internal Medicine 06/12/2024 11:49:42 5 [...] mounjaro also causes Felix Rosa, DO [address] [place], [address], [facility] Internal Medicine 07/31/2024 13:50:21 5 text/htm l Care Management - HypertensionReported by [facility] self [facility], patient reportsnot under emotional stress. [...] low with sugars Felix Rosa, DO [address] [facility], [place], [address], [facility] Internal Medicine 11/06/2024 15:30:41 5 text/htm l Care Management - HypertensionReported by [facility] self care, patient reportsnot under emotional stress. For severity, patient reportssymptoms are improvinganddoes not interfere with daily activities. For associated symptoms, patient reportsno dizziness,no lightheadedness,no chest pain,no shortness of breath,no palpitations,no edema,no calf muscle cramps,no blurred vision,no confusion,no headaches, andno fatigue. Care Management - DiabetesReported by PatientHPor self care, patient reportsseeing eye doctor yearly [...] her left thumb Felix Rosa, DO [address] [facility], [place], [address], [facility] 03/08/2025 14:12:43 OBGyn Episode No OBEpisode recorded.
--- OUTSIDE RECORDS SUMMARY | 2025-06-08 07:27 | XMS_ITS | Patient Health Record ---
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 Name Role Phone Diallo Felix Primary Care Provider Kamlesh Mac [phone] Allergies Allergen (clinical drug ingredient) Drug/Non Drug Allergy documented on EMR Reaction Allergy Type Onset Date Status Sulfa Unknown Drug Allergy Active Reason For Referral No Information Medications Medication SIG (Take, Route, Frequency, Duration) Notes Start Date End Date Status Invokana 300 MG Tablet 1 tablet Orally O nce a day Active metFORMIN HCl 1000 MG Tablet 1 tablet wi th meals Orally Twice a day Active Lovastatin 40 MG Tablet 1 tablet with a meal Orally Once a day Active Lisinopril 10 MG Tablet 1 tablet Orally Once a day Active hydroCHLOROthiazide 25 MG Tablet 1 tablet in the morning Orally Once a day Active Social History Tobacco Use: Social History Observation Description Date Details (start date - stop date) Never Smoker NA - NA Social History Drugs/Alcohol: Social Info Question Answer Notes Alcohol Screen Did you have a drink containing alcohol in the past year? 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 Section Notes: Nonsmoker; no sig alcohol Problems Problem Type SNOMED Code ICD Code Onset Dates Problem Status W/U Status Risk Notes Problem Barium swallow abnormal (270391143) Abnormal barium swallow (R93.3) Active confirmed Problem Esophageal dysphagia (53460102) Esophageal dysphagia (R13.10) Active confirmed Plan Of Treatment Pending Test Test Name Order Date Esophageal Motility study 04/26/2017 Future Test Test Name Order Date UPPER GI ENDOSCOPY B[place] DILATION OF ESOPH 04/08/2017 Insurance Providers Payer Name Payer Address Payer Phone Subscriber Number Group Number Insured Name Patient Relationship to Insured Coverage Start Date Coverage End Date [facility] [address] [place] [phone] [id number] KELLEY STONER Self - patient is the insured Medical (General) History Medical History History ICD Code Denies [place],CVA,Lung disease,renal disease NIDDM HTN [place] [facility] [place] History Surgery Date(Month/Year) Hysterectomy
--- OUTSIDE RECORDS SUMMARY | 2025-06-08 07:27 | XMS_ITS | Clinical Summary ---
Author Organization [facility] Address [address] [place] [address] Phone Care Team Providers Care Payroll Assistant Name Role Phone Felix Landrum DO Primary Care Provider [phone] Allergies Active Allergy Reactions Criticality Noted Date [...] scanning reader [place]FREESTYLE SHARIF 14 DAY READER[place] [facility] [place] 14 Day [place] USE DIRECTED Active acetaminophen (TYLENOL) 325 mg [...] topic Medical Devices Not on file Insurance [facility] [employer] INSURANCE Member Subscriber Plan / Payer (Ef fective 2022-Present) Name:Luana Garcia Relation to Subscriber:Self Name:Luana Garcia Payer ID:Not on file Type:Indemnity Address: [address] Care Teams Payroll Assistant Relationship Specialty Start Date End Date Felix Landrum DO PCP - General 06/30/17 Additional Source Comments The information contained in this document represents components of the legal health record. It is not the complete legal health record.[facility]
--- OUTSIDE RECORDS SUMMARY | 2025-06-08 07:27 | XMS_ITS | Encounter Summary ---
Author Organization [facility] Address [address] [place] [address] Phone Care Team Providers Care Manager Animal Name Role Phone Felix Landrum DO Primary Care Provider [phone] Encounter Details Date Type Department Care Team (Late st Contact Info) Description 02/06/2021 Procedure Pass OR Admitting Dept - [facility] Department [address] [place] [address] Social History Tobacco Use Types Packs/Day Years [...] on filedocumented in this encounter Care Teams Manager Animal Relationship Specialty Start Date End Date Felix Landrum DO PCP - General 06/30/17 documented as of this encounter Additional Source Comments The information contained in this document represents components of the legal health record. It is not the complete legal health record.[facility]
== END 2025-06-08 07:24 | disposition home or self-care (01) ==
LOC: HO.LAB 07:23
PROVIDERS: PCP Internal Medicine; Visit Provider Internal Medicine
DX: E11.9 Type 2 diabetes mellitus without complications (principal); E55.9 Vitamin D deficiency, unspecified
CPT/HCPCS: 36415; 82306; 83036